=== PATIENT | female | born 1985 | race Caucasian/White ===

== ENCOUNTER 2019-07-13 13:49 | Emergency (ER) | payer OTHER ==
--- OUTSIDE RECORDS SUMMARY | 2019-07-13 13:52 | XMS REPORT ---
:1985 Author Organization [facility] Address [address] [place] [address] Dr. R[address] [place] [id number] Care Team Providers Name Role Phone Unavailable Unavailable Unavailable Payers Payer Name Policy Type Policy Number Effective Date Expiration Date Problems This patient has no known problems. Allergies, Adverse Reactions, Alerts Allergy Allergy Status Severity Reaction(s) Onset Inactive Treating Comments Name Type Date Date Clinician CHESTER KHAN Active SV 2018-03 00:00:0 0 Medications This patient has no known medications.
--- OUTSIDE RECORDS SUMMARY | 2019-07-13 13:52 | XMS REPORT ---
:1985 Author Organization eClinicalWorks Care Team Providers Name Role Phone Betsy Mehta Provider Role Unavailable Allergies, Adverse Reactions, Alerts Substance Reaction Event Type Ibuprofen Anaphylaxis Drug Allergy Aspirin Anaphylaxis Drug Allergy Problems Problem Type Condition Code Onset Dates Condition Status Problem Seasonal allergies J30.2 Active Problem Oropharyngeal dysphagia R13.12 Active Problem Cough R05 Active Assessment Other chronic gastritis without K29.50 Active hemorrhage Assessment Eosinophilic esophagitis K20.0 Active Assessment Restless leg syndrome G25.81 Active Problem Eosinophilic esophagitis K20.0 Active Problem Other chronic gastritis without K29.50 Active hemorrhage Problem Esophageal stricture K22.2 Active Problem Restless leg syndrome G25.81 Active Problem Viral URI J06.9 Active Problem Pain in right leg M79.604 Active Problem Pain in left leg M79.605 Active Medications Medication Code Code Instructions Start End Status Dosage System Date Date Pantoprazole [facility] 97342048986 40 MG Orally Active 1 tablet Sodium Once a day Gabapentin ND 80719262333 300 MG Orally Apr 06, Active 1 capsule twice a day 2018 Results No Known Results Summary Purpose eClinicalWorks Submission
--- OUTSIDE RECORDS SUMMARY | 2019-07-13 13:52 | XMS REPORT ---
:1985 Author Organization eClinicalWorks Care Team Providers Name Role Phone Tyson Betsy Provider Role Unavailable Allergies, Adverse Reactions, Alerts Substance Reaction Event Type Ibuprofen Anaphylaxis Drug Allergy Aspirin Anaphylaxis Drug Allergy Problems Problem Type Condition Code Onset Dates Condition Status Assessment Pain in right leg M79.604 Active Assessment Restless leg syndrome G25.81 Active Assessment Pain in left leg M79.605 Active Problem Pain in right leg M79.604 Active Problem Pain in left leg M79.605 Active Problem Restless leg syndrome G25.81 Active Problem Viral URI J06.9 Active Problem Seasonal allergies J30.2 Active Problem Oropharyngeal dysphagia R13.12 Active Problem Cough R05 Active Medications Medication Code System Code Instructions Start End Date Status Dosage Date Gabapentin [facility] 97284583721 100 MG Orally Apr 06, Active 1 capsule twice a day 2018 Results No Known Results Summary Purpose eClinicalWorks Submission
--- OUTSIDE RECORDS SUMMARY | 2019-07-13 13:52 | XMS REPORT ---
:1985 Author Organization eClinicalWorks Care Team Providers Name Role Phone Betsy Mehta Provider Role Unavailable Allergies, Adverse Reactions, Alerts Substance Reaction Event Type Ibuprofen Anaphylaxis Drug Allergy Aspirin Anaphylaxis Drug Allergy Problems Problem Type Condition Code Onset Dates Condition Status Assessment Oropharyngeal dysphagia R13.12 Active Assessment Viral URI J06.9 Active Assessment Cough R05 Active Problem Viral URI J06.9 Active Problem Oropharyngeal dysphagia R13.12 Active Problem Cough R05 Active Assessment Fever, unspecified fever cause R50.9 Active Assessment Sorethroat J02.9 Active Problem Seasonal allergies J30.2 Active Medications Medication Code System Code Instructions Start Date End Date Status Dosage Kayla NDC 0 Active not defined Results No Known Results Summary Purpose eClinicalWorks Submission
--- OUTSIDE RECORDS SUMMARY | 2019-07-13 13:52 | XMS REPORT ---
:1985 Author Organization eClinicalWorks Care Team Providers Name Role Phone Lona Mehtaa Provider Role Unavailable Allergies, Adverse Reactions, Alerts Substance Reaction Event Type Ibuprofen Anaphylaxis Drug Allergy Aspirin Anaphylaxis Drug Allergy Problems Problem Type Condition Code Onset Dates Condition Status Problem Seasonal allergies J30.2 Active Problem Oropharyngeal dysphagia R13.12 Active Problem Cough R05 Active Assessment Seasonal allergies J30.2 Active Assessment Cough R05 Active Assessment Viral URI J06.9 Active Problem Eosinophilic esophagitis K20.0 Active Problem Other chronic gastritis without K29.50 Active hemorrhage Problem Esophageal stricture K22.2 Active Problem Restless leg syndrome G25.81 Active Problem Viral URI J06.9 Active Problem Pain in right leg M79.604 Active Problem Pain in left leg M79.605 Active Medications Medication Code Code Instructions Start End Status Dosage System Date Date Pantoprazole [facility] 76716643671 40 MG Orally Active 1 tablet Sodium Once a day ProAir HFA [facility] 86757834426 108 (90 Base) Jul 01, Active 1 puff as MCG/ACT 2019 needed Inhalation every 4 hrs as needed Gabapentin ND 31998160605 300 MG Orally Apr 06, Active 1 capsule twice a day 2019 Results Name Result Date Reference Range Unit Abnormality Flag Nebulizer Combo Summary Purpose eClinicalWorks Submission
[2019-07-13] MEDS ORDERED: ONDANSETRON 4 MG (ODT) TAB ONE (14:31)
--- NOTE | 2019-07-13 15:10 | ER ---
Nurse's Notes [facility] Name: Renea Solano Age: 34 yrs Sex: Female : 1985 Arrival Date: 07/13/2019 Time: 13:56 Bed 25 Private MD: Diagnosis: Influenza due to certain identified influenza viruses Presentation: 07/12 14:12 Chief complaint: Patient states: upper respiratory infection 2 weeks ago, got over that dm5 then diarrhea for about a week and 2 days ago the head congestion and body aches started. pt swabbed for flu. Coronavirus screen: The patient has NOT traveled to a country currently being monitored by the [facility] within the last 14 days. The patient has NOT had contact with any known and/or suspected case of coronavirus. Proceed with normal triage procedures. Ebola Screen: Patient negative for fever greater than or equal to 101.5 degrees Fahrenheit, and additional compatible Ebola Virus Disease symptoms Patient denies exposure to infectious person. Patient denies travel to an Ebola-affected area in the 21 days before illness onset. No symptoms or risks identified at this time. Initial Sepsis Screen: Does the patient meet any 2 criteria? No. Patient's initial sepsis screen is negative. Does the patient have a suspected source of infection? No. Patient's initial sepsis screen is negative. Risk Assessment: Do you want to hurt yourself or someone else? Patient reports no desire to harm self or others. 14:12 Method Of Arrival: Ambulatory dm5 14:12 Acuity: ROSMERY 4 dm5 14:13 Note pt reports temp up to 101 at home but controlled with ibuprofen. pt is also taking dm5 theraflu. Historical: - Allergies: 14:15 No Known Allergies; dm5 - Home Meds: 14:15 None [Active]; dm5 - PMHx: 14:15 None; dm5 - PSHx: 14:15 None; dm5 Vital Signs: 14:09 BP 137 / 98; Pulse 102; Resp 18; Pulse Ox 99% ; Weight 70.31 kg; Height 5 ft. 7 in. ms (170.18 cm); Pain 3/10; 14:09 Body Mass Index 24.28 (70.31 kg, 170.18 cm) ms ED Course: 13:56 Patient arrived in ED. fj1 14:01 Rubén Padron FNP-C [facility]. la1 14:01 Ritchie Ayala MD is Attending Physician. la1 14:13 Triage completed. dm5 14:25 Lela Chamberlain, RN is Primary Nurse. ls4 14:25 Flu Sent. ls4 Administered Medications: 14:30 Drug: Zofran (Ondansetron) 4 mg Route: PO; ls4 Outcome: 15:09 Discharge ordered by . la1 15:21 Patient left the ED. ls4 Signatures: Brook Daniel, RAZA RN dmTish Page ms, Lee, FNP-C INFORMATION ASSURANCE MANAGER-Cla1 Lela Chamberlain, RN RN ls4 Coy Bishop fj1
--- NOTE | 2019-07-13 15:10 | EDPHYS ---
Physician Documentation [facility] Name: Renea Solano Age: 34 yrs Sex: Female : 1985 Arrival Date: 07/13/2019 Time: 13:56 Bed 25 Private MD: ED Physician Ritchie Ayala HPI: 07/12 15:07 This 34 yrs old Female presents to ER via Ambulatory with complaints of Flu la1 Symptoms. 15:07 The patient or guardian reports cough. Onset: The symptoms/episode began/occurred 1.5 la1 day(s) ago. Modifying factors: The symptoms are alleviated by nothing. the symptoms are aggravated by nothing. Associated signs and symptoms: Pertinent positives: diarrhea. Severity of symptoms: At their worst the symptoms were mild. The patient has not experienced similar symptoms in the past. children with similar sx. Historical: - Allergies: 14:15 No Known Allergies; dm5 - Home Meds: 14:15 None [Active]; dm5 - PMHx: 14:15 None; dm5 - PSHx: 14:15 None; dm5 ROS: 15:08 Constitutional: + fever Eyes: Negative for injury, pain, redness, and discharge, ENT: la1 Negative for injury, pain, and discharge, Neck: Negative for injury, pain, and swelling, Cardiovascular: Negative for chest pain, palpitations, and edema, Respiratory: + cough Abdomen/GI: + diarrhea Back: Negative for injury and pain, : Negative for injury, bleeding, discharge, and swelling, MS/Extremity: Negative for injury and deformity, Neuro: Negative for headache, weakness, numbness, tingling, and seizure. Exam: 15:08 Constitutional: This is a well developed, well nourished patient who is awake, alert, la1 and in no acute distress. Head/Face: Normocephalic, atraumatic. Chest/axilla: Normal chest wall appearance and motion. Nontender with no deformity. No lesions are appreciated. Cardiovascular: Regular rate and rhythm with a normal S1 and S2. No gallops, murmurs, or rubs. Normal PMI, no JVD. No pulse deficits. Respiratory: Lungs have equal breath sounds bilaterally, clear to auscultation Abdomen/GI: Soft, non-tender, with normal bowel sounds. MS/ Extremity: Pulses equal, no cyanosis. Neurovascular intact. Full, normal range of motion. Vital Signs: 14:09 BP 137 / 98; Pulse 102; Resp 18; Pulse Ox 99% ; Weight 70.31 kg; Height 5 ft. 7 in. ms (170.18 cm); Pain 3/10; 14:09 Body Mass Index 24.28 (70.31 kg, 170.18 cm) ms MDM: 14:10 Patient medically screened. la1 15:09 Data reviewed: vital signs, nurses notes, lab test result(s), and as a result, I will la1 discharge patient. Data interpreted: Pulse oximetry: on room air is 99 %. Interpretation: normal. Counseling: I had a detailed discussion with the patient and/or guardian regarding: the historical points, exam findings, and any diagnostic results supporting the discharge/admit diagnosis, lab results, the need for outpatient follow up, a family practitioner, to return to the emergency department if symptoms worsen or persist or if there are any questions or concerns that arise at home. Special discussion: I discussed with the patient/guardian that the patient's current presentation does not indicate dosing of antibiotics. They should follow-up with their primary care provider and return if the symptoms persist or progress. 07/12 14:10 Order name: Flu ms 07/12 14:38 Order name: Influenza Screen (A ; Complete Time: 15:00 EDMS 07/12 14:17 Order name: PO challenge; Complete Time: 14:57 la1 Administered Medications: 14:30 Drug: Zofran (Ondansetron) 4 mg Route: PO; ls4 Disposition: 16:35 Co-signature as Attending Physician, Ritchie Ayala MD I agree with the assessment and kdr plan of care. Disposition: 07/13/19 15:09 Discharged to Home. Impression: Influenza due to certain identified influenza viruses. - Condition is Stable. - Discharge Instructions: Influenza, Adult. - Prescriptions for Zofran 4 mg Oral Tablet - take 1 tablet by ORAL route every 12 hours As needed; 20 tablet. Tamiflu 75 mg Oral Capsule - take 1 tablet by ORAL route every 12 hours for 5 days; 10 tablet. - Work release form, Medication Reconciliation Form, Thank You Letter form. - Follow up: Emergency Department; When: 2 - 3 days; Reason: Recheck today's complaints, Re-evaluation by your physician. - Problem is new. - Symptoms have improved. Signatures: Dispatcher [employer] Brook Draper, RN RN dm5 Ritchie Ayala MD MD [facility] Rubén Padron, MEMBER SERVICE SPECIALIST-C MEMBER SERVICE SPECIALIST-Cla1 Lela Chamberlain, RN RN ls4 Corrections: (The following items were deleted from the chart) 15:21 15:09 07/13/2019 15:09 Discharged to Home. Impression: Influenza due to certain ls4 identified influenza viruses. Condition is Stable. Forms are Medication Reconciliation Form, Thank You Letter, Antibiotic Education, Prescription Opioid Use. Follow up: Emergency Department; When: 2 - 3 days; Reason: Recheck today's complaints, Re-evaluation by your physician. Problem is new. Symptoms have improved. la1
[2019-07-13 15:26] VITALS: BP 137/98; O2SAT 99
== END 2019-07-13 15:21 | disposition home or self-care (01) ==
LOC: ER 13:49
DX: J10.89 Influenza due to other identified influenza virus with other manifestations (principal)
CPT/HCPCS: 87804; 99283

== ENCOUNTER 2019-10-22 22:31 | Emergency (ER) | payer OTHER ==
--- OUTSIDE RECORDS SUMMARY | 2019-10-22 22:34 | XMS REPORT ---
:1985 Author Organization eClinicalWorks Care Team Providers Name Role Phone Tyson Betsy Provider Role Unavailable Allergies, Adverse Reactions, Alerts Substance Reaction Event Type Ibuprofen Anaphylaxis Drug Allergy Aspirin Anaphylaxis Drug Allergy Problems Problem Type Condition Code Onset Dates Condition Statu s Problem Viral URI J06.9 Active Problem Cough R05 Active Problem Oropharyngeal dysphagia R13.12 Acti ve Problem Eosinophilic esophagitis K20.0 Act tr Problem Esophageal stricture K22.2 Active Problem Essential hypertension I10 Activ e Problem Pain in left leg M79.605 Active Problem Restless leg syndrome G25.81 Active Problem Other chronic gastritis without K29.50 Active hemorrhage Problem Pain in right leg M79.604 Active Assessment History of claustrophobia Z86.59 Ac tive Assessment Essential hypertension I10 Activ e Assessment Seasonal allergies J30.2 Active Problem Seasonal allergies J30.2 Active Medications Medication Code Code Instructions Start End Status Dosage System Date Date ProAir HFA [facility] 09621270791 108 (90 Base) Jul 01, Active 1 p uff as MCG/ACT 2019 needed Inhalation every 4 hrs as needed Gabapentin ND 67331593634 300 MG Orally Active 1 c apsule twice a day Lisinopril ND 47237272943 10 MG Orally August Active 1 ta blet Once a day 2019 Pantoprazole [facility] 86514470792 40 MG Orally Active 1 tablet Sodium Once a day Results No Known Results Summary Purpose eClinicalWorks Submission
--- OUTSIDE RECORDS SUMMARY | 2019-10-22 22:34 | XMS REPORT | Continuity of Care Document ---
:1985 Author Organization [facility] t Address [address] [place] [address] Care Team Providers Name Role Phone Unavailable Unavailable Unavailable Payers Payer Name Policy Type Policy Number Effective Date Expiration Date S ource Problems Condition Condition Condition Status Onset Resolution Last Treating Co mments Source Name Details Category Date Date Treatment Clinician Date Oropharyng Oropharyng Problem Active [facility] dys[facility]agia [facility]agia Tito farida l [facility] Viral URI Viral URI Problem [facility] Cough Cough Problem [facility] Seasonal Seasonal Problem [facility] Pain in Pain in Problem Active [facility] right leg right leg [facility] Restless Restless Problem Active [facility] syndrome syndrome [facility] Pain in Pain in Problem Active [facility] left leg left leg [facility] Other Other Problem Active [facility] chronic chronic [facility] gastritis gastritis Tito farida without without l hemorrhage hemorrhage [facility] Clinics Eosinophil Eosinophil Problem Active [facility] ic ic [facility] - esophagiti esophagiti Me [place]ia s s l [facility] Esophageal Esophageal Problem Active [facility] stricture stricture [facility] Essential Essential Diagnosis Active [facility] hypertensi hypertensi Dodie kes - on on [facility] History of History of Diagnosis Active [facility] claustroph claustroph Dodie kes - obia obia [facility] ent Clinics Allergies, Adverse Reactions, Alerts Allergy Allergy Status Severity Reaction(s) Onset Inactive Treating Comm ents Source Name Type Date Date Clinician CHESTER DA Active SV 2018-1 [facility] Ibuprofe Adverse Active Anaphylaxis [facility] Reaction [facility] - [facility] ent Clinics Aspirin Adverse Active Anaphylaxis [facility] Reaction [facility] Clinics Medications Ordered Filled Start Stop Current Ordering Indication Dosage Frequency Signature Comments Components Source Medication Medication Date Date Medication? Clinician (SIG) Name Name Lisinopril Lisinopril Yes Betsy [address] [facility] [place] [facility] Clinics ProAir HFA ProAir HFA Yes Betsy [address] [facility] [place] needed [facility] - 00[facility]: [facility] 00 [facility] ent [facility] Pantoprazol Pantoprazol Yes Betsy [address] [facility] e Sodium e Sodium [place] [facility] ent [facility] Gabapentin Gabapentin Yes Betsy [address] [facility] [place] [facility] ent [facility] Procedures This patient has no known procedures. Encounters Start End Encounter Admission Attending Care Care Encounter Source Date/Time Date/Time Type Type Clinicians Facility Department ID 2019-08-19 2019-08-19 [facility] [id number] [facility] 08[facility]20[facility]00 [facility] 2019-07-01 2019-07-01 [facility] [id number] [facility] 10:00[facility]00 10:00:00 [facility] Medicine Outpati ent Clinics 2019-05-25 2019-05-25 [facility] [id number] [facility] 10:40:00 10:40:00 [facility] 2019-04-06 2019-04-06 [facility] [id number] [facility] 10:40:00 10:40:00 [facility] 2019-03-16 2019-03-16 [facility] [id number] 13:20:00 13:20:00 [facility] Medicine Outpati ent Clinics Results This patient has no known results.
[2019-10-23 00:24] LABS: Basophils % 0.5 % (0-1.3)
[2019-10-23 00:29] LABS: Absolute Lymphocytes (CBC) 1.4 K/uL (0.7-4.9); Hematocrit 42.2 % (36.0-45.0); Lymphocytes % 27.7 % (15.3-44.8); MPV 8.6 fL (7.6-11.3); RBC Red Blood Cell Count 4.58 M/uL (3.86-4.86)
[2019-10-23 00:44] LABS: ALT/SGPT 48 U/L (12-78); AST/SGOT 30 U/L (15-37); Albumin 4.1 g/dL (3.4-5.0); Alkaline Phosphatase 59 U/L (45-117); BUN Blood Urea Nitrogen 13 mg/dL (7-18); Bicarbonate 25 mmol/L (21-32); Bilirubin Direct < 0.1 mg/dL (0-0.2); Bilirubin Total 0.2 mg/dL (0.2-1.0); Glucose Level 96 mg/dL (74-106); Magnesium 2.3 mg/dL (1.8-2.4); NT PRO-BNP 30 pg/mL (<125); Potassium 3.8 mmol/L (3.5-5.1); Protein, Total 7.5 g/dL (6.4-8.2); Sodium Level 140 mmol/L (136-145); Troponin (Emerg Dept Use Only) < 0.02 ng/mL (0.0-0.045)
[2019-10-23] MEDS ORDERED: FAMOTIDINE 20 MG/2 ML VIAL IV ONE (00:46)
--- NOTE | 2019-10-23 02:19 | ER ---
Nurse's Notes [facility] Name: Renea Solano Age: 34 yrs Sex: Female : 1985 Arrival Date: 10/22/2019 Time: 22:34 Bed 16 Private MD: Izzy Lyman Diagnosis: Chest pain, unspecified Presentation: 10/21 22:42 Chief complaint: Patient states: Left sided CP since last night. Reports drainage to [facility] throat since yesterday. States it feels like her esophagus is closing up. States she has scheduled esophageal stricture surgery this coming Thursday. Fever 99.5 at home. Coronavirus screen: Proceed with normal triage. Patient denies a cough. Patient denies shortness of breath or difficulty breathing. Patient denies measured and/or subjective temperature greater than 100.4F prior to today's visit. Patient denies travel on a cruise ship or to a country the [facility] currently lists as an affected area. Patient denies contact with known and/or suspected case of COVID-19. Ebola Screen: Patient denies travel to an Ebola-affected area in the 21 days before illness onset. Initial Sepsis Screen: Does the patient meet any 2 criteria? No. Patient's initial sepsis screen is negative. Risk Assessment: Do you want to hurt yourself or someone else? Patient reports no desire to harm self or others. Onset of symptoms was October 21, 2019. 22:42 Method Of Arrival: Ambulatory ll1 22:42 Acuity: ROSMERY 3 ll1 22:49 Initial Sepsis Screen: Does the patient have a suspected source of infection? No. vc Patient's initial sepsis screen is negative. Triage Assessment: 22:49 General: Appears in no apparent distress. Behavior is calm, cooperative, appropriate vc for age. Historical: - Allergies: 22:45 No Known Allergies; ll1 - PMHx: 22:45 Hypertension; ll1 - PSHx: 22:45 Tonsillectomy; emdometriosis surgery x 3; ll1 - Immunization history:: Adult Immunizations up to date. - Social history:: Smoking status: Patient denies any tobacco usage or history of. Patient/guardian denies using alcohol, street drugs, tobacco products. Screenin:48 Abuse screen: Denies threats or abuse. Nutritional screening: No deficits noted. vc Tuberculosis screening: No symptoms or risk factors identified. Fall Risk None identified. Assessment: 22:55 General: Appears in no apparent distress. uncomfortable, slender, Behavior is calm, vc cooperative, appropriate for age. Pain: Complains of pain in anterior aspect of left upper chest and left lateral anterior chest Pain does not radiate. Pain at worst was 5 out of 10 on a pain scale. Quality of pain is described as squeezing, Pain began 1 day ago. Neuro: Level of Consciousness is awake, alert, obeys commands, Oriented to person, place, time. Cardiovascular: Capillary refill < 3 seconds Patient's skin is warm and dry. Chest pain is described as mild, Pain is 5 out of 10 on a pain scale. quality is pressure, sharp, is located in left anterior chest wall began 1 day ago is alleviated by rest. Respiratory: Denies shortness of breath. Respiratory: Airway Respiratory effort is even, Respiratory pattern is regular. GI: No signs and/or symptoms were reported involving the gastrointestinal system. : No signs and/or symptoms were reported regarding the genitourinary system. EENT: Reports difficulty swallowing. 23:55 Reassessment: Patient appears in no apparent distress at this time. Patient and/or vc family updated on plan of care and expected duration. Pain level reassessed. Patient is alert, oriented x 3, equal unlabored respirations, skin warm/dry/pink. 10/22 00:55 Reassessment: Patient appears in no apparent distress at this time. Patient and/or vc family updated on plan of care and expected duration. Pain level reassessed. Patient is alert, oriented x 3, equal unlabored respirations, skin warm/dry/pink. 01:55 Reassessment: Patient appears in no apparent distress at this time. Patient and/or vc family updated on plan of care and expected duration. Pain level reassessed. Patient is alert, oriented x 3, equal unlabored respirations, skin warm/dry/pink. Patient states symptoms have improved. 02:42 Reassessment: Patient appears in no apparent distress at this time. Patient and/or vc family updated on plan of care and expected duration. Pain level reassessed. Patient is alert, oriented x 3, equal unlabored respirations, skin warm/dry/pink. Patient states feeling better. Patient states symptoms have improved. Vital Signs: 10/21 22:42 BP 168 / 98; Pulse 82; Resp 18; Temp 99.0; Pulse Ox 100% ; Pain 4/10; ll1 23:00 BP 140 / 87; Pulse 71; Resp 17; Pulse Ox 100% ; vc 10/22 00:00 BP 133 / 85; Pulse 71; Resp 15; Pulse Ox 100% on R/A; vc 01:00 BP 121 / 87; Pulse 72; Resp 17; Pulse Ox 99% on R/A; vc 02:00 BP 116 / 84; Pulse 66; Resp 13; Pulse Ox 95% on R/A; vc ED Course: 10/21 22:34 Patient arrived in ED. es 22:35 Izzy Lyman MD is Private Physician. es 22:36 [facility] pm1 22:36 Gumaro Roberts MD is Attending Physician. pm1 22:41 Lela Coello RN is Primary Nurse. vc 22:45 Triage completed. ll1 22:46 Arm band placed on Patient placed in an exam room, on a stretcher. ll1 22:50 Patient has correct armband on for positive identification. Bed in low position. Call vc light in reach. digital ad trafficker on. Pulse ox on. NIBP on. 22:59 Patient maintains SpO2 saturation greater than 95% on room air. vc 10/22 00:25 EKG done, by ED staff. sg 01:49 XRAY Chest (1 view) In Process Unspecified. EDMS 02:18 Nini Santiago MD is Referral Physician. pm1 02:42 No provider procedures requiring assistance completed. IV discontinued, intact, vc bleeding controlled, No redness/swelling at site. Pressure dressing applied. Administered Medications: 00:35 Drug: Pepcid 20 mg Route: IVP; Site: left antecubital; mg2 00:45 Follow up: Response: No adverse reaction sg 02:20 Drug: Decadron - Dexamethasone 10 mg Route: IVP; Site: left antecubital; sg 02:30 Follow up: Response: No adverse reaction sg Outcome: 02:18 Discharge ordered by . pm1 02:40 Discharged to home ambulatory. vc 02:40 Condition: improved 02:40 Discharge instructions given to patient, Instructed on discharge instructions, follow up and referral plans. Demonstrated understanding of instructions, follow-up care. 02:42 Patient left the ED. mg2 Signatures: Dispatcher [employer] Magan Cruz, RN RN sg Mickie Olsen Patrick, MRI SUPERVISOR MRI SUPERVISOR pm1 Mike Quick RN RN mg2 Lela Coello RN RN vc Michael Hooker RN RN ll1
--- NOTE | 2019-10-23 02:19 | EDPHYS ---
Physician Documentation [facility] Name: Renea Solano Age: 34 yrs Sex: Female : 1985 Arrival Date: 10/22/2019 Time: 22:34 Bed 16 Private MD: Izzy Lyman ED Physician Gumaro Roberts HPI: 10/22 00:00 This 34 yrs old Female presents to ER via Ambulatory with complaints of Chest pm1 Pain, difficulty swallow. 00:00 The patient or guardian reports chest pain that is located primarily in the anterior pm1 aspect of left upper chest and mid-sternal area. The pain does not radiate. Associated signs and symptoms: Pertinent positives: painful, difficulty swallowing, Pertinent negatives: abdominal pain, cough, dizziness, headache, nausea, palpitations, shortness of breath, vomiting. The chest pain is described as sharp. Duration: The patient or guardian reports a single episode, that is still ongoing. Modifying factors: the symptoms are aggravated by swallowing. Severity of pain: in the emergency department the pain is unchanged. The patient has experienced similar episodes in the past, pain and difficulty swallowing for multiple years. Left sided chest pain associated with it is new. Onset yesterday. Historical: - Allergies: 10/21 22:45 No Known Allergies; ll1 - PMHx: 22:45 Hypertension; ll1 - PSHx: 22:45 Tonsillectomy; emdometriosis surgery x 3; ll1 - Immunization history:: Adult Immunizations up to date. - Social history:: Smoking status: Patient denies any tobacco usage or history of. Patient/guardian denies using alcohol, street drugs, tobacco products. ROS: 10/22 00:00 Constitutional: Negative for fever, chills, and weight loss, Eyes: Negative for injury, pm1 pain, redness, and discharge. Neck: Negative for injury, pain, and swelling. Respiratory: Negative for shortness of breath, cough, wheezing, and pleuritic chest pain, Abdomen/GI: Negative for abdominal pain, nausea, vomiting, diarrhea, and constipation, Back: Negative for injury and pain, MS/Extremity: Negative for injury and deformity, Skin: Negative for injury, rash, and discoloration, Neuro: Negative for headache, weakness, numbness, tingling, and seizure. ENT: Positive for difficulty swallowing, sore throat, Negative for difficulty handling secretions, hoarseness. Cardiovascular: Positive for chest pain, Negative for edema, palpitations. Exam: 00:00 Constitutional: This is a well developed, well nourished patient who is awake, alert, pm1 and in no acute distress. Head/Face: Normocephalic, atraumatic. Neck: Trachea midline, no thyromegaly or masses palpated, and no cervical lymphadenopathy. Supple, full range of motion without nuchal rigidity, or vertebral point tenderness. No Meningismus. Chest/axilla: Normal chest wall appearance and motion. Nontender with no deformity. No lesions are appreciated. 00:00 Abdomen/GI: Soft, non-tender, with normal bowel sounds. No distension or tympany. No guarding or rebound. No evidence of tenderness throughout. Back: No spinal tenderness. No costovertebral tenderness. Full range of motion. Skin: Warm, dry with normal turgor. Normal color with no rashes, no lesions, and no evidence of cellulitis. MS/ Extremity: Pulses equal, no cyanosis. Neurovascular intact. Full, normal range of motion. 00:00 Cardiovascular: Exam negative for acute changes, Rate: normal, Rhythm: regular, Pulses: no pulse deficits are appreciated. 00:00 Respiratory: Exam negative for acute changes, respiratory distress, shortness of breath. 00:00 Neuro: Exam negative for acute changes, Orientation: is normal, Mentation: is normal, Motor: is normal, moves all fours. Vital Signs: 10/21 22:42 BP 168 / 98; Pulse 82; Resp 18; Temp 99.0; Pulse Ox 100% ; Pain 4/10; ll1 23:00 BP 140 / 87; Pulse 71; Resp 17; Pulse Ox 100% ; vc 10/22 00:00 BP 133 / 85; Pulse 71; Resp 15; Pulse Ox 100% on R/A; vc 01:00 BP 121 / 87; Pulse 72; Resp 17; Pulse Ox 99% on R/A; vc 02:00 BP 116 / 84; Pulse 66; Resp 13; Pulse Ox 95% on R/A; vc MDM: 10/21 22:36 Patient medically screened. pm1 22:38 Patient medically screened. [facility] 10/22 02:17 Data reviewed: vital signs. Data interpreted: Pulse oximetry: on room air is 100 %. pm1 Interpretation: normal. 10/21 23:55 Order name: Basic Metabolic Panel pm1 10/21 23:55 Order name: CBC with Diff; Complete Time: 00:35 pm1 10/21 23:55 Order name: LFT's pm1 10/21 23:55 Order name: Magnesium; Complete Time: 00:45 pm1 10/21 23:55 Order name: NT PRO-BNP; Complete Time: 00:45 pm1 10/21 23:55 Order name: PT-INR; Complete Time: 00:35 pm1 10/21 23:55 Order name: Troponin (emerg Dept Use Only); Complete Time: 00:45 pm1 10/21 23:55 Order name: XRAY Chest (1 view) pm1 10/21 23:56 Order name: Basic Metabolic Panel; Complete Time: 00:45 EDMS 10/21 23:56 Order name: Liver (Hepatic) Function; Complete Time: 00:45 EDMS 10/22 00:20 Order name: D-Dimer; Complete Time: 00:35 EDMS 10/21 23:55 Order name: EKG; Complete Time: 23:57 pm1 10/21 23:55 Order name: Cardiac monitoring; Complete Time: 00:12 pm1 10/21 23:55 Order name: EKG - Nurse/Tech; Complete Time: 00:24 pm1 10/21 23:55 Order name: IV Saline Lock; Complete Time: 00:11 pm1 10/21 23:55 Order name: Labs collected and sent; Complete Time: 00:12 pm1 10/21 23:55 Order name: O2 Per Protocol; Complete Time: 00:12 pm10/21 23:55 Order name: O2 Sat Monitoring; Complete Time: 00:12 pm1 EC:24 Rate is 72 beats/min. Rhythm is regular, Normal Sinus Rhythm with No ectopy. No Q pm1 waves. T waves are Normal. No ST changes noted. Clinical impression: Normal ECG. Administered Medications: 00:35 Drug: Pepcid 20 mg Route: IVP; Site: left antecubital; mg2 00:45 Follow up: Response: No adverse reaction sg 02:20 Drug: Decadron - Dexamethasone 10 mg Route: IVP; Site: left antecubital; sg 02:30 Follow up: Response: No adverse reaction sg Disposition: 04:23 Co-signature as Attending Physician, Gumaro Roberts MD I agree with the assessment and [facility] plan of care. Disposition: 10/23/19 02:18 Discharged to Home. Impression: Chest pain, unspecified. - Condition is Stable. - Discharge Instructions: Nonspecific Chest Pain, Esophagitis. - Medication Reconciliation Form, Thank You Letter, Antibiotic Education, Prescription Opioid Use form. - Follow up: Emergency Department; When: As needed; Reason: Worsening of condition. Follow up: Nini Santiago MD; When: 2 - 3 days; Reason: Recheck today's complaints, Continuance of care, Re-evaluation by your physician. - Problem is new. - Symptoms have improved. Signatures: Dispatcher [employer] [facility] Magan Velázquez RN RN Gumaro Best MD MD cha Marinas, Patrick, EAR PULL MACHINE OPERATOR EAR PULL MACHINE OPERATOR pm1 Mike Quick RN RN mg2 Lela Coello RN RN vc Michael Hooker RN RN ll1 Corrections: (The following items were deleted from the chart) 00:19 10/21 23:57 D-DIMER+COAG.LAB.BRZ ordered. [facility] 10/22 02:42 02:18 10/23/2019 02:18 Discharged to Home. Impression: Chest pain, unspecified. mg2 Condition is Stable. Forms are Medication Reconciliation Form, Thank You Letter, Antibiotic Education, Prescription Opioid Use. Follow up: Emergency Department; When: As needed; Reason: Worsening of condition. Follow up: Nini Santiago; When: 2 - 3 days; Reason: Recheck today's complaints, Continuance of care, Re-evaluation by your physician. Problem is new. Symptoms have improved. pm1
[2019-10-23] MEDS ORDERED: dexAMETHasone 10 MG/ML VIAL ONE (02:30)
[2019-10-23 02:48] VITALS: BP 168/98; TEMP 99; O2SAT 100
--- NOTE | 2019-10-23 06:20 | EKG ---
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
--- NOTE | 2019-10-23 12:25 | RAD REPORT ---
EXAM DESCRIPTION: Keith Single View10/23/2019 1:49 am CLINICAL HISTORY: Chest pain COMPARISON: none FINDINGS: The lungs appear clear of acute infiltrate. The heart is normal size IMPRESSION: No acute abnormalities displayed
== END 2019-10-23 02:42 | disposition home or self-care (01) ==
LOC: ER 22:31
DX: R07.9 Chest pain, unspecified (principal); I10 Essential (primary) hypertension
CPT/HCPCS: 93005; 85025; 80048; 36415; 83735; 85610; 85379; 80076; 84484; 83880; 71045; 96375; 96374; 99285; J1100

== ENCOUNTER 2020-04-24 16:57 | Emergency (ER) | payer OTHER ==
--- OUTSIDE RECORDS SUMMARY | 2020-04-24 17:00 | XMS REPORT ---
:1985 Author Organization [facility] Address [address] [place] [address] Care Team Providers Name Role Phone Tyson Unavailable [phone] PROBLEMS Type Condition ICD9-CM [id number] Onset Condition SNOMED Code Notes Code Code Dates Status Problem Oropharyngeal R13.12 Active 86508210 dysphagia Problem Pain in left leg M79.605 Active 215177499 Problem Pain in right leg M79.604 Active 87778807 Problem Seasonal J30.2 Active 324401827 allergies Problem Neuropathic pain M79.2 Active 574755772 Problem Cough R05 Active 19306484 Problem Essential I10 Active 66242142 hypertension Problem Viral URI J06.9 Active 094551914 Problem Restless leg G25.81 Active 84167652 syndrome Problem Other chronic K29.50 Active 1113322 gastritis without hemorrhage Problem Esophageal K22.2 Active 25015092 stricture 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 ALLERGIES Allergen (clinical Drug/Non Drug Reaction Allergy Type Onset Date S tatus drug ingredient) Allergy documented on EMR ibuprofen Ibuprofen([facility] Anaphylaxis Drug Allergy Active Code:[address]-09) aspirin Aspirin([facility] Anaphylaxis Drug Allergy Active Code:[address]-74) ENCOUNTERS from 1985 to 2020-03-13 [facility]counter [facility] Date [facility] [address] [facility] [address] [place] 04 Mar, 2020 [place] [address] IMMUNIZATIONS Vaccine Route Administration Date Status Kenalog (Triamcinolone) IM Intramuscular Mar 16, 2019 Adminis tered Dexamethasone IM Intramuscular Mar 16, 2019 Administered SOCIAL HISTORY Tobacco Use: Social History Observation Description Date Details (start date - stop date) Never Smoker Sex Assigned At : Social History Observation Description Sex Assigned At Unknown Alcohol Screen Question Answer Notes Did you have a drink containing alcohol in the past year? No Points 0 Interpretation Negative Tobacco Use/Smoking Question Answer Notes Are you a never smoker REASON FOR REFERRAL No Information VITAL SIGNS No information MEDICATIONS Medication SIG (Take, Route, Start Date End Date Status Frequency, Duration) Lisinopril 10 MG 1 tablet Orally Once a 17 Aug, 2019 N ot-Taking day for 30 day(s) Gabapentin 100 MG 1 capsule Orally Three Active times a day for 90 days Pantoprazole Sodium 40 MG 1 tablet Orally Once a Active day for 30 day(s) ProAir HFA 108 (90 Base) 1 puff as needed Jun, Not-Taking MCG/ACT Inhalation every 4 hrs as needed for 30 days PROCEDURES No Information RESULTS No Results REASON FOR VISIT Rx Questions MEDICAL (GENERAL) HISTORY Type Description Date Medical History Seasonal allergies Surgical History T&A Surgical History Laparoscopic for Endometriosis Surgical History L knee meniscus repair Goals Section No Information Health Concerns No Information MEDICAL EQUIPMENT No Information MENTAL STATUS No Information FUNCTIONAL STATUS No Information ASSESSMENTS No Information PLAN OF TREATMENT Medication Medication Name Sig Start Date Stop Date Gabapentin 100 MG 1 capsule Orally Three times a day for 90 days Next Appt Details Provider Name:Betsy Mehta, 2020-06-01 10 :20:00 AM, [address] [facility], [address], [place], [address], Insurance Providers Payer Name Payer Payer Insured Patient Coverage Coverage End Address Phone Name Relationship to Start Date Mustapha e Insured Ambetter from [phone] Russ,Tereza self [place] [phone] Health Plan [facility] [id number]
--- OUTSIDE RECORDS SUMMARY | 2020-04-24 17:00 | XMS REPORT ---
:1985 Author Organization [facility] Address 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 507085861 esophagitis Problem Environmental Z91.09 Active 168334463 allergies Problem Pain in left leg M79.605 Active 471778609 Problem Skin cancer C44.90 Active 591030225 Problem Restless leg G25.81 Active 59469209 syndrome Problem Esophageal K22.2 Active 96600527 stricture Problem Neuropathic pain M79.2 Active 156711239 Problem Essential I10 Active 32792100 hypertension Problem Multiple food Z91.018 Active 933297485 allergies ALLERGIES Allergen (clinical Drug/Non Drug Reaction Allergy Type Onset Date S tatus drug ingredient) Allergy documented on EMR ibuprofen Ibuprofen([facility] Anaphylaxis Drug Allergy Active Code:[address]-72) aspirin Aspirin([facility] Anaphylaxis Drug Allergy Active Code:[address]-96) ENCOUNTERS from 1985 to 2020-03-27 Encounter Location Date Provider Diagnosis [facility] [address], B[place]y [place] Rest less leg syndrome [facility] [address] [place], G25.81 ; [place] [address] C44.90 ; Envir onmental allergies Z91.0 9 and Multiple food allergies Z91.0 18 IMMUNIZATIONS Vaccine Route Administration Date Status Kenalog [...] REASON FOR REFERRAL No Information VITAL SIGNS Height 67 in Mar, Weight 159.6 lbs Mar, Temperature 97.2 degrees Fahrenheit Mar, BMI 24.99 kg/m2 Mar, Oximetry 100 % Mar, Respiratory Rate 18 /min Mar, Blood pressure systolic 139 mm Hg Mar, Blood pressure diastolic 88 mm Hg Mar, MEDICATIONS Medication SIG (Take, Route, Notes Start Date End Date Status Frequency, Duration) Lisinopril 10 MG 1 tablet Orally Once a 17 Aug, 2019 Not-Taking day for 30 day(s) Pantoprazole Sodium 40 1 tablet Orally Once a Active MG day for 30 day(s) ProAir HFA 108 (90 Base) 1 puff as needed Jun, Not-Taking MCG/ACT Inhalation every 4 hrs as needed for 30 days Gabapentin 800 MG 1 capsule Orally Three Active times a day for 90 days PROCEDURES No Information RESULTS No Results REASON FOR VISIT Restless Legs 8138499 MEDICAL (GENERAL) HISTORY Type Description Date Medical History Seasonal allergies Surgical History T&A Surgical History Laparoscopic for Endometriosis Surgical History L knee meniscus repair Surgical History Hysterectomy lap 03/2020 Goals Section No Information Health Concerns No Information MEDICAL EQUIPMENT No Information MENTAL STATUS No Information FUNCTIONAL STATUS No Information ASSESSMENTS Encounter Date Diagnosis Assessment Notes Treatment Notes Treatm ent Clinical Notes Mar, Restless leg med as directed if syndrome (ICD-10 - no improvement G25.81) will switch to ropineral Mar, Skin cancer (ICD-10 aware - C44.90) continue care with Derm as scheduled Mar, Environmental aware allergies (ICD-10 - Z91.09) Mar, Multiple food avoid foods that allergies (ICD-10 - trigger throat Z91.018) swelling PLAN OF TREATMENT Medication Medication Name Sig Start Date Stop Date Gabapentin 800 MG 1 capsule Orally Three times a day for 90 days Treatment Notes Assessment Notes Clinical Notes Restless leg syndrome med as directed if no improvement will switch to ropineral Skin cancer awarecontinue care with Derm as schedule d Environmental allergies aware Multiple food allergies avoid foods that trigger throat swel ling Next Appt Details 6 Months Reason: Provider Name:Betsybrigitte Mehta, 2020-06-01 10 :20:00 AM, [address] [facility], [address], [place], [address], Provider Name:Betsy [place], 2020-09-24 02 :40:00 PM, [address], [address], [place], [address], Insurance Providers Payer Name Payer Payer Insured Patient Coverage Coverage End Address Phone Name Relationship to Start Date Mustapha e Insured Ambetter from [phone] Russ,Makif self [place] [phone] Health Plan [facility] [id number]
--- OUTSIDE RECORDS SUMMARY | 2020-04-24 17:00 | XMS REPORT | Continuity of Care Document ---
:1985 Author Organization [facility] t Address [address] [place] [address] Care Team Providers Name Role Phone FOUND, NOT Primary Care Physician Unavailable Ino PERSON, G Attending Clinician Unavailable Ezra JUDGE Attending Clinician Payers Payer Name Policy Type Policy Number Effective Date Expiration Date S ource Advance Directives Directive Decision Effective Date Termination Date Comments Sour ce Yes N/A [facility] Problems Condition Condition Condition Status Onset Resolution Last Treating Co mments Source Name Details Category Date Date Treatment Clinician Date Problem Condition ЮЛИЯ [facility] Allergies, Adverse Reactions, Alerts Allergy Allergy Status Severity Reaction(s) Onset Inactive Treating Comm ents Source Name Type Date Date Clinician Peanuts Allergy Active 2019-05 [facility] [facility]:00: [facility] Eggs Allergy Active 2019-05 [facility] [facility] 00:00: [facility] Milk Allergy Active 2019-05 [facility] [facility] 00:00: [facility] e [facility] Wheat Allergy Active 2019-05 [facility] [facility] 00:00: [facility] e [facility] almond Allergy Active 2019-05 [facility] - [facility]: [facility] clams Allergy Active 2019-05 [facility] [facility] 00:00: [facility] e [facility] scallops Allergy Active 2019-05 [facility] [facility] 00:00: [facility] e [facility] peanut FA Active U 2019-05 [facility] [place] lactase DA Active U 2019-[facility] [place] ibuprofe DA Active U 2019-05 [facility] [place] egg FA Active U 2019-05 [facility] [place] wheat FA Active U 2019-05 [facility] [place] ASPRIN DA Active SV 2017-05 [facility] 1-15 [facility] [place] Ibuprofe Adverse Active Anaphylaxis [facility] Aspirin Adverse Active Anaphylaxis [facility] Social History Social Habit Start Date Stop Date Quantity Comments Source Sex Assigned At [address] 00:[facility]00 00[facility]00:00 [facility] Smoking Status Start Date Stop Date Source Unknown if ever smoked [facility] Medications Ordered Filled Start Stop Current Ordering Indication Dosage Frequency Signature Comments Components Source Medication Medication Date Date Medication? Clinician (SIG) Name Name Lisinopril Lisinopril 20200 Yes Betsy [address] [facility] [place] [facility] ProAir HFA ProAir HFA 2019-0 Yes Betsy [address] [facility] [place] [facility] Pantoprazol Pantoprazol Yes Betsy [address] e Sodium e Sodium [place] [facility] Gabapentin Gabapentin Yes Betsy [address] [place] [facility] Vital Signs Vital Name Observation Time Observation Value Comments Source BP Diastolic 2020-03-29 04:20:00 86 mm[Hg] [facility] BP Systolic 2020-03-29 04:20:00 130 mm[Hg] [facility] Heart Rate 2020-03-29 04:20:00 87 /min [facility] Respiratory rate 2020-03-29 04:20:00 17 /min [facility] BP Diastolic 2020-03-29 04:07:00 86 mm[Hg] [facility] BP Systolic 2020-03-29 04:07:00 130 mm[Hg] [facility] Heart Rate 2020-03-29 04:07:00 87 /min [facility] Respiratory rate 2020-03-29 04:07:00 17 /min [facility] BP Diastolic 2020-03-28 23:51:00 80 mm[Hg] [facility] BP Systolic 2020-03-28 23:51:00 128 mm[Hg] [facility] BP Diastolic 2020-03-28 23:28:00 120 mm[Hg] [facility] BP Systolic 2020-03-28 23:28:00 153 mm[Hg] [facility] Heart Rate 2020-03-28 23:28:00 116 /min [facility] Respiratory rate 2020-03-28 23:28:00 18 /min [facility] Body Temperature 2020-03-28 23:28:00 98.3 [degF] [facility] Procedures Procedure Date / Time Performed Performing Clinician Fernando bae Complete ultrasound of 2020-03-29 00:00:00 [facility] pelvis [facility] Computed tomography of 2020-03-29 00:00:00 [facility] abdomen and pelvis [facility] without contrast Plan of Care Planned Activity Planned Date Details Comments Source Future Scheduled Test Urine beta-human [facility] chorionic gonadotropin Franc Aleks (BhCG) detection [code [facility] = 2112-1] Goal Patient referral [code [facility] = [id number] ] [facility] Encounters Start End Encounter Admission Attending Care Care Encounter Source Date/Time Date/Time Type Type Clinicians Facility Department ID 2020-03-28 2020-03-29 Departed HIMA Torres [id number] [facility] 23:27:00 04:37:00 Emergency [facility] [address] l 2020-03-27 2020-03-27 Outpatient [facility] [id number] [facility] St 00:00:00 00:00:00 [facility]pat[facility] ent Clinics 2020-03-07 2020-03-07 Outpatient [facility] [id number] [facility]00 [facility] Outpati ent Clinics 2019-11-30 2019-11-30 [facility] [id number] 10:40:00 10:40:00 [facility] Outpati ent Clinics 2019-11-01 2019-11-01 Telephone Cristian BERNARD [id number] 00:00:00 00:00:00 Ana delatorre [id number] [place] [id number] 2019-10-30 2019-10-30 Emergency [place], [facility] [id number] 14:26:51 16:21:00 Mary Mckeon [id number] [place] [id number] [place] [id number] 2019-08-19 2019-08-19 [facility] [id number] 08:20:00 08:20:00 t [facility] 2019-07-01 2019-07-01 [facility] [id number] 10:00:00 10:00:00 t [facility] ent [facility] 2019-05-25 2019-05-25 [facility] [id number] 10:40:00 10:40:00 t [facility] 2019-04-06 2019-04-06 [facility] [id number] 10:40:00 10:40:00 [facility] ent [facility] 2019-03-16 2019-03-16 [facility] [id number] 13:20:00 13:20:00 [facility] ent Clinics Results Test Description Test Time Test Comments Results Result [facility] e Comments - DUP AB/PEL/SC/LTD 2020-04-15 21:02:00 [facility] : 1985 Sex: F * Patient Name: MORGAN FERGUSON Unit No: [id number] EXAMS: CPT CODE: [id number] DUP AB/PEL/SC/LTD 20270 PROCEDURE: PELVIC ULTRASOUND INDICATION: Vaginal bleeding status post hysterectomy 1 month ago. COMPARISON: None. TRANSABDOMINAL SCAN: The uterus is not visualized. Right ovary appears normal measuring 2.8 x 1.8 x 1.6 cm with arterial waveforms documented. Left ovary appears normal measuring 2.9 x 2.2 x 2 cm with arterial waveforms documented. No adnexal masses visualized. No free pelvic fluid. TRANSVAGINAL SCAN: Transvaginal exam was performed for better visualization of the pelvic structures. Uterus is not visualized. Right ovary measures 2.8 x 2 x 2.3 cm containing few follicles. Left ovary is not visualized. No adnexal mass or free fluid visualized. IMPRESSION: Status post hysterectomy. No pelvic sonographic abnormality identified. SL: SG-H at 2101 Reported and signed by: Magan Ayala MD CC: Mari De La O DO Technologist: Karin Winters RDMS Probe: Trnscrbd D/ (2101) [email or web address] Orig Print D/T: S: 04/15/2020 (2104) [facility] NAME: MORGAN FERGUSON TOÑO Radiology Department PHYS: CHRISBlanca RodríguezRodney [address] : 1985 AGE: 35 SEX: F [place] [address] LOC: EugeneERS PHONE #: [phone] EXAM DATE: 04/15/2020 STATUS: REG ER FAX #: [phone] RAD NO: Page 1 Signed Report Patient Name: MORGAN FERGUSON Unit No: [id number] EXAMS: CPT CODE: [id number] DUP AB/PEL/SC/LTD 25039 <Continued> [facility] NAME: MORGAN FERGUSON TOÑO Radiology Department PHYS: CHRISBlanca RodríguezRodney [address] : 1985 AGE: 35 SEX: F [place] [address] LOC: EugeneERS PHONE #: [phone] EXAM DATE: 04/15/2020 STATUS: REG ER FAX #: [phone] RAD NO: Page 2 Signed Report - US TRANSVAGINAL 2020-04-15 W/PELVIS 21:02:00 [facility] : 1985 Sex: F * Patient Name: MORGAN FERGUSON Unit No: [id number] EXAMS: CPT CODE: [id number] US TRANSVAGINAL W/PELVIS 00274 PROCEDURE: PELVIC ULTRASOUND INDICATION: Vaginal bleeding status post hysterectomy 1 month ago. COMPARISON: None. TRANSABDOMINAL SCAN: The uterus is not visualized. Right ovary appears normal measuring 2.8 x 1.8 x 1.6 cm with arterial waveforms documented. Left ovary appears normal measuring 2.9 x 2.2 x 2 cm with arterial waveforms documented. No adnexal masses visualized. No free pelvic fluid. TRANSVAGINAL SCAN: Transvaginal exam was performed for better visualization of the pelvic structures. Uterus is not visualized. Right ovary measures 2.8 x 2 x 2.3 cm containing few follicles. Left ovary is not visualized. No adnexal mass or free fluid visualized. IMPRESSION: Status post hysterectomy. No pelvic sonographic abnormality identified. SL: SG-H at 2101 Reported and signed by: Magan Ayala MD CC: Mari De La O DO Technologist: Karin Winters RDMS Probe: [id number] Trnscrbd D/ (2101) [id number] Orig Print D/T: S: 04/15/2020 (2104) [facility] NAME: MORGAN FERGUSON Radiology Department PHYS: Rodney Glynn [address] : 1985 AGE: 35 SEX: F [place], [place] [address] LOC: EugeneERS PHONE #: [phone] EXAM DATE: 04/15/2020 STATUS: REG ER FAX #: [phone] RAD NO: Page 1 Signed Report Patient Name: MORGAN FERGUSON Unit No: [id number] EXAMS: CPT CODE: [id number] US TRANSVAGINAL W/PELVIS 32462 <Continued> [facility] NAME: MORGAN FERGUSON Radiology Department PHYS: Rodney Glynn [address] : 1985 AGE: 35 SEX: F [place], [place] [address] LOC: EugeneERS PHONE #: [phone] EXAM DATE: 04/15/2020 STATUS: REG ER FAX #: [phone] RAD NO: Page 2 Signed Report - US PELVIS 2020-04-15 COMPLETE 21:02:00 [facility]ERGUS[facility] : 1985 Sex: F * Patient Name: MORGAN FERGUSON Unit No: [id number] EXAMS: CPT CODE: [id number] US PELVIS COMPLETE 51239 PROCEDURE: PELVIC ULTRASOUND INDICATION: Vaginal bleeding status post hysterectomy 1 month ago. COMPARISON: None. TRANSABDOMINAL SCAN: The uterus is not visualized. Right ovary appears normal measuring 2.8 x 1.8 x 1.6 cm with arterial waveforms documented. Left ovary appears normal measuring 2.9 x 2.2 x 2 cm with arterial waveforms documented. No adnexal masses visualized. No free pelvic fluid. TRANSVAGINAL SCAN: Transvaginal exam was performed for better visualization of the pelvic structures. Uterus is not visualized. Right ovary measures 2.8 x 2 x 2.3 cm containing few follicles. Left ovary is not visualized. No adnexal mass or free fluid visualized. IMPRESSION: Status post hysterectomy. No pelvic sonographic abnormality identified. SL: SG-H at 2101 Reported and signed by: Magan Ayala MD CC: Mari De La O DO Technologist: Karin Winters RDMS Probe: Trnscrbd D/ (2101) [email or web address] Orig Print D/T: S: 04/15/2020 (2104) [facility] NAME: MORGAN FERGUSON Radiology Department PHYS: CHRISBlanca RodríguezRodney [address] : 1985 AGE: 35 SEX: F [place] [address] LOC: [place]ERS PHONE #: [phone] EXAM DATE: 04/15/2020 STATUS: REG ER FAX #: [phone] RAD NO: Page 1 Signed Report Patient Name: MORGAN FERGUSON Unit No: [id number] EXAMS: CPT CODE: [id number] US PELVIS COMPLETE 07016 <Continued> [facility] NAME: MORGAN FERGUSON Radiology Department PHYS: Jesus Rodney Velez [address] : 1985 AGE: 35 SEX: F [place] [address] LOC: Antonio.ERS PHONE #: [phone] EXAM DATE: 04/15/2020 STATUS: REG ER FAX #: [phone] RAD NO: Page 2 Signed Report COMPREHENSIVE METABOLIC PANEL 2020-04-15 19:45:00 Test Item Value Reference Range Interpretation Comme nts SODIUM (test code = NA) 141 mEq/L 135-145 N POTASSIUM (test code = K) 3.3 mEq/L 3.5-5.0 L CHLORIDE (test code = CL) 106 mEq/L 100-115 N CARBON DIOXIDE (test code = CO2) 28 mEq/L 22-31 N ANION GAP (test code = GAP) 10.20 10-20 N GLUCOSE (test code = GLU) 103 mg/dL 65-110 N BLOOD UREA NITROGEN (test code = BUN) 10 mg/dL 7-18 N GLOMERULAR FILTRATION RATE (test code = GFR) 72 ml/min >60 N CREATININE (test code = CREAT) 0.9 mg/dL 0.5-1.0 N TOTAL PROTEIN (test code = PROT) 7.3 gm/dL 6.3-8.2 N ALBUMIN (test code = ALB) 4.0 gm/dL 3.4-4.8 N CALCIUM (test code = CA) 8.8 mg/dL 8.4-10.2 N BILIRUBIN TOTAL (test code = BILT) 0.2 mg/dL 0.2-1.0 N SGOT/AST (test code = AST) 11 units/L 15-37 L SGPT/ALT (test code = ALT) 12 units/L 12-78 N ALKALINE PHOSPHATASE TOTAL (test code = ALKP) 66 units/L 46-116 N UA RFLX MICR CULT IF [id number] 19:42:00 Test Item Value Reference Range Interpretation Comments UA COLOR (test code = YELLOW YELLOW COLU) UA APPEARANCE (test code Slightly-Cloudy CLEAR = APPU) UA GLUCOSE DIPSTICK (test NEGATIVE NEG code = DGLUU) UA BILIRUBIN DIPSTICK NEGATIVE NEG (test code = BILU) UA KETONE DIPSTICK (test NEGATIVE NEG code = KETU) UA SPECIFIC GRAVITY (test 1.016 1.001-1.035 N code = SGU) UA BLOOD DIPSTICK (test 3+ NEG A code = TREE) UA PH DIPSTICK (test code 6.0 5-9 = ANA) UA PROTEIN DIPSTICK (test 2+ NEG A code = PROU) UA UROBILINIOGEN DIPSTICK 2.0 mg/dL NEG (test code = URO) UA NITRITE DIPSTICK (test NEG NEG code = ROXIE) UA LEUKOCYTE ESTERASE TRACE NEG A DIPSTICK (test code = LEUU) UA WBC (test code = WBCU) 11-15 #/hpf NONE SEEN A UA RBC (test code = RBCU) TOO NUMEROUS TO CNT NONE SEEN A #/hpf UA EPITHELIAL CELLS (test MODERATE #/HPF RARE-FEW A code = EPIU) UA MUCUS (test code = 2+ NONE SEEN MUCU) Indication for culture: Gross HematuriaSpecimen Description: CLEAN CATCHCBC W/AUTO [id number] 19:33:00 Test Item Value Reference Range Interpretation Comments WHITE BLOOD CELL (test code = WBC) 7.6 K/mm3 6.6-12.1 N RED BLOOD CELL (test code = RBC) 4.40 M/mm3 3.45-5.01 N HEMOGLOBIN (test code = HGB) 13.7 g/dL 10.7-13.9 N HEMATOCRIT (test code = HCT) 42.4 % 32.1-42.1 H MEAN CELL VOLUME (test code = MCV) 96 fL 84.1-94.8 H MEAN CELL HGB (test code = MCH) 31.1 pg 27-35 N MEAN CELL HGB CONCETRATION (test 32.3 gm/dL 32.2-34.1 N code = MCHC) RED CELL DISTRIBUTION WIDTH (test 13.0 % 12.4-16.5 N code = RDW) PLATELET COUNT (test code = PLT) 250 K/mm3 133-385 N MEAN PLATELET VOLUME (test code = 10.0 fl 9.1-12.7 N MPV) NEUTROPHIL % (test code = NT%) 52.2 % 56.5-79.4 L LYMPHOCYTE % (test code = LY%) 35.1 % 14.3-34.3 H MONOCYTE % (test code = MO%) 9.4 % 5.1-10.4 N EOSINOPHIL % (test code = EO%) 2.2 % 0.1-3.0 N BASOPHIL % (test code = BA%) 0.4 % 0.1-1.0 N NEUTROPHIL # (test code = NT#) 4.0 K/mm3 LYMPHOCYTE # (test code = LY#) 2.7 K/mm3 MONOCYTE # (test code = MO#) 0.7 K/mm3 EOSINOPHIL # (test code = EO#) 0.17 K/mm3 BASOPHIL # (test code = BA#) 0.0 K/mm3 PLATELET MORPHOLOGY REQUIRED (test NORMAL NORMAL code = PLTMR) Automated blood leukocyte count (number/volume)2020-03-28 23:58:00 Test Item Value Reference Range Interpretation Comments White Blood Count (test code = 6690-2) 10.7 [facility] erythrocytes automated count (number/volume)2020-03-28 23:58:00 Test Item Value Reference Range Interpretation Comments Red Blood Count (test code = 789-8) 4.30 [facility] hemoglobin measurement (mass/volume) 2020-03-28 23:58:00 Test Item Value Reference Range Interpretation Comments Hemoglobin (test code = 718-7) 13.5 [facility] Hospital[facility] blood hematocrit (volume fraction)2020-03-28 23:58:00 Test Item Value Reference Range Interpretation Comments Hematocrit (test code = 4544-3) 40.4 [facility] HospitalAutomated erythrocyte mean corpuscular volume (MCV) [id number] 23:58:00 Test Item Value Reference Range Interpretation Comments Mean Corpuscular Volume (test code = 94.0 787-2) [facility] HospitalAutomated erythrocyte mean corpuscular hemoglobin (mass per erythrocyte)2020-03-28 23:58:00 Test Item Value Reference Range Interpretation Comments Mean Corpuscular Hemoglobin (test code 31.4 = 785-6) [facility] HospitalAutomated erythrocyte mean corpuscular hemoglobin concentration measurement (mass/volume)2020-03-28 23:58:00 Test Item Value Reference Range Interpretation Comments Mean Corpuscular Hemoglobin Concent 33.4 (test code = 786-4) [facility] HospitalAutomated erythrocyte distribution width [id number] 23:58:00 Test Item Value Reference Range Interpretation Comments Red Cell Distribution Width (test code 13.1 = 788-0) [facility] HospitalAutomated blood platelet count (count/volume)2020-03-28 23:58:00 Test Item Value Reference Range Interpretation Comments Platelet Count (test code = 777-3) 259 [facility] HospitalAutomated blood platelet mean volume [id number] 23:58:00 Test Item Value Reference Range Interpretation Comments Mean Platelet Volume (test code = 9.8 16729-5) [facility] HospitalAutomated blood neutrophil count as percentage of total [id number] 23:58:00 Test Item Value Reference Range Interpretation Comments Neutrophils (%) (Auto) (test code = 58 770-8) [facility] immature granulocyte count as percentage of total [id number] 23:58:00 Test Item Value Reference Range Interpretation Comments Immature Granulocyte % (Auto) (test 0.3 code = 86306-5) [facility] lymphocyte count as percentage of total [id number] 23:58:00 Test Item Value Reference Range Interpretation Comments Lymphocytes (%) (Auto) (test code = 32 736-9) [facility] monocyte count as percentage of total [id number] 23:58:00 Test Item Value Reference Range Interpretation Comments Monocytes (%) (Auto) (test code = 8 5905-5) [facility] eosinophil count as percentage of total [id number] 23:58:00 Test Item Value Reference Range Interpretation Comments Eosinophils (%) (Auto) (test code = 2 713-8) [facility] basophil count as percentage of total [id number] 23:58:00 Test Item Value Reference Range Interpretation Comments Basophils (%) (Auto) (test code = 0 706-2) [facility] nucleated erythrocyte count as percentage of total [id number] 23:58:00 Test Item Value Reference Range Interpretation Comments Nucleated Red Blood Cells % (test code 0 = 73391-0) [facility] neutrophil count (number/volume)2020-03-28 23:58:00 Test Item Value Reference Range Interpretation Comments Neutrophils # (Auto) (test code = 6.18 751-8) [facility] plasma sodium measurement (moles/volume)2020-03-28 23:58:00 Test Item Value Reference Range Interpretation Comments Sodium Level (test code = 2951-2) 138 [facility] plasma potassium measurement (moles/volume)2020-03-28 23:58:00 Test Item Value Reference Range Interpretation Comments Potassium Level (test code = 2823-3) 3.9 [facility] plasma chloride measurement (moles/volume)2020-03-28 23:58:00 Test Item Value Reference Range Interpretation Comments Chloride Level (test code = 2075-0) 107 [facility] plasma total carbon dioxide measurement (moles/volume)2020-03-28 23:58:00 Test Item Value Reference Range Interpretation Comments Carbon Dioxide Level (test code = 25 2027-9) [facility] or plasma anion gap determination (moles/volume)2020-03-28 23:58:00 Test Item Value Reference Range Interpretation Comments Anion Gap (test code = 53481-5) 6.0 [facility] or plasma urea nitrogen measurement (mass/volume)2020-03-28 23:58:00 Test Item Value Reference Range Interpretation Comments Blood Urea Nitrogen (test code = 10.0 3094-0) [facility] or plasma creatinine measurement (mass/volume)2020-03-28 23:58:00 Test Item Value Reference Range Interpretation Comments Creatinine (test code = 2160-0) 0.78 [facility] Center[facility] creatinine clearance calculated from serum or plasma creatinine by Cockcroft-Gault formula (volume/time)2020-03-28 23:58:00 Test Item Value Reference Range Interpretation Comments Estimated Creatinine Clearance (test 99.8 code = 11084-8) [facility] CenterGlomerular filtration rate (GFR) estimation using MDRD [id number] 23:58:00 Test Item Value Reference Range Interpretation Comments Estimat Glomerular Filtration Rate 90.40 (test code = 410816683) [facility] or plasma urea nitrogen/creatinine mass [id number] 23:58:00 Test Item Value Reference Range Interpretation Comments BUN/Creatinine Ratio (test code = 13 3097-3) [facility] or plasma glucose measurement (mass/volume)2020-03-28 23:58:00 Test Item Value Reference Range Interpretation Comments Glucose Level (test code = 2345-7) 106 [facility] or plasma calcium measurement (mass/volume)2020-03-28 23:58:00 Test Item Value Reference Range Interpretation Comments Calcium Level (test code = 29021-1) 10.0 [facility] or plasma total bilirubin measurement (mass/volume)2020-03-28 23:58:00 Test Item Value Reference Range Interpretation Comments Total Bilirubin (test code = 1975-2) 0.3 [facility] or plasma aspartate aminotransferase measurement (enzymatic activity/volume)2020-03-28 23:58:00 Test Item Value Reference Range Interpretation Comments Aspartate Amino Transf (AST/SGOT) (test 19 code = 1920-8) [facility] or plasma alanine aminotransferase measurement (enzymatic activity/volume)2020-03-28 23:58:00 Test Item Value Reference Range Interpretation Comments Alanine Aminotransferase (ALT/SGPT) 18 (test code = 1742-6) [facility] or plasma protein measurement (mass/volume)2020-03-28 23:58:00 Test Item Value Reference Range Interpretation Comments Total Protein (test code = 2885-2) 7.3 [facility] or plasma albumin measurement (mass/volume)2020-03-28 23:58:00 Test Item Value Reference Range Interpretation Comments Albumin (test code = 1751-7) 5.0 [facility] globulin measurement by calculation (mass/volume)2020-03-28 23:58:00 Test Item Value Reference Range Interpretation Comments Globulin (test code = 03877-4) 2.3 [facility] albumin/globulin mass ratio 2020-03-28 23:58:00 Test Item Value Reference Range Interpretation Comments Albumin/Globulin Ratio (test code = 2.2 1759-0) [facility] or plasma alkaline phosphatase measurement (enzymatic activity/volume)2020-03-28 23:58:00 Test Item Value Reference Range Interpretation Comments Alkaline Phosphatase (test code = 76 6768-6) [facility] method 2020-03-28 23:53:00 Test Item Value Reference Range Interpretation Comments Urine Source (test code = Urine Clean Catch 75955-1) [facility] color [id number] 23:53:00 Test Item Value Reference Range Interpretation Comments Urine Color (test code = 5778-6) Red [facility] appearance [id number] 23:53:00 Test Item Value Reference Range Interpretation Comments Urine Appearance (test code = 5767-9) Turbid [facility] pH measurement by test strip 2020-03-28 23:53:00 Test Item Value Reference Range Interpretation Comments Urine pH (test code = 5803-2) 6.5 [facility] ur [id number] 23:53:00 Test Item Value Reference Range Interpretation Comments Urine Specific [place] (test code = 1.022 5811-5) [facility] protein measurement by automated test strip (mass/volume)2020-03-28 23:53:00 Test Item Value Reference Range Interpretation Comments Urine Protein (test code = 07041-5) 3+ [facility] glucose measurement by automated test strip (mass/volume)2020-03-28 23:53:00 Test Item Value Reference Range Interpretation Comments Urine Glucose (UA) (test code = Negative 75358-5) [facility] ketones detection by automated test [id number] 23:53:00 Test Item Value Reference Range Interpretation Comments Urine Ketones (test code = 92901-3) Negative [facility] erythrocytes count by automated test strip (number/volume)2020-03-28 23:53:00 Test Item Value Reference Range Interpretation Comments Urine Occult Blood (test code = 3+ 77654-4) [facility] nitrite detection by automated test [id number] 23:53:00 Test Item Value Reference Range Interpretation Comments Urine Nitrite (test code = 31741-0) Negative [facility] total bilirubin detection by automated test [id number] 23:53:00 Test Item Value Reference Range Interpretation Comments Urine Bilirubin (test code = Negative 93859-3) [facility] urobilinogen measurement by automated test strip (mass/volume)2020-03-28 23:53:00 Test Item Value Reference Range Interpretation Comments Urine Urobilinogen (test code = Normal 22466-3) [facility] leukocyte esterase detection by automated test [id number] 23:53:00 Test Item Value Reference Range Interpretation Comments Urine Leukocyte Esterase (test code Negative = 97696-0) [facility] sediment erythrocyte count by microscopy (number/high power field)2020-03-28 23:53:00 Test Item Value Reference Range Interpretation Comments Urine RBC (test code = 16933-7) 5-10 [facility] sediment leukocyte count by microscopy (number/high power field)2020-03-28 23:53:00 Test Item Value Reference Range Interpretation Comments Urine WBC (test code = 5821-4) 0 to 2 [facility] sediment epithelial cell count by microscopy (number/low power field)2020-03-28 23:53:00 Test Item Value Reference Range Interpretation Comments Urine Epithelial Cells (test code = None seen 96328-3) [facility] sediment bacteria count by microscopy (number/high power field)2020-03-28 23:53:00 Test Item Value Reference Range Interpretation Comments Urine Bacteria (test code = 5769-5) Few [facility] sediment hyaline cast count by microscopy (number/low power field)2020-03-28 23:53:00 Test Item Value Reference Range Interpretation Comments Urine Hyaline Casts (test code = None Seen 5796-8) [facility] in urine sediment by light [id number] 23:53:00 Test Item Value Reference Range Interpretation Comments Urine Yeast (test code = 10318-7) None Seen [facility] comment [id number] 23:53:00 Test Item Value Reference Range Interpretation Comments Urine Culture Indicated (test code = No 8264-4) FLORA ArdonUS,OTHER THAN PROLAPSE/[id number] 08:51:00 Test Item Value Reference Range Interpretation Comments UTERUS,OTHER THAN PROLAPSE/ALONZO (test code = UTERUSOTH) RUN DATE: 03/16/20 [facility] PAGE 1 RUN TIME: 1658 Specimen Inquiry RUN USER: INTERFACE PATIENT: MORGAN FERGUSON LOC: CRYS #: [id number] AGE/SX: 35/F ROOM: [facility] RE03/14/20REG DR: Mari De La O DO : 89 BED: A DIS: 03/15/20 STATUS: DIS Josias TLOC: SPEC #: [id number] RECD: 03/14/20 STATUS: MITZY RETeagan #: [id number] YVES: 03/14/20- [facility] DR: Mari De La O DO ENTERED: 03/14/20-1028 SP TYPE: UTERUSOTH RITO DR: ORDERED: LEVEL V SURGICA CODES: R33941 - UTERUS, NOS PROCEDURES: LEVEL V SURGICA (Incomplete) TISSUES: UTERUS, NOS - UTERUS, CERVIX AND BILATERAL FALLOPIAN TUBES CLINICAL HISTORY 35 year old, endometriosis, chronic pelvic pain (kr) FINAL DIAGNOSIS Uterus, hysterectomy, cervix - microglandular hyperplasia endomyometrium - intact intrauterine device embedded in myometrium - inactive-appearing endometrium serosa - no pathologic diagnosis fallopian tubes, bilateral - no pathologic diagnosis CPT code(s): 15488 cds/kr GROSS DESCRIPTION ANATOMIC SOURCE OF TISSUE (per Requisition): Uterus, cervix, both fallopian tube The specimen is received in a formalin-filled container, labeled with the patient's name and designated "uterus, cervix, both fallopian tubes". The specimen consists of a 65 gm, 7 x 4.5 x 4.5 cm uterus with cervix (2.5 x 2.5 cm with a 0.8 cm slit-like os). Also received detached are two segments of fallopian tube measuring 5 x 0.7 cm and 4.5 x 0.7 cm. The serosa is cruz-pink and dull. The serosa has an area of bulge measuring 0.4 cm. The specimen is bivalved to reveal an IUD measuring 3 x 3 cm with a cruz-guadalupe suture measuring 4 cm. The IUD penetrates the myometrium to a depth of 0.8 cm and 0.1 cm from the serosa. The endometrial cavity is 3 x 1.5 cm. The endometrium is cruz-pink and 0.1 cm thick. The myometrium is cruz-pink and trabecular. The endocervix is cruz-pink. The ectocervix is white-pink and dull. The fallopian tubes are pink-purple with fimbriae. Sectioning reveals pinpoint CONTINUED ON NEXT PAGE RUN DATE: 03/16/20 [facility] PAGE 2 RUN TIME: 0806 Specimen Inquiry RUN USER: INTERFACE SPEC #: [id number] PATIENT: MORGAN FERGUSON #[id number] (Continued) GROSS DESCRIPTION (Continued) lumens. [employer] sections are submitted as follows: A1 - anterior cervix A2 - posterior cervix A3 - anterior endomyometrium A4 - posterior endomyometrium A5 and A6 - fallopian tubes jameson 03/14/20 Signed Ministerio Preston 03/16/20 0851 END OF REPORT HGB [id number] 04:21:00 Test Item Value Reference Range Interpretation Comments HEMOGLOBIN (test code = HGB) 12.7 g/dL 10.7-13.9 N HEMATOCRIT (test code = HCT) 38.2 % 32.1-42.1 N COVID 19 Asymptomatic IH [id number] 13:11:00 Test Item Value Reference Range Interpretation Comments COVID 19 NEGATIVE NEGATIVE This test has b een Asymptomatic IH AG authorize d only for the (test code = detection ofpro teins from COVNONPUIAG) SARS-CoV-2, not for any other viruses orpathogens. N egative results should be treated as presumptive andconfirmed wi th a molecular assay , if necessary for patientmanageme nt. Negative result s do not rule out COVID- 19 andshould not b e used as the sole basis for treatment orpat ient management deci sions, including infec tion controldecision s. Negative result s should be considered i n thecontext of a patient's recent exposure s, history and thepresence of clinical signs and symptoms consis tent withCOVID-19. T his test has not been FD A cleared or approved; th e test hasbeen authori coni by FDA under an Emerge ncy Use Authorization(E UA) for use by laborato steven certified under the CLIA thatmeet the re quirements to perform mode rate, high or waivedcomple xity tests. This ginger t is authorized for use at thePoint of Car e (POC), i.e., in patien t care settingsoperati ng under a CLIA Certificat e of Waiver, Certifi nancy ofCompliance, o r Certificate of Accreditation. This test is only authori zejuan ramon for the duration of thedeclaration that circumstances e xist justifying theauthorizatio n of emergency use o f in vitro diagnostic test sfor detection and/o r diagnosis of CO VID-19 under [place] 4(b)(1) of the Act, 21 U.S .C. 360bbb-3(b)(1), unless theauthorizatio n is terminated or r evoked sooner. AG HEPATITIS B [id number] 11:58:00 Test Item Value Reference Range Interpretation Comments AG HEPATITIS B SURFACE (test code NONREACTIVE NONREACTIVE = HBSAG) IS CONSENT FORM SIGNED FOR HIV TESTING? YAB HEPATITIS C [id number] 11:58:00 Test Item Value Reference Range Interpretation Comments AB HEPATITIS C (test code = NONREACTIVE NONREACTIVE HCVAB) SIGNAL TO CUTOFF (test code = 0.11 <0.80 N CUTOFF) IS CONSENT FORM SIGNED FOR HIV TESTING? YAB HIV 1 11:58:00 Test Item Value Reference Range Interpretation Comments AB HIV 1 2 (test NONREACTIVE NONREACTIVE [facility] code = [id number]) 4th Gen HIV Ag/Ab Combo Screen IS CONSENT FORM SIGNED FOR HIV TESTING? YAG HEPATITIS B [id number] 11:37:00 Test Item Value Reference Range Interpretation Comments AG HEPATITIS B SURFACE (test code NONREACTIVE NONREACTIVE = HBSAG) IS CONSENT FORM SIGNED FOR HIV TESTING? YAB HEPATITIS C [id number] 11:37:00 Test Item Value Reference Range Interpretation Comments AB HEPATITIS C (test code = HCVAB) NONREACTIVE SIGNAL TO CUTOFF (test code = CUTOFF) <0.80 IS CONSENT FORM SIGNED FOR HIV TESTING? YAB HIV 1 11:37:00 Test Item Value Reference Range Interpretation Comments AB HIV 1 2 (test code = HGX74GC) NONREACTIVE IS CONSENT FORM SIGNED FOR HIV TESTING? YPROTHROMBIN [id number] 11:28:00 Test Item Value Reference Range Interpretation Comments PROTHROMBIN TIME PATIENT (test code 11.8 secs 10.4-12.4 N = PTP) THROMBOPLASTIN TIME [id number] 11:28:00 Test Item Value Reference Range Interpretation Comments THROMBOPLASTIN TIME PARTIAL (test 39.4 secs 22-38 H code = PTT) CHEMISTRY 7 [id number] 11:05:00 Test Item Value Reference Range Interpretation Comments SODIUM (test code = NA) 138 mEq/L 135-145 N POTASSIUM (test code = K) 4.4 mEq/L 3.5-5.0 N CHLORIDE (test code = CL) 103 mEq/L 100-115 N CARBON DIOXIDE (test code = CO2) 28 mEq/L 22-31 N ANION GAP (test code = GAP) 11.60 10-20 N GLUCOSE (test code = GLU) 77 mg/dL 65-110 N BLOOD UREA NITROGEN (test code = 9 mg/dL 7-18 N BUN) GLOMERULAR FILTRATION RATE (test 83 ml/min >60 N code = GFR) CREATININE (test code = CREAT) 0.8 mg/dL 0.5-1.0 N CALCIUM (test code = CA) 9.1 mg/dL 8.4-10.2 N URINALYSIS [id number] 10:49:00 Test Item Value Reference Range Interpretation Comments UA COLOR (test code = COLU) STRAW YELLOW UA APPEARANCE (test code = CLEAR CLEAR APPU) UA GLUCOSE DIPSTICK (test code NEGATIVE NEG = DGLUU) UA BILIRUBIN DIPSTICK (test NEGATIVE NEG code = BILU) UA KETONE DIPSTICK (test code NEGATIVE NEG = KETU) UA SPECIFIC GRAVITY (test code 1.004 1.001-1.035 N = SGU) UA BLOOD DIPSTICK (test code = 2+ NEG A TREE) UA PH DIPSTICK (test code = 8.0 5-9 ANA) UA PROTEIN DIPSTICK (test code NEGATIVE NEG = PROU) UA UROBILINIOGEN DIPSTICK NEGATIVE mg/dL NEG (test code = URO) UA NITRITE DIPSTICK (test code NEG NEG = ROXIE) UA LEUKOCYTE ESTERASE DIPSTICK NEG NEG (test code = LEUU) UA WBC (test code = WBCU) 0-2 #/hpf NONE SEEN UA RBC (test code = RBCU) 3-5 #/hpf NONE SEEN A UA EPITHELIAL CELLS (test code RARE #/HPF RARE-FEW = EPIU) UA BACTERIA (test code = BACU) RARE /HPF RARE-FEW URINE SAMPLE: CLEAN CATCHUR HCG [id number] 10:49:00 Test Item Value Reference Range Interpretation Comments UR HCG QUAL (test NEGATIVE 1. Very di lute urine code = HCGQLU) specimens, as indicated by a lowspecific g ravity, may not contain rep resentative levels ofhCG. 2 . False negative result s may occur when the levels of hCGare below the sensi tivity level of the test. If is still suspec christina, a first morningurine sp ecimen should be colle cted 48 hours later and tested. URINE SAMPLE: CLEAN CATCHURINALYSIS [id number] 10:48:00 Test Item Value Reference Range Interpretation Comments UA COLOR (test code = COLU) STRAW YELLOW UA APPEARANCE (test code = CLEAR CLEAR APPU) UA GLUCOSE DIPSTICK (test code NEGATIVE NEG = DGLUU) UA BILIRUBIN DIPSTICK (test NEGATIVE NEG code = BILU) UA KETONE DIPSTICK (test code NEGATIVE NEG = KETU) UA SPECIFIC GRAVITY (test code 1.004 1.001-1.035 N = SGU) UA BLOOD DIPSTICK (test code = 2+ NEG A TREE) UA PH DIPSTICK (test code = 8.0 5-9 ANA) UA PROTEIN DIPSTICK (test code NEGATIVE NEG = PROU) UA UROBILINIOGEN DIPSTICK NEGATIVE mg/dL NEG (test code = URO) UA NITRITE DIPSTICK (test code NEG NEG = ROXIE) UA LEUKOCYTE ESTERASE DIPSTICK NEG NEG (test code = LEUU) UA WBC (test code = WBCU) 0-2 #/hpf NONE SEEN UA RBC (test code = RBCU) 3-5 #/hpf NONE SEEN A UA EPITHELIAL CELLS (test code RARE #/HPF RARE-FEW = EPIU) UA BACTERIA (test code = BACU) RARE /HPF RARE-FEW URINE SAMPLE: CLEAN CATCHUR HCG [id number] 10:48:00 Test Item Value Reference Range Interpretation Comments UR HCG QUAL (test code = HCGQLU) URINE SAMPLE: CLEAN CATCHCBC W/AUTO [id number] 10:47:00 Test Item Value Reference Range Interpretation Comments WHITE BLOOD CELL (test code = WBC) 5.1 K/mm3 6.6-12.1 L RED BLOOD CELL (test code = RBC) 4.82 M/mm3 3.45-5.01 N HEMOGLOBIN (test code = HGB) 14.9 g/dL 10.7-13.9 H HEMATOCRIT (test code = HCT) 45.2 % 32.1-42.1 H MEAN CELL VOLUME (test code = MCV) 94 fL 84.1-94.8 N MEAN CELL HGB (test code = MCH) 30.9 pg 27-35 N MEAN CELL HGB CONCETRATION (test 33.0 gm/dL 32.2-34.1 N code = MCHC) RED CELL DISTRIBUTION WIDTH (test 12.4 % 12.4-16.5 N code = RDW) PLATELET COUNT (test code = PLT) 261 K/mm3 133-385 N MEAN PLATELET VOLUME (test code = 10.7 fl 9.1-12.7 N MPV) NEUTROPHIL % (test code = NT%) 50.9 % 56.5-79.4 L LYMPHOCYTE % (test code = LY%) 34.2 % 14.3-34.3 N MONOCYTE % (test code = MO%) 9.8 % 5.1-10.4 N EOSINOPHIL % (test code = EO%) 4.1 % 0.1-3.0 H BASOPHIL % (test code = BA%) 0.6 % 0.1-1.0 N NEUTROPHIL # (test code = NT#) 2.6 K/mm3 LYMPHOCYTE # (test code = LY#) 1.8 K/mm3 MONOCYTE # (test code = MO#) 0.5 K/mm3 EOSINOPHIL # (test code = EO#) 0.21 K/mm3 BASOPHIL # (test code = BA#) 0.0 K/mm3 RBC MORPHOLOGY REQUIRED (test code NORMAL NORMAL = RBCM) PLATELET MORPHOLOGY REQUIRED (test NORMAL NORMAL code = PLTMR)
--- OUTSIDE RECORDS SUMMARY | 2020-04-24 17:00 | XMS REPORT | Continuity of Care Document ---
:1985 Author Care Team Providers Name Role Phone FOUND, PCP NOT Primary Care Physician Unavailable Allergies, Adverse Reactions, Alerts Allergen Type Severity Reaction Last Updated Verified Status Peanuts Allergy Mild November No 2019 Eggs Allergy Mild November No 2019 Milk Allergy Mild November No 2019 Wheat Allergy Mild November No 2019 almond Allergy Mild November No 2019 clams Allergy Mild November No 2019 scallops Allergy Mild November No 2019 Medications No known medications. Problems No problem information available. Procedures Procedure Date Performed Status Complete ultrasound of pelvis March 29, 2020 completed Computed tomography of abdomen March 29, 2020 completed and pelvis without contrast Relevant Diagnostic Tests and/or Laboratory Data Laboratory Results Test Date/Time Result Interpretation Reference Result Perfo rming Range Comment Site White Blood Count March 10.7 4.8-10.8 [facility], [facility] [address] [place] [address] 11:58pm Red Blood Count March 4.30 4.00-5.20 [facility], [facility] [address] [place] [address] 11:58pm Hemoglobin March 13.5 11.9-15.3 [facility], [facility] [address] [place] [address] 11:58pm Hematocrit March 40.4 35.0-45.2 [facility], [facility] [address] [place] [address] 11:58pm Mean Corpuscular March 94.0 81.0-97.0 [facility], [facility] [address] [place] [address] 11:58pm Mean Corpuscular November 31.4 27.0-33.0 [facility], [address] Hemoglobin , [address] [place] [address] 11:58pm Mean Corpuscular November 33.4 32.5-35.0 [facility], [address] Hemoglobin Concent , [address] [place] [address] 11:58pm Red Cell November 13.1 11.5-14.5 [facility], [address] Distribution Width , [address] [place] [address] 11:58pm Platelet Count March 259 160-400 [facility], [address] , [address] [place] [address] 11:58pm Mean Platelet November 9.8 7.5-11.2 [facility], [address] Volume , [address] [place] [address] 11:58pm Neutrophils (%) March 45-75 [facility], [address] (Auto) , [address] [place] [address] 11:58pm Immature November 0.3 0.0-1.5 [facility], [address] Granulocyte % [address] [place] [address] (Auto) 11:58pm Lymphocytes (%) March 20-48 [facility], [address] (Auto) , [address] [place] [address] 11:58pm Monocytes (%) March 11 1-9 [facility], [address] (Auto) , [address] [place] [address] 11:58pm Eosinophils (%) March 05 0-4 [facility], [address] (Auto) , [address] [place] [address] 11:58pm Basophils (%) March 0 0-2 [facility], [address] (Auto) , [address] [place] [address] 11:58pm Nucleated Red November 0 0-1 [facility], [address] Blood Cells % [address] [place] [address] 11:58pm Neutrophils # November 6.18 [facility], [address] (Auto) , [address] [place] [address] 11:58pm Urine Source November Urine [facility], [address] , [address] [place] [address] 11:53pm Catch Urine Color November Red Yel-Mallory [facility], [address] , [address] [place] [address] 11:53pm Urine Appearance November Turbid Clear [facility], [address] , [address] [place] [address] 11:53pm Urine pH November 6.5 5.0-7.5 [facility], [facility] , [address] [place] [address] 11:53pm Urine Specific November 1.022 1.003-1.02 [facility], [address] [place] [address] [place] [address] 11:53pm Urine Protein November 3+ Neg - [facility], [address] , [address] [place] [address] 11:53pm Urine Glucose (UA) November Negative Negative [facility], [facility] [address] [place] [address] 11:53pm Urine Ketones November Negative Negative [facility], [facility] [address] [place] [address] 11:53pm Urine Occult Blood November 3+ Negative [facility], [facility] [address] , [address] [place] [address] 11:53pm Urine Nitrite November Negative Negative [facility], [address] , [address] [place] [address] 11:53pm Urine Bilirubin November Negative Negative [facility], [facility] [address] , [address] [place] [address] 11:53pm Urine Urobilinogen March Normal Norm-1.0 [facility], [address] , [address] [place] [address] 11:53pm Urine Leukocyte November Negative Negative [facility], [address] Esterase [address] [place] [address] 11:53pm Urine RBC March 5-10 0 to 5 [facility], [address] , [address] [place] [address] 11:53pm Urine WBC March 0 to 2 0 to 5 [facility], [address] , [address] [place] [address] 11:53pm Urine Epithelial March None seen None/Occ [facility], [address] Cells , [address] [place] [address] 11:53pm Urine Bacteria March Few None [facility], [address] , [address] [place] [address] 11:53pm Urine Hyaline March None Seen [facility], [address] Casts , [address] [place] [address] 11:53pm Urine Yeast March None Seen [facility], [address] , [address] [place] [address] 11:53pm Urine Culture March No [facility], [address] Indicated , [address] [place] [address] 11:53pm Sodium Level March 138 135-142 [facility], [address] , [address] [place] [address] 11:58pm Potassium Level March 3.9 3.6-5.1 [facility], [address] , [address] [place] [address] 11:58pm Chloride Level March 107 97-108 [facility], [address] , [address] [place] [address] 11:58pm Carbon Dioxide March 28-34 [facility], [address] Level , [address] [place] [address] 11:58pm Anion Gap March 6.0 3.0-11.0 [facility], [address] , [address] [place] [address] 11:58pm Blood Urea March 10.0 6-22 [facility], [address] Nitrogen , [address] [place] [address] 11:58pm Creatinine November 0.78 0.60-1.02 [facility], [address] , [address] [place] [address] 11:58pm Estimated March 99.8 [facility], [address] Creatinine [address] [place] [address] Clearance 11:58pm Estimat Glomerular March 90.40 >60 Reporting S [facility], [address] Filtration Rate 2019 units: [place] [address] 11:58pm mL/min/1.7 3m2 (Modified MDRD Formula)No rmal Range: >60 Normal 30-60 Moderate renal disease <30 Severe renal disease BUN/Creatinine March 13 [facility], [address] Ratio [address] [place] [address] 11:58pm Glucose Level March 106 74-112 [facility], [address] , [address] [place] [address] 11:58pm Calcium Level March 10.0 9.0-10.2 [facility], [address] [place] [address] 11:58pm Total Bilirubin November 0.3 0.3-2.0 [facility], [address] [place] [address] 11:58pm Aspartate Amino March 22 15-37 [facility], [facility] [address] Transf (AST/SGOT) [address] [place] [address] 11:58pm Alanine March 18 10-49 [facility], [address] Aminotransferase [address] [place] [address] (ALT/SGPT) 11:58pm Total Protein November 7.3 6.2-8.0 [facility], [address] [place] [address] 11:58pm Albumin November 5.0 4.2-5.4 [facility], [address] , [address] [place] [address] 11:58pm Globulin November 2.3 [facility], [address] [place] [address] 11:58pm Albumin/Globulin November 2.2 [facility], [address] Ratio [address] [place] [address] 11:58pm Alkaline March 45-100 [facility], [address] Phosphatase [address] [place] [address] 11:58pm Diagnostic Imaging Reports Report Dictated Date/Time Dictated By Status Pelvis Ultrasound March 29, 2020 NANETTE PHAM MD comple christina 12:04am [facility] [address] [place] [address] Radiology Results Sign ed Pt Name: RENEA SOLANO 1985 Y/F MR: [id number] Pt Location: [facility] Exam Date and Time: 03/29/20 Report # [id number] Requisition # [id number] Exam: [id number] US/PELVIC COMPLETE Exam CPT: 35897 US PELVIS HISTORY: 35 years Female vaginal bleedi ng. Laparoscopic hysterectomy two weeks ago. COMPARISON: No relevant studies are avai lable for comparison. Technique: Transabdominal Imaging of th e pelvis was performed. Color and spectral imaging was performed. Uterus: Surgically absent. The vaginal cuff is not well seen. The bladder is only partially distended. Right Ovary: The ovary measures 1.8 x 3 .2 x 2.2 cm. There is normal color and spectral waveforms.. Normal c olor and spectral doppler waveforms Left Ovary: The left ovary measures 4.6 x 2.8 x 2.6 cm and contains a dominant follicle which measures 2.0 x 2 .2 x 2.1 cm. Normal color and spectral waveforms.. Normal color and s pectral doppler waveforms Other: No obvious free fluid. IMPRESSION: Vaginal cuff is not well seen. The urina ry bladder was not full for the examination. Normal-appearing ovarie s. No obvious pelvic mass. Electronically signed by: Nanette Pham MD 03/29/2020 1:18 AM TELEPRINTER Dictated By: NANETTE PHAM MD Signed by: NANETTE PHAM MD [id number] Abdomen/Pelvis CT March 29, 2020 CHALO VALENCIA MD completed 1:40[facility] [address] [place] [address] Radiology Results Sign ed Pt Name: RENEA SOLANO 1985 Y/F MR: [id number] Pt Location: [facility] Exam Date and Time: 03/29/20139 Rep ort # [id number] Requisition # [id number] Exam: [id number] CT/CT ABD & PELVIS WO C ONTRAST Exam CPT: 74860 CLINICAL HISTORY: Heavy vaginal bleeding . History of hysterectomy recently. boee COMPARISON: None. TECHNIQUE: CT ABDOMEN PELVIS WITHOUT IV CONTRAST on 03/29/2020 1:40 AM TELEPRINTER This exam was performed according to our departmental dose-optimization program, which include s automated exposure control, adjustment of the mA and/or kV according to patient size and/or use of iterative reconstruction technique. FINDINGS: Lower lungs are clear. Abdomen: The liver is normal in appearan ce. There is no biliary dilatation. Gallbladder is normal in nicol earance. The pancreas and spleen are normal in appearance. The adr enal glands and kidneys are unremarkable. Abdominal aorta is normal in course and caliber without aneurysm. There is no free air. There is no retrop eritoneal adenopathy. Pelvis: There is no bowel obstruction. U rinary bladder is unremarkable. There is trace free pelvic fluid. There is no convincing hematoma associated with the vaginal cuf f. Hysterectomy was performed. Appendix is normal. Skeleton: There are no acute osseous fin dings. No suspicious bony lesions. IMPRESSION: No definite acute findings. Electronically signed by: Chalo Valencia MD 03/29/2020 4:05 AM TELEPRINTER Dictated By: CHALO VALENCIA MD Signed by: CHALO VALENCIA MD 9 9 Health Concerns Health Concerns may be documented in an alternate section. Advance Directives Advance Directive Response Recorded Date/Time Does the Patient have an No March 28, 2020 11:40pm Advance Directive? Chief Complaint and Reason for Visit Chief Complaint Vaginal Bleeding/Discharge Reason for Visit [id number] Encounters Encounter Location(s) Arrival/Admit Date Discharge/Depart Date Provider(s) Departed [facility] March 28, March 29, 2020 RNS, [facility] 11:27pm 4:37am MD Assessments No Assessments Information Available Functional Status No Functional Status information available Goals Goals may be documented in an alternate section. Immunizations No Immunization Information Available Mental Status No Mental Status Information Available Medical Equipment No Medical Equipment Information available Insurance Providers Guarantor Renea Solano Address [address] [place] [id number] Contact Info. Home Phone: Payer Policy Id Coverage Id Subscriber's Subscriber Id Effective E xpiration Name Date Date Update [id number] Renea Solano [id number] March With Bill 2005 To Name Plan of Treatment Future Tests Future scheduled test information is unavailable Pending Tests Test Name Date ordered Urine Test March 29, 2020 3:06am Future Visits Future appointment information is unavailable Referrals to Other Providers Reason for Referral Start Provider Provider Contact Provider Address Referral Date Information FOUND, PCP NOT Future Procedures Future procedure information is unavailable Future Medications Future medication information is unavailable Patient Instructions Patient instructions are unavailable Social History Observation Status Observation Response Date of Response Hx Tobacco Use No March 28, 2020 11:40pm Assigned Sex Female Vital Signs Vital Reading Result Reference Range Collection Date/ Time BP Diastolic 86 mm[Hg] March 29 020 4:20am BP Systolic 130 mm[Hg] March 29 4:20am Heart Rate 87 /min March 29 4:20am Respiratory rate 17 /min March 29, 2020 4:20am BP Diastolic 86 mm[Hg] (60 - 90) March 29 020 4:07am BP Systolic 130 mm[Hg] (100 - 140) March 29 4:07am Heart Rate 87 /min (60 - 100) March 29 4:07am Respiratory rate 17 /min (12 - 24) March 29, 2020 4:07am BP Diastolic 80 mm[Hg] (60 - 90) March 28 11:51pm BP Systolic 128 mm[Hg] (100 - 140) March 28 11:51pm BP Diastolic 120 mm[Hg] (60 - 90) March 28 11:28pm BP Systolic 153 mm[Hg] (100 - 140) March 28 11:28pm Heart Rate 116 /min (60 - 100) March 28 020 11:28pm Respiratory rate 18 /min (12 - 24) March 28, 2020 11:28pm Body Temperature 98.3 [degF] (97.6 - 99.5) March 28, 2020 11:28pm
[2020-04-24] MEDS ORDERED: HYDROCODONE/APAP 7.5/325 MG TAB ONE (17:57)
[2020-04-24 18:46] LABS: Urine Blood 2+ (NEG); Urine Glucose NEGATIVE (NEG); Urine Protein NEGATIVE (NEG); Urine Specific Gravity 1.015 (1.005-1.030); Urine pH 6.5 (5.0-7.0)
--- NOTE | 2020-04-24 18:53 | ER ---
Nurse's Notes [facility] Name: Renea Solano Age: 35 yrs Sex: Female : 1985 Arrival Date: 04/24/2020 Time: 17:00 Bed 15 Private MD: Diagnosis: Sciatica, right side Presentation: 04/24 17:16 Chief complaint: Patient states: sciatic nerve pain for a couple days, on right side, iw denies injury. Coronavirus screen: At this time, the client does not indicate any symptoms associated with coronavirus-19. Ebola Screen: Patient negative for fever greater than or equal to 101.5 degrees Fahrenheit, and additional compatible Ebola Virus Disease symptoms Patient denies exposure to infectious person. Patient denies travel to an Ebola-affected area in the 21 days before illness onset. No symptoms or risks identified at this time. Initial Sepsis Screen: Does the patient meet any 2 criteria? No. Patient's initial sepsis screen is negative. Does the patient have a suspected source of infection? No. Patient's initial sepsis screen is negative. Risk Assessment: Do you want to hurt yourself or someone else? Patient reports no desire to harm self or others. Onset of symptoms was April 21, 2020. 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 - Social history:: Smoking status: Patient denies any tobacco usage or history of. Screenin:16 Abuse screen: Denies threats or abuse. Nutritional screening: No deficits noted. tw2 Tuberculosis screening: No symptoms or risk factors identified. Fall Risk None identified. Assessment: 17:30 General: Appears in no apparent distress. slender, well groomed, Behavior is calm, tw2 cooperative, appropriate for age. Pain: Complains of pain in right low back and right leg. Neuro: Level of Consciousness is awake, alert, obeys commands, Oriented to person, place, time, situation. Cardiovascular: Patient's skin is warm and dry. Respiratory: Airway is patent Respiratory effort is even, unlabored, Respiratory pattern is regular, symmetrical. GI: No signs and/or symptoms were reported involving the gastrointestinal system. : No signs and/or symptoms were reported regarding the genitourinary system. Musculoskeletal: Circulation, motion, and sensation intact. Range of motion: intact in all extremities. 18:31 Reassessment: Patient appears in no apparent distress at this time. No changes from tw2 previously documented assessment. Patient and/or family updated on plan of care and expected duration. Pain level reassessed. Patient is alert, oriented x 3, equal unlabored respirations, skin warm/dry/pink. 18:46 Reassessment: pt states "the pain is better but its still a nagging pain" Patient tw2 states feeling better. 19:07 Reassessment: Patient appears in no apparent distress at this time. No changes from tw2 previously documented assessment. Patient and/or family updated on plan of care and expected duration. Pain level reassessed. Patient is alert, oriented x 3, equal unlabored respirations, skin warm/dry/pink. Vital Signs: 17:16 BP 157 / 108; Pulse 120; Resp 16; Temp 99.1; Pulse Ox 100% on R/A; Weight 71.21 kg; iw Height 5 ft. 7 in. (170.18 cm); Pain 6/10; 18:31 BP 146 / 102; Pulse 104; Resp 17; Pulse Ox 100% on R/A; tw2 18:31 BP 135 / 107; Pulse 92; Resp 16; Pulse Ox 100% on R/A; Pain 3/10; tw2 19:07 BP 138 / 98; Pulse 88; Resp 17; Pulse Ox 99% on R/A; tw2 17:16 Body Mass Index 24.59 (71.21 kg, 170.18 cm) iw ED Course: 17:00 Patient arrived in ED. rg4 17:01 Gumaro Brown PA is PHCP. cp 17:02 Ritchie Ayala MD is Attending Physician. cp 17:17 Triage completed. iw 17:19 Arm band placed on. iw 17:28 Bed in low position. Call light in reach. Pulse ox on. NIBP on. tw2 17:39 Mccray, Oliva, RN is Primary Nurse. tw2 18:15 Urine Microscopic Only Sent. tw2 19:06 No provider procedures requiring assistance completed. Patient did not have IV access tw2 during this emergency room visit. Administered Medications: 17:45 Drug: Hydrocodone-Acetaminophen (7.5 mg-325 mg) 1 tabs {Note: rass 0.} Route: PO; tw2 18:45 Follow up: Response: No adverse reaction; Pain is decreased; RASS: Alert and Calm (0) tw2 Outcome: 18:53 Discharge ordered by . nicanor 19:06 Discharged to home ambulatory. tw2 19:06 Condition: stable 19:06 Discharge instructions given to patient, Instructed on discharge instructions, follow up and referral plans. no drinking with medication, no driving heavy equipment, medication usage, Demonstrated understanding of instructions, follow-up care, medications, Prescriptions given X 3. 19:07 Patient left the ED. tw2 Signatures: Mirna Ho RN RN Gumaro Brown PA PA Oliva Sanchez RN RN 2 Alison Sidhu rg4 Corrections: (The following items were deleted from the chart) 17:19 17:16 BP 157 / 108; Pulse 126bpm; Resp 16bpm; Pulse Ox 100% RA; Temp 99.1F; 71.21 kg; iw Height 5 ft. 7 in.; BMI: 24.5; Pain 6/10; iw 18:46 18:31 BP 146 / 02; Pulse 104bpm; Resp 17bpm; Pulse Ox 100% RA; tw2 tw2
--- NOTE | 2020-04-24 18:53 | EDPHYS ---
Physician Documentation [facility] Name: Renea Solano Age: 35 yrs Sex: Female : 1985 Arrival Date: 04/24/2020 Time: 17:00 Bed 15 Private MD: ED Physician Ritchie Ayala HPI: 04/24 17:34 This 35 yrs old Female presents to ER via Ambulatory with complaints of Low cp Back Pain. 17:34 The patient presents with pain that is acute, with no known mechanism of injury. cp 17:34 The symptoms are located in the low back. The pain radiates to the right low back, to cp the right leg. Onset: The symptoms/episode began/occurred 2 day(s) ago. Modifying factors: the patient symptoms are aggravated by sitting for long periods. Associated signs and symptoms: Pertinent negatives: abdominal pain, constipation, dysuria, fever, incontinence, numbness, weakness. 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 - Social history:: Smoking status: Patient denies any tobacco usage or history of. ROS: 17:40 Back: Positive for pain at rest, pain with movement, of the right low back. cp 17:40 Constitutional: Negative for body aches, chills, fever, poor PO intake. cp 17:40 Eyes: Negative for injury, pain, redness, and discharge. cp 17:40 ENT: Negative for ear pain, sore throat, difficulty swallowing, difficulty handling secretions. 17:40 Cardiovascular: Negative for chest pain, edema, palpitations. 17:40 Respiratory: Negative for cough, shortness of breath, wheezing. 17:40 Abdomen/GI: Negative for abdominal pain, nausea, vomiting, and diarrhea, constipation, bowel incontinence. 17:40 Neuro: Negative for altered mental status, headache, numbness, weakness. 17:40 All other systems are negative. Exam: 17:45 Constitutional: The patient appears in no acute distress, alert, awake, non-toxic, well cp developed, well nourished, uncomfortable. 17:45 Head/Face: Normocephalic, atraumatic. cp 17:45 Cardiovascular: Rate: tachycardic. 17:45 Abdomen/GI: Exam negative for discomfort, distension, guarding, Inspection: abdomen appears normal. 17:45 Back: pain, that is moderate, of the right low back, Straight leg raises: of both lower extremities does not illicit pain. 17:45 Neuro: Motor: moves all fours, strength is normal, Sensation: is normal, Gait: is steady, Deep tendon reflexes are 2+ (normal) in the right patellar, right Achilles, left patellar and left Achilles. Vital Signs: 17:16 BP 157 / 108; Pulse 120; Resp 16; Temp 99.1; Pulse Ox 100% on R/A; Weight 71.21 kg; iw Height 5 ft. 7 in. (170.18 cm); Pain 6/10; 18:31 BP 146 / 102; Pulse 104; Resp 17; Pulse Ox 100% on R/A; tw2 18:31 BP 135 / 107; Pulse 92; Resp 16; Pulse Ox 100% on R/A; Pain 3/10; tw2 19:07 BP 138 / 98; Pulse 88; Resp 17; Pulse Ox 99% on R/A; tw2 17:16 Body Mass Index 24.59 (71.21 kg, 170.18 cm) iw MDM: 17:29 Patient medically screened. cp 18:00 Differential diagnosis: strain, sciatica, Herniated disc UTI. cp 18:24 ED course: Review of [place] prescription monitor website shows patient received RX for cp Tramadol 50 mg #15 on 04-16-2020. 18:52 Data reviewed: vital signs, nurses notes. cp 18:52 Counseling: I had a detailed discussion with the patient and/or guardian regarding: the cp historical points, exam findings, and any diagnostic results supporting the discharge/admit diagnosis, the need for outpatient follow up, a family practitioner, to return to the emergency department if symptoms worsen or persist or if there are any questions or concerns that arise at home. Response to treatment: the patient's symptoms have mildly improved after treatment, and as a result, I will discharge patient. 04/24 17:34 Order name: Urine Microscopic Only cp 04/24 18:14 Order name: Urine Dipstick--Ancillary (enter results) bd 04/24 17:34 Order name: Urine Dipstick-Ancillary (obtain specimen); Complete Time: 18:15 cp 04/24 18:14 Order name: Urine --Ancillary (enter results) bd Administered Medications: 17:45 Drug: Hydrocodone-Acetaminophen (7.5 mg-325 mg) 1 tabs {Note: rass 0.} Route: PO; tw2 18:45 Follow up: Response: No adverse reaction; Pain is decreased; RASS: Alert and Calm (0) tw2 Disposition: 04/25 06:32 Co-signature as Attending Physician, Ritchie Ayala MD I agree with the assessment and kdr plan of care. Disposition: 04/24/20 18:53 Discharged to Home. Impression: Sciatica, right side. - Condition is Stable. - Discharge Instructions: Sciatica, Back Exercises. - Prescriptions for Lidoderm 5 % Topical adhesive patch,medicated - apply 1 patch by TRANSDERMAL route once daily As needed; 1 box. Cyclobenzaprine 10 mg Oral Tablet - take 1 tablet by ORAL route every 8 hours As needed; 20 tablet. Medrol (Neto) 4 mg Oral Tablets, Dose Pack - take 1 tablet by ORAL route as directed - follow package instructions; 1 packet. - Medication Reconciliation Form, Thank You Letter, Antibiotic Education, Prescription Opioid Use, Work release form form. - Follow up: Private Physician; When: 1 - 2 days; Reason: Recheck today's complaints. - Problem is new. - Symptoms have improved. Signatures: Dispatcher [employer] EDMS Ritchie Ayala MD MD kdr Mirna Ho RN RN iw Page, Corey, PA PA cp Wise, Tara RN RN tw2 Corrections: (The following items were deleted from the chart) 04/24 18:22 18:21 Back: Positive for pain at rest, pain with movement, of the right low back, cp cp 18:22 17:30 Back: Positive for pain at rest, pain with movement, of the right low back, cp cp 19:07 18:53 04/24/2020 18:53 Discharged to Home. Impression: Sciatica, right side. Condition tw2 is Stable. Forms are Medication Reconciliation Form, Thank You Letter, Antibiotic Education, Prescription Opioid Use. Follow up: Private Physician; When: 1 - 2 days; Reason: Recheck today's complaints. Problem is new. Symptoms have improved. cp
[2020-04-24 19:03] LABS: Urine Bacteria <20 /HPF (<20); Urine RBC <5 /HPF (NONE SEEN)
[2020-04-25 11:01] VITALS: TEMP 99.1
[2020-04-25 11:04] VITALS: BP 138/98; O2SAT 99
== END 2020-04-24 19:07 | disposition home or self-care (01) ==
LOC: ER 16:57
DX: M54.31 Sciatica, right side (principal); Z88.6 Allergy status to analgesic agent
CPT/HCPCS: 81003; 81015; 81025; 99284

== ENCOUNTER 2021-12-13 06:34 | Day surgery (SDC) | payer OTHER ==
[2021-12-11 10:28] LABS: Absolute Lymphocytes (CBC) 1.9 K/uL (0.7-4.9); Hematocrit 40.9 % (36.0-45.0); Lymphocytes % 31.8 % (15.3-44.8); MPV 7.7 fL (7.6-11.3)
[2021-12-11 11:35] LABS: SARS-CoV-2 Antigen Rapid Res Negative (Negative)
[2021-12-11 11:45] LABS: Specific Gravity 1.015 (1.005-1.030); Urine Bilirubin NEGATIVE (Negative); Urine Clarity Clear (Clear); Urine Color Yellow (Yellow); Urine Glucose NEGATIVE (Negative)
[2021-12-11 11:46] LABS: Urine Bacteria 20-50 /HPF (<20); Urine Blood Trace (Negative); Urine Protein NEGATIVE (Negative); Urine Urobilinogen 0.2 mg/dL (0.2-1.0)
[2021-12-13] MEDS ORDERED: BUPIVACAINE 0.25% PF 10 ML VIAL ONE (07:07)
[2021-12-13] MEDS ORDERED: SCOPOLAMINE HYDROBROMIDE PATCH TD ONE (07:12)
[2021-12-13] MEDS ORDERED: Ringers Lactate 1,000 ML IV ONE ×2 (07:13→09:55)
[2021-12-13] MEDS ORDERED: propofoL 200 MG/20 ML VIAL IV ONE (07:29)
[2021-12-13] MEDS ORDERED: FENTANYL CITR 100 MCG/2 ML ONE (07:29)
[2021-12-13] MEDS ORDERED: dexAMETHasone 10 MG/ML VIAL ONE (07:30)
[2021-12-13] MEDS ORDERED: ROCURONIUM 50 MG/5 ML VIAL IV ONE (07:30)
[2021-12-13] MEDS ORDERED: KETOROLAC 30 MG/ML INJ ONE (07:30)
[2021-12-13] MEDS ORDERED: ONDANSETRON 4 MG/2 ML VIAL ONE (07:31)
[2021-12-13] MEDS ORDERED: MIDAZOLAM HCL 2 MG/2 ML INJ ONE (07:31)
[2021-12-13] MEDS ORDERED: LIDOCAINE 1% MPF 30 ML VIAL ONE (07:32)
[2021-12-13] MEDS ORDERED: EPINEPHRINE 0.3 MG/0.3 ML IJ PRN (08:01)
[2021-12-13] MEDS ORDERED: AUTO INJCT IJ PRN (08:01)
[2021-12-13] MEDS ORDERED: HYDROCODONE/APAP 5/325 MG TAB PO PRN (08:02)
[2021-12-13] MEDS ORDERED: MEPERIDINE HCL 25 MG/ML SYR IM PRN (08:02)
[2021-12-13] MEDS ORDERED: PROMETHAZINE INJ 25 MG/ML AMP IV PRN (08:02)
--- NOTE | 2021-12-13 08:07 | P.BOP ---
Preoperative diagnosis: Pelvic pain, Interstitial cystitis Postoperative diagnosis: same,endometriosis Primary procedure: Laparoscopy, endometriosis excision, Right ureterolysis, Cystoscopy Exploitation Analyst: Lexie Hay (Abiola Drake PA-C) Estimated blood loss: min Specimen: rt and left lateral wall endo Findings: endo rt distal lateral,lf wall between ureter/USL,cysto:inflam,small lesion Anesthesia: General Complications: None Transferred to: Recovery Room Condition: Good
[2021-12-13] MEDS ORDERED: HYDROXYCHLOROQUINE 200MG TAB PO SCH (09:00)
[2021-12-13] MEDS ORDERED: HOME MED 1 EA UNK (Mv-Min/Iron/Folic/Calcium/Vitk [Women's Multivitamin Tablet] Tablet) PO SCH (09:00)
[2021-12-13] MEDS ORDERED: LORATADINE 10 MG TAB PO SCH (09:00)
[2021-12-13] MEDS ORDERED: DUPILUMAB 300 MG/2 ML SQ SCH (09:00)
[2021-12-13] MEDS ORDERED: PENTOSAN POLYSULFATE SODIUM 100 MG PO SCH (09:00)
[2021-12-13] MEDS ORDERED: HOME MED 1 EA UNK (Gabapentin [Gabapentin] 600 MG Tablet) PO SCH (09:00)
[2021-12-13] MEDS ORDERED: PANTOPRAZOLE 40MG TABLET PO SCH (09:00)
[2021-12-13] MEDS ORDERED: GLYCOPYRROLATE 0.2 MG/ML SYR ONE (09:31)
[2021-12-13] MEDS ORDERED: NEOSTIGMINE 1 MG/ML -10 ML VIAL ONE (09:32)
[2021-12-13] MEDS: HYDROMORPHONE HCL 1 MG/ML INJ ONE ×2 (10:00→10:17)
[2021-12-13 13:54] VITALS: BP 130/87; TEMP 97.8; O2SAT 98
--- NOTE | 2021-12-14 12:04 | OP ---
Date of Procedure: 12/13/2021 Surgeon: Lona Garcia MD Archery Equipment Hay Sorter: Lexie Steward and Abiola Drake. Preoperative Diagnosis: Pelvic pain, interstitial cystitis. Postoperative Diagnosis: Pelvic pain, interstitial cystitis, and endometriosis. Procedures Performed: 1.Diagnostic laparoscopy. 2.Endometriosis excision. 3.Ureterolysis. 4.Right ovarian cyst drainage. 5.Cystoscopy. Estimated Blood Loss: Minimal. Specimens: Right and left lateral wall endometriosis. Findings: Endo of the right distal lateral wall. The ureter had to be dissected and in or tam for me to be able to excise the implants without any damage to the underlying ureter. Left lateral wall between the ureter and the uterosacral ligament, there was more endometriosis. Sca r from the hysterectomy. No other abnormal findings. No appendix. The right ovary had darkish colo red cyst on simple drainage with a monopolar needle it drained blood and clot most likely consistent with corpus luteum. On cystoscopy, there was a small irregular raised lesion close to the left UO right above the trigone and then erythema on the top of the dome of the bladder. Anesthesia: General endotracheal. Complications: No complications. Drains: None. Condition: Stable. Indications: The patient is a 36-year-old female, who presented with pelvic pain and history of inte rstitial cystitis. She was evaluated by an outside urologist, has had multiple laparoscopies even be fore her first child, since the age of 18, and has diagnosis of possible endometriosis. There was no endometriosis at the time of her hysterectomy. The patient has recurrent pain, occasional deep dysp areunia and symptoms of urinary urgency, pain with urination, pain with fullness of bladder. In orde r for us to evaluate recurrent endometriosis, a diagnostic laparoscopy was offered along with cystosc opy to visualize the bladder to rule out any tumors and see if there are any sources of acute inflamm ation that could be treated at a later point in time. She was consented and brought to the OR. Description Of Procedure: After informed was verified, she was taken back to OR, placed in the supin e fashion on the operating room table, general anesthesia was given. She was placed in a dorsal lith otomy position using Rohit stirrups. Abdomen, vulva, vagina and perineum prepped and draped in a callie rile fashion. Sponge on a stick was used through the vaginal canal for retraction. Cook placed to drain the bladder. A 1 cm infraumbilical incision made with the scalpel using the open laparoscopy technique. Fascia wa s incised, tagged with 0 Vicryl sutures and peritoneum entered sharply. S-retractors were placed. H asson was introduced. Site of entry was checked and was unremarkable. Two 5 ports were placed in th e left and right lower quadrant, and a 5 suprapubic port. After examination closely of the pelvic an d peritoneum, there were significant implants of the peritoneum endometriosis of the right and left a s dictated in the finding. Monopolar needle was taken to . The ureter was slight ly below the level of the pelvic brim to the ureteric tunnel. Completely dissected and left to be la teral to the implants. Then the implants were excised with the help of the monopolar needle and occa sionally the bipolar cautery was used for the detachment of the last piece of peritoneum. Once the ureter was completely , then the peritoneum was excised. On the opposite side, dissection was performed to open the peritoneum between the uterosacral and the ureter. Dissection was carried inferiorly and superiorly and circumferentially excising the entire area of the lesion. Attention was then directed to the right ovarian cyst, which appeared to have a bluish hue, unlikely to have endometriosis, but we wanted to make sure, so incised it with a monopola r hook blade. The contents were drained and this is consistent with further action needed to be taken. The gas was desufflated. Instruments were removed. Instrument and sponge counts were correct at the end of the case. The patient was tolerated the procedure well. She cannot have Mirella dol, which was avoided. EBL was minimal. Cystoscopy was performed with a 17-German sheath, 30-degree lens, normal saline. Findings as dictate d above in the findings section. She was recovered from anesthesia and taken to the PACU in stable condition. She will have 1 week fo llow up with me. ROMY/SANTINO Voice ID: [id number] Report ID: [id number]
== END 2021-12-13 11:15 | disposition home or self-care (01) ==
LOC: OR 06:34
PROVIDERS: ATTEND Obstetrics & Gynecology
PROC: 0U904ZX Drainage of Right Ovary, Percutaneous Endoscopic Approach, Diagnostic (ICD-10-PCS; 2021-12-13)
PROC: 0WBF4ZZ Excision of Abdominal Wall, Percutaneous Endoscopic Approach (ICD-10-PCS; principal; 2021-12-13 07:30)
PROC: 0UB44ZZ Excision of Uterine Supporting Structure, Percutaneous Endoscopic Approach (ICD-10-PCS; 2021-12-13 07:30)
DX: N30.10 Interstitial cystitis (chronic) without hematuria (principal); R10.2 Pelvic and perineal pain; N80.3 Endometriosis of pelvic peritoneum; K59.00 Constipation, unspecified; Z20.822 Contact with and (suspected) exposure to COVID-19
CPT/HCPCS: 87088; 85025; 81001; 87086; 36415; 86900; 86850; 86901; 88305; 87811; 58662; 58999; J2704; J2710; J2250; J3010; J1100; J1170; J7120 ×2; J2405

== ENCOUNTER 2022-01-25 14:50 | Emergency (ER) | payer OTHER ==
--- NOTE | 2022-01-25 14:57 | ER ---
Nurse's Notes [facility] Name: Renea Solano Age: 36 yrs Sex: Female : 1985 Arrival Date: 01/25/2022 Time: 14:52 Bed 12 Private MD: Betsy Mehta Diagnosis: Allergic rhinitis, unspecified Presentation: 01/25 14:55 Chief complaint: Face feels swollen, eyes watering x 2 days, requesting allergy or hb steroid shot. Coronavirus screen: At this time, the client does not indicate any symptoms associated with coronavirus-19. Ebola Screen: No symptoms or risks identified at this time. Risk Assessment: Do you want to hurt yourself or someone else? Patient reports no desire to harm self or others. Onset of symptoms was January 24, 2022. 14:55 Method Of Arrival: Ambulatory hb 14:55 Acuity: ROSMERY 4 hb Historical: - Allergies: 14:57 Aspirin; hb 14:57 Ibuprofen; hb - Home Meds: 14:57 gabapentin Oral [Active]; hb - PMHx: 14:57 Hypertension; restless leg syndrome; hb - Immunization history:: Adult Immunizations up to date. - Social history:: Smoking status: Patient denies any tobacco usage or history of. Screenin:13 Abuse screen: Denies threats or abuse. Nutritional screening: No deficits noted. bm7 Tuberculosis screening: No symptoms or risk factors identified. Fall Risk None identified. Assessment: 15:13 Reassessment: No changes from previously documented assessment. bm7 Vital Signs: 14:55 BP 161 / 93; Pulse 89; Resp 16; Temp 97.8(TE); Pulse Ox 100% ; Weight 65.77 kg; Height hb 5 ft. 7 in. (170.18 cm); Pain 5/10; 14:55 Body Mass Index 22.71 (65.77 kg, 170.18 cm) hb ED Course: 14:52 Patient arrived in ED. mr 14:52 Betsy Mehta is Private Physician. mr 14:54 Sofie Sauer FNP-C is [facility]. kb 14:54 Vidal Zhu MD is Attending Physician. kb 14:55 Arm band placed on. hb 14:57 Triage completed. hb 14:58 Clarisse Camargo, RN is Primary Nurse. bm7 15:13 Patient has correct armband on for positive identification. Call light in reach. bm7 15:13 No provider procedures requiring assistance completed. Patient did not have IV access bm7 during this emergency room visit. Administered Medications: 15:01 Drug: SOLU-Medrol (methylPREDNISolone sodium succinate) 125 mg Route: IM; Site: right bm7 gluteus; 15:14 Follow up: Response: No adverse reaction bm7 Medication: 15:13 VIS not applicable for this client. bm7 Outcome: 14:57 Discharge ordered by . konstantin 15:13 Discharged to home ambulatory, with family. bm7 15:13 Condition: good 15:13 Discharge instructions given to patient, family, Instructed on discharge instructions, follow up and referral plans. medication usage, Demonstrated understanding of instructions, follow-up care, medications, Prescriptions given X 1. 15:14 Patient left the ED. bm7 Signatures: Sofie Sauer, TIGRE JUDGE-Ny Herrera Jordyn Goncalves, RAZA RN Clarisse Camargo RN RN bm7
--- NOTE | 2022-01-25 14:57 | EDPHYS ---
Physician Documentation [facility] Name: Renea Solano Age: 36 yrs Sex: Female : 1985 Arrival Date: 01/25/2022 Time: 14:52 Bed 12 Private MD: Betsy Mehta ED Physician Vidal Zhu HPI: 01/25 15:12 This 36 yrs old Female presents to ER via Ambulatory with complaints of Allergy kb Symptoms. 15:12 The patient presents with congestion, swelling. Onset: The symptoms/episode kb began/occurred today. Modifying factors: The symptoms are alleviated by nothing. the symptoms are aggravated by nothing. Associated signs and symptoms: The patient has no apparent associated signs or symptoms, Loss of consciousness: the patient experienced no loss of consciousness. Severity of symptoms: At their worst the symptoms were mild moderate in the emergency department the symptoms are unchanged. The patient has experienced similar episodes in the past, multiple times. The patient has been recently seen by a physician:. Pt states she has bad allergies and gets allergy shots from an cell cleaner. States she had one on and had a reaction that was worse than previous reactions. States she feels swollen and congested in her head. Normally she goes to her cell cleaner and gets a steroid shot, but he isn't open on Saturdays so she came to get it from here. . Historical: - Allergies: 14:57 Aspirin; hb 14:57 Ibuprofen; hb - Home Meds: 14:57 gabapentin Oral [Active]; hb - PMHx: 14:57 Hypertension; restless leg syndrome; hb - Immunization history:: Adult Immunizations up to date. - Social history:: Smoking status: Patient denies any tobacco usage or history of. ROS: 15:11 Constitutional: Negative for fever, chills, and weight loss. kb 15:11 ENT: Positive for sinus congestion, sinus pain. 15:11 All other systems are negative. Exam: 15:11 Constitutional: This is a well developed, well nourished patient who is awake, alert, kb and in no acute distress. Head/Face: Normocephalic, atraumatic. ENT: Moist Mucous membranes Cardiovascular: Regular rate and rhythm with a normal S1 and S2. No gallops, murmurs, or rubs. No pulse deficits. Respiratory: Respirations even and unlabored. No increased work of breathing. Talking in full sentences Abdomen/GI: Soft, non-tender. No distention Skin: Warm, dry with normal turgor. Normal color. MS/ Extremity: Pulses equal, no cyanosis. Neurovascular intact. Full, normal range of motion. Neuro: Awake and alert, GCS 15, oriented to person, place, time, and situation. Moves all extremities. Normal gait. Psych: Awake, alert, with orientation to person, place and time. Behavior, mood, and affect are within normal limits. Vital Signs: 14:55 BP 161 / 93; Pulse 89; Resp 16; Temp 97.8(TE); Pulse Ox 100% ; Weight 65.77 kg; Height hb 5 ft. 7 in. (170.18 cm); Pain 5/10; 14:55 Body Mass Index 22.71 (65.77 kg, 170.18 cm) hb MDM: 14:54 Patient medically screened. kb 15:11 Data reviewed: vital signs, nurses notes. Data interpreted: Pulse oximetry: on room air kb is 100 %. Interpretation: normal. Counseling: I had a detailed discussion with the patient and/or guardian regarding: the historical points, exam findings, and any diagnostic results supporting the discharge/admit diagnosis, the need for outpatient follow up, a family practitioner, to return to the emergency department if symptoms worsen or persist or if there are any questions or concerns that arise at home. Administered Medications: 15:01 Drug: SOLU-Medrol (methylPREDNISolone sodium succinate) 125 mg Route: IM; Site: right bm7 gluteus; 15:14 Follow up: Response: No adverse reaction bm7 Disposition: 15:43 Co-signature as Attending Physician, Vidal Zhu MD. rn Disposition Summary: 01/25/22 14:57 Discharge Ordered Location: Home kb Condition: Stable kb Diagnosis - Allergic rhinitis, unspecified kb Followup: kb - With: Emergency Department - When: As needed - Reason: Worsening of condition Followup: kb - With: Private Physician - When: 2 - 3 days - Reason: Recheck today's complaints, Continuance of care, Re-evaluation by your physician Discharge Instructions: - Discharge Summary Sheet kb - Allergic Rhinitis, Adult, [id number] kb Forms: - Medication Reconciliation Form kb - Thank You Letter kb - Antibiotic Education kb - Prescription Opioid Use kb Prescriptions: - Prednisone 20 mg Oral Tablet - take 1 tablet by ORAL route once daily for 5 days; 5 tablet; Refills: 0, kb Product Selection Permitted Signatures: Sofie Sauer, Vidal Isaac MD MD rn Baxter, Heather RN RN Clarisse Camargo RN RN bm7
--- OUTSIDE RECORDS SUMMARY | 2022-01-25 14:59 | XMS REPORT | Continuity of Care Document ---
:1985 Author Organization [facility] t Address [address] R[place] [address] [place] [id number] Care Team Providers Name Role Phone PAULIE HARRIS Primary Care Physician Unavailable Paulie Harris Attending Clinician Unavailable PAIGE COVARRUBIAS Attending Clinician Unavailable Mari De La O Attending Clinician Unavailable CHUCKIE GARCIA Attending Clinician Unavailable SHANNON KIM Attending Clinician Unavailable Shannon Kim DO Attending Clinician ESPERANZA COOK Attending Clinician Unavailable Esperanza Ridley S Attending Clinician PAIGE COVARRUBIAS Attending Clinician Unavailable Paige Covarrubias MD Attending Clinician [phone] Haylie Alva MD Attending Clinician JACKSON BINGHAM Attending Clinician Unavailable MELO BELLO Attending Clinician Unavailable ELPIDIO HOROWITZ Attending Clinician Unavailable Matthew SHARMA Attending Clinician Unavailable Matthew Obando Attending Clinician Only, Ang Db Test Attending Clinician Unavailable Iris Brown Attending Clinician IRIS MCKEON Attending Clinician Unavailable FATOU EPSTEIN Attending Clinician Unavailable Fatou Epstein MD Attending Clinician [phone] Juliana WILEY, Renetta Claire Attending Clinician [phone] Damián Strong Attending Clinician STAN THAKKAR Attending Clinician Unavailable Stan Bateman Attending Clinician CARLI COTE Attending Clinician Unavailable Carli Cote DO Attending Clinician Doctor Unassigned, [place] Attending Clinician Unavailable Chuckie Garcia MD Attending Clinician Sheng CASTROCMallory Attending Clinician [phone] Steve Arechiga Attending Clinician Unavailable PHYSICIAN, ER Attending Clinician Unavailable Ana Mckinnon RN Attending Clinician Unavailable Krys Lara Attending Clinician KRYS MUNGUIA Attending Clinician Unavailable PAIGE COVARRUBIAS Admitting Clinician Unavailable Mari De La O Admitting Clinician Unavailable Physician, No Primary or Family Admitting Clinician UnavailESPERANZA Kaur Admitting Clinician Unavailable Matthew SHARMA Admitting Clinician Unavailable FATOU EPSTEIN Admitting Clinician Unavailable Referred, Self Admitting Clinician Unavailable Payers Payer Name Policy Type Policy Number Effective Date Expiration Date Yuliet monson MARVIN PATOKA [id number] 2020 00:00:00 MARVIN - [id number] 2020 [facility] 00:00:00 TEN MARVIN FROM [id number] 2018 [facility] 00:00:00 Problems Condition Condition Condition Status Onset Resolution Last Treating Co mments Source Name Details Category Date Date Treatment Clinician Date Systemic Systemic Disease Active 2013- Kelechi r lupus lupus 3-19 [place] erythemato erythemato 00:00: of barron barron 00 Medicin (HCCode) (HCCode) e Encounter Encounter Disease Active [facility] for for - [place] long-term long-term 00:00: of (current) (current) 00 Medi mare use of use of e other other medication medication s s Problem Condition [facility] Allergies, Adverse Reactions, Alerts Allergy Allergy Status Severity Reaction(s) Onset Inactive Treating Comm ents Source Name Type Date Date Clinician SHELLFIS DRUG Active Anaphylaxis Uni vers H INGREDI 10-30 ity of DERIVED 00:00: [place] 00 Medical Branch Shellfis Propensi Active Anaphylaxis U nivers h ty to 10-30 ity of Derived adverse 00:00: [place] reaction 00 Medical s to Branch drug IBUDILAS [facility] LEVOFLOX Allergy Active [facility] OTHER Allergy Active 2021-[address] [facility] 00[facility] Medical 00 Center Ibudilas Propensi Active [address] [facility] ty to 5-13 [facility] adverse 00:00: Medical reaction 00 Center s Levoflox Drug Active 2021-[address] [facility] acin Allergy 5-13 [facility] 00:[facility]: Medical 00 Center Other Propensi Active 0 monistat- [facility] ty to 5-13 burning [facility] adverse 00:00: of skin Medical reaction 00 Center s IODINE DRUG Active Anaphylaxis Unive rs INGREDI 3-02 ity of 00:00: [place] 00 Medical Branch TREE Food Active Anaphylaxis 0 Unive rs NUTS 3-02 ity of 00:00: [place] 00 Medical Branch LACTOSE DRUG Active Anaphylaxis 0 Univ ers INGREDI 3-02 ity of 00:00: [place] 00 Medical Branch GLUTEN DRUG Active Anaphylaxis 0 Unive rs INGREDI 3-02 ity of 00:00: [place] 00 Medical Branch WHEAT DRUG Active Unknown-Cmnt 2021-0 Univ ers INGREDI 3-02 ity of 00:00: [place] 00 Medical Branch Gluten Propensi Active Anaphylaxis 0 Uni vers ty to 3- ity of adverse 00:00: [place] reaction 00 Medical s Branch Iodine Propensi Active Anaphylaxis 2021-0 Uni vers ty to 3-02 ity of adverse 00:00: [place] reaction 00 Medical s Branch Lactose Propensi Active Anaphylaxis 2021-0 Un alphonso ty to 3-02 ity of adverse 00:00: [place] reaction 00 Medical s Branch Tree Propensi Active Anaphylaxis 0 Uni vers Nuts ty to 3-02 ity of adverse 00:00: [place] reaction 00 Medical s Branch Wheat Propensi Active Unknown - 0 Unive rs ty to See comments 07-03 ity of adverse 00:00: [place] reaction 00 Medical s Branch SALICYLA DRUG Active Anaphylaxis 2020-05 Uni vers JANES INGREDI 2-19 ity of 00:00: [place] 00 Medical Branch Salicyla Propensi Active Anaphylaxis 2020-1 U nivers janes ty to 2-19 ity of adverse 00:00: [place] reaction 00 Medical s Branch SOY Allergy Active High Other 2020-[address] [facility] [facility] 00:[facility]: Medical [address] [place] [address] soy FA Active SV 2020-0 [facility] [place] soy FA Active SV ANAPHYLAXIS 2020-0 [facility] [place] peanut FA Active SV 1-0 [facility] [place] peanut FA Active SV THROAT 2020-0 [facility]OSES 6[facility] 00:[facility] [place] lactase DA Active SV THROAT 1-0 [facility] 6[facility] 00:[facility]: [facility] [place] aspirin DA Active SV ANAPHYLAXIS 1-0 [facility] 6[facility] 00:[facility]: [facility] [place] ibuprofe DA Active SV THROAT 1-0 [facility] n CLOSES 6-24 [facility] 00:[facility]: [facility] [place] egg FA Active SV THROAT 1-0 [facility] 6[facility] 00:[facility]: [facility] [place] wheat FA Active SV THROAT 1-0 [facility] 6[facility] 00:[facility]: [facility] [place] lactase DA Active SV 2021-0 [facility] 00:[facility]: [facility] [place] aspirin DA Active SV 1-0 [facility] 6[facility] 00:[facility]: [facility] [place] ibuprofe DA Active SV 2020-0 [facility] n [facility] 00:[facility]: [facility] [place] egg FA Active SV 2020-0 [facility] 00:[facility] [place] wheat FA Active SV 2020-0 [facility] 6[facility] 00:[facility] [place] Soy Drug Active Other (See + on skin [facility] 6[facility]: test Medical 00 Center GLUTEN Allergy Active High Anaphylaxis 2020-[address] [facility] PROTEIN 3-30 [facility] 00:[facility]: Medical 00 Center SHELLFIS Allergy Active High Anaphylaxis 2020-[address] [facility] 3-30 [facility] CONTAINI 00:00: Medical NG 00 Center PRODUCTS TREE NUT Allergy Active High Anaphylaxis 2020-[address] [facility] Medical 00 Center WHEAT Allergy Active High Anaphylaxis 2020-[address] [facility] CONTAINI 3-30 [facility] NG PROD 00:00: Medical 00 [place] Egg Propensi Active Anaphylaxis 2020-0 Mamou jimena ty to 3-30 College adverse 00:00: of reaction 00 Medicin s to e food Gluten Propensi Active Anaphylaxis 2020-0 Mamou jimena ty to 3-30 College adverse 00:00: of reaction 00 Medicin s to e drug Shellfis Propensi Active Severe 2020-0 Scallops, Mamou jimena h-Derive ty to 3-30 shrimp, College d adverse 00:00: lobster, of Products reaction 00 " All Medici n s to shellfish e drug and seafood" GLUTEN Allergy Active High Anaphylaxis 2020-[address] [facility] [facility] 00[facility] Medical 00 Center EGG Allergy Active High Anaphylaxis 2020-[address] [facility] [facility] 00:[facility] Medical 00 Center Egg Drug Active Anaphylaxis 2020-0 [facility]30 [facility] 00:[facility]: Medical 00 Center Gluten Drug Active Anaphylaxis 2020-0 [facility] 00:[facility]: Medical 00 Center Gluten Drug Active Anaphylaxis 2020-0 [facility] Protein Allergy 3-30 [facility] 00:[facility]: Medical 00 Center Shellfis Drug Active Anaphylaxis 2020-0 Scallops, [facility] Allergy 3-30 shrimp, [facility] Containi 00:00: lobster Medica l ng 00 " All Center Products shellfish and seafood" Tree Nut Drug Active Anaphylaxis Peanuts," [facility] Allergy 3-30 All types [facility] 00:00: of Nuts" Medical 00 Center Wheat Drug Active Anaphylaxis [facility] Containi Allergy 3-30 [facility] ng Prod 00:00: Medical 00 Center Aspirin Propensi Active Anaphylaxis Ba ylor ty to 2-24 College adverse 00:00: of reaction 00 Medicin s to e drug ASPIRIN Allergy Active High Anaphylaxis [facility] 00[facility]: Medical 00 Center clams Allergy Active Mild 2020- [facility] to 1-26 S substanc 00:00: Health e 00 scallops Allergy Active Mild 2019- [facility] to 1-26 S substanc 00:00: Health e 00 ALMOND Allergy Active High Other 2020- [facility] 00[facility]: Medical 00 Center CLAMS Allergy Active High Other 2020- [facility]: Medical 00 Center MILK Allergy Active High Other 2020- [facility]: Medical 00 Center SCALLOPS Allergy Active High Anaphylaxis 2020-[address] [facility] 00[facility]: Medical 00 Center [place] Drug Active Other (See 2020-1 + on skin [facility] 05-29 allergy [facility] 00:[facility]: test Medical 00 Center Clams Drug Active Other (See 2020-1 + on skin [facility]) 05-29 allergy [facility] 00:[facility]: test Medical 00 Center Milk Drug Active Other (See 2020-1 + on skin [facility]) 05-29 allergy [facility] 00:[facility]: test Medical 00 Center Scallops Drug Active Anaphylaxis 2020-[address] [facility] Allergy 1-26 [facility] 00:00: Medical 00 Center Peanuts Allergy Active Mild 2020-1 [facility] to 1-26 S substanc 00:00: Health e 00 Eggs Allergy Active Mild 2020-1 [facility] to 1-26 S substanc 00:00: Health e 00 Milk Allergy Active Mild 2020-1 [facility] to 1-26 S substanc 00:00: Health e 00 Wheat Allergy Active Mild 2020-1 [facility] to 1-26 S substanc 00:00: Health e 00 almond Allergy Active Mild 2020-1 [facility] to 05-29 S substanc 00:00: Health e 00 peanut FA Active U 2020- [facility] 00[facility]: [facility] [place] lactase DA Active U 2020- [facility] 1[facility] 00:[facility]: [facility] [place] ibuprofe DA Active U 2020- [facility] n 1-09 [facility] 00:[facility]: [facility] [place] LACTASE Allergy Active High Other 2019- [facility] 00[facility]: Medical 00 Center egg FA Active U 2020- [facility] 1[facility] 00:00: [facility] 00 [facility] [place] wheat FA Active U 2020- [facility] 1-09 [facility] 00:00: [facility] 00 [facility] [place] peanut FA Active U THROAT 2020- [facility] CLOSES 1-09 [facility] 00:00: [facility] 00 [facility] [place] lactase DA Active U THROAT 2020- [facility] CLOSES 1-09 [facility] 00:00: [facility] 00 [facility] [place] ibuprofe DA Active U THROAT 2020- [facility] n CLOSES 1-09 [facility] 00:00: [facility] 00 [facility] [place] egg FA Active U THROAT 2020- [facility] CLOSES 1-09 [facility] 00:00: [facility] 00 [facility] [place] wheat FA Active U THROAT 2020- [facility] CLOSES 1-09 [facility] 00:00: [facility] 00 [facility] [place] PEANUT Allergy Active High Anaphylaxis 2019- [facility] Medical 00 Center WHEAT Allergy Active High Anaphylaxis 2019- [facility] 00:[facility]: Medical 00 Center Lactase Drug Active Other (See [address] [facility] Comments) 05-12 on skin [facility] 00:00: test Medical 00 Center Peanut Drug Active Anaphylaxis 2019- [facility]12 [facility] 00:[facility]: Medical 00 Center Wheat Drug Active Anaphylaxis 2019- [facility]12 [facility] 00:[facility]: Medical 00 Center ASPRIN DA Active SV ANAPHYLAXIS 2017- [facility] 00:[facility]: [facility] [place] ASPIRIN Allergy Active High Anaphylaxis 2017- [facility] -[facility] 00:[facility]: Medical 00 Center Aspirin Drug Active Anaphylaxis, 2017-[address] [facility] All[facility] Hives, 15 [facility] Shortness Of 00:00: Medi gemma Breath, 00 Center Itching, Rash Ibuprofe Propensi Active Anaphylaxis B a[facility]or n ty to 07-20 College adverse 00:00: of reaction 00 Medicin s to e drug Ibuprofe Propensi Active Anaphylaxis U nivers n ty to 07-20 ity of adverse 00:00: [place] reaction 00 Medical s Branch IBUPROFE DRUG Active High Anaphylaxis Uni vers N INGREDI 07-20 ity of 00:00: [place] 00 Medical Branch IBUPROFE Allergy Active High [facility]aphylaxis [facility] 00[facility]: Medical 00 Center Ibuprofe Drug Active Anaphylaxis [facility] n Allergy 07-20 [facility] 00:00: Medical 00 [place] Ibuprofe Adverse Active Anaphylaxis Co mmon n Reaction [facility] Aspirin Adverse Active Anaphylaxis Com mon Reaction [facility] Social History Social Habit Start Date Stop Date Quantity Comments Source History of Cigarette Smoker [facility] of tobacco use Medicine Cigarette 2021-11-18 2021-11-18 [facility] of pack-years 00:00:00 00:00:00 Medicine Exposure to 2021-10-20 2021-10-30 Not sure [facility] SARS-CoV-2 00:00:00 19:48:00 [facility] (event) [place] Alcohol intake 2021-09-17 2021-09-17 Ex-drinker [facility] Rebecca es 00:00:00 00:00:00 (finding) [facility] Tobacco use and 2020-07-31 2020-07-31 Never used [facility] Dodie kes exposure 00:00:00 00:00:00 [facility] Sex Assigned At [address] [facility] 00:00:00 00:00:00 [facility] Sex Assigned At [address] Dodie kes 00:00:00 00:00:00 [facility] Smoking Status Start Date Stop Date Source Never smoked tobacco [facility] Phillip ege of Medicine Unknown if ever smoked Univers y [facility] Medications Ordered Filled Start Stop Current Ordering Indication Dosage Frequency Signature Comments Components Source Medication Medication Date Date Medication? Clinician (SIG) Name Name lisinopril Yes 10mg Take 10 mg [facility] (PRINIVIL, 7-18 by mouth Colle ge ZESTRIL) 10 10:26: in the of MG tablet 53 morning. Medici n e HYDROcodone 2021-0 2021- No 1{tbl} 1 tablet, Univers -acetaminop 10-31-30 Oral, ity of hen (NORCO 02:45: 03:04 ONCE, 1 [place] as 5) 5-325 mg 00 :00 dose, On Medi gemma tablet 1 Wed Branch tablet 10/30/21 at 2145, L[place] traMADoL 2021-0 2021- No 50mg 50 mg, Univer s (ULTRAM) 10-31-30 Oral, ity of tablet 50 02:15: 01:16 ONCE, 1 [place] mg 00 :00 dose, On Medical Wed Branch 10/30/21 at 2115, Routine acetaminoph 2021-0 Yes [id number] 1{tbl} Take 1 Un alphonso en-codeine 6-29 tablet by ity of 300-30 mg 00:00: mouth [place] tablet 00 every 4 Medical (four) Branch hours as needed for Pain (scale 7-10) for up to 12 doses. Indication s: acute pain Dupilumab 2021-0 Yes 300mg Inject 300 [facility] 300 MG/2ML 6-17 mg into Colleg e SOPN 00:00: the skin of 00 every 7 Medicin days. e predniSONE 2021-0 Yes 40mg Take 2 [facility] (DELTASONE) 6-10 Tablets by Co llege 20 MG 00:00: mouth of tablet 00 daily. Medicin e omeprazole 2021-0 Yes 40mg Q.5D Take [address] (PriLOSEC) 5-17 by mouth 2 Rebecca es 40 MG 09:31: (two) Medical capsule 01 times Center daily . fluticasone 2021-0 Yes 2{puff} Q.5D Inhale [address] propionate 5-17 puffs by [facility] (FLOVENT 09:31: mouth via Medi gemma HFA) 220 01 inhaler 2 Center mcg/actuati (two) on inhaler times daily. fexofenadin 2021-0 Yes 180mg Q.5D Take [address] (NIURKA) 5-17 mg by [facility] 180 MG 09:31: mouth 2 Medical tablet 01 (two) Center times daily . EPINEPHrine 2022-0 Yes .15mg Inject [facility] (EPIPEN JR) 5-17 0.15 mg [facility]ukes 0.15 mg/0.3 09:31: intramuscu Medical mL 01 larly as Center injection needed for Anaphylaxi s. gabapentin Yes 600mg Q.[id number] Take [address] (NEURONTIN) 5-17 [id number] mg by L ukes 800 MG 09:31: 3D mouth 3 Medical tablet 01 (three) Center times daily . benralizuma Yes 30mg Inject [address] (Fasenra) 5-17 mg [facility] 30 mg/mL 09:31: subcutaneo Med ical Syrg 01 usly once Center syringe every 8 weeks. hydrOXYchlo Yes 300mg QD Take [address] roQUINE 5-17 mg by [facility] (PLAQUENIL) 09:31: mouth Medic al 200 mg 01 daily. Center tablet lisinopriL 2021- No 10mg QD Take [address] (PRINIVIL,Z 5-13 05-13 by mouth Rebecca es ESTRIL) 10 16:31: 00:00 daily. Medi gemma MG tablet 47 :00 Center hydroxychlo Yes Take 1.5 Ba ylor roquine 4-27 tablets College (PLAQUENIL) 00:00: daily of 200 MG 00 Medicin tablet e amoxicillin Yes 1{tbl} Take 1 Ba ylor -clavulanat 4-22 Tablet by Col lege e 00:00: mouth two of (AUGMENTIN) 00 times Medicin 875-125 MG daily. e per tablet Benralizuma Yes 30mg Inject 1 Ba ylor b (FASENRA) 4-07 mL into Colle ge 30 MG/ML 00:00: the skin of syringe 00 once for 1 Medici n dose. e lisinopril Yes 10mg Take 10 mg [facility] (PRINIVIL, 4-05 by mouth Colle ge ZESTRIL) 10 12:48: daily. of MG tablet 22 Medicin e clindamycin 2021- No 600mg 600 mg, IV Univers in 5 % 3- 03-03 Piggyback, ity of dextrose 03:15: 02:40 ONCE NOW, [place] as (CLEOCIN) 00 :00 1 dose, On Medi gemma 600 mg/50 Thu07/03/21 Bran ch mL IV at 2114, piggyback Administer RTU 600 mg over 30 Minutes, 50 mL
Reas on for Anti-Infec tive: Empiric Therapy for Suspected Infection< br>Empiric Therapy Site: HEENT
D uration of therapy: 7 days
Re stricted use approved by: ADC PROVIDER ketorolac 2021- No 15mg 15 mg, Unive rs (TORADOL) 07-04 Slow IV ity of injection 03:15: 02:15 [place], [place] 15 mg 00 :00 ONCE, 1 Medical dose, On Branch Thu07/03/21 at 2114, Routine
merchandise flow team member approving Restricted medication : Matthew SHARMA iopamidol 2021- No [id number] 100mL 100 mL, Univers (ISOVUE 07-04 Intravenou ity o f 370-500 mL) 02:30: 01:30 s, ONCE, 1 [place] injection 00 :00 dose, On Medica l 100 mL Thu07/03/21 Branch at 2030, Routine diphenhydrA No 50mg 50 mg, Uni vers MINE 07-04 Slow IV ity of (BENADRYL) 02:00: 01:07 Push, [place] injection 00 :00 ONCE, 1 Medical 50 mg dose, On Branch Thu07/03/21 at 1999, STAT methylpredn 2021- No 125mg 125 mg, U nivers isolone sod 07-04 Intravenou i ty of succ 02:00: 01:07 s, ONCE, 1 [place] (SOLU-MEDRO 00 :00 dose, On Medi gemma L) Thu07/03/21 Branch injection at 1999, 125 mg STAT fluconazole Yes [id number] Take as Univers 150 mg 07-03 directed. ity of tablet 00:00: [facility] Branch fluconazole Yes [id number] Take as Univers 150 mg -02 directed. ity of tablet 00:00: [facility] Branch clindamycin 2021- No [id number] 300mg Take 1 Univers 300 mg 07-03 capsule by ity of capsule 00:00: 05:59 mouth 4 [place] 00 :00 (four) Medical times [place] daily for 10 days. EPINEPHrine Yes [id number] .3mg Inject 0.3 [place] 0.3 2-22 mg into College MG/0.3ML 00:00: the muscle of injection 00 as needed Medic in for Other e (As needed for anaphylaxi s severe allergy reactions) . As needed for anaphylaxi s severe allergy reactions EPINEPHrine Yes [id number] .3mg Inject 0.3 [facility] 0.3 2-22 mg into College MG/0.3ML 00:00: the muscle of injection 00 as needed Medic in for Other e (As needed for anaphylaxi s severe allergy reactions) . As needed for anaphylaxi s severe allergy reactions Benralizuma Yes 30mg Inject 1 Ba ylor b (FASENRA) 2-09 mL into Colle ge 30 MG/ML 00:00: the skin of syringe 00 once for 1 Medici n dose. e acetaminoph 2020-05- No 1000mg 1,000 mg, Univers en 06-22 Oral, ONCE ity of (TYLENOL) 22:45: 21:41 NOW, 1 [place] tablet 00 :00 dose, On Medical 1,000 mg [facility] 04/21/21 at 1645, Routine diphenhydrA 2020-05- No 25mg 25 mg, Uni vers MINE 06-22 Slow IV ity of (BENADRYL) 22:45: 21:43 [place], [place] injection 00 :00 ONCE, 1 Medical 25 mg dose, On [facility] 04/21/21 at 1645, STAT metoclopram 2020-05- No 10mg 10 mg, Uni vers car HCl 06-22 Slow IV ity of (REGLAN) 22:45: 21:43 [place], [place] injection 00 :00 ONCE, 1 Medical 10 mg dose, On [facility] 04/21/21 at 1645, LAMONTE iopamidol 2020-05- No [id number] 100mL 100 mL, Univers (ISOVUE 06-22 Intravenou ity o f 370-500 mL) 19:47: 19:47 s, ONCE, 1 [place] injection 00 :00 dose, On Medica l 100 mL [place] Branch 04/21/21 at 1400, Routine No known 2020-05 No Univers medications 2- ity of 12:44: [address] No known 2020-05 No Univers medications 2- ity of 12:44: [address] benzonatate 2020-05 No 100mg 100 mg, U nivers (TESSALON 05-31 Oral, ity of PERLES) 08:30: 07:22 ONCE, 1 [place] capsule 100 00 :00 dose, On Medi gemma mg [place] [facility] 03/31/21 at 0230, Routine codeine-gua 2020-05 No 10mL 10 mL, Uni vers ifenesin 05-31 Oral, ity of (ROBITUSSIN 07:30: 06:29 [place]CE, 1 [place] AC) 10-100 00 :00 dose, On Medic al mg/5 mL [facility] oral 03/31/21 solution 10 at 0130, mL LAMONTE NaCl 0.9% 2020-05 No 1000mL at 999 Uni vers (NS) bolus 05-31 mL/hr, ity of infusion 07:30: 09:07 1,000 mL, [place] as 1,000 mL 00 :00 IV Medical Infusion, Branch ONCE, 1 dose, On 03/31/21 at 0130, LAMONTE ipratropium 2020-05- No 6mL 6 mL, Univ ers -albuteroL 05-31 Inhalation it y of (DUONEB) 07:30: 08:28 , ONCE, 1 [place] as 0.5 mg-3 00 :00 dose, On Medical mg(2.5 mg [facility] base)/3 mL 03/31/21 nebulizer at 0130, solution 6 Routine mL maalox:diph 2020-05 No 15mL 15 mL, Uni vers enhydrAMINE 05-31 Oral, ity of :lidocaine 07:30: 06:30 ONCE, 1 [place] as 2 % viscous 00 :00 dose, On Medi gemma 1:1:1 [place] (FIRST-MOUT 03/31/21 HWASH BLM) at 0130, oral Routine suspension 15 mL dexamethaso 2020-05 No 10mg 10 mg, IV Univers ne 05-31 Push, ity of (DECADRON 07:30: 06:40 ONCE, 1 [place] PHOSPHATE) 00 :00 dose, On Medic al injection [place] 10 mg 03/31/21 at 0130, STAT No known 2020-05 No Univers medications 05-31 ity of 01:43: [address] dexamethaso 2020-05- No 10mg 10 mg, Uni vers ne 05-24 Oral, ity of (DECADRON 20:30: 19:31 ONCE, 1 [place] PHOSPHATE) 00 :00 dose, On Medic al injection [place] 10 mg 03/24/21 at 1430, STAT No known 2020-05 No Univers medications 05-24 ity of 13:18: [address] meclizine 2020-05 Yes 12.5mg Take 1 [facility] (ANTIVERT) 0-22 Tablet by Phillip ege 12.5 MG 00:00: mouth 3 of tablet 00 times Medicin daily as e needed. meclizine 2020-05 Yes 12.5mg Take 1 [facility] (ANTIVERT) 0-22 Tablet by Phillip ege 12.5 MG 00:00: mouth 3 of tablet 00 times Medicin daily as e needed. lisinopril 0 Yes 10mg Take 10 mg [facility] (PRINIVIL, 8-30 by mouth Colle ge ZESTRIL) 10 11:51: daily. of MG tablet 02 Medicin e lisinopril Yes 10mg Take 10 mg [facility] (PRINIVIL, 7-13 by mouth Colle ge ZESTRIL) 10 13:47: daily. of MG tablet 33 Medicin e lisinopril 0 Yes 10mg Take 10 mg [facility] (PRINIVIL, 4-07 by mouth Colle ge ZESTRIL) 10 10:19: daily. of MG tablet 49 Medicin e fluticasone Yes 2{puff} 2 Puffs Thai 220 MCG/ACT 4-07 two times Col lege AERO 00:00: daily. 2 of 00 puffs Medicin twice per e day swallowed for eosinophil ic esophagiti s. fluticasone Yes 2{puff} 2 Puffs [place] 220 MCG/ACT 4-07 two times Col lege AERO 00:00: daily. 2 of 00 puffs Medicin twice per e day swallowed for eosinophil ic esophagiti s. fluticasone Yes 2{puff} 2 Puffs [place] 220 MCG/ACT 4-07 two times Col lege AERO 00:00: daily. 2 of 00 puffs Medicin twice per e day swallowed for eosinophil ic esophagiti s. EPINEPHrine Yes .3mg Inject 0.3 [place] 0.3 4-07 mg into College MG/0.3ML 00:00: the muscle of injection 00 as needed Medic in for Other e (As needed for anaphylaxi s severe allergy reactions) . As needed for anaphylaxi s severe allergy reactions fluticasone Yes 2{puff} 2 Puffs [facility] 220 MCG/ACT 4-07 two times Col lege AERO 00:00: daily. 2 of 00 puffs Medicin twice per e day swallowed for eosinophil ic esophagiti s. EPINEPHrine Yes .3mg Inject 0.3 [place] 0.3 4-07 mg into College MG/0.3ML 00:00: the muscle of injection 00 as needed Medic in for Other e (As needed for anaphylaxi s severe allergy reactions) . As needed for anaphylaxi s severe allergy reactions fluticasone Yes 2{puff} 2 Puffs [place] 220 MCG/ACT 4-07 two times Col lege AERO 00:00: daily. 2 of 00 puffs Medicin twice per e day swallowed for eosinophil ic esophagiti s. EPINEPHrine Yes .3mg Inject 0.3 [place] 0.3 4-07 mg into College MG/0.3ML 00:00: the muscle of injection 00 as needed Medic in for Other e (As needed for anaphylaxi s severe allergy reactions) . As needed for anaphylaxi s severe allergy reactions gabapentin Yes TAKE ONE Mamou jimena (NEURONTIN) 2- (1) College 800 MG 00:00: TABLET(S) of tablet 00 BY MOUTH Medicin THREE e TIMES A DAY. gabapentin Yes TAKE ONE Mamou jimena (NEURONTIN) 2- (1) College 800 MG 00:00: TABLET(S) of tablet 00 BY MOUTH Medicin THREE e TIMES A DAY. gabapentin Yes TAKE ONE Mamou jimena (NEURONTIN) 06-04 (1) [employer] 800 MG 00:00: TABLET(S) of tablet 00 BY MOUTH Medicin THREE e TIMES A DAY. gabapentin Yes TAKE ONE Mamou jimena (NEURONTIN) 06-04 (1) [employer] 800 MG 00:00: TABLET(S) of tablet 00 BY MOUTH Medicin THREE e TIMES A DAY. gabapentin Yes TAKE ONE Mamou jimena (NEURONTIN) 06-04 (1) [employer] 800 MG 00:00: TABLET(S) of tablet 00 BY MOUTH Medicin THREE e TIMES A DAY. fexofenadin Yes 180mg Take 1 Mamou jimena e (NIURKA) 1-12 Tablet by Col lege 180 MG 00:00: mouth two of tablet 00 times Medicin daily. e fexofenadin Yes 180mg Take 1 Mamou jimena e (NIURKA) 1-12 Tablet by Col lege 180 MG 00:00: mouth two of tablet 00 times Medicin daily. e fexofenadin Yes 180mg Take 1 Mamou jimena e (NIURKA) 1-12 Tablet by [facility] lege 180 MG 00:00: mouth two of tablet 00 times Medicin daily. e EPINEPHrine Yes INJECT [facility] 0.3 1-12 INTO [facility] MG/0.3ML 00:00: MUSCLE of injection 00 DIRECTED. Medic in e fexofenadin Yes 180mg Take 1 Mamou jimena e (NIURKA) 1-12 Tablet by [facility] lege 180 MG 00:00: mouth two of tablet 00 times Medicin daily. e EPINEPHrine Yes INJECT [facility] 0.3 1-12 INTO [employer] MG/0.3ML 00:00: MUSCLE of injection 00 DIRECTED. Medic in e fexofenadin Yes 180mg Take 1 Mamou jimena e (NIURKA) 1-12 Tablet by Col lege 180 MG 00:00: mouth two of tablet 00 times Medicin daily. e omeprazole Yes [id number] 40mg Take 1 Cap [facility] (PRILOSEC) 9-28 by mouth 2 Col lege 40 MG 00:00: times of capsule 00 daily Medicin (before e meals). 30 minutes before breakfast and 30 minutes before dinner omeprazole 2020-0 Yes [id number] 40mg Take 1 Cap [facility] (PRILOSEC) 9- by mouth 2 Col lege 40 MG 00:00: times of capsule 00 daily Medicin (before e meals). 30 minutes before breakfast and 30 minutes before dinner omeprazole 2020-0 Yes [id number] 40mg Take 1 Cap [facility] (PRILOSEC) 9- by mouth 2 Col lege 40 MG 00:00: times of capsule 00 daily Medicin (before e meals). 30 minutes before breakfast and 30 minutes before dinner omeprazole 2020-0 Yes [id number] 40mg Take 1 Cap [facility] (PRILOSEC) 9- by mouth 2 Col lege 40 MG 00:00: times of capsule 00 daily Medicin (before e meals). 30 minutes before breakfast and 30 minutes before dinner omeprazole 2020-0 Yes [id number] 40mg Take 1 Cap [facility] (PRILOSEC) 9- by mouth 2 Col lege 40 MG 00:00: times of capsule 00 daily Medicin (before e meals). 30 minutes before breakfast and 30 minutes before dinner acetaminoph 2020-0 2020- No 1000mg 1,000 mg, Univers en 10-29 Oral, ity of (TYLENOL) 21:00: 20:26 ONCE, [place] dose, [facility],000 mg 10/30/19 at [facility] h 1600, LAMON[place] No known 2019-0 No Univers medications 10-29 ity of 14:41: [address] Lisinopril Lisinopril 2020-0 Yes Paulie 1 tablet Common 4-17 [facility] 00:00: - [facility] ProAir HFA ProAir HFA 2020-0 Yes Paulie 1 puff as Common 2-28 Cassia needed [facility] 00:00: - [facility] No known No Univers medications ity [facility] No known No Univers medications ity [facility] Pantoprazol Pantoprazol Yes Paulie 1 tablet Common e Sodium e Sodium [facility] Gabapentin Gabapentin Yes Paulie 1 capsule Common [facility] Vital Signs Vital Name Observation Time Observation Value Comments Source HEIGHT 2020-12-06 09:00:00 170.2 cm WEIGHT 2020-12-06 09:00:00 67.132 kg HEIGHT 2020-12-05 11:34:00 170.2 cm WEIGHT 2020-12-05 11:34:00 68.04 kg HEIGHT 2020-08-02 08:26:00 170.2 cm WEIGHT 2020-08-02 08:26:00 70.58 kg WEIGHT 2020-07-31 10:06:00 68.04 kg HEIGHT 2020-07-31 10:06:00 170.2 cm Systolic blood 2021-11-18 15:27:00 122 mm[Hg] [facility] Medicine Diastolic blood 2021-11-18 15:27:00 87 mm[Hg] [facility] Heart rate 2021-11-18 15:27:00 80 /min [facility] Body temperature 2021-11-18 15:27:00 37.11 Steffanie [facility] Respiratory rate 2021-11-18 15:27:00 16 /min [facility] Body height 2021-11-18 15:27:00 170.2 cm [facility] Body weight 2021-11-18 15:27:00 65.681 kg [facility] BMI 2021-11-18 15:27:00 22.68 kg/m2 [facility] Systolic blood 2021-10-31 00:51:00 177 mm[Hg] [facility] Diastolic blood 2021-10-31 00:51:00 115 mm[Hg] [facility]ive [facility] Heart rate 2021-10-31 00:51:00 91 /min Universi [facility] Body temperature 2021-10-31 00:51:00 36.11 Steffanie [facility] 2021-10-31 00:51:00 20 /min [facility] Body height 2021-10-31 00:51:00 170.2 cm Universi ty [facility] Body weight 2021-10-31 00:51:00 65.363 kg Universi ty [facility] BMI 2021-10-31 00:51:00 22.57 kg/m2 [facility] Oxygen saturation in 2021-10-31 00:51:00 100 /min [facility] Arterial blood by [facility] Pulse oximetry Branch HEIGHT 2021-09-17 07:39:00 167.6 cm WEIGHT 2021-09-17 07:39:00 67.586 kg HEIGHT 2021-09-13 16:34:00 167.6 cm WEIGHT 2021-09-13 16:34:00 66.679 kg HEIGHT 2021-09-17 07:39:00 167.6 cm WEIGHT 2021-09-17 07:39:00 67.586 kg HEIGHT 2021-09-13 16:34:00 167.6 cm WEIGHT 2021-09-13 16:34:00 66.679 kg HEIGHT 2021-09-17 07:39:00 167.6 cm WEIGHT 2021-09-17 07:39:00 67.586 kg HEIGHT 2021-09-13 16:34:00 167.6 cm WEIGHT 2021-09-13 16:34:00 66.679 kg Systolic blood 2021-08-06 17:42:00 141 mm[Hg] [facility] pressure Medicine Diastolic blood 2021-08-06 17:42:00 97 mm[Hg] [facility] Medicine Heart rate 2021-08-06 17:42:00 90 /min [facility] Heart Body temperature 2021-08-06 17:42:00 37 Steffanie [facility] Body height 2021-08-06 17:42:00 167.6 cm [facility] Body weight 2021-08-06 17:42:00 67.495 kg [facility] BMI 2021-08-06 17:42:00 24.02 kg/m2 [facility] Oxygen saturation in 2021-08-06 17:42:00 100 /min [facility] Arterial blood by [facility] Pulse oximetry Systolic blood 2021-07-04 02:37:00 123 mm[Hg] Univer sity of pressure [facility] Diastolic blood 2021-07-04 02:37:00 85 mm[Hg] Unive rsity of pressure [facility] Heart rate 2021-07-04 02:37:00 79 /min [facility] [place] [facility] Respiratory rate 2021-07-04 02:37:00 16 /min [facility] [place] [facility] Oxygen saturation in 2021-07-04 02:37:00 100 /min [facility] of Arterial blood by [place] [facility] Pulse oximetry Branch Body temperature 2021-07-04 00:25:00 37.22 Steffanie [facility] [place] [facility] Body weight 2021-07-04 00:25:00 65.772 kg [facility] [place] [facility] BMI 2021-07-04 00:25:00 22.71 kg/m2 [facility] [place] [facility] Systolic blood 2021-04-21 22:00:00 115 mm[Hg] Univer sity of pressure [facility] Diastolic blood 2021-04-21 22:00:00 96 mm[Hg] [facility]ive [facility]ity of pressure [place] [facility] [place] Heart rate 2021-04-21 22:00:00 88 /min [facility] [place] [facility] Respiratory rate 2021-04-21 22:00:00 15 /min [facility] [place] [facility] Oxygen saturation in 2021-04-21 22:00:00 100 /min [facility] of Arterial blood by [place] [facility] Pulse oximetry Branch Body temperature 2021-04-21 18:36:00 37.17 Steffanie [facility] [place] [facility] Body weight 2021-04-21 18:36:00 79.379 kg [facility] [place] [facility] BMI 2021-04-21 18:36:00 27.41 kg/m2 [facility] [place] [facility] HEIGHT 2021-04-16 07:00:00 170.2 cm WEIGHT 2021-04-16 07:00:00 68.448 kg HEIGHT 2021-04-12 11:00:00 170.2 cm WEIGHT 2021-04-12 11:00:00 68.04 kg HEIGHT 2021-04-16 07:00:00 170.2 cm WEIGHT 2021-04-16 07:00:00 68.448 kg HEIGHT 2021-04-12 11:00:00 170.2 cm WEIGHT 2021-04-12 11:00:00 68.04 kg HEIGHT 2021-04-16 07:00:00 170.2 cm WEIGHT 2021-04-16 07:00:00 68.448 kg HEIGHT 2021-04-12 11:00:00 170.2 cm WEIGHT 2021-04-12 11:00:00 68.04 kg Systolic blood 2021-03-31 08:00:00 144 mm[Hg] Univer sity of pressure [facility] Diastolic blood 2021-03-31 08:00:00 108 mm[Hg] Unive rsity of pressure [facility] Heart rate 2021-03-31 08:00:00 97 /min [facility] [place] [facility] Respiratory rate 2021-03-31 08:00:00 26 /min [facility] [place] [facility] Oxygen saturation in 2021-03-31 08:00:00 98 /min University of Arterial blood by [place] Pulse oximetry Branch Body temperature 2021-03-31 05:14:00 37.11 Steffanie [facility] [place] [facility] Body height 2021-03-31 05:14:00 170.2 cm [facility] [place] [facility] Body weight 2021-03-31 05:14:00 79.379 kg [facility] [place] [facility] BMI 2021-03-31 05:14:00 27.41 kg/m2 [facility] [place] [facility] Systolic blood 2021-03-24 19:17:00 145 mm[Hg] Univer sity of pressure [facility] Diastolic blood 2021-03-24 19:17:00 108 mm[Hg] Unive rsity of pressure [facility] Heart rate 2021-03-24 19:17:00 111 /min [facility] [place] [facility] Body temperature 2021-03-24 19:17:00 37.06 Steffanie [facility] [place] [facility] Respiratory rate 2021-03-24 19:17:00 20 /min [facility] [place] [facility] Body height 2021-03-24 19:17:00 170.2 cm [facility] [place] [facility] Body weight 2021-03-24 19:17:00 79.379 kg [facility] [place] [facility] BMI 2021-03-24 19:17:00 27.41 kg/m2 [facility] [place] [facility] Oxygen saturation in 2021-03-24 19:17:00 100 /min University of Arterial blood by [place] [facility] gem[facility] Pulse oximetry Branch Systolic blood 2020-12-31 16:51:00 128 mm[Hg] [facility] Diastolic blood 2020-12-31 16:51:00 92 mm[Hg] [facility] Heart rate 2020-12-31 16:51:00 73 /min [facility] Heart HEIGHT 2020-12-06 09:00:00 170.2 cm WEIGHT 2020-12-06 09:00:00 67.132 kg HEIGHT 2020-12-05 11:34:00 170.2 cm WEIGHT 2020-12-05 11:34:00 68.04 kg Systolic blood 2020-11-08 23:10:00 136 mm[Hg] See notes [facility] Diastolic blood 2020-11-08 23:10:00 102 mm[Hg] See notes [facility] Medicine Heart rate 2020-11-08 23:10:00 91 /min [facility] Heart HEIGHT 2020-08-02 08:26:00 170.2 cm WEIGHT 2020-08-02 08:26:00 70.58 kg WEIGHT 2020-07-31 10:06:00 68.04 kg HEIGHT 2020-07-31 10:06:00 170.2 cm Systolic blood 2019-10-30 20:53:00 149 mm[Hg] Univer sity of pressure [facility] Diastolic blood 2019-10-30 20:53:00 92 mm[Hg] Unive rsity of pressure [facility] Heart rate 2019-10-30 20:53:00 85 /min [facility] Body temperature 2019-10-30 20:53:00 36.78 Steffanie Univ ersity of [facility] Branch Respiratory rate 2019-10-30 20:53:00 20 /min Univ ersity of [facility] Oxygen saturation in 2019-10-30 20:53:00 100 /min University of Arterial blood by [facility] Pulse oximetry Branch Body weight 2019-10-30 19:24:51 79.379 kg [facility] Systolic blood 2019-10-30 20:53:00 149 mm[Hg] Univer sity of pressure [facility] Diastolic blood 2019-10-30 20:53:00 92 mm[Hg] Unive rsity of pressure [facility] Heart rate 2019-10-30 20:53:00 85 /min Universi ty [facility] Body temperature 2019-10-30 20:53:00 36.78 Steffanie Univ ersity [facility] Respiratory rate 2019-10-30 20:53:00 20 /min [facility] Oxygen saturation in 2019-10-30 20:53:00 100 /min University Arterial blood by [facility] Pulse oximetry Branch Body weight 2019-10-30 19:24:51 79.379 kg Universi [facility] Systolic blood 2021-09-17 09:05:00 120 mm[Hg] [facility] Diastolic blood 2021-09-17 09:05:00 73 mm[Hg] [facility] Heart rate 2021-09-17 09:05:00 68 /min [facility] Respiratory rate 2021-09-17 09:05:00 17 /min [facility] Oxygen saturation in 2021-09-17 09:05:00 98 /min [facility] Arterial blood by Medical nter Pulse oximetry Body temperature 2021-09-17 08:38:00 36.28 Steffanie [facility] Body height 2021-09-17 07:39:00 167.6 cm [facility] Body weight 2021-09-17 07:39:00 67.586 kg [facility] BMI 2021-09-17 07:39:00 24.05 kg/m2 [facility] BP Diastolic 2020-03-29 04:20:00 86 mm[Hg] [facility] BP Systolic 2020-03-29 04:20:00 130 mm[Hg] [facility] Heart Rate 2020-03-29 04:20:00 87 /min [facility] Respiratory rate 2020-03-29 04:20:00 17 /min [facility] BP Diastolic 2020-03-29 04:07:00 86 mm[Hg] [facility] BP Systolic 2020-03-29 04:07:00 130 mm[Hg] [facility] Heart Rate 2020-03-29 04:07:00 87 /min [facility] Respiratory rate 2020-03-29 04:07:00 17 /min [facility] BP Diastolic 2020-03-28 23:51:00 80 mm[Hg] [facility] BP Systolic 2020-03-28 23:51:00 128 mm[Hg] [facility] BP Diastolic 2020-03-28 23:28:00 120 mm[Hg] [facility] BP Systolic 2020-03-28 23:28:00 153 mm[Hg] [facility] Heart Rate 2020-03-28 23:28:00 116 /min [facility] Respiratory rate 2020-03-28 23:28:00 18 /min [facility] Respiratory rate 2020-03-28 23:28:00 18 /min [facility] Body Temperature 2020-03-28 23:28:00 98.3 [degF] [facility] Body Temperature 2020-03-28 23:28:00 98.3 [degF] [facility] Procedures Procedure Date / Time Performing Clinician Source Performed CT ABDOMEN PELVIS WO 2021-10-31 01:26:00 Esperanza Cook [facility] CONTRAST [facility] COMP. METABOLIC PANEL 2021-10-31 01:11:00 Esperanza Cook [facility] ([id number]) Medical Branch CBC WITH DIFF 2021-10-31 01:11:00 Esperanza Cook [facility] POCT TEST 2021-10-31 01:11:00 Esperanza Cook [facility] URINALYSIS 2021-10-31 01:01:00 Esperanza Cook [facility] NOTICE OF PRIVACY 2021-10-31 00:41:53 Doctor Unassigned, No [facility] PRACTICES Name [facility] Branch CONSENT/REFUSAL FOR 2021-10-31 00:41:38 Doctor Unassigned, No [facility] DIAGNOSIS AND TREATMENT Name Medical Branch REPORT OF PROCEDURE - 2021-09-17 08:36:13 Paige Covarrubias [facility] ENDOSCOPY [facility] TISSUE EXAM 2021-09-17 08:28:00 Paige Covarrubias [facility] ENDOSCOPY, UPPER GI 2021-09-17 08:13:[address] [facility] TRACT. WITH STRICTURE [facility] DILATION ESOPHAGOGASTRODUODENOSC 2021-09-17 08:13:[address] [facility] Medical OPY, WITH BIOPSY [facility] ANTI SCLERODERMA 2021-09-03 13:06:00 [facility] CT 2021-07-04 01:29:14 Matthew Sharma [facility] [place] MAXILLOFACIAL/MANDIBLE Medical [place] CONTRAST COMP. METABOLIC PANEL 2021-07-04 00:55:00 Matthew Sharma [facility] ([id number]) [facility] CBC WITH DIFF 2021-07-04 00:55:00 [facility] o f [facility] CONSENT/REFUSAL FOR 2021-07-04 00:17:51 Doctor Unassigned, No Un [facility] DIAGNOSIS AND TREATMENT Name Medical Branch COVID-19 (ID NOW RAPID 2021-04-21 21:50:00 Fatou Epstein [facility] TESTING) [facility] CT THORAX W CONTRAST 2021-04-21 19:56:56 Fatou Epstein [facility] XR CHEST 1 VW 2021-04-21 18:55:31 Fatou Epstein [facility] LIPASE 2021-04-21 18:47:00 [facility] TROPONIN I 2021-04-21 18:47:00 Fatou Epstein [facility] COMP. METABOLIC PANEL 2021-04-21 18:47:00 Fatou Epstein [facility] ([id number]) [facility] CBC WITH DIFF 2021-04-21 18:47:00 Fatou Epstein [facility] PROTHROMBIN TIME / INR 2021-04-21 18:47:00 Fatou Epstein [facility] ACTIVATED PARTIAL 2021-04-21 18:47:00 Fatou Epstein [facility] THRMPLAS SHERITA [facility] POCT TEST 2021-04-21 18:47:00 Fatou Epstein [facility] CONSENT/REFUSAL FOR 2021-04-21 18:31:52 Doctor Unassigned, No [facility] [place] DIAGNOSIS AND TREATMENT Name Medical Branch REPORT OF PROCEDURE - 2021-04-16 09:18[facility] URL [facility] TISSUE EXAM 2021-04-16 09:04:00 [facility] ENDOSCOPY, UPPER GI 2021-04-16 08:46:00 [facility]URE [facility] DILATION ESOPHAGOGASTRODUODENOSC 2021-04-16 08:46:00 [facility] OPY, WITH BIOPSY [facility] POCT TEST 2021-03-31 06:38:00 Stan Thakkar [facility] COMP. METABOLIC PANEL 2021-03-31 06:36:00 Stan Thakkar [facility] [place] ([id number]) [facility] [place] CBC WITH DIFF 2021-03-31 06:36:00 Stan Thakkar [facility] URINALYSIS 2021-03-31 06:36:00 Stan Thakkar [facility] NOTICE OF PRIVACY 2021-03-31 05:04:41 Doctor Unassigned, No [facility] Medical Branch CONSENT/REFUSAL FOR 2021-03-31 05:04:16 Doctor Unassigned, No [facility] [place] DIAGNOSIS AND TREATMENT Name Medical Branch NOTICE OF PRIVACY 2021-03-24 19:12:45 Doctor Unassigned, No Univ ersity [facility] PRACTICES [facility] Medical Branch CONSENT/REFUSAL FOR 2021-03-24 19:12:28 Doctor Unassigned, No [facility] [place] DIAGNOSIS AND TREATMENT [facility] Medical Branch Complete ultrasound of 2020-03-29 00:00:00 [facility] pelvis Computed tomography of 2020-03-29 00:00:00 [facility] abdomen and pelvis without contrast XR CHEST 1 VW COVID 2019-10-30 20:16:48 Munguia, Krys [facility] Plan of Care Planned Activity Planned Date Details Comments Source Future Scheduled 2022-01-02 INFLUENZA VACCINE (#1) [facility] Test 00:00:00 [code = INFLUENZA Medical Ce nter VACCINE (#1)] Future Scheduled 2021-11-18 COVID-19 Vaccine (#1) [employer] Test 15:02:21 [code = COVID-19 of Medicine Vaccine (#1)] Future Scheduled 2021-11-18 TETANUS SHOT (ADULT) [facility] [employer] Test 15:02:21 [code = TETANUS SHOT of Medi cine (ADULT)] Future Scheduled 2021-11-18 Hepatitis C screening [employer] Test 15:02:21 (procedure) [code = of Medic ine 477228230] Future Scheduled 2021-11-18 Human immunodeficiency [employer] Test 15:02:21 virus screening of Medicine (procedure) [code = 209559005] Future Scheduled 2021-11-18 Screening for malignant [employer] Test 15:02:21 neoplasm of cervix of Medici ne (procedure) [code = 734831003] Future Scheduled 2021-11-18 FLU VACCINE > 6 MONTHS [employer] Test 15:02:21 [code = FLU VACCINE > 6 of M edicine MONTHS] Future Scheduled 2021-08-06 COVID-19 Vaccine (1) Mam[facility] jim[facility] [employer] Test 13:13:13 [code = COVID-19 of Medicine Vaccine (1)] Future Scheduled 2021-08-06 TETANUS SHOT (ADULT) Mamou jimena [employer] Test 13:13:13 [code = TETANUS SHOT of Medi cine (ADULT)] Future Scheduled 2021-08-06 Hepatitis C screening [employer] Test 13:13:13 (procedure) [code = of Medic ine 977942251] Future Scheduled 2021-08-06 Human immunodeficiency [employer] Test 13:13:13 virus screening of Medicine (procedure) [code = 404353266] Future Scheduled 2021-08-06 Screening for malignant [facility] Test 13:13:13 neoplasm of cervix of Medici ne (procedure) [code = 623926426] Future Scheduled 2021-08-06 FLU VACCINE > 6 MONTHS [employer] Test 13:13:13 [code = FLU VACCINE > 6 of M edicine MONTHS] Future Scheduled 2021-08-06 US COMPLETE JOINT R-T 1 Occurrences [employer] Test 13:05:33 W/ IMAGE DOCUMENTATION starting of Me dicine AUTH [code = NOCPT] 08/06/2021 until 08/06/2022 Future Scheduled 2021-05-[address] [facility] Test 00:00:00 (12+) [code = Medical Center DEPRESSION SCREENING (12+)] Future Scheduled 2020-12-31 COVID-19 Vaccine (1) [facility] [employer] Test 09:24:17 [code = COVID-19 of Medicine Vaccine (1)] Future Scheduled 2020-12-31 TETANUS SHOT (ADULT) [facility] [employer] Test 09:24:17 [code = TETANUS SHOT of Medi cine (ADULT)] Future Scheduled 2020-12-31 Hepatitis C screening [employer] Test 09:24:17 (procedure) [code = of Medic ine [id number]] Future Scheduled 2020-12-31 Human immunodeficiency [employer] Test 09:24:17 virus screening of Medicine (procedure) [code = 532681706] Future Scheduled 2020-12-31 Screening for malignant [facility] Test 09:24:17 neoplasm of cervix of Medici ne (procedure) [code = 160898007] Future Scheduled 2020-12-31 FLU VACCINE > 6 MONTHS [employer] Test 09:24:17 [code = FLU VACCINE > 6 of M edicine MONTHS] Future Scheduled 2020-11-13 MRI KNEE LEFT WO 1 Occurrences [employer] Test 14:22:04 CONTRAST [code = 20867] starting of M edicine 11/13/2020 until 11/13/2021 Future Scheduled 2020-11-13 COVID-19 Vaccine (1) [facility] [employer] Test 13:51:06 [code = COVID-19 of Medicine Vaccine (1)] Future Scheduled 2020-11-13 TETANUS SHOT (ADULT) [facility] [employer] Test 13:51:06 [code = TETANUS SHOT of Medi cine (ADULT)] Future Scheduled 2020-11-13 Hepatitis C screening [employer] Test 13:51:06 (procedure) [code = of Medic ine 654949651] Future Scheduled 2020-11-13 Human immunodeficiency [employer] Test 13:51:06 virus screening of Medicine (procedure) [code = 103447812] Future Scheduled 2020-11-13 Screening for malignant [employer] Test 13:51:06 neoplasm of cervix of Medici ne (procedure) [code = 742689101] Future Scheduled 2020-11-13 FLU VACCINE > 6 MONTHS [employer] Test 13:51:06 [code = FLU VACCINE > 6 of M edicine MONTHS] Future Scheduled 2020-11-13 ORT - XR KNEE LEFT 4V Ordered: [facility] Test 13:46:10 (CHARGE ONLY) [code = 11/13/2020 of Med icinm 09017] Future Scheduled 2020-11-08 COVID-19 Vaccine (1) [facility] [employer] Test 18:26:49 [code = COVID-19 of Medicine Vaccine (1)] Future Scheduled 2020-11-08 TETANUS SHOT (ADULT) [facility] Test 18:26:49 [code = TETANUS SHOT of Medi cine (ADULT)] Future Scheduled 2020-11-08 Hepatitis C screening [facility] Test 18:26:49 (procedure) [code = of Medic ine 100493509] Future Scheduled 2020-11-08 [facility] 18:26:49 virus screening of Medicine (procedure) [code = 544702419] Future Scheduled 2020-11-08 Screening for malignant [employer] Test 18:26:49 neoplasm of cervix of Medici ne (procedure) [code = 283466244] Future Scheduled 2020-11-08 FLU VACCINE > 6 MONTHS [employer] Test 18:26:49 [code = FLU VACCINE > 6 of M edicine MONTHS] Future Scheduled 2008 Screening for malignant [facility] Test 00:00:00 neoplasm of cervix Medical C enter (procedure) [code = 452538268] Future Scheduled 2006 DTAP/TDAP/TD VACCINES [facility] Test 00:00:00 (1 - Tdap) [code = Medical C enter DTAP/TDAP/TD VACCINES (1 - Tdap)] Future Scheduled 2005 HEPATITIS C [facility]CRE[facility]ING [facility] Test 00:00:00 [code = HEPATITIS C Medical Center SCREENING] Future Scheduled 1987 COVID-19 VACCINE (#1) [facility] Test 00:00:00 [code = COVID-[address] VACCINE (#1)] Future Scheduled Urine beta-human [facility] Test chorionic gonadotropin Franc es (BhCG) detection [code Cabri ni = 2112-1] Hospital Goal Patient referral [code CHAYO Valadez. = [id number] ] [facility] En[facility]ters Start End Encounter Admission Attending Care Care Encounter Source Date/Time Date/Time Type Type Clinicians Facility Department ID 2021-12-31 Outpatient Cassia, STLMLC STLMLC [id number] Common 11:24:00 Paulie [facility] 2021-12-03 Outpatient Cassia, STLMLC STLMLC [id number] Common 08:26:01 Paulie [facility] 2021-11-20 Outpatient Cassia, STLMLC STLMLC [id number] Common 08:44:00 Paulie [facility] 2021-05-29 Outpatient Cassia, STLMLC STLMLC [id number] Common 14:10:22 Paulie 76806 [facility] 2021-05-29 Outpatient Cassia, STLMLC STLMLC [id number] Common 12:16:28 Paulie [id number] [facility] 2021-05-29 Outpatient Cassia, STLMLC STLMLC [id number] Common 11:33:08 Paulie 58234 [facility] 2021-05-29 Outpatient Cassia, STLMLC STLMLC [id number] Common 11:32:07 Paulie 67467 [facility] 2021-05-29 Outpatient Cassia, STLMLC STLMLC [id number] Common 11:02:11 Paulie 67603 [facility] 2021-02-10 Outpatient MANSOUR, SLE Surgery [id number] [facility] 05:31:08 PAIGE 2021-02-09 Outpatient EL ELIER, SLE Surgery [id number] [facility] 09:27:36 PAIGE 2020-04-15 Inpatient HCAWH MARCELLO [id number] [facility] 19:01:00 [facility] 2020-03-14 Inpatient AMADOU De La O BILLY GATES [id number] [facility] 09:00:00 Crystal [facility] 2022-01-20 2022-01-20 Outpatient CHUCKIE GARCIA [facility] [id number] [facility] 09:36:20 14:04:16 [facility] 2022-01-02 2022-01-02 ambulatory STLMLC STLMLC [id number] Common 00:00:00 00:00:00 [facility] 2021-12-23 2021-12-23 Outpatient CHUCKIE GARCIA [facility] [id number] [facility] 09:47:15 13:44:01 [facility] 2021-12-18 2021-12-18 Outpatient [facility] [id number] [facility] 13:06:14 13:06:14 [facility] 2021-12-18 2021-12-18 [facility] [id number] [facility] 12:14:11 12:14:11 SHANNON [facility] 2021-12-11 2021-12-11 ambulatory STLMLC STLMLC [id number] Common 00:00:00 00:00:00 [facility] 2021-12-03 2021-12-03 ambulatory STLMLC STLC [id number] Common 00:00:00 00:00:00 [facility] 2021-11-18 2021-11-18 Office MiriamsheilaTAWANNA 1.2.840.114 [id number] [facility] 10:40:00 14:35:07 Visit Shannon Lim AMBULATOR 350.1.13.21 College Y 0.2.7.2.686 [id number] [facility] mare 805 e 2021-11-18 2021-11-18 Outpatient [facility] [id number] [facility] 11:43:23 11:43:23 [facility] 2021-10-30 2021-10-30 Emergency X TIMOTEO COOK ERT [id number] Univers 19:56:00 22:09:00 ESPERANZA orona [facility] 2021-10-30 2021-10-30 Emergency TIMOTEO Cook [id number] Univers 19:56:00 22:09:00 Esperanaz MCDONNELL 350.1.13.10 i Cm 4.2.7.2.686 [facility] [id number] [facility] [address] 2021-10-28 2021-10-28 Outpatient CHUCKIE GARCIA [facility] [id number] [facility] 08:52:55 12:50:13 [facility] 2021-09-23 2021-09-23 Outpatient CHUCKIE GARCIA [facility] [id number] [facility] 09:08:43 12:17:11 [facility] 2021-09-17 2021-09-17 Outpatient ELIER [facility] [id number] [facility] 09:44:39 09:44:39 PAIGE [facility] 2021-09-17 2021-09-17 [facility] [id number] [facility] 06:38:00 09:30:00 [facility] 2021-09-17 2021-09-17 [facility] [id number] 06:38:00 09:30:00 Encounter [facility] 2021-09-17 2021-09-17 Anesthesia [facility] [id number] 08:18:00 08:41:00 Event Haylie [facility] 2021-09-17 2021-09-17 Surgery [facility], [facility] [id number] 08:00:00 08:30:00 [facility] 2021-09-03 2021-09-03 ambulatory [facility] [id number] Common 00:00:00 00:00:00 [facility] 2021-08-28 2021-08-28 Outpatient ZACHERY [facility] [id number] [facility] 08:58:38 09:24:46 [facility] 2021-08-23 2021-08-23 Outpatient MELO BELLO [facility] [id number] [facility] 12:36:00 14:11:06 [facility] 2021-08-23 2021-08-23 Outpatient [facility] [id number] [facility] 12:36:22 12:36:22 [facility] 2021-08-23 2021-08-23 Outpatient CHUCKIE GARCIA [facility] [id number] [facility] 11:15:39 11:15:39 [facility] 2021-08-06 2021-08-06 Office ZACHERY MARTINLiban 1.2.840.114 [id number] [facility] 12:36:09 14:49:31 Visit JACKSON AMBULATOR 350.1.13.21 College Y 0.2.7.2.686 [id number] [facility] mare 370 e 2021-08-06 2021-08-06 Outpatient ELPIDIO HOROWITZ [facility] [id number] [facility] 13:23:28 13:23:28 [facility] 2021-07-23 2021-07-23 Outpatient ELPIDIO HOROWITZ [facility] [id number] [facility] 14:22:13 16:31:22 [facility] 2021-07-03 2021-07-03 Emergency X Matthew SHARMA [facility] ERT [id number] Univers 18:43:00 20:40:00 ity [facility] 2021-07-03 2021-07-03 Emergency Matthew Sharma [facility] 1.2.840.114 [id number] Univers 18:43:00 20:40:00 Afshanmatteo MCDONNELL 350.1.13.10 i ty [facility] 4.2.7.2.686 [facility] [id number] [facility] [address] 2021-07-02 2021-07-02 ambulatory STLMLC STLC [id number] Common 00:00:00 00:00:00 [facility] 2021-06-12 2021-06-12 Outpatient CHUCKIE GARCIA [facility] [id number] [facility] 10:00:30 13:57:17 [facility] 2021-05-27 2021-05-27 ambulatory STLMLC STLC [id number] Common 00:00:00 00:00:00 [facility] 2021-05-17 2021-05-17 Outpatient CHUCKIE GARCIA [facility] [id number] [place] [address] 10:07:38 12:43:50 [facility] 2021-04-30 2021-04-30 Outpatient [facility] [id number] [facility] 13:09:50 13:09:50 [facility] 2021-04-25 2021-04-25 Laboratory Only, Ang Db Test [facility] 1.2.8 40.114 [id number] Univers 20:45:00 21:00:00 Only HussainIris hooper [facility] 350.1.13.10 ity zoya MCDONNELL 4.2.7.2.686 Jimenez as ROMELIA?BLEA [id number] [address] MEDICAL OFFICE BUILDING 2021-04-25 2021-04-[address] [facility] [id number] Univers 20:45:00 20:45:00 [id number] [facility] 2021-04-16 2021-04-25 Outpatient ELIER [facility] [id number] [facility] 09:44:19 15:18:24 PAIGE [facility] 2021-04-25 2021-04-25 Outpatient R HUSSAINLiban [facility] [id number] Univers 20:45:00 10:28:32 IRIS [facility] 2021-04-24 2021-04-24 ambulatory STLMLC STLMLC [id number] Common 00:00:00 00:00:00 [facility] 2021-04-21 2021-04-21 Emergency X AUFDERHEIDE [facility] ERT [id number] Univers 12:39:00 17:12:00 , [facility] 2021-04-21 2021-04-21 Emergency Aufderide [facility] 1.2.840.114 [id number] Univers 12:39:00 17:12:00 , Fatou MCDONNELL 350.1.13.10 i ty of Arabella LEVIN 4.2.7.2.686 [place] [facility] [id number] [address] 2021-04-16 2021-04-16 Outpatient [facility] [id number] [facility] 07:24:00 23:59:00 [facility] 2021-04-16 2021-04-16 Outpatient EL ELIER, [facility] Surgery [id number] [facility] 07:24:00 10:14:00 PAIGE 2021-04-16 2021-04-16 [facility] [id number] 07:24:00 10:14:00 Encounter [facility] 2021-04-16 2021-04-16 Anesthesia RiveraRenetta Joya [facility] [id number] [facility] 08:52:00 09:16:00 Event Denise [facility] 2021-04-16 2021-04-16 Surgery [facility] [id number] 08:45:00 09:15:00 [facility] 2021-04-12 2021-04-12 Outpatient EL SLE SLE [id number] [facility] 11:21:19 23:59:00 2021-04-12 2021-04-12 [facility] [id number] 10:05:00 23:59:00 Encounter [facility] 2021-04-12 2021-04-12 [facility] [id number] [facility] 00:00:00 00:00:00 [facility] 2021-03-30 2021-03-31 Emergency X ERICA [facility] ERT [id number] Univers 23:16:00 03:07:00 STAN orona [facility] 2021-03-30 2021-03-31 [facility] 1.2.840.114 [id number] Univers 23:16:00 03:07:00 Stan [facility].10 [facility] 4.2.7.2.686 [facility] [id number] [place] [address] Branch 2021-03-24 2021-03-24 Emergency X KERA [facility] ERT [id number] Univers 13:23:00 13:49:00 CARLI orona [facility] 2021-03-24 2021-03-24 Emergency [facility] 1.2.840.114 [id number] [facility] 13:23:00 13:49:00 Carli MCDONNELL 350.1.13.10 ity of [place] 4.2.7.2.686 [facility] [id number] [facility] 0[address] 2021-03-24 2021-03-24 Orders Doctor MARCO ANTONIO 1.2.840.114 [id number] Univers 00:00:00 00:00:00 Only Unassigned, ZULEYKA 350.1.13.10 ity of [facility] 4.2.7.2.686 [facility] [id number] [facility] 009 Branch 2021-03-13 2021-03-13 ambulatory STLMLC STLC [id number] Common 00:00:00 00:00:00 [facility] 2021-02-18 2021-02-18 Outpatient CHUCKIE GARCIA Liban [facility] [id number] [facility] 09:55:02 14:00:19 [facility] 2021-02-14 2021-02-14 Outpatient STLC STLC [id number] Common 00:00:00 00:00:00 [facility] 2021-02-12 2021-02-12 Outpatient TAWANNA KIM [id number] [facility] 11:33:23 11:49:11 SHANNON [facility] 2021-01-24 2021-01-24 Outpatient TAWANNA KIM [facility] [id number] [facility] 10:16:48 12:54:32 SHANNON [facility] 2021-01-21 2021-01-21 Outpatient CHUCKIE GARCIA [facility] [id number] [facility] 09:51:45 13:27:43 [facility] 2021-01-21 2021-01-21 Outpatient STLC STLC [id number] Common 00:00:00 00:00:00 [facility] 2020-12-31 2020-12-31 Office Chuckie Garcia 1.2.840.114 [id number] [facility] 11:32:01 11:52:01 Visit AMBULATOR 350.1.13.21 College Y 0.2.7.2.686 [id number] Medi mare 305 e 2020-12-31 2020-12-31 Outpatient JULIO TAWANNA [facility] [id number] [facility] 09:25:09 09:57:38 SHANNON [facility] 2020-12-17 2020-12-17 Outpatient JULIO TAWANNA [facility] [id number] [facility] 11:05:40 13:11:16 SHANNON [facility] 2020-12-06 2020-12-17 Outpatient ELIER [facility] [id number] [facility] 12:54:01 08:36:19 PAIGE [facility] 2020-12-16 2020-12-16 [facility] [id number] Common 00:00:00 00:00:00 [facility] 2020-12-11 2020-12-11 Outpatient CHUCKIE GARCIA [facility] [id number] [facility] 13:04:20 15:56:03 [facility] 2020-12-11 2020-12-11 [facility] [id number] Common 00:00:00 00:00:00 [facility] 2020-12-05 2020-12-05 Outpatient SLE SLE [id number] [facility] 00:00:00 00:00:00 2020-12-05 2020-12-05 Outpatient EL SLE SLE [id number] SLE 00:00:00 00:00:00 2020-12-04 2020-12-04 Outpatient [facility] [id number] [facility] 13:57:43 13:57:43 [facility] 2020-12-04 2020-12-04 Outpatient [facility] [id number] [facility] 12:47:41 12:47:41 [facility] 2020-12-04 2020-12-04 Outpatient [facility] [id number] [facility] 12:42:43 12:42:43 [facility] 2020-12-04 2020-12-04 Outpatient [facility] [id number] [facility] 12:42:24 12:42:24 [facility] 2020-11-28 2020-11-28 Outpatient CHUCKIE GARCIA [facility] [id number] [facility] 10:55:51 13:59:34 [facility] 2020-11-21 2020-11-21 Outpatient CHUCKIE GARCIA [facility] [id number] [facility] 10:01:51 13:12:00 [facility] 2020-11-14 2020-11-14 Outpatient CHUCKIE GARCIA [facility] [id number] [facility] 09:08:59 13:18:23 [facility] 2020-11-13 2020-11-13 Office Sheng TAWANNA [id number] [facility] 13:40:55 14:49:28 Visit Mallory Rose AMBULATOR 350.1.13.21 College Y 0.2.7.2.686 of [id number] Medi mare 600 e 2020-11-13 2020-11-13 Outpatient [facility] [id number] [facility] 13:51:00 13:51:00 [facility] 2020-11-08 2020-11-08 Office CHUCKIE GARCIA [facility] 1.2.840.114 [id number] [facility] 10:05:15 13:25:36 Visit AMBULATOR 350.1.13.21 College Y 0.2.7.2.686 of [id number] Medi mare 305 e 2020-10-25 2020-10-25 Outpatient CARLOS MANUELDONNV [facility] [id number] [facility] 10:11:27 16:28:48 [facility] 2020-10-25 2020-10-25 Emergency EM Collins-G [facility] MARCELLO [id number] [facility] 12:28:00 14:54:00 omez, 77 [facility] 2020-10-17 2020-10-17 Outpatient CHUCKIE GARCIA [facility] [id number] [facility] 11:29:56 14:23:51 [facility] 2020-09-26 2020-09-26 Outpatient LI, CHUCKIE Liban [facility] [id number] [facility] 10:04:59 12:41:27 [facility] 2020-09-12 2020-09-12 Outpatient CHUCKIE GARCIA Liban [facility] [id number] [facility] 09:48:11 13:08:14 [facility] 2020-09-05 2020-09-05 Outpatient CHUCKIE GARCIA Liban [facility] [id number] [facility] 10:27:53 13:18:17 [facility] 2020-08-29 2020-08-29 Outpatient CHUCKIE GARCIA [facility] [id number] [facility] 09:53:09 12:27:39 [facility] 2020-08-15 2020-08-15 Outpatient CHUCKIE GARCIA [facility] [id number] [facility] 09:46:01 12:39:28 [facility] 2020-08-08 2020-08-08 Outpatient CHUCKIE GARCIA [facility] [id number] [facility] 10:12:46 12:52:19 [facility] 2020-07-31 2020-07-31 Outpatient [facility] SLE [id number] [facility] 00:00:00 00:00:00 2020-07-25 2020-07-25 Outpatient CHUCKIE GARCIA [facility] [id number] [facility] 09:40:34 12:40:35 [facility] 2020-07-18 2020-07-18 Outpatient CHUCKIE GARCIA [facility] [id number] [facility] 09:29:25 13:06:24 [facility] 2020-07-04 2020-07-04 Outpatient CHUCKIE GARCIA [facility] [id number] [facility] 09:56:06 12:18:00 [facility] 2020-06-27 2020-06-27 Outpatient CHUCKIE GARCIA [facility] [id number] [facility] 10:19:58 13:23:42 [facility] 2020-06-26 2020-06-26 [facility] [id number] Common 00:00:00 00:00:00 [facility] 2020-06-13 2020-06-13 Outpatient CHUCKIE GARCIA [facility] [id number] [facility] 10:39:13 13:23:18 [facility] 2020-06-08 2020-06-08 Outpatient CHUCKIE GARCIA [facility] [id number] [facility] 09:25:28 13:24:47 [facility] 2020-05-28 2020-05-28 Outpatient CHUCKIE GARCIA [facility] [id number] [facility] 09:04:10 13:17:06 [facility] 2020-05-22 2020-05-22 Outpatient CHUCKIE GARCIA [facility] [id number] [facility] 14:45:08 17:11:00 [facility] 2020-05-01 2020-05-01 Outpatient STLMLC STLMLC [id number] Common 00:00:00 00:00:00 [facility] 2020-03-28 2020-03-29 Departed HIMA Torres [id number] CHRISTU 23:27:00 04:37:00 Emergency FC Cab[facility] [address] [facility] 2020-03-28 2020-03-28 Departed ER PHYSICIANFLORA AF00 [id number] CHRISTU 23:27:00 23:27:00 Emergency ER [address] [facility] 2020-03-27 2020-03-27 Outpatient STLMLC STLMLC [id number] Common 00:00:00 00:00:00 [facility] 2020-03-07 2020-03-07 Outpatient STLMLC STLMLC [id number] Common 00:00:00 00:00:00 [facility] 2019-11-30 2019-11-30 [facility] [id number] Common 10:40:00 10:40:00 [facility] 2019-11-01 2019-11-01 Telephone Cristian BERNARD 1.2.840.114 [id number] 00:00:00 00:00:00 Ana delatorre 350.1.13.10 [facility] 4.2.7.2.686 [id number] 2019-11-01 2019-11-01 Telephone Cristian BERNARD 1.2.840.114 [id number] Univers 00:00:00 00:00:00 Ana delatorre 350.1.13.10 ity [facility] 4.2.7.2.686 [facility] [id number] [place] [address] [address] 2019-10-30 2019-10-30 Emergency Munguia, [facility] 1.2.840.114 [id number] 14:26:51 16:21:00 Krys Mcdonnell 350.1.13.10 [place] 4.2.7.2.686 [place] [id number] [facility] 2019-10-30 2019-10-30 Emergency Munguia, [facility] 1.2.840.114 [id number] [facility] 14:26:51 16:21:00 Krys Mcdonnell 350.1.13.10 i ty of [place] 4.2.7.2.686 [facility] [id number] [place] [address] Branch 2019-10-30 2019-10-30 Emergency X [place], [place] ERT [id number] Univers 14:26:51 14:26:51 KRYS nitish [facility] 2019-08-19 2019-08-19 Outpatient [place] [id number] Common 08:20:00 08:20:00 [facility] [address] [facility] 2019-07-01 2019-07-01 Outpatient Brazjuan jose Lope[place] 29 [id number] Common 10:00:00 10:00:00 [facility] [address] [facility] 2019-05-25 2019-05-25 Outpatient [place] [id number] Common 10:40:00 10:40:00 [facility] [address] [facility] 2019-04-06 2019-04-06 Outpatient [place] jose [facility] [id number] Common 10:40:00 10:40:00 [facility] [address] [facility] 2019-03-16 2019-03-16 Outpatient [place]ose [facility] [id number] Common 13:20:00 13:20:00 t [facility] [address] [facility] Family [facility] Results Test Description Test Time Test Comments Results Result Comments Source COMP. METABOLIC PANEL (48397) 2021-10-31 01:37:35 Test Item Value Reference Range Interpretation Comme nts NA (test code = 4057420981) 137 mmol/L 135-145 K (test code = 2631283386) 3.9 mmol/L 3.5-5.0 CL (test code = 9350002831) 102 mmol/L 98-108 CO2 TOTAL (test code = 27 mmol/L 23-31 1247555679) AGAP (test code = 7888859250) 2-16 BUN (test code = 1341766832) 12 mg/dL 7-23 GLUCOSE (test code = 0985683792) 104 mg/dL 70-110 CREATININE (test code = 0.75 mg/dL 0.50-1.04 8433728747) TOTAL BILI (test code = 0.4 mg/dL 0.1-1.9 6767782249) CALCIUM (test code = 6594897468) 9.4 mg/dL 8.6-10.6 T PROTEIN (test code = 7.2 g/dL 6.3-8.2 1431138520) ALBUMIN (test code = 6160629615) 4.8 g/dL 3.5-5.0 ALK PHOS (test code = 5961309512) 42 U/L 34-122 ALTv (test code = 1742-6) 13 U/L 5-35 AST(SGOT) (test code = 21 U/L 13-40 1570639023) eGFR (test code = 9116836044) mL/min/1.73m2 RAGHU (test code = RAGHU) Association of Glomerular Filtration Rate (GFR) and Staging of Kidney Disease* + +--------- + ----+| GFR (mL/min/1.73 m2) ?| With Kidney Damage ?| ?Without Kidney Damage+ +--- + +| ?>90 ?| ?Stage one ?| ? Normal ?+ +-------- + -----+| ?60-89 ?| ?Stage two ?| ? Decreased GFR ? + +--------- + ----+| ?30-59 ?| ?Stage three ?| ? Stage three ? + +--------- + ----+| ?15-29 ?| ?Stage four ? | ? Stage four ?+ +-------- + -----+| ?<15 (or dialysis) ? ?| ?Stage five ? | ? Stage five ?+ +-------- + -----+ *Each stage assumes the associated GFR level has been in effect for at least three months. ?Stages 1 to 5, with or without kidney disease, indicate chronic kidney disease. Notes: Determination of stages one and two (with eGFR >59mL/min/1.73 m2) requires estimation of kidney damage for at least three months as defined by structural or functional abnormalities of the kidney, manifested by either:Pathological abnormalities or Markers of kidney damage (including abnormalities in the composition of the blood or urine or abnormalities in imaging tests). [facility] WITH [id number] 01:28:35 Test Item Value Reference Range Interpretation Comments WBC (test code = See_Comment [Automated 3562-2) message] The sy stem which generated this result transmitted reference range : 4.30 - 11.10 10*3/?L. The reference range was not used to interpret this result as normal/abnormal . RBC (test code = See_Comment [Automated 603-8) message] The sy stem which generated this result transmitted reference range : 3.93 - 5.25 10*6/?L. The reference range was not used to interpret this result as normal/abnormal . HGB (test code = 14.1 g/dL 11.6-15.0 718-7) HCT (test code = 41.3 % 35.7-45.2 4544-3) MCV (test code = 92.2 fL 80.6-95.5 787-2) MCH (test code = 31.5 pg 25.9-32.8 785-6) MCHC (test code = 34.1 g/dL 31.6-35.1 786-4) RDW-SD (test code = 43.8 fL 39.0-49.9 72653-9) RDW-CV (test code = 12.9 % 12.0-15.5 788-0) PLT (test code = See_Comment [Automated 209-3) message] The sy stem which generated this result transmitted reference range : 166 - 358 10*3/ ?L. The reference r abhishek was not used to interpret this result as normal/abnormal . MPV (test code = 9.4 fL 9.5-12.9 L 65186-7) NRBC/100 WBC (test See_Comment [Automat ed code = 7220751395) message] The system which generated this result transmitted reference range : 0.0 - 10.0 /100 WBCs. The refer ence range was not u sed to interpret th is result as normal/abnormal . NRBC x10^3 (test code <0.01 See_Comment [Auto mated = 8503260564) message] The s ystem which generated this result transmitted reference range : 10*3/?L. The reference range was not used to interpret this result as normal/abnormal . GRAN MAT (NEUT) % 57.1 % (test code = 770-8) IMM GRAN % (test code 0.30 % = 8675104508) LYMPH % (test code = 33.9 % 736-9) MONO % (test code = 8.6 % 5905-5) EOS % (test code = 0.0 % 713-8) BASO % (test code = 0.1 % 706-2) GRAN MAT x10^3(ANC) 4.04 10*3/uL 1.88-7.09 (test code = 6955600878) IMM GRAN x10^3 (test <0.03 0.00-0.06 code = 5992835518) LYMPH x10^3 (test code 2.40 10*3/uL 1.32-3.29 = 731-0) MONO x10^3 (test code 0.61 10*3/uL 0.33-0.92 = 742-7) EOS x10^3 (test code = <0.03 0.03-0.39 L 711-2) BASO x10^3 (test code <0.03 0.01-0.07 = 704-7) Lab Interpretation Abnormal (test code = 87008-9) [facility] [id number] 01:11:00 Test Item Value Reference Range Interpretation Comments POCT PREG (test code = 1605) negative On board controls acceptable with present C Line (test code = 3574) POCT PREG LOT # (test code = 3575) [id number] POCT PREG TEST DATE (test 03/03/2023 code = 3576) Lab Interpretation (test code = Normal 53099-8) [facility] [id number] 14:29:40 Test Item Value Reference Range Interpretation Comments Case Report (test code Surgical Pathology = 104) Report Case: [id number] Authorizing Provider: Paige Covarrubias, Collected: 09/17/2021 08:28 AM Ordering Location: [facility] Received: 09/17/2021 03:38 PM SERVICES Pathologist: Luanne Larkin MD Specimens: A) - Distal Esophagus, bxs r/o EOE B) - Proximal Esophagus, bxs r/o EOE DIAGNOSIS (test code = y2ypjEBfKCYvy1jlGVWxdN 3220) FuZzEwMzNcZnRuYmpcdWMx IHtccnRmMVxlcGljOTYwMl kiveAxBXImxLUqJ6Oflsei TObpDO0nMN6lqNobeYPitO YbRFAbRxVjm1qie100tGNa k8avNLOBuefvkBr2sKumG2 9vm0I0BfsiC06zhQNwLFX5 EDGeYTUtvUHsVSWkQQQ3EP WsqJVqB6uhXZFsBS4qucui RFmrEOysIOAdpQG4CUOgeR TqT7DsWQNaZPbvFAOqhlc9 MzZlWg0jkCIjfIgnOWrkXA XuNSZhYKmvTEUpHtTfXN4z APxPZEBWXSVOK2ECEEsKTk wgQklPUFNZOlxwYXIgICAg XTFBN47GEHHOPMIMDFYJGB JZL1OKXK3VG81QFQRKPFAG HAHKU4QMJJUVJHskBXnPNV LHFHMEDBCfH9hQGRVJQOqD ACpSS5OTYZMSJSnCSVjrGV IgICAgICAgICAgIElOVFJB HMRDVKmKXTzSZWYRPN4YAN 5XXYTOU2adGVGsRJLoJAKD TAFUZDQJM3pTO7AVCCuRRQ IoQT8zDCxEXFMaX57mqUZq dClccGFyICBccGFyXHBhci GGZjZUOo9TXL8PDBJIO19Z MSIEVEOvCYPDC5OSAEhpgQ CmPUDcDF6qKPPPGNlYM4YK CEXSLUXXGJ1SHsZOLYVVK2 DrU3gLIVXTEOQDLWASUOUP D5ADDKILBGtlHEoZQZLETE ISJTDcJOoWP0NPYYCYFKxk VNGxTCCvPJVsCUAdCW8QVs FFUElUSEVMSUFMIExZTVBI G7JEHYGWHOHuoxMjMZYmYC 1HGCgXC6WBQSKUDYAUXuMY GSRXZFRBZWdDMSmuXJ0XAT 5MWRhHYCWlAp8ESOGhTMCu fwUvLRgbERYxJ0peeHpkjM JppDfluoFzPDezr3KeBWuf TUYsTS6htKcxKCShAQ1nBC WnV4gufZ0hxrw7GpHzJWMy AhK9UTMtxoW8Cce5HEInYX coi4emi4XoHSVkIWn7wBpo BoQuAHNlv1ghmiEkIrUoPA ImLXXxLMAitYNqT154e0li l3zpyiMujXC2EHWsNHJ9UR ebeaBwbbQ7XYebkPLoIwY5 IDtccmVkMFxncmVlbjBcYm l3UAMxH830ZVA9pCexv6qt TDB6KJPoSNIaQtHnLc3dmN QvM345QNUpJIWXMTFtbAv2 ZNSadxPmndAdiQUIj799N7 55a0rhVMAxuhInvKqWwxjh o0mjU065JTFfqEYxqvHpYm YsPRCjkPMcfEQ4KNIuCZ2m enstRUrmOCwnXILknqY4YT QohHYgN3WiZLVbKI9lsddt XMI6GXqwNKFeIDO7CeOhOQ Rtd2Dykxe0EuCwok0wpl98 UWY9g6CjeZdzMXN9KRY8Nh MyHk0zgUEqSMCePR5iTuLp gZCzIPVrni79zNgkEIveED M6BVBjweFym6Amb4zpYbAv rgMmB0zeS5HjVFFpOMTbEB TuVwFjtmLmz2Lpd3DquQBo sAp7j2ekIDEwBMOboFciu7 pwAXM7KRSuqJRiU5npmY1m EKZxKH1hcvvzi7slTUspTV grXEVfuEZ8evQ9OMDmaNFk Z7BnpW6yACOsERzhSYWxqs h0WoLyYq3duASjsPcpGRve YmtwYWdlXHBnbmNvbnRccG duZGVjXHBsYWluXHBsYWlu XGYwXGZzMjRccWxcbGFuZz EwMzNcaGljaFxmMVxkYmNo MMDyHLnqQ6xtNjVrRtGxYk c8EHFlgIPnBDGvRkw6QWEp qLGyQFNSnMwrbV7fTFKjdU owxJ5auYK4HPUwwlOcxFOW eZ1yEGOWbP6sXhY2UrKaCj E1JPo8QULkmXSyeW7= COMMENT (test code = z3vkqWWsHWTupEQ2DiVcDA 8569) Zro3ekk2VwdVBihZGsUIgf dCMmqpIwsv98nUI3xP45HL 0pRPFjThU8JUVrqaX1Bgh4 YUItATHwxYGtB076q4gkl4 pauiNmdAI9nZvxEIBpascx VgS9JXaaKPBqbmbgTLd4ZG cgINXsnZW2RGVlvSUlR7Ec MQWbMR2vswj5KEG0IFsdHO CiNsN7BMOpeGQfEMJfeWwi YWbnq047TMC4NtDhCEErzl NdfXanvY6gGbZqVSTYvhRc n8TblDfgOPFcrZ3bzIVlKI PlSLpdBM7kNGYduwqrBURm TAhek0DaRamwBQjcL7Oko6 ijwiYabwRoFOCpGQNqkH64 vtHplJs0hYFctQQoCIz5dB Sib0L9xRXiPOCcga75U5mb pONxuXjuHWUdr7OuGQw3dx P0gAbqyQGqaHwfBPI8RQKt fUbudAmlO6h6pOXsdYM4hD RbnsGzFyLze96gxYRgwVXj vlE8xDfrzWMzWZ2uRdKod3 PkpxMsecEpaZx4qKBzJPQl m47fhMCxi05jOKaul7AqKY B4W0JhSSpyXdWslNbfxksk x3Ziy1nzfQCtfASpHCouQU AhQM3seFNaDFUpkjOEb3gn dmVyIHdpdGggYSBnaXZlbi NakVP0k0Z5KE5zJNXad1bs r3OnjBzgTjUqn96luAUqlO LldiBkqcWtiBG4uFQvjAWb hqN8nsWenY2rngKmYUMkmB MgZmluZGluZyBtYXkgYmUg E99vb0zxyWUnsIW7fFVxND CiRGA0JNZoPA6tlZ8dzJhx kPjgUQYoy7OqQOzrhUclMU Bhcn0= CPT Code(s) (test code k9ospQUdWSEanIW7XiRcLP = 3357) Asr2poo3AiqHVnoWTcHEgr mSQbfbGfrt68mSL6dI73BD 7cDGQqUhN1SURcleA4Hkn4 DHIkGCTlpKIxK878r3uhb0 dnuaRejSU4xUuuQAElrbyw KfV0TFvvXCEnvcsfTAv3EY epUXPwdNM2QNVfvFKxH3Nx WELwHJ5uaha2THM3NBomUW OjXzY0SSVbaGBmBCDfkOwz NQjte157AKX6QtBxVHRdxv FzhZtpiR5oWfSeIQZ7TUSs AFR4GrklBUS6 GROSS DESCRIPTION (test h5yjdYBwTZGlyVCDNBNcV1 code = 4799634355) vznxGyHDTyzVXtO4Njqpen LBzmRI1oIP6lwSxizFHdkE NmUO9SSRLwGoLtFURllOOc icXuZdWoISBmgIBneWW1OQ XiFT4wedyrRPrbCUjeREUc rcL5TKXynKIxW8PqPWCfSG 5oekqcFDE0BOjmkK3eijSZ UhlbFr0etRXlgZqtDaEkWs NoYXJzZXQwXGZuaWwgQXJp UOc1wF1VAztgW05oj6N9Us y4SGSfJLQcP3AtPF0cLNWy dNHbB28YZbxsNAF2ICXUTn ovPZIcAC5Ky5viVOHglLGv AOT0QPdusKKzNXUvFQUxBB y8HJWrJKdsnFAyAW8smCdl BwyhhVvno8XnnNWtUEvaBL HfGGIlTRfhLDXpFM4JWgRt MNB9NDU9OcTcTWi9ENq2FP 0PXbCuPBEpFML0CtB0TbQp XOv9JUnxEI5JGGK6QDf6QI XbVhB4RNQ4RQVzDYZtWcHb XGYgQXJpYWwgXFxmbCBcXG 5xlZpgkQLrywSRRgNHeEP7 ILkhTOAjoVfzM8ReViquCS MaYPeyGHFtJ76fr5KZt5Tx VQ6LNGw6dbDwznsamS0pFG EefzJbOQdwfBUiF2neW9Xg TQYjWfOrLiXiMLy2SHBaaJ 3tXg2isKYzsH5elWZfFPtb MUL2yNBibSW8vIKjdXzaBZ 1xuWCdCIRVQLSdV7Mba4bz cnRgsQ9jHOXyNY4uJGNbwA B6TVdnDQNjqUohS2SjNlUe swYvQ41us7unuIYri1XauH QxbRraxTTkCzFlA86frfGz SC7bMNWnsa96hJq4KCC9tr Qgd8SvnZl5OVRcj3khKHFo u7M9VAHrBNWbuIXasikziR 0pAWrqpeAgZALmSCRxQOC7 BLYpYtA8ZCReHWQbqI7hKR AqUDOuhUQvwG0ntjCohhEy jyIzjvMaxJRgoBUafFJ5EP CrRd1nvT45cT3dVBKbqPYg ECZfi45grZ4oB2Kxr6W5eN YrIMExhDDhEX7BINOvpzEC ClxjZjBcZnMyMiANClxwbG FpblxlcGljTmVzdERvYzBc hGmxgD61JDNfiLXtKTK5NO 7fVYCdvpmvNDAvKVRqAZZ9 FHuukL12qVKsKYCvAJPxhB UuyX5Ty6qxJYVheCYcVKC0 IFxcaWQgNTEwMDIgXFxkYi LlM6CKFKSbCNE2ZwRfBEJe KXz8LKykY9VRKOHzISM4BH ZoHOmjDeW3EFz9ZRPUOv2e AUE0ZKI4ToVvUAV5Mdg3GG xcdCAyIFxcZiBBcmlhbCBc JIUzUDiydvA6DZXnODClfU qatH5aVg4dNLRlwQxrHWbr RLAuvCotR5BlTrzzUPIrQB vqHBWmY86fp1OCe9ClHN9X NTq9xoRevozxfU6dVOPdlx YcXYjnuMKpM2ibV0PxZAMq IiFaKcOcJNc2ITIvkS2yJn 8voBYyhS1qzHYdPUawUQD9 mFYziHA4kJVywUPzUX2jDZ 4NJkXyR1Nmc4Gxx99oybIr YmVyIGFuZCAicHJveGltYW ztJZXwsAihE0UhFfTtzcIt C70rr5wnrEAap8Aue60dsE csSeKgY46mzjAjMT3yLYYn xi80dPc7IUU4cDWggHEvuT Zxg7GbsH3bGLwtCUNfW2Gf X8R5BKFfZdWtlOPgQwGiwU YoArVjP43dMKNCePEza7Gv E4mxCJ3wzKOrRA68kIDbqH izi9QssRr6gKTyDCIznUhu e2miZzCrwNk2jiM6nA5eER zxAYYuj9KgwNOfRTDrKOfp bmUgXGxpbmUgRkVccGFyIA 0KXHBhciANClxjZjBcZnMy MiANClxwbGFpblxlcGljTm OkaVUxVlRinIjetR30KJTa iVWqWQQ1KE8hJVNuupchSF EpBPQlNOT5DVxyrT91sTJn UJPvFAAdcPItgD3QTOUmKI D3LKtmaN61fFMvLC3EUYLn FLJ9ESZbkTAmPNY5UR3gfR 0KfQ== MICROSCOPIC DESCRIPTION j5gnrIEhHLRhoIS7FqXiZQ (test code = 3371) Yvm2ksc4TjzWGagVUeXYrl vTYlxuFkaq26jRP9uV72TV 8bSDEyYyS1GFBmucX3Ohu7 PGDiXRZjaEOfQ454o7wcf2 jzxnFojFA6vXsvHANzdwyd EaE2ZQocVLHfxdubCGn2YL vlHGFojSE2LPMkfSNvK3Dj OHHhOL6mazm2KCM1OIuzNC FrMmG6ZUZdiPPlXVZjfObn XZsic009PBF6RrZaVWDpah FdmVahuW8bQlKoIMCNPTJe s8BkLYIvKSNixz6= Gross assessment was [facility] performed at ([facility], = 2777) Department of Pathology, [address] [place] [address], Technical component was [facility] performed at ([facility], = 6640) Department of Pathology, [address] [place] [address], Professional component [facility] was performed at ([facility], code = 2779) Department of Pathology, [address] [place] [address], [facility] [id number] 14:29:40Surgical Pathology Report Case: [id number] Authorizing Provider: Paige Covarrubias, Collected: 09/17/2021 08:28 AM Ordering Location: [facility] Received: 09/17/2021 03:38 PM SERVICES Pathologist: Luanne Larkin MD Specimens: A) - Distal Esophagus, bxs r/o EOE B) - Proximal Esophagus, bxs r/o EOE A. DISTAL ESOPHAGUS, BIOPSY: - ESOPHAGEAL SQUAMOUS MUCOSA WITH BASAL CELL HYPERPLASIAWITH MILD INCREASE IN INTRAEPITHELIAL LYMPHOCYTES - RARE EOSINOPHILS 0-1. (See Comment) B. PROXIMAL ESOPHAGUS, BIOPSY: - ESOPHAGEAL SQUAMOUS MUCOSA WITH DIFFUSE BASAL CELL HYPERPLASIA, INCREASED INTRAEPITHELIAL LYMPHOCYTES - NO INCREASED INTRAEPITHELIAL EOSINOPHILS NOTED SJ/pl Signing Pathologist Direct Phone Line: [phone] signed by Luanne Larkin MD on 09/18/2021 at 2:29 PMEndoscopic report reviewed. These findings show increased intraepithelial lymphocytes throughout the esophagus which suggest a lymphocytic pattern of esophagitis which can be seen in multiple conditions like drugs, infection, or systemic disease.However with a given history of eosinophilic esophagitis and patient on treatment, this finding may be consistent with treated eosinophilic [id number] x2A. Distal Esophagus.Received in formalin labeled the patient's name MRN accession number and "distal esophagus" and consists of multiple fragments of cruz-white to focally brown tissue measuring in aggregate 0.8 x 0.6 x 0.1 cm. The specimen is entirely submitted following filtration in cassette A1B. Proximal Esophagus.Received in formalin labeled the patient name MRN accession number and "proximal esophagus" and consists of small fragments of cruz-white tissue measuring in aggregate 0.6 x 0.4 x 0.1 cm. The spe cimen is entirely submitted following filtration in cassette [id number] [facility], Department of Pathology, [address] [place] [address], [facility], [facility] of [facility]ology, [address] [place] [address], [facility], Department of Pathology, [address] [place] [address], JUND. METABOLIC PANEL ([id number])2021-07-04 01:23:48 Test Item Value Reference Range Interpretation Comments NA (test code = 139 mmol/L 135-145 4766060124) K (test code = 3.8 mmol/L 3.5-5.0 6546583722) CL (test code = 104 mmol/L 98-108 3451449588) CO2 TOTAL (test code 24 mmol/L 23-31 = 7143072162) AGAP (test code = 2-16 4292390231) BUN (test code = 12 mg/dL 7-23 7787513403) GLUCOSE (test code = 90 mg/dL 70-110 3115181649) CREATININE (test code 0.70 mg/dL 0.50-1.04 = 8525132256) TOTAL BILI (test code 0.4 mg/dL 0.1-1.1 = 4268233150) CALCIUM (test code = 8.9 mg/dL 8.6-10.6 3865374506) T PROTEIN (test code 7.2 g/dL 6.3-8.2 = 9527864500) ALBUMIN (test code = 4.7 g/dL 3.5-5.0 8068464125) ALK PHOS (test code = 47 U/L 34-122 5329597871) ALTv (test code = 15 U/L 5-35 1742-6) AST(SGOT) (test code 20 U/L 13-40 = 5996201996) eGFR (test code = mL/min/1.73m2 6116460906) RAGHU (test code = RAGHU) Association of Glomerular Filtration Rate (GFR) and Staging of Kidney Disease* + + +- +| GFR (mL/min/1.73 m2) ?| With Kidney Damage ?| ?Without Kidney Damage+ ------+ ----+ ------+| ?>90 ?| ?Stage one ?| ? Normal ?+ -+ + -+| ?60-89 ?| ?Stage two ?| ? Decreased GFR ? + + +- +| ?30-59 ?| ?Stage three ?| ? Stage three ? + + +- +| ?15-29 ?| ?Stage four ? | ? Stage four ?+ -+ + -+| ?<15 (or dialysis) ? ?| ?Stage five ? | ? Stage five ?+ -+ + -+ *Each stage assumes the associated GFR level has been in effect for at least three months. ?Stages 1 to 5, with or without kidney disease, indicate chronic kidney disease. Notes: Determination of stages one and two (with eGFR >59mL/min/1.73 m2) requires estimation of kidney damage for at least three months as defined by structural or functional abnormalities of the kidney, manifested by either:Pathological abnormalities or Markers of kidney damage (including abnormalities in the composition of the blood or urine or abnormalities in imaging tests). [facility] WITH [id number] 01:07:08 Test Item Value Reference Range Interpretation Comments WBC (test code = See_Comment [Automated 7172-2) message] The sy stem which generated this result transmitted reference range : 4.30 - 11.10 10*3/?L. The reference range was not used to interpret this result as normal/abnormal . RBC (test code = See_Comment [Automated 229-8) message] The sy stem which generated this result transmitted reference range : 3.93 - 5.25 10*6/?L. The reference range was not used to interpret this result as normal/abnormal . HGB (test code = 14.0 g/dL 11.6-15.0 718-7) HCT (test code = 42.1 % 35.7-45.2 4544-3) MCV (test code = 93.8 fL 80.6-95.5 787-2) MCH (test code = 31.2 pg 25.9-32.8 785-6) MCHC (test code = 33.3 g/dL 31.6-35.1 786-4) RDW-SD (test code = 43.8 fL 39.0-49.9 23857-9) RDW-CV (test code = 12.7 % 12.0-15.5 788-0) PLT (test code = See_Comment [Automated 777-3) message] The sy stem which generated this result transmitted reference range : 166 - 358 10*3/ ?L. The reference r abhishek was not used to interpret this result as normal/abnormal . MPV (test code = 9.9 fL 9.5-12.9 01610-4) NRBC/100 WBC (test See_Comment [Automat ed code = 0542129873) message] The system which generated this result transmitted reference range : 0.0 - 10.0 /100 WBCs. The refer ence range was not u sed to interpret th is result as normal/abnormal . NRBC x10^3 (test code <0.01 See_Comment [Auto mated = 2003390332) message] The s ystem which generated this result transmitted reference range : 10*3/?L. The reference range was not used to interpret this result as normal/abnormal . GRAN MAT (NEUT) % 61.6 % (test code = 770-8) IMM GRAN % (test code 0.30 % = 9328357565) LYMPH % (test code = 29.3 % 736-9) MONO % (test code = 8.7 % 5905-5) EOS % (test code = 0.0 % 713-8) BASO % (test code = 0.1 % 706-2) GRAN MAT x10^3(ANC) 4.57 10*3/uL 1.88-7.09 (test code = 5768723639) IMM GRAN x10^3 (test <0.03 0.00-0.06 code = 5798483512) LYMPH x10^3 (test code 2.18 10*3/uL 1.32-3.29 = 731-0) MONO x10^3 (test code 0.65 10*3/uL 0.33-0.92 = 742-7) EOS x10^3 (test code = <0.03 0.03-0.39 L 711-2) BASO x10^3 (test code <0.03 0.01-0.07 = 704-7) Lab Interpretation Abnormal (test code = 56269-6) [facility] ResourcesTR[facility]IN [id number] 19:24:18 Test Item Value Reference Interpretation Comments Range TROPONIN I (test 0.002 ng/mL See_Comment [Automated code = 4099957514) message] The system which generated this result transmitted reference range : <=0.034. The reference range was not used to interpret this result as normal/abnormal . RAGHU (test code = Reference (Normal) RAGHU) Range (defined by the 99th percentile reference limit): <= 0.034 ng/mL Note: Cardiac troponin begins to rise 3-4 hours after the onset of ischemia. Repeat in 4-6 hours if the sample was drawn within 3-4 hours of the onset of the symptom and found normal. Diagnosis of myocardial injury is made with acute changes in cTn concentrations with at least one serial sample above the 99th percentile upper reference limit (URL), taken together with the patient's clinical presentation. Biotin has been reported to cause a negative bias, interpret results relative to patient's use of biotin. Lab Interpretation Normal (test code = 81009-7) [facility] ResourcesCOMP. METABOLIC PANEL ([id number])2021-04-21 19:12:59 Test Item Value Reference Range Interpretation Comments NA (test code = 138 mmol/L 135-145 5089755405) K (test code = 4.1 mmol/L 3.5-5.0 8750324520) CL (test code = 101 mmol/L 98-108 4547732558) CO2 TOTAL (test code 29 mmol/L 23-31 = 2078163886) AGAP (test code = 2-16 1212265570) BUN (test code = 10 mg/dL 7-23 3761022854) GLUCOSE (test code = 71 mg/dL 70-110 4581261112) CREATININE (test code 0.71 mg/dL 0.50-1.04 = 1123067962) TOTAL BILI (test code 0.5 mg/dL 0.1-1.1 = 7115866527) CALCIUM (test code = 9.6 mg/dL 8.6-10.6 6328204930) T PROTEIN (test code 7.6 g/dL 6.3-8.2 = 1169042542) ALBUMIN (test code = 4.7 g/dL 3.5-5.0 6059489348) ALK PHOS (test code = 66 U/L 34-122 3068521960) ALTv (test code = 17 U/L 5-35 1742-6) AST(SGOT) (test code 22 U/L 13-40 = 1385373527) eGFR (test code = mL/min/1.73m2 5657619250) RAGHU (test code = RAGHU) Association of Glomerular Filtration Rate (GFR) and Staging of Kidney Disease* + + +- +| GFR (mL/min/1.73 m2) ?| With Kidney Damage ?| ?Without Kidney Damage+ ------+ ----+ ------+| ?>90 ?| ?Stage one ?| ? Normal ?+ -+ + -+| ?60-89 ?| ?Stage two ?| ? Decreased GFR ? + + +- +| ?30-59 ?| ?Stage three ?| ? Stage three ? + + +- +| ?15-29 ?| ?Stage four ? | ? Stage four ?+ -+ + -+| ?<15 (or dialysis) ? ?| ?Stage five ? | ? Stage five ?+ -+ + -+ *Each stage assumes the associated GFR level has been in effect for at least three months. ?Stages 1 to 5, with or without kidney disease, indicate chronic kidney disease. Notes: Determination of stages one and two (with eGFR >59mL/min/1.73 m2) requires estimation of kidney damage for at least three months as defined by structural or functional abnormalities of the kidney, manifested by either:Pathological abnormalities or Markers of kidney damage (including abnormalities in the composition of the blood or urine or abnormalities in imaging tests). [facility] ResourcesLIPASE, [id number] 19:12:39 Test Item Value Reference Range Interpretation Comments LIPASE (test code = 2820307592) 81 U/L 0-220 Lab Interpretation (test code = Normal 55918-6) [facility] ResourcesaPTT2021-12-19 19:07:37 Test Item Value Reference Range Interpretation Comments APTT Patient (test See_Comment [Automat ed code = 3173-2) message] The system which generated this result transmitted reference range : 23 - 38 Seconds . The reference range was not used to interpr et this result as normal/abnormal . RAGHU (test code = RAGHU) The [facility] patient population mean normal value for aPTT is 30 seconds. Lab Interpretation Normal (test code = 12921-6) [facility] ResourcesPROTHROMBIN TIME / [id number] 19:05:41 Test Item Value Reference Range Interpretation Comments PROTIME PATIENT (test See_Comment [Auto mated message] code = 5964-2) The system wh ich generated this result transmitted ref erence range: 12.0 - 1 4.7 Seconds. The re ference range was not u sed to interpret this result as normal/abnor mal. INR (test code = 6301-6) Nor mal INR <1.1; Warfarin Therap eutic range 2.0 to 3. 0 or 2.5 to 3.5, dep ending upon the indica tions. Lab Interpretation (test Normal code = 52443-2) [facility] ResourcesCBC WITH [id number] 18:57:17 Test Item Value Reference Range Interpretation Comments WBC (test code = See_Comment [Automated 2890-2) message] The sy stem which generated this result transmitted reference range : 4.30 - 11.10 10*3/?L. The reference range was not used to interpret this result as normal/abnormal . RBC (test code = See_Comment [Automated 969-8) message] The sy stem which generated this result transmitted reference range : 3.93 - 5.25 10*6/?L. The reference range was not used to interpret this result as normal/abnormal . HGB (test code = 15.0 g/dL 11.6-15.0 718-7) HCT (test code = 45.8 % 35.7-45.2 H 4544-3) MCV (test code = 94.2 fL 80.6-95.5 787-2) MCH (test code = 30.9 pg 25.9-32.8 785-6) MCHC (test code = 32.8 g/dL 31.6-35.1 786-4) RDW-SD (test code = 42.4 fL 39.0-49.9 32995-2) RDW-CV (test code = 12.2 % 12.0-15.5 788-0) PLT (test code = See_Comment [Automated 777-3) message] The sy stem which generated this result transmitted reference range : 166 - 358 10*3/ ?L. The reference r abhishek was not used to interpret this result as normal/abnormal . MPV (test code = 9.5 fL 9.5-12.9 56179-7) NRBC/100 WBC (test See_Comment [Automat ed code = 4493483710) message] The system which generated this result transmitted reference range : 0.0 - 10.0 /100 WBCs. The refer ence range was not u sed to interpret th is result as normal/abnormal . NRBC x10^3 (test code <0.01 See_Comment [Auto mated = 6294128320) message] The s ystem which generated this result transmitted reference range : 10*3/?L. The reference range was not used to interpret this result as normal/abnormal . GRAN MAT (NEUT) % 65.7 % (test code = 770-8) IMM GRAN % (test code 0.60 % = 0227084319) LYMPH % (test code = 19.3 % 736-9) MONO % (test code = 10.2 % 5905-5) EOS % (test code = 3.8 % 713-8) BASO % (test code = 0.4 % 706-2) GRAN MAT x10^3(ANC) 4.50 10*3/uL 1.88-7.09 (test code = 5554941404) IMM GRAN x10^3 (test 0.04 10*3/uL 0.00-0.06 code = 0229131996) LYMPH x10^3 (test code 1.32 10*3/uL 1.32-3.29 = 731-0) MONO x10^3 (test code 0.70 10*3/uL 0.33-0.92 = 742-7) EOS x10^3 (test code = 0.26 10*3/uL 0.03-0.39 711-2) BASO x10^3 (test code 0.03 10*3/uL 0.01-0.07 = 704-7) Lab Interpretation Abnormal (test code = 60142-9) [facility] [id number] 18:47:00 Test Item Value Reference Range Interpretation Comments POCT PREG (test code = 1605) negative On board controls acceptable with present C Line (test code = 3574) POCT PREG LOT # (test code = 3575) [id number] POCT PREG TEST DATE (test code = 3576) Lab Interpretation (test code = Normal 62463-1) [facility] [id number] 10:19:40Surgical Pathology Report Case: [id number] Authorizing Provider: Paige Covarrubias, Collected:04/16/2021 09:04 AM Ordering Location: [facility] Received: 04/16/2021 12:59 PM SERVICES Pathologist: Danelle Brown MD Specimens: A) - Distal Esophagus B) - Proximal Esophagus A. DISTAL ESOPHAGUS, BIOPSY:-Squamous esophageal mucosa with intramucosal eosinophils (20/HPF), minute eosinophilic micro abscesses elongated fibrovascular papillae and basal cell hyperplasia, see commentD. PROXIMAL ESOPHAGUS, BIOPSY:-Squamous esophageal mucosa with intramucosal eosinophils (13/HPF), elongated fibrovascular papillae and basal cell hyperplasia, see comment Signing Pathologist Direct Phone Line: [phone] signed by Danelle Brown MD on 04/17/2021 at10:19 Gonzalez the right clinical setting, the findings are consistent with eosinophilic esophagitis.[id number] dysphagia, Eosinophilic esophagitisA. Distal esophagusB. Proximal esophagusA. Receivedin formalin labeled the patient's name, accession number and "distal esophagus" are 4 cruz soft tissue fragments measuring up to 0.4 cm in greatest dimension which are filtered and submitted in toto in A1.B. Received in formalin labeled the patient's name, accession number and "proximal esophagus" are 3 cruz soft tissue fragments measuring up to 0.4 cm in greatest dimension which are filtered and submitted in toto in B1.NABIL Blanca, HT (ASCP)[facility], Department of Pathology, [address] [place] [id number], [facility], [address] [place] [address], [facility], [facility], [address] [place] [id number], RDKC. METABOLIC PANEL (29837)2021-03-31 07:44:02 Test Item Value Reference Range Interpretation Comments NA (test code = 138 mmol/L 135-145 6520487930) K (test code = 4.0 mmol/L 3.5-5.0 9184268630) CL (test code = 102 mmol/L 98-108 5685520506) CO2 TOTAL (test code 26 mmol/L 23-31 = 9544717176) AGAP (test code = 2-16 1342546501) BUN (test code = 8 mg/dL 7-23 9070418856) GLUCOSE (test code = 95 mg/dL 70-110 3787367477) CREATININE (test code 0.69 mg/dL 0.50-1.04 = 1796934323) TOTAL BILI (test code 0.6 mg/dL 0.1-1.1 = 9078637390) CALCIUM (test code = 10.1 mg/dL 8.6-10.6 2364878338) T PROTEIN (test code 7.9 g/dL 6.3-8.2 = 8372386817) ALBUMIN (test code = 4.9 g/dL 3.5-5.0 4723250747) ALK PHOS (test code = 89 U/L 34-122 7936934587) ALTv (test code = 18 U/L 5-35 1742-6) AST(SGOT) (test code 24 U/L 13-40 = 6404047931) eGFR (test code = mL/min/1.73m2 2682000780) RAGHU (test code = RAGHU) Association of Glomerular Filtration Rate (GFR) and Staging of Kidney Disease* + + +- +| GFR (mL/min/1.73 m2) ?| With Kidney Damage ?| ?Without Kidney Damage+ ------+ ----+ ------+| ?>90 ?| ?Stage one ?| ? Normal ?+ -+ + -+| ?60-89 ?| ?Stage two ?| ? Decreased GFR ? + + +- +| ?30-59 ?| ?Stage three ?| ? Stage three ? + + +- +| ?15-29 ?| ?Stage four ? | ? Stage four ?+ -+ + -+| ?<15 (or dialysis) ? ?| ?Stage five ? | ? Stage five ?+ -+ + -+ *Each stage assumes the associated GFR level has been in effect for at least three months. ?Stages 1 to 5, with or without kidney disease, indicate chronic kidney disease. Notes: Determination of stages one and two (with eGFR >59mL/min/1.73 m2) requires estimation of kidney damage for at least three months as defined by structural or functional abnormalities of the kidney, manifested by either:Pathological abnormalities or Markers of kidney damage (including abnormalities in the composition of the blood or urine or abnormalities in imaging tests). [facility] WITH [id number] 07:31:00 Test Item Value Reference Range Interpretation Comments WBC (test code = See_Comment [Automated message] 6690-2) The system [employer] generated this result transmitted ref erence range: 4.30 - 1 1.10 10*3/?L. The re ference range was not u sed to interpret this result as normal/abnor mal. RBC (test code = See_Comment [Automated message] 789-8) The system [employer] generated this result transmitted ref erence range: 3.93 - 5 .25 10*6/?L. The re ference range was not u sed to interpret this result as normal/abnor mal. HGB (test code = 14.4 g/dL 11.6-15.0 718-7) HCT (test code = 41.6 % 35.7-45.2 4544-3) MCV (test code = 90.8 fL 80.6-95.5 787-2) MCH (test code = 31.4 pg 25.9-32.8 785-6) MCHC (test code = 34.6 g/dL 31.6-35.1 786-4) RDW-SD (test code 40.0 fL 39.0-49.9 = 57755-0) RDW-CV (test code 12.0 % 12.0-15.5 = 788-0) PLT (test code = See_Comment [Automated message] 777-3) The system [employer] h generated this result transmitted ref erence range: 166 - 35 8 10*3/?L. The re ference range was not u sed to interpret this result as normal/abnor mal. MPV (test code = 9.5 fL 9.5-12.9 61856-3) NRBC/100 WBC (test See_Comment [Automat ed message] code = 2281644440) The syste m which generated this result transmitted ref erence range: 0.0 - 10 .0 /100 WBCs. The refer ence range was not u sed to interpret this result as normal/abnor mal. NRBC x10^3 (test <0.01 See_Comment [Automated message] code = 8032230189) The syste m which generated this result transmitted ref erence range: 10*3/?L. The reference range was not used to interpr et this result as normal/abnormal . GRAN MAT (NEUT) % 63.1 % (test code = 770-8) IMM GRAN % (test 0.50 % code = 3476285838) LYMPH % (test code 27.0 % = 736-9) MONO % (test code 7.9 % = 5905-5) EOS % (test code = 1.1 % 713-8) BASO % (test code 0.4 % = 706-2) GRAN MAT 6.93 10*3/uL 1.88-7.09 x10^3(ANC) (test code = 6178839357) IMM GRAN x10^3 0.05 10*3/uL 0.00-0.06 (test code = 8433922423) LYMPH x10^3 (test 2.96 10*3/uL 1.32-3.29 code = 731-0) MONO x10^3 (test 0.87 10*3/uL 0.33-0.92 code = 742-7) EOS x10^3 (test 0.12 10*3/uL 0.03-0.39 code = 711-2) BASO x10^3 (test 0.04 10*3/uL 0.01-0.07 code = 704-7) [facility] [id number] 06:38:00 Test Item Value Reference Range Interpretation Comments POCT PREG (test code = 1605) negative On board controls acceptable with present C Line (test code = 3574) POCT PREG LOT # (test code = 3575) [id number] POCT PREG TEST DATE (test 2022-06-03 code = 3576) Lab Interpretation (test code = Normal 36088-5) [facility] [id number] 15:18:00Surgical Pathology Report Case: [id number] Authorizing Provider: Paige Covarrubias, Collected: 12/06/2020 09:46 AM Ordering Location: [facility] Received: 12/06/2020 11:33 AM SERVICES Pathologist: Blanca Doty MD Specimens: A) - Distal Esophagus, BX B) - Proximal Esophagus, BX A. ESOPHAGUS, DISTAL, BIOPSY: - ESOPHAGITIS (SEE MICRO)B. ESOPHAGUS, PROXIMAL, BIOPSY: - ESOPHAGITIS (SEE MICRO)MAKEDA/roxi Signing Pathologist Direct Phone Line: [phone] signed by Blanca Doty MD on 12/07/2020 at 3:18 [id number] dysphagiaEosinophilic esophagitisA. Distal esophagusB. Proximal esophagusAll specimens are received in formalin labelled with the patient's name and medical record number. A. "Distal esophagus biopsy" consists of 3 cruz-pink mucosa-covered tissue fragments (from 0.2 cm to 0.4 cm in greatest dimension). The specimen is submitted in toto in cassette A1.B. "Proximal esophagus biopsy" consists of 4 cruz-pink mucosa-covered tissue fragments (from [] cm to [] cm in greatest dimension). The specimen is submitted in toto in cassette B1.KL (resident)A-B: Esophageal biopsies have squamous epithelium with basal cell hyperplasia and intraepithelial lymphocytes and eosinophils. Twenty eosinophils per high power field are seen in the distal esophageal biopsy while 38 are seen in the proximal biopsy. The findings in the right clinical settings indicate eosinophilic esophagitis. Clinical correlation is recommended. SARS-COV2/RT-PCR ([facility])2020-12-05 23:01:00 Test Item Value Reference Range Interpretation Comments SARS-COV2/RT-PCR (test code = Negative Negative [id number]) Negative result for this test determines that SARS-CoV-2 RNA was not present in the specimen above the Limit of Detection (LOD). However, Negative results do not preclude SARS-CoV-2 infection and should not be used as the sole basis for treatment or patient management decisions. Negative results must be combined with clinical observations, patient history, and epidemiological information. A false negative result may occur if a specimen is improperly collected, transported, or handled. A false negative result should be considered if patient's recent exposures or clinical presentation indicate that COVID-19 (SARS-CoV-2) is likely and diagnostic tests for other causes of illness are negative. Re-testing should be considered in cases of suspected false negatives.The limit of detection for this assay is 100 copies/mL.This SARS-CoV-2 test is a real-time RT_PCR test intended for the qualitative detection of nucleic acid from SARS-CoV-2 in a nasopharyngeal swab specimen collected from individuals suspected of COVID-19 by their healthcare provider.This test has not been Food and Drug Administration (FDA) cleared or approved. This is a modified version of an approved Emergency Use Authorization (EUA) and is in the process of review by the FDA. Once authorized by the FDA, the issued EUA will be effective until the declaration that circumstances exist justifying the authorization of the emergency use of in vitro diagnostic tests for detection and/or diagnosis of COVID-19 is terminated under Section 564(b)(2) of the Act or the EUA is revoked under Section 564(g) of the Act.Testing was performed using the Quiroz SARS-CoV-2 assay.Fact Sheet for Healthcare Providers:https://www.Skadoosh.quiroz/rosie/RT SARS-CoV-2 HCP Fact Sheet 51- 792814.pdfFact Sheet for Healthcare Patients:https://www.Skadoosh.Zooplus/rosie/RT SARS-CoV-2 Patient Fact Sheet EN 51-392294I0.pdfTISSUE [id number] 16:32:00 Surgical Pathology Report Case: [id number] Authorizing Provider: Paige Covarrubias, Collected: 08/02/2020 09:10 AM Ordering Location: [facility] Received: 08/02/2020 12:40 PM SERVICES Pathologist: Blanca Doty MD Specimens: A) - Distal Esophagus, BX R/O EOE B) - ProximalEsophagus, BX R/O EOE A. ESOPHAGUS, DISTAL, BIOPSY: - ESOPHAGITIS (SEE MICRO)B. ESOPHAGUS, PROXIMAL,BIOPSY: - ESOPHAGITIS (SEE MICRO)NZK/pl Signing Pathologist Direct Phone Line: [phone] signed by Blanca Doty MD on 08/04/2020 at 4:32 [id number] esophagitis, esophageal dysphagiaA. Distal esophagusB. Proximal esophagusRule out EOEA. Received in formalin labeled with the patient's name, medical record number and "distal esophagus" and consists of multiple translucent, graywhite tissue fragments measuring 0.1-0.5 centimeters in greatest dimension. Submitted in toto in A1.B. Received in formalin labeled with the patient's name, medical record number and "proximal e sophagus" and consists of 4 translucent graywhite tissue fragments measuring from less than 0.1 to 0.5 cm in greatest dimension. Submitted in toto in B1./CEDRIC-B. Esophageal biopsies have squamous epithelium. Marked reactive change and basal cell hyperplasia is seen in the biopsy of the distal esophaguswith many intraepithelial lymphocytes and eosinophils (as many as 15 eosinophils per HPF). Biopsy ofproximal esophagus on the other hand has mild basal cell hyperplasia with no intraepithelial eosinophils. This pattern is suggestive of a severe reflux esophagitis. No fungi, viral cytopathic effect, intestinal metaplasia, dysplasia or malignancy is seen.- DUP AB/PEL/SC/[id number] 21:02:00[facility] : 1985 Sex: F Patient Name: MORGAN FERGUSON Unit No: [id number] EXAMS: CPT CODE: [id number] DUP AB/PEL/SC/LTD 94728 PROCEDURE: PELVIC ULTRASOUND INDICATION: Vaginal bleeding status [...] 2 x 2.3 cm containing few follicles. Leftovary is not visualized. No adnexal mass or free fluid visualized. IMPRESSION: Status post hysterectomy. No pelvic sonographic abnormality identified. SL: BUSTER-H at 2101 Reported and signed by: Magan Ayala MD CC: Mari De La O DO Technologist: Karin Winters RDMS Probe: Trnscrbd D/ (2101) t.SABASR.SG9 Orig Print D/T: S: 04/15/2020 (2104) [facility] NAME: MORGAN FERGUSON Radiology Department PHYS: CHRISBlanca RodríguezRodney [address] : 1985 AGE: 35 SEX: F [place], [place] [address] LOC: EugeneERS PHONE #: [phone] EXAM DATE: 04/15/2020 STATUS: REG ER FAX #: [phone] RAD NO: Page 1 Signed Report Patient Name: MORGAN FERGUSON Unit No: [id number] EXAMS: CPT CODE: [id number] DUP AB/PEL/SC/LTD 35111 (Continued) [facility] NAME: MORGAN FERGUSON Radiology Department PHYS: CHRISBlanca RodríguezRodney [address] : 1985 AGE: 35 SEX: F [place], [place] [address] LOC: [place].ERS PHONE #: [phone] EXAM DATE: 04/15/2020 STATUS: REG ER FAX #: [phone] RAD NO: Page 2 Signed Report- US TRANSVAGINAL W/[id number] 21:02:00 [facility] [place] [facility] : 1985 Sex: F Patient Name: MORGAN FERGUSON Unit No: [id number] EXAMS: CPT CODE: [id number] US TRANSVAGINAL W/PELVIS 79928 PROCEDURE: PELVIC ULTRASOUND INDICATION: Vaginal bleeding status post hysterectomy 1month ago. COMPARISON: None. TRANSABDOMINAL SCAN: The uterus is not visualized. Right ovary appears normal measuring 2.8 x 1.8 x 1.6 cm with arterial waveforms documented. Left ovary appears normal patricia uring 2.9 x 2.2 x 2 cm with arterial waveforms documented. No adnexal masses visualized. No free pelvic fluid. TRANSVAGINAL SCAN: Transvaginal exam was performed for better visualization of the pelvic structures. Uterus is not visualized. Right ovary measures 2.8 x 2 x 2.3 cm containing few follicles.Left ovary is not visualized. No adnexal mass or free fluid visualized. IMPRESSION: Status post hysterectomy. No pelvic sonographic abnormality identified. SL: SG- H at 2101 Reported and signed by: Magan Ayala MD CC: Mari De La O DO Technologist: Karin Winters RDMS Probe: [id number] Trnscrbd D/ (2101) t.SABASRChecoSG9 OrigPrint D/T: S: 04/15/2020 (2104) [facility] NAME: MORGAN FERGUSON TOÑO Radiology Department PHYS: Rodney Glynn [address] : 1985 AGE: 35 SEX: F [place] [address] LOC: EugeneERS PHONE #: [phone] EXAM DATE: 04/15/2020 STATUS: REG ER FAX #: [phone] RAD NO: Page 1 Signed Report Patient Name: MORGAN FERGUSON Unit No: [id number] EXAMS: CPT CODE: [id number] US TRANSVAGINAL W/PELVIS 39049 (Continued) [facility] NAME: MORGAN FERGUSON TOÑO Radiology Department PHYS: Rodney Glynn [address] : 1985 AGE: 35 SEX: F [place] [address] LOC: EugeneERS PHONE #: [phone] EXAM DATE: 04/15/2020 STATUS: REG ER FAX #: [phone] RAD NO: Page 2 Signed Report- US PELVIS COMPLETE 2020-04-15 21:02:00 [facility] [place] [facility] : 1985 Sex: F Patient Name: MORGAN FERGUSON Unit No: [id number] EXAMS: CPT CODE: [id number] US PELVIS COMPLETE 50982 PROCEDURE: PELVIC ULTRASOUND INDICATION: Vaginal bleeding status [...] Karin Winters RDMS Probe: Trnscrbd D/ (2101) t.SABASR.SG9 Orig Print D/T: S: 04/15/2020 (2104) [facility] NAME: MORGAN FERGUSON Radiology Department PHYS: Rodney Gly[address] : 1985 AGE: 35 SEX: F [place], [place] [address] LOC: EugeneERS PHONE #: [phone] EXAM DATE: 04/15/2020 STATUS: REG ER FAX #: [phone] RAD NO: Page 1 Signed Report Patient Name: MORGAN FERGUSON Unit No: [id number] EXAMS: CPT CODE: [id number] US PELVIS COMPLETE 83189 (Continued) [facility] NAME: MORGAN FERGUSON Radiology Department PHYS: LUIZ Booth Rodney Rodríguez [address] : 1985 AGE: 35 SEX: F [place], [place] [address] LOC: UNIQUE PHONE #: [phone] EXAM DATE:04/15/2020 STATUS: REG ER FAX #: [phone] RAD NO: Page 2 Signed Report COMPREHENSIVE METABOLIC [id number] 19:45:00 Test Item Value Reference Range Interpretation Comments SODIUM (test code = NA) 141 mEq/L 135-145 N POTASSIUM (test code = K) 3.3 mEq/L 3.5-5.0 L CHLORIDE (test code = CL) 106 mEq/L 100-115 N CARBON DIOXIDE (test code = CO2) 28 mEq/L 22-31 N ANION GAP (test code = GAP) 10.20 10-20 N GLUCOSE (test code = GLU) 103 mg/dL 65-110 N BLOOD UREA NITROGEN (test code = 10 mg/dL 7-18 N BUN) GLOMERULAR FILTRATION RATE (test 72 ml/min >60 N code = GFR) CREATININE (test code = CREAT) 0.9 mg/dL [...] units/L 12-78 N ALKALINE PHOSPHATASE TOTAL (test 66 units/L 46-116 N code = ALKP) UA RFLX MICR CULT IF [id number] 19:42:00 Test Item Value Reference Range Interpretation [...] culture: Gross HematuriaSpecimen Description: CLEAN CATCHCBC W/AUTO [id number] 19:33:00 Test Item Value Reference Range Interpretation [...] Blood Count (test code = 6690-2) 10.7 4.8-10.8 [facility] erythrocytes automated count (number/volume)2020-03-28 23:58:00 Test Item Value Reference Range Interpretation Comments Red Blood Count (test code = 789-8) 4.30 4.00-5.20 [facility] hemoglobin measurement (mass/volume)2020-03-28 23:58:00 Test Item Value Reference Range Interpretation Comments Hemoglobin (test code = 718-7) 13.5 11.9-15.3 [facility] HealthAutomated blood hematocrit (volume fraction)2020-03-28 23:58:00 Test Item Value Reference Range Interpretation Comments Hematocrit (test code = 4544-3) 40.4 35.0-45.2 [facility] HealthAutomated erythrocyte mean corpuscular volume (MCV) measurement 2020-03-28 23:58:00 Test Item Value Reference Range Interpretation Comments Mean Corpuscular Volume (test code = 94.0 81.0-97.0 787-2) [facility] HealthAutomated erythrocyte mean corpuscular hemoglobin (mass per erythrocyte)2020-03-28 23:58:00 Test Item Value Reference Range Interpretation Comments Mean Corpuscular Hemoglobin (test code 31.4 27.0-33.0 = 785-6) [facility] HealthAutomated erythrocyte mean corpuscular hemoglobin concentration measurement (mass/volume)2020-03-28 23:58:00 Test Item Value Reference Range Interpretation Comments Mean Corpuscular Hemoglobin Concent 33.4 32.5-35.0 (test code = 786-4) [facility] HealthAutomated erythrocyte distribution width [id number] 23:58:00 Test Item Value Reference Range Interpretation Comments Red Cell Distribution Width (test code 13.1 11.5-14.5 = 788-0) [facility] HealthAutomated blood platelet count (count/volume)2020-03-28 23:58:00 Test Item Value Reference Range Interpretation Comments Platelet Count (test code = 777-3) 259 160-400 [facility] HealthAutomated blood platelet mean volume pdunggoukga4553-63-25 23:58:00 Test Item Value Reference Range Interpretation Comments Mean Platelet Volume (test code = 9.8 7.5-11.2 86508-1) [facility] HealthAutomated blood neutrophil count as percentage of total yrdvtdxwxd4341-75-29 23:58:00 Test Item Value Reference Range Interpretation Comments Neutrophils (%) (Auto) (test code = 58 45-75 770-8) [facility] HealthAutomated blood immature granulocyte count as percentage of total fwqbzlgwsj6465-58-87 23:58:00 Test Item Value Reference Range Interpretation Comments Immature Granulocyte % (Auto) (test 0.3 0.0-1.5 code = 75342-3) [facility] HealthAutomated blood lymphocyte count as percentage of total zxsrkuczuf7217-40-76 23:58:00 Test Item Value Reference Range Interpretation Comments Lymphocytes (%) (Auto) (test code = 32 20-48 736-9) [facility] HealthAutomated blood monocyte count as percentage of total leukocytes 2020-03-28 23:58:00 Test Item Value Reference Range Interpretation Comments Monocytes (%) (Auto) (test code = 8 1-9 5905-5) [facility] HealthAutomated blood eosinophil count as percentage of total tfbyycvygw3610-45-61 23:58:00 Test Item Value Reference Range Interpretation Comments Eosinophils (%) (Auto) (test code = 2 0-4 713-8) [facility] HealthAutomated blood basophil count as percentage of total leukocytes 2020-03-28 23:58:00 Test Item Value Reference Range Interpretation Comments Basophils (%) (Auto) (test code = 0 0-2 706-2) [facility] HealthAutomated blood nucleated erythrocyte count as percentage of total dkijfrbptp5936-04-82 23:58:00 Test Item Value Reference Range Interpretation Comments Nucleated Red Blood Cells % (test code 0 0-1 = 46101-4) [facility] HealthAutomated blood neutrophil count (number/volume)2020-03-28 23:58:00 Test Item Value Reference Range Interpretation Comments Neutrophils # (Auto) (test code = 6.18 751-8) [facility] HealthSerum or plasma sodium measurement (moles/volume)2020-03-28 23:58:00 Test Item Value Reference Range Interpretation Comments Sodium Level (test code = 2951-2) 138 135-142 [facility] HealthSerum or plasma potassium measurement (moles/volume)2020-03-28 23:58:00 Test Item Value Reference Range Interpretation Comments Potassium Level (test code = 2823-3) 3.9 3.6-5.1 [facility] or plasma chloride measurement (moles/volume)2020-03-28 23:58:00 Test Item Value Reference Range Interpretation Comments Chloride Level (test code = 2075-0) 107 97-108 [facility]um or plasma total carbon dioxide measurement (moles/volume) 2020-03-28 23:58:00 Test Item Value Reference Range Interpretation Comments Carbon Dioxide Level (test code = 25 26-34 2028-01) [facility] HealthSerum or plasma anion gap determination (moles/volume)2020-03-28 23:58:00 Test Item Value Reference Range Interpretation Comments Anion Gap (test code = 77608-6) 6.0 3.0-11.0 [facility] Health[facility]um or plasma urea nitrogen measurement (mass/volume)2020-03-28 23:58:00 Test Item Value Reference Range Interpretation Comments Blood Urea Nitrogen (test code = 10.0 6-22 3094-0) [facility] or plasma creatinine measurement (mass/volume)2020-03-28 23:58:00 Test Item Value Reference Range Interpretation Comments Creatinine (test code = 2160-0) 0.78 0.60-1.02 [facility] HealthEstimated renal creatinine clearance calculated from serum or plasma creatinine by Cockcroft-Gault formula (volume/time)2020-03-28 23:58:00 Test Item Value Reference Range Interpretation Comments Estimated Creatinine Clearance (test 99.8 code = 67927-2) [facility] HealthGlomerular filtration rate (GFR) estimation using MDRD equation 2020-03-28 23:58:00 Test Item Value Reference Range Interpretation Comments Estimat Glomerular Filtration Rate 90.40 >60 (test code = 819833549) [facility] HealthSerum or plasma urea nitrogen/creatinine mass xwgmd8098-84-23 23:58:00 Test Item Value Reference Range Interpretation Comments BUN/Creatinine Ratio (test code = 13 3097-3) [facility] HealthSerum or plasma glucose measurement (mass/volume)2020-03-28 23:58:00 Test Item Value Reference Range Interpretation Comments Glucose Level (test code = 2345-7) 106 74-112 [facility] HealthSerum or plasma calcium measurement (mass/volume)2020-03-28 23:58:00 Test Item Value Reference Range Interpretation Comments Calcium Level (test code = 69790-5) 10.0 9.0-10.2 [facility] HealthSerum or plasma total bilirubin measurement (mass/volume) 2020-03-28 23:58:00 Test Item Value Reference Range Interpretation Comments Total Bilirubin (test code = 1975-2) 0.3 0.3-2.0 [facility] HealthSerum or plasma aspartate aminotransferase measurement (enzymatic activity/volume)2020-03-28 23:58:00 Test Item Value Reference Range Interpretation Comments Aspartate Amino Transf (AST/SGOT) (test code = 1920-8) [facility] HealthSerum or plasma alanine aminotransferase measurement (enzymatic activity/volume)2020-03-28 23:58:00 Test Item Value Reference Range Interpretation Comments Alanine Aminotransferase (ALT/SGPT) 18 10-49 (test code = 1742-6) [facility] HealthSerum or plasma protein measurement (mass/volume)2020-03-28 23:58:00 Test Item Value Reference Range Interpretation Comments Total Protein (test code = 2885-2) 7.3 6.2-8.0 [facility]um or plasma albumin measurement (mass/volume)2020-03-28 23:58:00 Test Item Value Reference Range Interpretation Comments Albumin (test code = 1751-7) 5.0 4.2-5.4 [facility] HealthSerum globulin measurement by calculation (mass/volume)2020-03-28 23:58:00 Test Item Value Reference Range Interpretation Comments Globulin (test code = 10308-9) 2.3 [facility] HealthSerum or plasma albumin/globulin mass enjjn4865-91-72 23:58:00 Test Item Value Reference Range Interpretation Comments Albumin/Globulin Ratio (test code = 2.2 1759-0) [facility] HealthSerum or plasma alkaline phosphatase measurement (enzymatic activity/volume)2020-03-28 23:58:00 Test Item Value Reference Range Interpretation Comments Alkaline Phosphatase (test code = 76 45-100 6768-6) [facility] count (number/volume)2020-03-28 23:58:00 Test Item Value Reference Range Interpretation Comments White Blood Count (test code = 6690-2) 10.7 [facility] erythrocytes automated count (number/volume)2020-03-28 23:58:00 Test Item Value Reference Range Interpretation Comments Red Blood Count (test code = 789-8) 4.30 [facility] HospitalBlood hemoglobin measurement (mass/volume) 2020-03-28 23:58:00 Test Item Value Reference Range Interpretation Comments Hemoglobin (test code = 718-7) 13.5 [facility] HospitalAutomated blood hematocrit (volume fraction)2020-03-28 23:58:00 Test Item Value Reference Range Interpretation Comments Hematocrit (test code = 4544-3) 40.4 [facility] HospitalAutomated erythrocyte mean corpuscular volume (MCV) aaytzmndlrb5745-33-78 23:58:00 Test Item Value Reference Range Interpretation Comments Mean Corpuscular Volume (test code = 94.0 787-2) [facility] HospitalAutomated erythrocyte mean corpuscular hemoglobin (mass per erythrocyte)2020-03-28 23:58:00 Test Item Value Reference Range Interpretation Comments Mean Corpuscular Hemoglobin (test code 31.4 = 785-6) [facility] HospitalAutomated erythrocyte mean corpuscular hemoglobin concentration measurement (mass/volume)2020-03-28 23:58:00 Test Item Value Reference Range Interpretation Comments Mean Corpuscular Hemoglobin Concent 33.4 (test code = 786-4) [facility] otlbr1669-47-36 23:58:00 Test Item Value Reference Range Interpretation Comments Red Cell Distribution Width (test code 13.1 = 788-0) [facility]Autom[facility] blood platelet count (count/volume)2020-03-28 23:58:00 Test Item Value Reference Range Interpretation Comments Platelet Count (test code = 777-3) 259 [facility]Autom[facility] blood platelet mean volume jxqqqfvzapj7428-36-32 23:58:00 Test Item Value Reference Range Interpretation Comments Mean Platelet Volume (test code = 9.8 12775-6) [facility]Automated blood neutrophil count as percentage of total jmdonhebuu7326-31-87 23:58:00 Test Item Value Reference Range Interpretation Comments Neutrophils (%) (Auto) (test code = 58 770-8) [facility]Automated blood immature granulocyte count as percentage of total jfmsgpayof4770-43-58 23:58:00 Test Item Value Reference Range Interpretation Comments Immature Granulocyte % (Auto) (test 0.3 code = 53407-5) [facility] HospitalAutomated blood lymphocyte count as percentage of total prfawkxqpz1988-88-20 23:58:00 Test Item Value Reference Range Interpretation Comments Lymphocytes (%) (Auto) (test code = 32 736-9) [facility] HospitalAutomated blood monocyte count as percentage of total dtsnvasbdj1352-07-26 23:58:00 Test Item Value Reference Range Interpretation Comments Monocytes (%) (Auto) (test code = 8 5905-5) [facility] HospitalAutomated blood eosinophil count as percentage of total [id number] 23:58:00 Test Item Value Reference Range Interpretation Comments Eosinophils (%) (Auto) (test code = 2 713-8) [facility] bas[facility] count as percentage of total [id number] 23:58:00 Test Item Value Reference Range Interpretation Comments Basophils (%) (Auto) (test code = 0 706-2) [facility]Autom[facility] nucleated erythrocyte count as percentage of total moyzfmitps6362-85-02 23:58:00 Test Item Value Reference Range Interpretation Comments Nucleated Red Blood Cells % (test code 0 = 72634-2) [facility] neutrophil count (number/volume)2020-03-28 23:58:00 Test Item Value Reference Range Interpretation Comments Neutrophils # (Auto) (test code = 6.18 751-8) [facility] plasma sodium measurement (moles/volume)2020-03-28 23:58:00 Test Item Value Reference Range Interpretation Comments Sodium Level (test code = 2951-2) 138 [facility] or plasma potassium measurement (moles/volume)2020-03-28 23:58:00 Test Item Value Reference Range Interpretation Comments Potassium Level (test code = 2823-3) 3.9 [facility] or plasma chloride measurement (moles/volume)2020-03-28 23:58:00 Test Item Value Reference Range Interpretation Comments Chloride Level (test code = 2075-0) 107 [facility] or plasma total carbon dioxide measurement (moles/volume)2020-03-28 23:58:00 Test Item Value Reference Range Interpretation Comments Carbon Dioxide Level (test code = 25 8-9) [facility] or plasma anion gap determination (moles/volume)2020-03-28 23:58:00 Test Item Value Reference Range Interpretation Comments Anion Gap (test code = 71479-8) 6.0 [facility] or plasma urea nitrogen measurement (mass/volume)2020-03-28 23:58:00 Test Item Value Reference Range Interpretation Comments Blood Urea Nitrogen (test code = 10.0 3094-0) [facility] or plasma creatinine measurement (mass/volume)2020-03-28 23:58:00 Test Item Value Reference Range Interpretation Comments Creatinine (test code = 2160-0) 0.78 [facility] HospitalEstimated renal creatinine clearance calculated from serum or plasma creatinine by Cockcroft-Gault formula (volume/time)2020-03-28 23:58:00 Test Item Value Reference Range Interpretation Comments Estimated Creatinine Clearance (test 99.8 code = 30595-3) [facility] HospitalGlomerular filtration rate (GFR) estimation using MDRD qitabpne3224-96-94 23:58:00 Test Item Value Reference Range Interpretation Comments Estimat Glomerular Filtration Rate 90.40 (test code = 058638940) [facility]um or plasma urea nitrogen/creatinine mass spcan1826-23-21 23:58:00 Test Item Value Reference Range Interpretation Comments BUN/Creatinine Ratio (test code = 13 3097-3) [facility]um or plasma glucose measurement (mass/volume)2020-03-28 23:58:00 Test Item Value Reference Range Interpretation Comments Glucose Level (test code = 2345-7) 106 [facility]um or plasma calcium measurement (mass/volume)2020-03-28 23:58:00 Test Item Value Reference Range Interpretation Comments Calcium Level (test code = 57598-4) 10.0 [facility]um or plasma total bilirubin measurement (mass/volume)2020-03-28 23:58:00 Test Item Value Reference Range Interpretation Comments Total Bilirubin (test code = 1975-2) 0.3 [facility]um or plasma aspartate aminotransferase measurement (enzymatic activity/volume)2020-03-28 23:58:00 Test Item Value Reference Range Interpretation Comments Aspartate Amino Transf (AST/SGOT) (test 19 code = 1920-8) [facility] or plasma alanine aminotransferase measurement (enzymatic activity/volume)2020-03-28 23:58:00 Test Item Value Reference Range Interpretation Comments Alanine Aminotransferase (ALT/SGPT) 18 (test code = 1742-6) [facility] or plasma protein measurement (mass/volume)2020-03-28 23:58:00 Test Item Value Reference Range Interpretation Comments Total Protein (test code = 2885-2) 7.3 [facility] or plasma albumin measurement (mass/volume)2020-03-28 23:58:00 Test Item Value Reference Range Interpretation Comments Albumin (test code = 1751-7) 5.0 [facility] globulin measurement by calculation (mass/volume)2020-03-28 23:58:00 Test Item Value Reference Range Interpretation Comments Globulin (test code = 30112-4) 2.3 [facility]um or plasma albumin/globulin mass ratio 2020-03-28 23:58:00 Test Item Value Reference Range Interpretation Comments Albumin/Globulin Ratio (test code = 2.2 1759-0) [facility] or plasma alkaline phosphatase measurement (enzymatic activity/volume)2020-03-28 23:58:00 Test Item Value Reference Range Interpretation Comments Alkaline Phosphatase (test code = 76 6768-6) [facility] [place] [facility] HospitalUrinalysis specimen collection method 2020-03-28 23:53:00 Test Item Value Reference Range Interpretation Comments Urine Source (test code = Urine Clean Catch 24461-9) [facility] dckkykdsynmth9617-29-27 23:53:00 Test Item Value Reference Range Interpretation Comments Urine Color (test code = 5778-6) Red Yel-Mallory [facility] appearance slcxcrcsumopg2525-23-32 23:53:00 Test Item Value Reference Range Interpretation Comments Urine Appearance (test code = 5767-9) Turbid Clear [facility] pH measurement by test [id number] 23:53:00 Test Item Value Reference Range Interpretation Comments Urine pH (test code = 5803-2) 6.5 5.0-7.5 [facility] gravity ur ccuxzjag6459-03-59 23:53:00 Test Item Value Reference Range Interpretation Comments Urine Specific Patterson (test code = 1.022 1.003-1.029 5811-5) [facility] protein measurement by automated test strip (mass/volume) 2020-03-28 23:53:00 Test Item Value Reference Range Interpretation Comments Urine Protein (test code = 13472-2) 3+ Neg - Trace [facility] glucose measurement by automated test strip (mass/volume) 2020-03-28 23:53:00 Test Item Value Reference Range Interpretation Comments Urine Glucose (UA) (test code = Negative Negative 91112-0) [facility] ketones detection by automated test dkufw1126-91-06 23:53:00 Test Item Value Reference Range Interpretation Comments Urine Ketones (test code = 04805-4) Negative Negative [facility] erythrocytes count by automated test strip (number/volume) 2020-03-28 23:53:00 Test Item Value Reference Range Interpretation Comments Urine Occult Blood (test code = 3+ Negative 05797-1) [facility] nitrite detection by automated test pmcsh0359-19-21 23:53:00 Test Item Value Reference Range Interpretation Comments Urine Nitrite (test code = 99413-0) Negative Negative [facility] total bilirubin detection by automated test gsejg1881-00-57 23:53:00 Test Item Value Reference Range Interpretation Comments Urine Bilirubin (test code = Negative Negative 65265-3) [facility] urobilinogen measurement by automated test strip (mass/volume)2020-03-28 23:53:00 Test Item Value Reference Range Interpretation Comments Urine Urobilinogen (test code = Normal Norm-1.0 28742-9) [facility] leukocyte esterase detection by automated test strip 2020-03-28 23:53:00 Test Item Value Reference Range Interpretation Comments Urine Leukocyte Esterase (test code Negative Negative = 46222-0) [facility] sediment erythrocyte count by microscopy (number/high power field)2020-03-28 23:53:00 Test Item Value Reference Range Interpretation Comments Urine RBC (test code 5-10 See_Comment [Autom ated message] The = 74730-2) system which ge nerated this result transmit christina reference range : 0 to 5. The reference r abhishek was not used to interpr et this result as armida l/abnormal. [facility] sediment leukocyte count by microscopy (number/high power field)2020-03-28 23:53:00 Test Item Value Reference Range Interpretation Comments Urine WBC (test code 0 to 2 See_Comment [Autom ated message] The = 5821-4) system which ge nerated this result tra nsmitted reference range : 0 to 5. The reference r abhishek was not used to int erpret this result as armida l/abnormal. [facility] sediment epithelial cell count by microscopy (number/low power field)2020-03-28 23:53:00 Test Item Value Reference Range Interpretation Comments Urine Epithelial Cells (test code = None seen None/Occ 33551-6) [facility] sediment bacteria count by microscopy (number/high power field)2020-03-28 23:53:00 Test Item Value Reference Range Interpretation Comments Urine Bacteria (test code = 5769-5) Few None [facility] sediment hyaline cast count by microscopy (number/low power field)2020-03-28 23:53:00 Test Item Value Reference Range Interpretation Comments Urine Hyaline Casts (test code = None Seen 5796-8) [facility] HealthYeast detection in urine sediment by light rasyjpwczy9944-81-37 23:53:00 Test Item Value Reference Range Interpretation Comments Urine Yeast (test code = 13299-5) None [facility]en [facility] [id number] 23:53:00 Test Item Value Reference Range Interpretation Comments Urine Culture Indicated (test code = No 8264-4) [facility] [id number] 23:53:00 Test Item Value Reference Range Interpretation Comments Urine Source (test code = Urine Clean Catch 06473-8) [facility] color esgnybdtivalj5332-35-37 23:53:00 Test Item Value Reference Range Interpretation Comments Urine Color (test code = 5778-6) Red [facility] [place] [facility] appearance jugzkvnpjwquo9576-60-51 23:53:00 Test Item Value Reference Range Interpretation Comments Urine Appearance (test code = 5767-9) Turbid [facility] pH measurement by test strip 2020-03-28 23:53:00 Test Item Value Reference Range Interpretation Comments Urine pH (test code = 5803-2) 6.5 [facility] Health[facility] gravity ur dctrndeb9228-83-73 23:53:00 Test Item Value Reference Range Interpretation Comments Urine Specific Patterson (test code = 1.022 5811-5) [facility] protein measurement by automated test strip (mass/volume)2020-03-28 23:53:00 Test Item Value Reference Range Interpretation Comments Urine Protein (test code = 07717-6) 3+ [facility] glucose measurement by automated test strip (mass/volume)2020-03-28 23:53:00 Test Item Value Reference Range Interpretation Comments Urine Glucose (UA) (test code = Negative 93816-9) [facility] ketones detection by automated test xvqzs1529-75-08 23:53:00 Test Item Value Reference Range Interpretation Comments Urine Ketones (test code = 32870-4) Negative [facility] erythrocytes count by automated test strip (number/volume)2020-03-28 23:53:00 Test Item Value Reference Range Interpretation Comments Urine Occult Blood (test code = 3+ 92564-4) [facility] nitrite detection by automated test [id number] 23:53:00 Test Item Value Reference Range Interpretation Comments Urine Nitrite (test code = 53359-2) Negative [facility] total bilirubin detection by automated test [id number] 23:53:00 Test Item Value Reference Range Interpretation Comments Urine Bilirubin (test code = Negative 19026-2) [facility] urobilinogen measurement by automated test strip (mass/volume)2020-03-28 23:53:00 Test Item Value Reference Range Interpretation Comments Urine Urobilinogen (test code = Normal 68382-5) [facility] leukocyte esterase detection by automated test odjjb3958-52-55 23:53:00 Test Item Value Reference Range Interpretation Comments Urine Leukocyte Esterase (test code Negative = 59488-2) [facility] sediment erythrocyte count by microscopy (number/high power field)2020-03-28 23:53:00 Test Item Value Reference Range Interpretation Comments Urine RBC (test code = 01785-5) 5-10 [facility] sediment leukocyte count by microscopy (number/high power field)2020-03-28 23:53:00 Test Item Value Reference Range Interpretation Comments Urine WBC (test code = 5821-4) 0 to 2 [facility] epithelial cell count by microscopy (number/low power field)2020-03-28 23:53:00 Test Item Value Reference Range Interpretation Comments Urine Epithelial Cells (test code = None seen 38638-2) [facility] sediment bacteria count by microscopy (number/high power field)2020-03-28 23:53:00 Test Item Value Reference Range Interpretation Comments Urine Bacteria (test code = 5769-5) Few [facility] sediment hyaline cast count by microscopy (number/low power field)2020-03-28 23:53:00 Test Item Value Reference Range Interpretation Comments Urine Hyaline Casts (test code = None Seen 5796-8) [facility]Yeast detection in urine sediment by light lhssqmbqve5508-95-34 23:53:00 Test Item Value Reference Range Interpretation Comments Urine Yeast (test code = 07767-1) None Seen [facility] comment 23:53:00 Test Item Value Reference Range Interpretation Comments Urine Culture Indicated (test code = No 8264-4) [facility] ChildrenUTERUS,OTHER THAN PROLAPSE/ZIG1205-00-16 08:51:00 Test Item Value Reference Range Interpretation Comments UTERUS,OTHER THAN PROLAPSE/ALONZO (test code = UTERUSOTH) RUN DATE: 03/16/20 [facility] PAGE 1 RUN TIME: 1659 Specimen Inquiry RUN USER: INTERFACE PATIENT: MORGAN FERGUSON LOC: CRYS #: [id number] AGE/SX: 35/F ROOM: [facility] RE03/14/20REG DR: Mari De La O DO : 89 BED: A DIS: 03/15/20 STATUS: DIS Josias TLOC: SPEC #: [id number] RECD: 03/14/20 STATUS: SOUT REQ #: [id number] PHILLIP: 03/14/20- SUBM DR: Mari De La O DO ENTERED: 03/14/20-1028 SP TYPE: UTERUSOTH OTHR DR: ORDERED: LEVEL V SURGICA CODES: E62348 - UTERUS, NOS PROCEDURES: LEVEL V SURGICA (Incomplete) TISSUES: UTERUS, NOS - UTERUS, CERVIX AND BILATERAL FALLOPIAN TUBES CLINICAL HISTORY 35 year old, endometriosis, chronic pelvic pain (kr) FINAL DIAGNOSIS Uterus, hysterectomy, cervix - microglandular hyperplasia endomyometrium - intact intrauterine device embedded in myometrium - inactive-appearing endometrium serosa - no pathologic diagnosis fallopian tubes, bilateral - no pathologic diagnosis CPT code(s): 94490 cds/kr GROSS DESCRIPTION ANATOMIC SOURCE OF TISSUE [...] [facility] PAGE 2 RUN TIME: 1659 Specimen Inquiry RUN USER: INTERFACE SPEC #: [id number] PATIENT: MORGAN FERGUSON #[id number] (Continued) GROSS DESCRIPTION (Continued) lumens. [employer] sections are submitted as follows: A1 - anterior cervix A2 - posterior cervix A3 - anterior endomyometrium A4 - posterior endomyometrium A5 and A6 - fallopian tubes jameson 03/14/20 Signed KaryMinisterio 03/16/20 0851 END OF REPORT HGB [id number] 04:21:00 Test Item Value Reference Range Interpretation Comments HEMOGLOBIN (test code = HGB) 12.7 g/dL 10.7-13.9 N HEMATOCRIT (test code = HCT) 38.2 % 32.1-42.1 N COVID 19 Asymptomatic IH [id number] 13:11:00 Test Item Value Reference Range Interpretation Comments COVID 19 NEGATIVE NEGATIVE This test has b een Asymptomatic IH AG authorize d only for the (test code = detection ofpro teins from COVNONPUIAG) SARS-CoV-2, not for any other viruses orpathogens. Ne gative results should be treated as presumptive andconfirmed [...] cleared or approved; th e test hasbeen authornba newberry by FDA under an Emerge ncy Use Authorization(E UA) for use by may harris certified under the CLIA thatmeet the re quirements to perform mode rate, high or waivedcomple xity tests. This janes t is authorized for use at thePoint of Car e (POC), i.e., in patien t care settingsoperati ng under a CLIA Certificat e of Waiver, Certifi nancy ofCompliance, o r Certificate of Accreditation. This test is only authori coni for the duration of thedeclaration that circumstances e xist justifying theauthorizatio n of emergency use o f in vitro diagnostic test sfor detection and/o r diagnosis of CO VID-19 under Vbreudc44 4(b)(1) of the Act, 21 U.S .C. 360bbb-3(b)(1), unless theauthorizatio n is terminated or r evoked sooner. AG HEPATITIS B [id number] 11:58:00 Test Item Value Reference Range Interpretation Comments AG HEPATITIS B SURFACE (test code NONREACTIVE NONREACTIVE = HBSAG) IS CONSENT FORM SIGNED FOR HIV TESTING? YAB HEPATITIS C [id number] 11:58:00 Test Item Value Reference Range Interpretation Comments AB HEPATITIS C (test code = NONREACTIVE NONREACTIVE HCVAB) SIGNAL TO CUTOFF (test code = 0.11 <0.80 N CUTOFF) IS CONSENT FORM SIGNED FOR HIV TESTING? YAB HIV 1 11:58:00 Test Item Value Reference Range Interpretation Comments AB HIV 1 2 (test NONREACTIVE NONREACTIVE [facility] code = UEM23XA) 4th Gen HIV Ag/Ab Combo Screen IS CONSENT FORM SIGNED FOR HIV TESTING? YAG HEPATITIS B [id number] 11:37:00 Test Item Value Reference Range Interpretation Comments AG HEPATITIS B SURFACE (test code NONREACTIVE NONREACTIVE = HBSAG) IS CONSENT FORM SIGNED FOR HIV TESTING? YAB HEPATITIS C [id number] 11:37:00 Test Item Value Reference Range Interpretation Comments AB HEPATITIS C (test code = HCVAB) NONREACTIVE SIGNAL TO CUTOFF (test code = CUTOFF) <0.80 IS CONSENT FORM SIGNED FOR HIV TESTING? YAB HIV 1 11:37:00 Test Item Value Reference Range Interpretation Comments AB HIV 1 2 (test code = TIF97WD) NONREACTIVE IS CONSENT FORM SIGNED FOR HIV TESTING? YPROTHROMBIN [id number] 11:28:00 Test Item Value Reference Range Interpretation Comments PROTHROMBIN TIME PATIENT (test code 11.8 secs 10.4-12.4 N = PTP) THROMBOPLASTIN TIME [id number] 11:28:00 Test Item Value Reference Range Interpretation Comments THROMBOPLASTIN TIME PARTIAL (test 39.4 secs 22-38 H code = PTT) CHEMISTRY 7 [id number] 11:05:00 Test Item Value Reference Range Interpretation [...] = CA) 9.1 mg/dL 8.4-10.2 N URINALYSIS [id number] 10:49:00 Test Item Value Reference Range Interpretation [...] /HPF RARE-FEW URINE SAMPLE: CLEAN CATCHUR HCG [id number] 10:49:00 Test Item Value Reference Range Interpretation [...] later and tested. URINE SAMPLE: CLEAN CATCHURINALYSIS [id number] 10:48:00 Test Item Value Reference Range Interpretation [...] /HPF RARE-FEW URINE SAMPLE: CLEAN CATCHUR HCG [id number] 10:48:00 Test Item Value Reference Range Interpretation Comments UR HCG QUAL (test code = HCGQLU) URINE SAMPLE: CLEAN CATCHCBC W/AUTO [id number] 10:47:00 Test Item Value Reference Range Interpretation [...] REQUIRED (test NORMAL NORMAL code = PLTMR) XR CHEST 1 VW [id number] 20:26:31 1. No acute intrathoracic abnormality, specifically no detectableradiographic findings to suggest COVID-19 pneumonia. Disclaimer: Generally, the findings on chest imaging in COVID-19 are notspecific, and overlap with other infections, including influenza, H1N1,SARS and MERS.According to the Centers for Disease Control (CDC) and the [employer], viral testing remains the only specific method of diagnosiseven if CXR or CT findings are suggestive of COVID-19. PROCEDURE: CHEST XRAY 1 view, CLINICAL INDICATION: COVID suspected, cough, SOB COMPARISON: None FINDINGS: Lungs: Lungs are clear. No focal consolidation or other parenchymalabnormality seen. Pleura: No pleural effusion or pneumothorax is seen. The heart is normal insize. No acute bony abnormality. [facility], Radiant Results Inft User - 10/30/2019 3:27 PM CDTPROCEDURE: CHEST XRAY 1 view, CLINICAL INDICATION: COVID suspected, cough,SOB COMPARISON: NoneFINDINGS:Lungs: Lungs are clear. No focal consolidation or other parenchymalabnormality seen.Pleura: No pleural effusion or pneumothorax is seen. The heart is normal insize.No acute bony abnormality.IMPRESSION1. No acute intrathoracic abnormality, specifically no detectableradiographic findings to suggest COVID-19 pneumonia.Disclaimer: Generally, the findings on chest imaging in COVID-19 are notspecific, and overlap with other infections, including influenza, H1N1,SARS and MERS.According to the Centers for Disease Control (CDC) and the [employer], viral testingremains the only specific method of diagnosiseven if CXR or CT findings are suggestive of COVID-19.[facility] between [facility]
[2022-01-25] MEDS ORDERED: METHYLPREDNISOLONE 125 MG INJ ONE (15:09)
[2022-01-27 01:45] VITALS: BP 161/93; TEMP 97.8; O2SAT 100
== END 2022-01-25 15:14 | disposition home or self-care (01) ==
LOC: ER 14:50
DX: J30.9 Allergic rhinitis, unspecified (principal)
CPT/HCPCS: 96372; 99283; J2930

== ENCOUNTER 2022-02-16 17:47 | Emergency (ER) | payer OTHER ==
--- OUTSIDE RECORDS SUMMARY | 2022-02-16 17:57 | XMS REPORT | Continuity of Care Document ---
:1985 Author Organization [facility] t Address [address] [place] [address] Dr. R[address] [place] [id number] Care Team Providers Name Role Phone FOUND, PCP NOT Primary Care Physician Unavailable Betsy Mehta Attending Clinician Unavailable PAIGE COVARRUBIAS Attending Clinician Unavailable Mari De La O Attending Clinician Unavailable IRVIN NAVARRETE Attending Clinician Unavailable Chuckie Garcia MD Attending Clinician CHUCKIE GARCIA Attending Clinician Unavailable SHANNON KIM Attending Clinician Unavailable Shannon Kim DO Attending Clinician [phone] ESPERANZA COOK Attending Clinician Unavailable Esperanza Ridley Attending Clinician PAIGE COVARRUBIAS Attending Clinician Unavailable Paige Covarrubias MD Attending Clinician [phone] Haylie Alva MD Attending Clinician JACKSON BINGHAM Attending Clinician Unavailable MELO BELLO Attending Clinician Unavailable ELPIDIO HOROWITZ Attending Clinician Unavailable Matthew SHARMA Attending Clinician Unavailable Edith PACMatthew Attending Clinician Only, Ang Db Test Attending Clinician Unavailable Iris Brown Attending Clinician IRIS STEWART Attending Clinician Unavailable FATOU EPSTEIN Attending Clinician Unavailable Fatou Epstein MD Attending Clinician [phone] Juliana WILEY, Renetta Claire Attending Clinician [phone] Damián Strong Attending Clinician STAN THAKKAR Attending Clinician Unavailable Stan Bateman Attending Clinician CARLI COTE Attending Clinician Unavailable Carli Cote DO Attending Clinician Doctor Unassigned, Cornelia Attending Clinician Unavailable Sheng LEE, Mallory Rose Attending Clinician [phone] Steve Arechiga Attending Clinician Unavailable PHYSICIAN, [...] Policy Number Effective Date Expiration Date S ermias SIAR [id number] 2020 [place] 00:00:00 AMBETTER - [id number] 2020 [facility] 00:00:00 [facility] AMBETTER [id number] 2018 [facility] 00:00:00 [facility] Ambetter from [id number] [facility] Ambetter from [id number] Common [facility] Ambetter from [id number] Common [facility] Ambetter from [id number] Common [facility] Problems Condition Condition Condition Status Onset Resolution Last Treating Co mments Source Name Details Category Date Date Treatment Clinician Date Systemic Systemic Disease Active [facility] lupus lupus 07-20 [facility] erythemato erythemato 00:00: of barron barron 00 Medicin e Encounter Encounter Disease Active 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 - s [facility] [id number] Pain in Problem Active Common right leg [facility] [id number] Neuropathi Problem Active Co mmon c pain [facility] [id number] Essential Problem Active Comm on hypertensi Spirit on [facility] [id number] Skin Problem Active Common cancer [facility] [id number] Other Problem Active Common chronic Spirit gastritis - without [facility] [id number] Esophageal Problem Active Com mon stricture [facility] [id number] Multiple Problem Active Comm on food Spirit allergies [facility] [id number] Environmen Problem Active Co mmon karla Spirit allergies [facility] [id number] Sciatica Problem Active Commo n of right Spirit side [facility] Allergies, Adverse Reactions, Alerts Allergy Allergy Status Severity Reaction(s) Onset Inactive Treating Comm ents Source Name Type Date Date Clinician SHELLFIS DRUG Active Anaphylaxis 2022-0 Uni vers H INGREDI 6 ity of DERIVED 00:00: [place] 00 [facility] Branch Shellfis Propensi Active Anaphylaxis 2021-0 U nivers h ty to 6 ity of Derived adverse 00:00: [place] reaction 00 Medical s to Branch drug IBUDILAS Allergy Active [address] [facility] LEVOFLOX Allergy Active 2021-[address] [facility] [address] ACIN [facility]13 [facility] Center OTHER Allergy Active 2021-[address] [facility] 00 Center Ibudilas Propensi Active 2021-[address] [facility] [facility] ty to 5-13 [facility] adverse 00:00: Medical reaction 00 Center s Levoflox Drug Active 2021-[address] [facility] acin Allergy 5-13 [facility] 00[facility] Medical 00 Center Other Propensi Active 0 monistat- [facility] t ty to 5-13 burning [facility] adverse 00:00: of skin Medical reaction 00 Center s IODINE DRUG Active Anaphylaxis 0 Unive rs INGREDI 3- ity of 00:00: [place] 00 [facility] Branch TREE Food Active Anaphylaxis 0 Unive rs NUTS - ity of 00:00: [place] 00 [facility] Branch LACTOSE DRUG Active Anaphylaxis 2021-0 Univ ers INGREDI 3- ity of 00:00: [place] 00 [facility] Branch GLUTEN DRUG Active Anaphylaxis 2021-0 Unive rs INGREDI 07-03 ity of 00:00: [place] 00 [facility] Branch WHEAT DRUG Active Unknown-Cmnt 2021-0 Univ ers INGREDI 3- ity of 00:00: [place] 00 Medical Branch Gluten Propensi Active Anaphylaxis 2021-0 Uni vers ty to 3- ity of adverse 00:00: [place] reaction 00 Medical s Branch Iodine Propensi Active Anaphylaxis 2021-0 Uni vers ty to 3-02 ity of adverse 00:00: [place] reaction 00 Medical s Branch Lactose Propensi Active Anaphylaxis 2021-0 Un alphonso ty to 07-03 ity of adverse 00:00: [place] reaction 00 Medical s Branch Tree Propensi Active Anaphylaxis 0 Uni vers Nuts ty to 3- ity of adverse 00:00: [place] reaction 00 Medical s Branch Wheat Propensi Active Unknown - 2021-0 Unive rs ty to See comments 3-02 ity of adverse 00:00: [place] reaction 00 Medical s Branch SALICYLA DRUG Active Anaphylaxis 2020- Uni vers JANES INGREDI 2-19 ity of 00:00: [place] 00 [facility] Branch Salicyla Propensi Active Anaphylaxis 2020- U nivers janes ty to 2-19 ity of adverse 00:00: [place] reaction 00 Medical s Branch SOY Allergy Active High Other 2020-[address] [facility] [facility] Soy Drug Active Other (See 0 + on skin [facility] 6[facility] allergy [facility] 00[facility] test Medical 00 Center soy FA Active SV 1-0 [facility] [place] soy FA Active SV ANAPHYLAXIS 1-0 [facility] [place] peanut FA Active SV 1-0 [facility] [place] peanut FA Active SV THROAT 1-0 [facility] CLOSES [...] l of [place] lactase DA Active SV 1-0 [facility] [place] aspirin DA Active SV 2021-0 [facility] [place] ibuprofe DA Active SV 1-0 [facility] n [facility] [place] egg FA Active SV 2021-0 [facility] [place] wheat FA Active SV 2021-0 [facility] [place] GLUTEN Allergy Active High Anaphylaxis 2020-[address] [facility] PROTEIN 3-30 [facility] Medical 00 Center SHELLFIS Allergy Active High Anaphylaxis 2020-[address] [facility] 3[facility]30 [facility] CONTAINI 00:00: Medical NG 00 Center PRODUCTS TREE NUT Allergy Active High Anaphylaxis 2020-[address] [facility] 00[facility]: Medical 00 [place] WHEAT Allergy Active High Anaphylaxis 2020-[address] CONTAINI 3-30 [facility] NG PROD 00:00: Medical 00 [place] GLUTEN Allergy Active High Anaphylaxis 2020-[address] [facility] [facility] 00[facility]: Medical 00 Center Egg Drug Active Anaphylaxis 2020-0 [facility]30 [facility] 00:[facility]: Medical 00 Center Gluten Drug Active Anaphylaxis 2020-0 [facility]30 [facility] 00:[facility]: Medical 00 Center Gluten Drug Active Anaphylaxis 2020-0 [facility] Protein Allergy 3-30 [facility] 00:[facility]: Medical 00 [place] Shellfis Drug Active Anaphylaxis 2020-0 Scallops, [facility] Allergy 3-30 shrimp, [facility] Containi 00:00: lobster, Medica l ng 00 " All Center Products shellfish and seafood" Tree Nut Drug Active Anaphylaxis 2020-0 Peanuts," [facility] Allergy 3-30 All types [facility] 00:00: of Nuts" Medical 00 Center Wheat Drug Active Anaphylaxis 2020-0 [facility] Containi Allergy 3-30 [facility] ng Prod 00:00: Medical 00 [place] EGG Allergy Active High Anaphylaxis 2020-[address] [facility] [facility] 00:[facility]: Medical 00 [place] Egg Propensi Active Anaphylaxis 2020-[facility] ty to 3-30 College adverse 00:00: of reaction 00 Medicin s to e food Gluten Propensi Active Anaphylaxis 2020-0 [facility] ty to 3-30 College adverse 00:00: of reaction 00 Medicin s to e drug Shellfis Propensi Active Severe 2020-0 Scallops, [facility] h-Derive ty to 3-30 shrimp, College d adverse 00:00: lobster, of Products reaction 00 " All Medici n s to shellfish e drug and seafood" ASPIRIN Allergy Active High Anaphylaxis 2020-[address] [facility] [facility] 00:[facility]: Medical 00 [place] Aspirin Propensi Active Anaphylaxis 2021-0 Ba ylor ty to 2-24 College adverse 00:00: of reaction 00 Medicin s to e drug ALMOND Allergy Active High Other 2019-[address] [facility] [facility] Medical 00 Center CLAMS Allergy Active High Other 2019-[address] [facility] 00:[facility] Medical 00 Center MILK Allergy Active High Other 2019-[address] [facility] 00:[facility]: Medical 00 Center SCALLOPS Allergy Active High Anaphylaxis 2019-[address] [facility] 00[facility]: Medical 00 Center [place] Drug Active Other (See 2019-05 + on skin [facility] 05-29 allergy [facility] 00:[facility]: test Medical 00 Center Clams Drug Active Other (See 2019-05 + on skin [facility] 05-29 allergy [facility] 00:[facility]: test Medical 00 Center Milk Drug Active Other (See 2019-05 + on skin [facility] 05-29 allergy [facility] 00:[facility]: test Medical 00 Center Scallops Drug Active Anaphylaxis 2019-[address] Allergy 05-29 [facility] 00:[facility]: Medical 00 Center Peanuts Allergy Active Mild 2019-1 [facility] to 1-26 S substanc 00:00: Health e 00 Eggs Allergy Active Mild 2020-1 [facility] to 1-26 S substanc 00:00: Health e 00 Milk Allergy Active Mild 2020-1 [facility] to 1-26 S substanc 00:00: Health e 00 Wheat Allergy Active Mild 2019-1 [facility] to 1-26 S substanc 00:00: Health e 00 almond Allergy Active Mild 2020-1 [facility] to 1-26 S substanc 00:00: Health e 00 clams Allergy Active Mild 2020-1 [facility] to 1-26 S substanc 00:00: Health e 00 scallops Allergy Active Mild 2020-1 [facility] to 1-26 S substanc 00:00: Health e 00 LACTASE Allergy Active High Other 2019- [facility] 00 Center PEANUT Allergy Active High Anaphylaxis 2019- [facility] Medical 00 Center WHEAT Allergy Active High Anaphylaxis 2019- [facility] Medical 00 Center Lactase Drug Active Other (See 2019-[address] [facility] Comments) 05-12 on skin [facility] 00:00: test Medical 00 Center Peanut Drug Active Anaphylaxis 2020-1 [facility] - [facility]: Medical 00 Center Wheat Drug Active Anaphylaxis 2020-1 [facility] - [facility] 00[facility]: Medical 00 Center peanut FA Active U 2020-1 [facility] 00[facility] [place] lactase DA Active U 2020-1 [facility] 00:[facility]: [facility] [place] ibuprofe DA Active U 2020-1 [facility] n [facility]09 [facility] 00:[facility]: [facility] 00 [facility] [place] egg FA Active U 2020-1 [facility] 1[facility] 00:00: [facility] 00 [facility] [place] wheat FA Active U 2020-1 [facility] 1[facility] 00:00: [facility] 00 [facility] [place] peanut FA Active U THROAT 2020-1 [facility] CLOSES 1-09 [facility] 00:00: [facility] 00 [facility] [place] lactase DA Active U THROAT 2020-1 [facility] CLOSES 1-09 [facility] 00:00: [facility] 00 [facility] [place] ibuprofe DA Active U THROAT 2020-1 [facility] n CLOSES 1-09 [facility] 00:00: [facility]ita 00 [facility] [place] egg FA Active U THROAT 2020-1 [facility] CL[facility]ES 1-09 [facility] 00:00: [facility] 00 [facility] [place] wheat FA Active U THROAT 2020-1 [facility] CLOSES 1-09 [facility] 00:00: [facility] 00 [facility] [place] ASPIRIN Allergy Active High Anaphylaxis 2018- [facility] 00[facility]: Medical 00 [place] ASPRIN DA Active SV ANAPHYLAXIS 2018- [facility] 00:00: [facility] 00 [facility] [place] IBUPROFE Allergy Active High Anaphylaxis [address] [facility] 07[facility]20 [facility] 00:00: Medical 00 [place] Ibuprofe Propensi Active Anaphylaxis [facility] n ty to 3-19 College adverse 00:00: of reaction 00 Medicin s to e drug Ibuprofe Propensi Active Anaphylaxis 0 U nivers n ty to 3-19 ity of adverse 00:00: [place] reaction 00 Medical s Branch IBUPROFE DRUG Active High Anaphylaxis Uni vers N INGREDI 3-19 ity of 00:00: [place] 00 Medical Branch trazodon trazodon Active Migraine Comm on e e [facility] 29 Drug Active nightmares Common allergy [facility] ibuprofe ibuprofe Active Anaphylaxis C ommon n n [facility] aspirin aspirin Active Anaphylaxis Com mon [facility] [id number] Drug Active burning of Common allergy skin [facility] Social History Social Habit Start Date Stop Date Quantity Comments Source History of Tobacco Common [facility] - Use [facility] Sex Assigned At Common Sp ap - [facility] Exposure to 2022-01-16 2022[facility]01-26 [facility] 00:00:00 19:53:00 of Med icine Cigarette 2021-11-18 2021-11-18 [facility] pack-years 00:00:00 00:00:00 of Medicine Tobacco use and 2021-11-18 2021-11-18 Smokeless tobacco [facility] exposure 00:00:00 00:00:00 non-user of Medicine Alcohol intake 2021-09-17 2021-09-17 Ex-drinker [facility] es 00:00:00 00:00:00 ([facility] Smoking Status Start Date Stop Date Source Never Smoker [facility] Unknown if ever smoked [facility] Medications Ordered Filled Start Stop Current Ordering Indication Dosage Frequency Signature Comments Components Source Medication Medication Date Date Medication? Clinician (SIG) Name Name lisinopril 2021-05 Yes 10mg Take 10 mg [facility] (PRINIVIL, 0-03 by mouth Colle ge ZESTRIL) 10 13:34: in the of MG tablet 46 morning. Medici n e ondansetron 2021-05 Yes 4mg Take 1 [facility] (ZOFRAN-ODT 0-03 Tablet by Col legcatalino ) 4 mg 00:00: mouth of disintegrat 00 every 8 Medic in ing tablet hours as e needed for Nausea. predniSONE Yes 40mg Take 2 [facility] (DELTASONE) 9-26 Tablets by Co llege 20 MG 00:00: mouth of tablet 00 daily. Medicin e Ramelteon 8 Ramelteon 8 No QD Ramelteon MG MG 9-01 8 MG 00:00: 00 Belsomra 5 Belsomra 5 2021- No 1{table QD Belsomra 5 MG MG 812 09-11 t_at_be MG 00:00: 00:00 dtime_a 00 :00 s_neede d} QUEtiapine QUEtiapine No 1{table QD QUEtiapine Fumarate 25 Fumarate 25 8-02 t_at_be Fumarate MG MG 00:00: dtime} 25 MG 00 lisinopril Yes 10mg Take 10 mg [facility] (PRINIVIL, 7-18 by mouth Colle ge ZESTRIL) 10 10:26: in the of MG tablet 53 morning. Medici n e HYDROcodone 2021- No 1{tbl} 1 tablet, Univers -acetaminop 6-30 -30 Oral, ity of hen (NORCO 02:45: 03:04 ONCE, 1 Jim[place] as 5) 5-325 mg 00 :00 dose, On Medi gemma tablet 1 Wed Branch tablet 10/30/21 at 2145, LAMONTE traMADoL 2021- No 50mg 50 mg, Univer s (ULTRAM) 630 10-31 Oral, ity of tablet 50 02:15: 01:16 ONCE, 1 [place] mg 00 :00 dose, On Medical Wed Branch 10/30/21 at 2115, Routine acetaminoph Yes 4647 1{tbl} Take 1 Un alphonso en-codeine 6-29 tablet by ity of 300-30 mg 00:00: mouth [place] tablet 00 every 4 Medical (four) Branch hours as needed for Pain (scale 7-10) for up to 12 doses. Indication s: acute pain Dupilumab Yes 300mg Inject 300 [facility] 300 MG/2ML 6-17 mg into Colleg e SOPN 00:00: the skin of 00 every 7 Medicin days. e Dupilumab 0 Yes 300mg Inject 300 [facility] 300 MG/2ML 6-17 mg into Colleg e SOPN 00:00: the skin of 00 every 7 Medicin days. e predniSONE Yes 40mg Take 2 [facility] (DELTASONE) 6-10 Tablets by Co llege 20 MG 00:00: mouth of tablet 00 daily. Medicin e omeprazole Yes 40mg Q.5D Take [address] (PriLOSEC) 5-17 by mouth 2 Rebecca es 40 MG 09:31: (two) Medical capsule 01 times Center daily . fluticasone 0 Yes 2{puff} Q.5D Inhale [address] propionate 5-17 puffs by [facility] (FLOVENT 09:31: mouth via Medi gemma HFA) 220 01 inhaler 2 Center mcg/actuati (two) on inhaler times daily. fexofenadin 0 Yes 180mg Q.5D Take [address] e (KAYLA) 5-17 mg by [facility] 180 MG 09:31: mouth 2 Medical tablet 01 (two) Center times daily . EPINEPHrine Yes .15mg Inject [facility] (EPIPEN JR) 5-17 0.15 mg [facility] 0.15 mg/0.3 09:31: intramuscu Medical mL 01 larly as Center injection needed for Anaphylaxi s. gabapentin Yes 600mg Q.[id number] Take [address] (NEURONTIN) 5-17 [id number] mg by L ukes 800 MG 09:31: [...] Take 1.5 Ba [facility]lor roquine 4-27 tablets [place] (PLAQUENIL) 00:00: daily of 200 MG 00 Medicin tablet e hydroxychlo Yes Take 1.5 [facility] roquine 4-27 tablets [place] (PLAQUENIL) 00:00: daily of 200 MG 00 Medicin tablet e amoxicillin Yes 1{tbl} Take 1 Ba ylor -clavulanat 4-22 Tablet by Col lege e 00:00: mouth two of (AUGMENTIN) 00 times Medicin 875-125 MG daily. e per tablet amoxicillin 0 Yes 1{tbl} Take 1 Ba ylor -clavulanat 4-22 Tablet by Col lege e 00:00: mouth two of (AUGMENTIN) 00 times Medicin 875-125 MG daily. e per tablet Benralizuma Yes 30mg Inject 1 Ba ylor b (FASENRA) 4-07 mL into Colle ge 30 MG/ML 00:00: the skin of syringe 00 once for 1 Medici n dose. e Benralizuma 2021- No 30mg Inject 1 B aylor b (FASENRA) 4-07 10-03 mL into Phillip ege 30 MG/ML 00:00: 00:00 the skin of syringe 00 :00 once for 1 Medici n dose. e lisinopril Yes 10mg Take 10 mg [facility] (PRINIVIL, 4-05 by mouth Colle ge ZESTRIL) 10 12:48: daily. of MG tablet 22 Medicin e clindamycin 2021- No 600mg 600 mg, IV Univers in 5 % 07-04 Piggyback, ity of dextrose 03:15: 02:40 ONCE NOW, [place] as (CLEOCIN) 00 :00 1 dose, On Medi gemma 600 mg/50 Thu07/03/21 Bran ch mL IV at 2115, piggyback Administer RTU 600 mg over 30 [...] 1 Medical dose, On Branch Thu07/03/21 at 2115, Routine
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 approving Restricted medication : EDITH, K AFSHAN iopamidol 2021- No [id number] 100mL 100 mL, Univers (ISOVUE 07-04 Intravenou ity o f 370-500 mL) 02:30: 01:30 s, ONCE, 1 [place] injection 00 :00 dose, On Medica l 100 mL 07/03/21 Branch at 2030, Routine diphenhydrA No 50mg 50 mg, Uni vers MINE 07-04 Slow IV ity of (BENADRYL) 02:00: 01:07 Push, [place] injection 00 :00 ONCE, 1 Medical 50 mg dose, On Branch 07/03/21 at 1999, STAT methylpredn 2021- No 125mg 125 mg, U nivers isolone sod 07-04 Intravenou i ty of succ 02:00: 01:07 s, ONCE, 1 [place] (SOLU-MEDRO 00 :00 dose, On Medi gemma L) Thu07/03/21 Branch injection at 1999, 125 mg STAT fluconazole Yes [id number] Take as Univers 150 mg 02 directed. ity of tablet 00:00: Medical Branch fluconazole Yes [id number] Take as Univers 150 mg 02 directed. ity of tablet 00:00: [facility] Branch clindamycin 2021- No [id number] 300mg Take 1 Univers 300 mg 07-03 03-13 capsule by ity of capsule 00:00: 05:59 mouth 4 [place] 00 :00 (four) Medical times Branch daily for 10 days. EPINEPHrine Yes [id number] .3mg Inject 0.3 Thai 0.3 2-22 mg into College MG/0.3ML 00:00: the muscle of injection 00 as needed Medic in for Other e (As needed for anaphylaxi s severe allergy reactions) . As needed for anaphylaxi s severe allergy reactions EPINEPHrine Yes [id number] .3mg Inject 0.3 [facility] 0.3 2-22 mg into College MG/0.3ML 00:00: the muscle of injection 00 as needed Medic in for Other e (As needed for anaphylaxi s severe allergy reactions) . As needed for anaphylaxi s severe allergy reactions EPINEPHrine Yes [id number] .3mg Inject 0.3 Thai 0.3 2-22 mg [...] once for 1 Medici n dose. e Fluconazole Fluconazole 2021- No 1{table QD Fluconazol 150 MG 150 MG 05-27} e 150 MG 00:00: 00:00 00 :00 acetaminoph 2020-05- No 1000mg 1,000 mg, Univers en 06-22 Oral, ONCE ity of (TYLENOL) 22:45: 21:41 NOW, 1 [place] tablet 00 :00 dose, On Medical 1,000 mg [facility] 04/21/21 at 1645, Routine diphenhydrA 2020-05- No 25mg 25 mg, Uni vers MINE 06-22 Slow IV ity of (BENADRYL) 22:45: 21:43 Push, [place] injection 00 :00 ONCE, 1 Medical 25 mg dose, On [facility] 04/21/21 at 1645, STAT metoclopram 2020-05- No 10mg 10 mg, Uni vers car HCl 06-22 Slow IV ity of (REGLAN) 22:45: 21:43 Push, [place] injection 00 :00 ONCE, 1 Medical 10 mg dose, On [facility] 04/21/21 at 1645, LAMONTE iopamidol 2020-05- No [id number] 100mL 100 mL, Univers (ISOVUE 06-22 Intravenou ity o f 370-500 mL) 19:47: 19:47 s, ONCE, 1 [place] injection 00 :00 dose, On Medica l 100 mL [facility] 04/21/21 at 1400, Routine No known 2020-05 No Univers medications - ity of 12:44: [place] 11 Medical Branch No known 2020-05 No Univers medications 2-19 ity of 12:44: [place] [address] Medical Branch benzonatate 2020-05- No 100mg 100 mg, U nivers (TESSALON 05-31 Oral, ity of PERLES) 08:30: 07:22 ONCE, 1 [place] capsule 100 00 :00 dose, On Medi gemma mg [place] [facility] 03/31/21 at 0230, Routine codeine-gua 2020-05- No 10mL 10 mL, Uni vers ifenesin 05-31 Oral, ity of (ROBITUSSIN 07:30: 06:29 [place] 1 [place] 10-100 00 :00 dose, On Medic al mg/5 mL [place] [facility] oral 03/31/21 solution 10 at 0130, mL LAMONTE NaCl 0.9% 2020-05- No 1000mL at 999 Uni vers (NS) [...] 00 :00 dose, On Medical mg(2.5 mg [place] Branch base)/3 mL 03/31/21 nebulizer at 0130, solution 6 Routine mL maalox:diph 2020-05 No 15mL 15 mL, Uni vers enhydrAMINE 05-31 Oral, ity of :lidocaine 07:30: 06:30 ONCE, 1 [place] as 2 % viscous 00 :00 dose, On Medi gemma 1:1:1 [place] (FIRST-MOUT 03/31/21 HWASH BLM) at 0130, oral Routine suspension 15 mL dexamethaso 2020-05- No 10mg 10 mg, IV Univers ne 05-31 Push, ity of (DECADRON 07:30: 06:40 [place]CE[place] 1 [place] PHOSPHATE) 00 :00 dose, On Medic al injection [place] 10 mg 03/31/21 at 0130, STAT No known 2020-05 No Univers medications 05-31 ity of 01:43: [place] 54 [facility] Branch dexamethaso 2020-05- No 10mg 10 mg, Uni vers ne 05-24 Oral, ity of (DECADRON 20:30: 19:31 ONCE, 1 [place] PHOSPHATE) 00 :00 dose, On Medic al injection [place] 10 mg 03/24/21 at 1430, STAT No known 2020-05 No Univers medications 05-24 ity of 13:18: [address] meclizine 2020-05 Yes 12.5mg Take 1 [...] times Medicin daily as e needed. lisinopril Yes 10mg Take 10 mg [facility] (PRINIVIL, 8-30 by mouth Colle ge ZESTRIL) 10 11:51: daily. of MG tablet 02 Medicin e Diflucan Diflucan 2020- No 1{table Diflucan 150 MG 150 MG 12-28 t} 150 MG 00:00: 00:00 00 :00 lisinopril Yes 10mg Take 10 mg [facility] (PRINIVIL, 7-13 by mouth Colle ge ZESTRIL) 10 13:47: daily. of MG tablet 33 Medicin e lisinopril Yes 10mg Take 10 mg [facility] (PRINIVIL, 4-07 by mouth Colle ge ZESTRIL) 10 10:19: daily. of MG tablet 49 Medicin e fluticasone Yes 2{puff} 2 Puffs Thai 220 MCG/ACT 4-07 two times Col lege AERO 00:00: daily. 2 of 00 puffs Medicin twice per e day swallowed for eosinophil ic esophagiti s. fluticasone 0 Yes 2{puff} 2 Puffs Thai 220 MCG/ACT 4-07 two times Col lege AERO 00:00: daily. 2 of 00 puffs Medicin twice per e day swallowed for eosinophil ic esophagiti s. fluticasone 0 Yes 2{puff} 2 Puffs Thai 220 MCG/ACT [...] for anaphylaxi s severe allergy reactions fluticasone 2020-0 Yes 2{puff} 2 Puffs Thai 220 MCG/ACT [...] for anaphylaxi s severe allergy reactions fluticasone 2020-0 Yes 2{puff} 2 Puffs [facility] 220 MCG/ACT 4-07 two times Col lege AERO 00:00: daily. 2 of 00 puffs Medicin twice per e day swallowed for eosinophil ic esophagiti s. EPINEPHrine Yes .3mg Inject 0.3 [facility] 0.3 4-07 mg into College MG/0.3ML 00:00: the muscle of injection 00 as needed Medic in for Other e (As needed for anaphylaxi s severe allergy reactions) . As needed for anaphylaxi s severe allergy reactions fluticasone 2020-0 2022- No 2{puff} 2 Puffs [facility] 220 MCG/ACT 4-07 10- two times Co llege AERO 00:00: 00:00 daily. 2 of 00 :00 puffs Medicin twice per e day swallowed for eosinophil ic esophagiti s. gabapentin 2020- Yes TAKE ONE [facility] (NEURONTIN) 06-04 (1) College 800 MG 00:00: TABLET(S) of tablet 00 BY MOUTH Medicin THREE e TIMES A DAY. gabapentin 2020- Yes TAKE ONE [facility] (NEURONTIN) 06-04 (1) [facility] 800 MG 00:00: TABLET(S) of tablet 00 BY MOUTH Medicin THREE e TIMES A DAY. gabapentin 2020- Yes TAKE ONE [facility] (NEURONTIN) 06-04 (1) [facility] 800 MG 00:00: TABLET(S) of tablet 00 BY MOUTH Medicin THREE e TIMES A DAY. gabapentin 2020- Yes TAKE ONE [facility] (NEURONTIN) 06-04 (1) [facility] 800 MG 00:00: TABLET(S) of tablet 00 BY MOUTH Medicin THREE e TIMES A DAY. gabapentin 2020- Yes TAKE ONE [facility] (NEURONTIN) 06-04 (1) [facility] 800 MG 00:00: TABLET(S) of tablet 00 BY MOUTH Medicin THREE e TIMES A DAY. gabapentin 2020- Yes TAKE ONE [facility] (NEURONTIN) 06-04 (1) [facility] 800 MG 00:00: TABLET(S) of tablet 00 BY MOUTH Medicin THREE e TIMES A DAY. fexofenadin 2020- Yes 180mg Take 1 [facility] (KAYLA) 1-12 Tablet by [facility] 180 MG 00:00: mouth two of tablet 00 times Medicin daily. e fexofenadin 2020-0 [address]mg Take [address] [facility] (KAYLA) 1-12 Tablet by [facility] 180 MG 00:00: mouth two of tablet 00 times Medicin daily. e fexofenadin 2020-0 Yes [address]mg Take 1 [facility] (KAYLA) 1-12 Tablet by [facility] 180 MG 00:00: mouth two of tablet 00 times Medicin daily. e fexofenadin 2020- Yes 180mg Take 1 [facility] (KAYLA) 1-12 Tablet by [facility] 180 MG 00:00: mouth two of tablet 00 times Medicin daily. e EPINEPHrine 2020- Yes INJECT [facility] 0.3 1-12 INTO [facility] MG/0.3ML 00:00: MUSCLE of injection 00 DIRECTED. Medic in e fexofenadin Yes 180mg Take 1 [facility] (KAYLA) 1-12 Tablet by [facility] 180 MG 00:00: mouth two of tablet 00 times Medicin daily. e EPINEPHrine Yes INJECT [facility] 0.3 1-12 INTO [facility] MG/0.3ML 00:00: MUSCLE of injection 00 DIRECTED. Medic in e fexofenadin Yes 180mg Take 1 [facility] (KAYLA) 1-12 Tablet by [facility] 180 MG 00:00: mouth two of tablet 00 times Medicin daily. e omeprazole 2019-0 Yes [id number] 40mg Take 1 [facility] (PRILOSEC) 9-28 by mouth 2 [facility] 40 MG 00:00: times of capsule 00 daily Medicin (before e meals). 30 minutes before breakfast and 30 minutes before dinner omeprazole 2020-0 Yes [id number] 40mg Take 1 Cap [facility] (PRILOSEC) 9-28 by mouth 2 [facility] 40 MG 00:00: times of capsule 00 daily Medicin (before e meals). 30 minutes before breakfast and 30 minutes before dinner omeprazole 2020-0 Yes [id number] 40mg Take 1 [facility] (PRILOSEC) 9-28 by mouth 2 [facility] 40 MG 00:00: times of capsule 00 daily Medicin (before e meals). 30 minutes before breakfast and 30 minutes before dinner omeprazole 2020-0 Yes [id number] 40mg Take 1 [facility] (PRILOSEC) 9-28 by mouth 2 [facility] 40 MG 00:00: times of capsule 00 daily Medicin (before e meals). 30 minutes before breakfast and 30 minutes before dinner omeprazole 2020-0 Yes [id number] 40mg Take 1 Cap [facility] (PRILOSEC) 9-28 by mouth 2 [facility] 40 MG 00:00: times of capsule 00 daily Medicin (before e meals). 30 minutes before breakfast and 30 minutes before dinner omeprazole 2020-0 Yes [id number] 40mg Take 1 [facility] (PRILOSEC) 9-28 by mouth 2 [facility] 40 MG 00:00: times of capsule 00 daily Medicin (before e meals). 30 minutes before breakfast and 30 minutes before dinner acetaminoph 2020-0 2020- No 1000mg 1,000 mg, Univers en 10-29 Oral, ity of (TYLENOL) 21:00: 20:26 ONCE, [place] dose, [facility] 1,000 mg 10/30/[address] [place] h 1600, [place] No known 2020- No Univers medications 10-29 ity of 14:41: [address] Lisinopril Lisinopril 2019-0 Yes Betsy 1 tablet [facility] 4-17 [place] [facility] 00:00: - [facility] ProAir HFA ProAir HFA 2020-0 Yes Betsy 1 puff as Common - [place] needed [facility] 00:00: - [facility] Geo Kenalog 2018- No 40mg Common (Triamcinol (Triamcinol 1-13 S pirit one) one) 00:00: - [facility] Dexamethaso Dexamethaso 2019- No 4mg Common ne ne 1-13 [facility] 00:00: - [facility] Kenalog Kenalog 2018- No 40mg Common (Triamcinol (Triamcinol 1-13 S pirit one) one) 00:00: - [facility] Dexamethaso Dexamethaso 2019- No 4mg Common ne ne 1-13 [facility] 00:00: - [facility] Kenalog Kenalog 2019- No 40mg Common (Triamcinol (Triamcinol 1-13 S pirit one) one) 00:00: - [facility] Dexamethaso Dexamethaso 2019-1 No 4mg Common ne ne 1-13 Spirit 00:00: - [facility] Kenalog Kenalog 2019- No 40mg Common (Triamcinol (Triamcinol 1-13 S pirit one) one) 00:00: - [facility] Dexamethaso Dexamethaso 2019- No 4mg Common ne ne 1-13 Spirit 00:00: - [facility] Kenalog Kenalog 2019-1 No 40mg Common (Triamcinol (Triamcinol 1-13 S pirit one) one) 00:00: - 00 [facility] Dexamethaso Dexamethaso 2019-1 No 4mg Common ne ne - Spirit 00:00: [facility] No known [facility] Pantoprazol Pantoprazol Yes Betsy 1 tablet Common e Sodium e Sodium [facility] Gabapentin Gabapentin Yes Betsy 1 capsule Common [facility] Gabapentin Gabapentin No 1{table TID Gabapentin 600 MG 600 MG t} 600 MG Omeprazole Omeprazole No 1{capsu BID Omeprazole 40 MG 40 MG le} 40 MG Flovent HFA Flovent HFA No 1{puff} BID Flovent 220 MCG/ACT 220 MCG/ACT HFA 220 MCG/ACT Kayla Kayla No 1{table QD Kayla Allergy 180 Allergy 180 t} Allergy MG MG 180 MG Lisinopril Lisinopril No 1{table QD Lisinopril 10 MG 10 MG t} 10 MG Gabapentin Gabapentin No Gabapentin 600 MG 600 MG 600 MG Lisinopril Lisinopril No 1{table QD Lisinopril 10 MG 10 MG t} 10 MG Kayla Kayla No 1{table QD Kayla Allergy 180 Allergy 180 t} Allergy MG MG 180 MG Flovent HFA Flovent HFA No 1{puff} BID Flovent 220 MCG/ACT 220 MCG/ACT HFA 220 MCG/ACT Omeprazole Omeprazole No 1{capsu BID Omeprazole 40 MG 40 MG le} 40 MG Gabapentin Gabapentin No Gabapentin 600 MG 600 MG 600 MG Lisinopril Lisinopril No 1{table QD Lisinopril 10 MG 10 MG t} 10 MG Kayla Kayla No 1{table QD Kayla Allergy 180 Allergy 180 t} Allergy MG MG 180 MG Omeprazole Omeprazole No 1{capsu BID Omeprazole 40 MG 40 MG le} 40 MG Gabapentin Gabapentin No Gabapentin 600 MG 600 MG 600 MG Flovent HFA Flovent HFA No 1{puff} BID Flovent 220 MCG/ACT 220 MCG/ACT HFA 220 MCG/ACT Gabapentin Gabapentin No QD Gabapentin 600 MG 600 MG 600 MG Plaquenil Plaquenil No Plaquenil 200 MG 200 MG 200 MG Flovent HFA Flovent HFA No 1{puff} BID Flovent 220 MCG/ACT 220 MCG/ACT HFA 220 MCG/ACT Kayla Kayla No 1{table QD Kayla Allergy 180 Allergy 180 t} Allergy MG MG 180 MG Omeprazole Omeprazole No 1{capsu BID Omeprazole 40 MG 40 MG le} 40 MG Gabapentin Gabapentin No TID Gabapentin 600 MG 600 MG 600 MG Kayla Kayla No 1{table QD Kayla Allergy 180 Allergy 180 t} Allergy MG MG 180 MG Plaquenil Plaquenil No Plaquenil 200 MG 200 MG 200 MG Elmiron 100 Elmiron 100 No 1{capsu TID Elmiron MG MG le_on_a 100 MG n_empty _stomac h} Dupixent Dupixent No Dupixent 300 MG/2ML 300 MG/2ML 300 MG/2ML Omeprazole Omeprazole No 1{capsu BID Omeprazole 40 MG 40 MG le} 40 MG Flovent HFA Flovent HFA No 1{puff} BID Flovent 220 MCG/ACT 220 MCG/ACT HFA 220 MCG/ACT Dupixent Dupixent No Dupixent 300 MG/2ML 300 MG/2ML 300 MG/2ML Omeprazole Omeprazole No 1{capsu BID Omeprazole 40 MG 40 MG le} 40 MG Kayla Kayla No 1{table QD Kayla Allergy 180 Allergy 180 t} Allergy MG MG 180 MG Flovent HFA Flovent HFA No 1{puff} BID Flovent 220 MCG/ACT 220 MCG/ACT HFA 220 MCG/ACT Plaquenil Plaquenil No Plaquenil 200 MG 200 MG 200 MG Elmiron 100 Elmiron 100 No 1{capsu TID Elmiron MG MG le_on_a 100 MG n_empty _stomac h} Gabapentin Gabapentin No TID Gabapentin 600 MG 600 MG 600 MG QUEtiapine QUEtiapine No 1{table QD QUEtiapine Fumarate 25 Fumarate 25 t_at_be Fumarate MG MG dtime} 25 MG Flovent HFA Flovent HFA No 1{puff} BID Flovent 220 MCG/ACT 220 MCG/ACT HFA 220 MCG/ACT Dupixent Dupixent No Dupixent 300 MG/2ML 300 MG/2ML 300 MG/2ML Elmiron 100 Elmiron 100 No 1{capsu TID Elmiron MG MG le_on_a 100 MG n_empty _stomac h} Kayla Kayla No 1{table QD Kayla Allergy 180 Allergy 180 t} Allergy MG MG 180 MG Omeprazole Omeprazole No 1{capsu BID Omeprazole 40 MG 40 MG le} 40 MG Plaquenil Plaquenil No Plaquenil 200 MG 200 MG 200 MG Gabapentin Gabapentin No TID Gabapentin 600 MG 600 MG 600 MG Kayla Kayla No 1{table QD Kayla Allergy 180 Allergy 180 t} Allergy MG MG 180 MG Omeprazole Omeprazole No 1{capsu BID Omeprazole 40 MG 40 MG le} 40 MG Gabapentin Gabapentin No 1{table TID Gabapentin 600 MG 600 MG t} 600 MG Flovent HFA Flovent HFA No 1{puff} BID Flovent 220 MCG/ACT 220 MCG/ACT HFA 220 MCG/ACT Lisinopril Lisinopril No 1{table QD Lisinopril 10 MG 10 MG t} 10 MG Kayla Kayla No 1{table QD Kayla Allergy 180 Allergy 180 t} Allergy MG MG 180 MG Omeprazole Omeprazole No 1{capsu BID Omeprazole 40 MG 40 MG le} 40 MG Gabapentin Gabapentin No 1{table TID Gabapentin 600 MG 600 MG t} 600 MG Flovent HFA Flovent HFA No 1{puff} BID Flovent 220 MCG/ACT 220 MCG/ACT HFA 220 MCG/ACT Lisinopril Lisinopril No 1{table QD Lisinopril 10 MG 10 MG t} 10 MG Omeprazole Omeprazole No 1{capsu BID Omeprazole 40 MG 40 MG le} 40 MG Lisinopril Lisinopril No 1{table QD Lisinopril 10 MG 10 MG t} 10 MG Gabapentin Gabapentin No 1{table TID Gabapentin 600 MG 600 MG t} 600 MG Flovent HFA Flovent HFA No 1{puff} BID Flovent 220 MCG/ACT 220 MCG/ACT HFA 220 MCG/ACT Kayla Kayla No 1{table QD Kayla Allergy 180 Allergy 180 t} Allergy MG MG 180 MG Gabapentin Gabapentin No 1{table TID Gabapentin 600 MG 600 MG t} 600 MG Omeprazole Omeprazole No 1{capsu BID Omeprazole 40 MG 40 MG le} 40 MG Flovent HFA Flovent HFA No 1{puff} BID Flovent 220 MCG/ACT 220 MCG/ACT HFA 220 MCG/ACT Kayla Kayla No 1{table QD Kayla Allergy 180 Allergy 180 t} Allergy MG MG 180 MG Lisinopril Lisinopril No 1{table QD Lisinopril 10 MG 10 MG t} 10 MG Gabapentin Gabapentin No Gabapentin 600 MG 600 MG 600 MG Immunizations Ordered Immunization Filled Immunization Date Status Commen ts Source Name Name Dexamethasone Dexamethasone 2019-03-16 Completed [facility] S [facility]irit 14:01:00 [facility] Dexamethasone Dexamethasone 2019-03-16 Completed Common S pirit 14:01:00 [facility] Dexamethasone Dexamethasone 2019-03-16 Completed Common S pirit 14:01:00 [facility] Kenalog Kenalog 2019-03-16 Completed [facility] (Triamcinolone) (Triamcinolone) 14:00:00 [facility] Kenalog Kenalog 2019-03-16 Completed [facility] (Triamcinolone) (Triamcinolone) 14:00:00 [facility] Kenalog Kenalog 2019-03-16 Completed [facility] (Triamcinolone) (Triamcinolone) 14:00:00 [facility] Vital Signs Vital Name Observation Time Observation Value Comments Source HEIGHT 2020-12-06 09:00:00 170.2 cm WEIGHT 2020-12-06 09:00:00 67.132 kg HEIGHT 2020-12-05 11:34:00 170.2 cm WEIGHT 2020-12-05 11:34:00 68.04 kg HEIGHT 2020-08-02 08:26:00 170.2 cm WEIGHT 2020-08-02 08:26:00 70.58 kg WEIGHT 2020-07-31 10:06:00 68.04 kg HEIGHT 2020-07-31 10:06:00 170.2 cm Systolic blood 2022-02-03 18:32:00 148 mm[Hg] [facility] Medicine Diastolic blood 2022-02-03 18:32:00 110 mm[Hg] [facility] Medicine Heart rate 2022-02-03 18:32:00 79 /min [facility] Body height 2022-02-03 18:32:00 170.2 cm [facility] Body weight 2022-02-03 18:32:00 65.318 kg [facility] BMI 2022-02-03 18:32:00 22.55 kg/m2 [facility] height 2022-01-02 08:00:00 66.5 [in_i] [facility] weight 2022-01-02 08:00:00 143 [lb_av] [facility] bmi 2022-01-02 08:00:00 22.73 kg/m2 [facility] height 2021-12-03 09:40:00 [facility] weight 2021-12-03 09:40:00 143.2 [lb_av] [facility] temperature 2021-12-03 09:40:00 98.1 [degF] [facility] bmi 2021-12-03 09:40:00 22.76 kg/m2 [facility] oximetry 2021-12-03 09:40:00 100 % [facility] respiratory rate 2021-12-03 09:40:00 16 /min Comm on [facility] blood pressure 2021-12-03 09:40:00 135 mm[Hg] [facility] - systolic [facility] blood pressure 2021-12-03 09:40:00 82 mm[Hg] [facility] - diastolic [facility] Systolic blood 2021-11-18 15:27:00 122 mm[Hg] [facility] Diastolic blood 2021-11-18 15:27:00 87 mm[Hg] [facility] Medicine Heart rate 2021-11-18 15:27:00 80 /min [facility] Body temperature 2021-11-18 15:27:00 37.11 Steffanie [facility] Respiratory rate 2021-11-18 15:27:00 16 /min [facility] Body height 2021-11-18 15:27:00 170.2 cm [facility] Body weight 2021-11-18 15:27:00 65.681 kg [facility] BMI 2021-11-18 15:27:00 22.68 kg/m2 [facility] Systolic blood 2021-10-31 00:51:00 177 mm[Hg] Univer sity of pressure [facility] Diastolic blood 2021-10-31 00:51:00 115 mm[Hg] Unive rsity of [facility] Heart rate 2021-10-31 00:51:00 91 /min [facility] Body temperature 2021-10-31 00:51:00 36.11 Steffanie [facility] ersity of [facility] Respiratory rate 2021-10-31 00:51:00 20 /min Univ ersity of [facility] Body height 2021-10-31 00:51:00 170.2 cm [facility] Body weight 2021-10-31 00:51:00 65.363 kg [facility] BMI 2021-10-31 00:51:00 22.57 kg/m2 Universi ty [facility] Oxygen saturation in 2021-10-31 00:51:00 100 /min [facility] blood by [facility] Pulse oximetry Branch HEIGHT 2021-09-17 07:39:00 167.6 cm WEIGHT 2021-09-17 07:39:00 67.586 kg HEIGHT 2021-09-13 16:34:00 167.6 cm WEIGHT 2021-09-13 16:34:00 66.679 kg HEIGHT 2021-09-17 07:39:00 167.6 cm WEIGHT 2021-09-17 07:39:00 67.586 kg HEIGHT 2021-09-13 16:34:00 167.6 cm WEIGHT 2021-09-13 16:34:00 66.679 kg height 2021-09-03 10:40:00 67 [in_i] [facility] - [facility] weight 2021-09-03 10:40:00 149.4 [lb_av] [facility] temperature 2021-09-03 10:40:00 97.9 [degF] Common S [facility] - [facility] bmi 2021-09-03 10:40:00 23.4 kg/m2 Common S pirit - [facility] oximetry 2021-09-03 10:40:00 100 % Common S [facility] - [facility] respiratory rate 2021-09-03 10:40:00 16 /min Comm on [facility] - [facility] blood pressure 2021-09-03 10:40:00 139 mm[Hg] [facility] - systolic [facility] blood pressure 2021-09-03 10:40:00 82 mm[Hg] Common [facility] - diastolic [facility] Systolic blood 2021-08-06 17:42:00 141 mm[Hg] [facility] Medicine Diastolic blood 2021-08-06 17:42:00 97 mm[Hg] [facility] Medicine Heart rate 2021-08-06 17:42:00 90 /min [facility] Body temperature 2021-08-06 17:42:00 37 Steffanie [facility] Body height 2021-08-06 17:42:00 167.6 cm [facility] Body weight 2021-08-06 17:42:00 67.495 kg [facility] BMI 2021-08-06 17:42:00 24.02 kg/m2 [facility] Oxygen saturation in 2021-08-06 17:42:00 100 /min [facility] Arterial blood by [facility] Pulse oximetry Systolic blood 2021-07-04 02:37:00 123 mm[Hg] Univer sity of pressure [facility] Diastolic blood 2021-07-04 02:37:00 85 mm[Hg] Unive rsity of pressure [facility] Heart rate 2021-07-04 02:37:00 79 /min [facility] Respiratory rate 2021-07-04 02:37:00 16 /min Univ ersity [facility] Oxygen saturation in 2021-07-04 02:37:00 100 /min [facility] Arterial blood by [facility] Pulse oximetry Branch Body temperature 2021-07-04 00:25:00 37.22 Steffanie [facility] Body weight 2021-07-04 00:25:00 65.772 kg [facility] BMI 2021-07-04 00:25:00 22.71 kg/m2 [facility] Systolic blood 2021-04-21 22:00:00 115 mm[Hg] Univer sity of pressure [facility] Diastolic blood 2021-04-21 22:00:00 96 mm[Hg] Unive rsity of pressure [facility] Heart rate 2021-04-21 22:00:00 88 /min [facility] Respiratory rate 2021-04-21 22:00:00 15 /min [facility] Oxygen saturation in 2021-04-21 22:00:00 100 /min [facility] Arterial blood by [facility] Pulse oximetry [place] Body temperature 2021-04-21 18:36:00 37.17 Steffanie Univ [facility] Body weight 2021-04-21 18:36:00 79.379 kg [facility] BMI 2021-04-21 18:36:00 27.41 kg/m2 [facility] HEIGHT 2021-04-16 07:00:00 170.2 cm WEIGHT 2021-04-16 07:00:00 68.448 kg HEIGHT 2021-04-12 11:00:00 170.2 cm WEIGHT 2021-04-12 11:00:00 68.04 kg HEIGHT 2021-04-16 07:00:00 170.2 cm WEIGHT 2021-04-16 07:00:00 68.448 kg HEIGHT 2021-04-12 11:00:00 170.2 cm WEIGHT 2021-04-12 11:00:00 68.04 kg Systolic blood 2021-03-31 08:00:00 144 mm[Hg] Univer sity of pressure [facility] Diastolic blood 2021-03-31 08:00:00 108 mm[Hg] Unive rsity of pressure [facility] Heart rate 2021-03-31 08:00:00 97 /min Universi ty of [facility] Respiratory rate 2021-03-31 08:00:00 26 /min Univ ersity of [facility] Oxygen saturation in 2021-03-31 08:00:00 98 /min University of Arterial blood by [facility] Pulse oximetry Branch Body temperature 2021-03-31 05:14:00 37.11 Steffanie [facility] ersity of [facility] Body height 2021-03-31 05:14:00 170.2 cm [facility] Body weight 2021-03-31 05:14:00 79.379 kg [facility] BMI 2021-03-31 05:14:00 27.41 kg/m2 [facility] Systolic blood 2021-03-24 19:17:00 145 mm[Hg] Univer sity of pressure [facility] Diastolic blood 2021-03-24 19:17:00 108 mm[Hg] Unive rsity of [facility] Heart rate 2021-03-24 19:17:00 111 /min [facility] Body temperature 2021-03-24 19:17:00 37.06 Steffanie [facility] ersity of [facility] Respiratory rate 2021-03-24 19:17:00 20 /min [facility] ersity [facility] Body height 2021-03-24 19:17:00 170.2 cm [facility] Body weight 2021-03-24 19:17:00 79.379 kg [facility] BMI 2021-03-24 19:17:00 27.41 kg/m2 [facility] Oxygen saturation in 2021-03-24 19:17:00 100 /min University of Arterial blood by [facility] Pulse oximetry Branch height 2021-03-13 10:40:00 67 [in_i] Common [facility] weight 2021-03-13 10:40:00 154.8 [lb_av] Common [facility] temperature 2021-03-13 10:40:00 98.2 [degF] Common [facility] bmi 2021-03-13 10:40:00 24.24 kg/m2 [facility] oximetry 2021-03-13 10:40:00 99 % [facility] respiratory rate 2021-03-13 10:40:00 18 /min Comm on [facility] blood pressure 2021-03-13 10:40:00 124 mm[Hg] Common [facility] - systolic [facility] blood pressure 2021-03-13 10:40:00 70 mm[Hg] Common [facility] - diastolic [facility] height 2021-02-14 14:40:00 67 [in_i] [facility] weight 2021-02-14 14:40:00 149.4 [lb_av] [facility] temperature 2021-02-14 14:40:00 97.0 [degF] [facility] bmi 2021-02-14 14:40:00 23.4 kg/m2 [facility] oximetry 2021-02-14 14:40:00 100 % [facility] respiratory rate 2021-02-14 14:40:00 18 /min Comm on [facility] Systolic blood 2020-12-31 16:51:00 128 mm[Hg] [facility] Diastolic blood 2020-12-31 16:51:00 92 mm[Hg] [facility] pressure Medicine Heart rate 2020-12-31 16:51:00 73 /min [facility] HEIGHT 2020-12-06 09:00:00 170.2 cm WEIGHT 2020-12-06 09:00:00 67.132 kg HEIGHT 2020-12-05 11:34:00 170.2 cm WEIGHT 2020-12-05 11:34:00 68.04 kg Systolic blood 2020-11-08 23:10:00 136 mm[Hg] See notes [facility] pressure Medicine Diastolic blood 2020-11-08 23:10:00 102 mm[Hg] See notes [facility] pressure Medicine Heart rate 2020-11-08 23:10:00 91 /min [facility] HEIGHT 2020-08-02 08:26:00 170.2 cm WEIGHT 2020-08-02 08:26:00 70.58 kg WEIGHT 2020-07-31 10:06:00 68.04 kg HEIGHT 2020-07-31 10:06:00 170.2 cm Systolic blood 2019-10-30 20:53:00 149 mm[Hg] Univer sity of pressure [facility] Diastolic blood 2019-10-30 20:53:00 92 mm[Hg] Unive rsity of pressure [facility] Heart rate 2019-10-30 20:53:00 85 /min [facility] Body temperature 2019-10-30 20:53:00 36.78 Steffanie Univ ersity [facility] Respiratory rate 2019-10-30 20:53:00 20 /min Univ ersity [facility] Oxygen saturation in 2019-10-30 20:53:00 100 /min University of Arterial blood by [facility] Pulse oximetry Branch Body weight 2019-10-30 19:24:51 79.379 kg [facility] Systolic blood 2019-10-30 20:53:00 149 mm[Hg] Univer sity of pressure [facility] Diastolic blood 2019-10-30 20:53:00 92 mm[Hg] Unive rsity of pressure [facility] Heart rate 2019-10-30 20:53:00 85 /min [facility] Body temperature 2019-10-30 20:53:00 36.78 Steffanie Univ [facility]ity [facility] Respiratory rate 2019-10-30 20:53:00 20 /min Univ [facility]ity [facility] Oxygen saturation in 2019-10-30 20:53:00 100 /min [facility] of Arterial blood by [facility] Pulse oximetry Branch Body weight 2019-10-30 19:24:51 79.379 kg [facility] Systolic blood 2021-09-17 09:05:00 120 mm[Hg] [facility] Diastolic blood 2021-09-17 09:05:00 73 mm[Hg] S t [facility] Heart rate 2021-09-17 09:05:00 68 /min [facility] Respiratory rate 2021-09-17 09:05:00 17 /min [facility] Oxygen saturation in 2021-09-17 09:05:00 98 /min [facility] Arterial blood by Medical Ce nter Pulse oximetry Body temperature 2021-09-17 08:38:00 36.28 Steffanie [facility] Body height 2021-09-17 07:39:00 167.6 cm [facility] Body weight 2021-09-17 07:39:00 67.586 kg [facility] BMI 2021-09-17 07:39:00 24.05 kg/m2 [facility] BP Diastolic 2020-03-29 04:20:00 86 mm[Hg] [facility] Diastolic 2020-03-28 23:51:00 80 mm[Hg] [facility] BP Systolic 2020-03-28 23:51:00 128 mm[Hg] [facility] BP Diastolic 2020-03-28 23:28:00 120 mm[Hg] [facility] BP Systolic 2020-03-28 23:28:00 153 mm[Hg] [facility] Heart Rate 2020-03-28 23:28:00 116 /min [facility] Respiratory rate 2020-03-28 23:28:00 18 /min [facility] Body Temperature 2020-03-28 23:28:00 98.3 [degF] [facility] Body Temperature 2020-03-28 23:28:00 98.3 [degF] [facility] Procedures Procedure Date / Time Performing Clinician Source Performed CERVICAL CANCER 2021-12-02 00:00:00 [facility] SCREENING - RESULT Medicine CONSOLE CT ABDOMEN PELVIS WO 2021-10-31 01:26:00 Esperanza Cook [facility] CONTRAST Medical Branch COMP. METABOLIC PANEL 2021-10-31 01:11:00 Esperanza Cook [facility] ([id number]) Medical Branch CBC WITH DIFF 2021-10-31 01:11:00 Esperanza Cook [place] [facility] POCT TEST 2021-10-31 01:11:00 Esperanza Cook [facility] URINALYSIS 2021-10-31 01:01:00 Esperanza Cook [place] [facility] NOTICE OF PRIVACY 2021-10-31 00:41:53 Doctor Un[facility]igned, No [facility] Name [facility] CONSENT/REFUSAL FOR 2021-10-31 00:41:38 Doctor Unassigned, No [facility]AT[facility] Name [facility] Branch REPORT OF PROCEDURE - 2021-09-17 08:36:13 [facility] ENDOSCOPY URL [facility] TISSUE EXAM 2021-09-17 08:28:00 [facility] ENDOSCOPY, UPPER GI 2021-09-17 08:13:00 [facility] TRACT. WITH STRICTURE [facility] DILATION ESOPHAGOGASTRODUODENOSC 2021-09-17 08:13:00 [facility] OPY, WITH BIOPSY [facility] ANTI SCLERODERMA 2021-09-03 13:06:00 [facility] CT 2021-07-04 01:29:14 Matthew Sharma Afshan [place] [facility] MAXILLOFACIAL/MANDIBLE Medical [facility] ranch W CONTRAST COMP. METABOLIC PANEL 2021-07-04 00:55:00 Matthew Sharma [facility] ([id number]) Medical Branch CBC WITH DIFF 2021-07-04 00:55:00 Matthew Sharma [facility] o [facility] CONSENT/REFUSAL FOR 2021-07-04 00:17:51 Doctor Unassigned, No [facility] Name [facility] COVID-19 (ID NOW RAPID 2021-04-21 21:50:00 Fatou Epstein [facility] TESTING) [facility] CT THORAX W CONTRAST 2021-04-21 19:56:56 Fatou Epstein [facility] XR CHEST 1 VW 2021-04-21 18:55:31 Fatou Epstein [facility] LIPASE 2021-04-21 18:47:00 Lucian Fatou [facility] TROPONIN I 2021-04-21 18:47:00 Fatou Epstein [facility] COMP. METABOLIC PANEL 2021-04-21 18:47:00 Fatou Epstein [facility] ([id number]) [facility] CBC WITH DIFF 2021-04-21 18:47:00 Fatou Epstein [facility] PROTHROMBIN TIME / INR 2021-04-21 18:47:00 Fatou Epstein [facility] ACTIVATED PARTIAL 2021-04-21 18:47:00 Fatou Epstein [facility] THRMPLAS [facility] POCT TEST 2021-04-21 18:47:00 Fatou Epstein [facility] CONSENT/REFUSAL FOR 2021-04-21 18:31:52 Doctor Unassigned, No Un [facility] DIAGNOSIS AND TREATMENT Name Medical Branch REPORT OF PROCEDURE - 2021-04-16 09:18:36 Paige Covarrubias [facility] ENDOSCOPY URL [facility] TISSUE EXAM 2021-04-16 09:04:00 Paige Covarrubias [facility] ENDOSCOPY, UPPER GI 2021-04-16 08:46:00 Paige Covarrubias [facility] TRACT. WITH STRICTURE [facility] DILATION ESOPHAGOGASTRODUODENOSC 2021-04-16 08:46:00 Paige Covarrubias [facility] OPY, WITH BIOPSY [facility] POCT TEST 2021-03-31 06:38:00 Stan Thakkar [facility] COMP. METABOLIC PANEL 2021-03-31 06:36:00 Stan Thakkar Un [facility] ([id number]) [facility] CBC WITH DIFF 2021-03-31 06:36:00 Stan Thakkar [facility] URINALYSIS 2021-03-31 06:36:00 Stan Thakkar [facility] NOTICE OF PRIVACY 2021-03-31 05:04:41 Doctor [facility]igned, [facility]SENT/REFUSAL FOR 2021-03-31 05:04:16 Doctor Unassigned, No [facility] [place] [facility] NOTICE OF PRIVACY 2021-03-24 19:12:45 Doctor Unassigned, No Univ [facility] CONSENT/REFUSAL FOR 2021-03-24 19:12:28 Doctor Unassigned, No [facility] [place] [facility] Complete ultrasound of 2020-03-29 00:00:00 [facility] pelvis Computed tomography of 2020-03-29 00:00:00 [facility] abdomen and pelvis without contrast XR CHEST 1 VW COVID 2019-10-30 20:16:48 [facility] of Care Planned Activity Planned Date Details Comments Source Future Scheduled 2022-02-03 COVID-19 Vaccine (#1) Ba [facility] Test 13:34:23 [code = COVID-19 of Medicine Vaccine (#1)] Future Scheduled 2022-02-03 TETANUS SHOT (ADULT) [facility] Test 13:34:23 [code = TETANUS SHOT of Medi cine (ADULT)] Future Scheduled 2022-02-03 Hepatitis C screening Ba [facility] Test 13:34:23 (procedure) [code = of Medic ine 947883902] Future Scheduled 2022-02-03 Human immunodeficiency B [facility] Test 13:34:23 virus screening of Medicine (procedure) [code = 810029402] Future Scheduled 2022-02-03 Screening for malignant [facility] Test 13:34:23 neoplasm of cervix of Medici ne (procedure) [code = 234551254] Future Scheduled 2022-02-03 FLU VACCINE > 6 MONTHS [facility] Test 13:34:23 [code = FLU VACCINE > 6 of M edicine MONTHS] Future Scheduled 2022-01-02 INFLUENZA VACCINE (#1) [facility] Test 00:00:00 [code = INFLUENZA Medical Ce nter VACCINE (#1)] Future Scheduled 2021-11-18 COVID-19 Vaccine (#1) [employer] Test 15:02:21 [code = COVID-19 of Medicine Vaccine (#1)] Future Scheduled 2021-11-18 TETANUS SHOT (ADULT) [facility] [employer] [facility] Test 15:02:21 [code = TETANUS SHOT of Medi cine (ADULT)] Future Scheduled 2021-11-18 Hepatitis C screening [facility] [employer] Test 15:02:21 (procedure) [code = of Medic ine 533058737] Future Scheduled 2021-11-18 Human immunodeficiency [facility] [employer] Test 15:02:21 virus screening of Medicine (procedure) [code = 055656779] Future Scheduled 2021-11-18 Screening for malignant [facility] Test 15:02:21 neoplasm of cervix of Medici ne (procedure) [code = 533166712] Future Scheduled 2021-11-18 FLU VACCINE > 6 MONTHS [employer] Test 15:02:21 [code = FLU VACCINE > 6 of M edicine MONTHS] Future Scheduled 2021-08-06 COVID-19 Vaccine (1) [facility] [employer] [facility] Test 13:13:13 [code = COVID-19 of Medicine Vaccine (1)] Future Scheduled 2021-08-06 TETANUS SHOT (ADULT) [facility] [employer] [facility] Test 13:13:13 [code = TETANUS SHOT of Medi cine (ADULT)] Future Scheduled 2021-08-06 Hepatitis C screening [employer] Test 13:13:13 (procedure) [code = of Medic ine 835908238] Future Scheduled 2021-08-06 Human immunodeficiency [facility] [employer] Test 13:13:13 virus screening of Medicine (procedure) [code = 195773185] Future Scheduled 2021-08-06 Screening for malignant [employer] Test 13:13:13 neoplasm of cervix of Medici ne (procedure) [code = 793524930] Future Scheduled 2021-08-06 FLU VACCINE > 6 [...] [facility] Test 00:00:00 (12+) [code = [facility] DEPRESSION SCREENING (12+)] Future Scheduled 2020-12-31 COVID-19 Vaccine (1) [facility] [employer] Test 09:24:17 [code = COVID-19 of Medicine Vaccine (1)] Future Scheduled 2020-12-31 TETANUS SHOT (ADULT) [facility] [employer] Test 09:24:17 [code = TETANUS SHOT of Medi cine (ADULT)] Future Scheduled 2020-12-31 Hepatitis C screening [facility] [employer] Test 09:24:17 (procedure) [code = of Medic ine 656275540] Future Scheduled 2020-12-31 Human immunodeficiency [facility] Test 09:24:17 virus screening of Medicine (procedure) [code = 223638545] Future Scheduled 2020-12-31 Screening for malignant [facility] Test 09:24:17 neoplasm of cervix of Medici ne (procedure) [code = 605884561] Future Scheduled 2020-12-31 FLU VACCINE > 6 MONTHS B [facility] Test 09:24:17 [code = FLU VACCINE > 6 of M edicine MONTHS] Future Scheduled 2020-11-13 MRI KNEE LEFT WO 1 Occurrences [facility] [employer] Test 14:22:04 CONTRAST [code = 17012] starting of M edicine 11/13/2020 until 11/13/2021 Future Scheduled 2020-11-13 COVID-19 Vaccine (1) [facility] [facility] Test 13:51:06 [code = COVID-19 of Medicine Vaccine (1)] Future Scheduled 2020-11-13 TETANUS SHOT (ADULT) [facility] [employer] [facility] Test 13:51:06 [code = TETANUS SHOT of Medi cine (ADULT)] Future Scheduled 2020-11-13 Hepatitis C screening [employer] Test 13:51:06 (procedure) [code = of Medic ine 347962966] Future Scheduled 2020-11-13 Human immunodeficiency [facility] [employer] Test 13:51:06 virus screening of Medicine (procedure) [code = 760551678] Future Scheduled 2020-11-13 Screening for malignant [facility] [employer] Test 13:51:06 neoplasm of cervix of Medici ne (procedure) [code = 680947249] Future Scheduled 2020-11-13 FLU VACCINE > 6 MONTHS [facility] [employer] Test 13:51:06 [code = FLU VACCINE > 6 of M edicine MONTHS] Future Scheduled 2020-11-13 ORT - XR KNEE LEFT 4V Ordered: [facility] [employer] Test 13:46:10 (CHARGE ONLY) [code = 11/13/2020 of Med vickey 07533] Future Scheduled 2020-11-08 COVID-19 Vaccine (1) [facility] Test 18:26:49 [code = COVID-19 of Medicine Vaccine (1)] Future Scheduled 2020-11-08 TETANUS SHOT (ADULT) [facility] Test 18:26:49 [code = TETANUS SHOT of Medi cine (ADULT)] Future Scheduled 2020-11-08 Hepatitis C screening Ba or [employer] Test 18:26:49 (procedure) [code = of Medic ine 316657276] Future Scheduled 2020-11-08 Human immunodeficiency [facility] Test 18:26:49 virus screening of Medicine (procedure) [code = 653393795] Future Scheduled 2020-11-08 [facility] 18:26:49 neoplasm of cervix of Medici ne (procedure) [code = 926341084] Future Scheduled 2020-11-08 FLU VACCINE > 6 MONTHS B [facility] Test 18:26:49 [code = FLU VACCINE > 6 of M edicine MONTHS] Future Scheduled 2008 Screening for malignant [facility] Test 00:00:00 neoplasm of cervix Medical C enter (procedure) [code = 635316149] Future Scheduled 2006 DTAP/TDAP/TD VACCINES CH I [...] 2112-1] Hospital Goal Patient referral [code CHAYO AILINGalilea St. = [id number] ] [facility]attie [facility] Encounters Start End Encounter Admission Attending Care Care Encounter Source Date/Time Date/Time Type Type Clinicians Facility Department ID 2021-12-31 Outpatient [place], STLMLC STLMLC [id number] Common 11:24:00 [facility]y [facility] 2021-12-03 Outpatient [place], STLMLC STLMLC [id number] Common 08:26:01 B[facility]y [facility] 2021-11-20 Outpatient [place], STLMLC STLMLC [id number] Common 08:44:00 B[place]y [facility] 2021-05-29 Outpatient [place], STLMLC STLMLC [id number] Common 14:10:22 Betsy 82731 [facility] 2021-05-29 Outpatient [place], STLMLC STLMLC [id number] Common 12:16:28 Betsy 07028 [facility] 2021-05-29 Outpatient [place], STLMLC STLMLC [id number] Common 11:33:08 Betsy 78127 [facility] 2021-05-29 Outpatient [place], STLMLC STLMLC [id number] Common 11:32:07 Betsy 84819 [facility] 2021-05-29 Outpatient [place], STLMLC STLMLC [id number] Common 11:02:11 Betsy 55426 [facility] 2021-02-10 [facility]patient [facility] [id number] [facility] 05:31:08 [facility] 2021-02-09 Outpatient [facility] Surgery [id number] SLEH 09:27:36 [facility] 2020-04-15 Inpatient [facility] [id number] [facility] 19[facility]01:00 [facility] 2020-03-14 Inpatient AMADOU De La O [facility] [id number] [facility] 09:00:00 Crystal [facility] 2022-02-13 2022-02-13 Outpatient TAWANNA NAVARRETE [facility] [id number] [facility] 10:04:59 12:41:41 IRVIN bae of Medicin e 2022-02-03 2022-02-03 Office Chuckie Garcia [facility] [id number] [id number] [facility] 14:00:00 14:20:00 Visit AMBULATOR 350.1.13.21 College Y 0.2.7.2.686 of [id number] Medi mare 305 e 2022-01-20 2022-01-20 Outpatient CHUCKIE GARCIA [facility] [id number] [facility] 09:36:20 14:04:16 Colleg e of Medicin e 2022-01-02 2022-01-02 OFFICE [facility] [id number] Co mmon 00:00:00 00:00:00 VISIT EST Spir it PT LEVEL 3 - [facility] 2021-12-23 2021-12-23 Outpatient CHUCKIE GARCIA [facility] [id number] [facility] 09:47:15 13:44:01 Colleg e of Medicin e 2021-12-18 2021-12-18 Outpatient [facility] [id number] [facility] 13:06:14 13:06:14 Colleg e [facility] Medicin e 2021-12-18 2021-12-18 Outpatient TAWANNA KIM [facility] [id number] [facility] 12:14:11 12:14:11 SHANNON Colleg e of Medicin e 2021-12-11 2021-12-11 (TEL) [facility] STLC [id number] Co mmon 00:00:00 00:00:00 Spirit - [facility] 2021-12-03 2021-12-03 OFFICE [facility] [id number] Co mmon 00:00:00 00:00:00 VISIT Spirit ESTAB PT - CHI LEVEL 4 [facility] 2021-11-18 2021-11-18 Office TAWANNA Kim 1.2.840.114 [id number] [facility] 10:40:00 14:35:07 Visit Shannon Lim AMBULATOR 350.1.13.21 College Y 0.2.7.2.686 of [id number] [facility] mare 805 e 2021-11-18 2021-11-18 Outpatient [facility] [id number] [facility] 11:43:23 11:43:23 Colleg e of Medicin e 2021-10-30 2021-10-30 Emergency X TIMOTEO COOK ERT [id number] Univers 19:56:00 22:09:00 ESPERANZA [facility] 2021-10-30 2021-10-30 [facility] [id number] Univers 19:56:00 22:09:00 Esperanza MCDONNELL 350.1.13.10 i ty of [place] 4.2.7.2.686 [facility] [id number] [facility] 084 Branch 2021-10-28 2021-10-28 Outpatient CHUCKIE GARCIA [facility] [id number] [facility] 08:52:55 12:50:13 Colleg e of Medicin e 2021-09-23 2021-09-23 Outpatient CHUCKIE GARCIA [facility] [id number] [facility] 09:08:43 12:17:11 Colleg e of Medicin e 2021-09-17 2021-09-17 Outpatient TAWANNA COVARRUBIAS [facility] [id number] [facility] 09:44:39 09:44:39 PAIGE Colleg e [facility] Medicin e 2021-09-17 2021-09-17 [facility], [facility] [id number] 06:38:00 09:30:00 Encounter [facility] 2021-09-17 2021-09-17 Outpatient [facility] Surgery [id number] [facility] 06:38:00 09:30:00 [facility] 2021-09-17 2021-09-17 Anesthesia [place], [facility] [id number] 08:18:00 08:41:00 Event Haylie Izzy [facility] 2021-09-17 2021-09-[address] [facility], [facility] [id number] 08:00:00 08:30:00 [facility] 2021-09-03 2021-09-03 OFFICE [facility] [id number] Co mmon 00:00:00 00:00:00 VISIT Spirit ESTAB PT - CHI LEVEL 4 [facility] 2021-08-28 2021-08-28 Outpatient TAWANNA BINGHAM [facility] [id number] [facility] 08:58:38 09:24:46 JACKSON [facility]in e 2021-08-23 2021-08-23 Outpatient MELO BELLO [facility] [id number] [facility] 12:36:00 14:11:06 Colleg e [facility] Medicin e 2021-08-23 2021-08-23 Outpatient [facility] [id number] [facility] 12:36:22 12:36:22 Colleg e [facility] Medicin e 2021-08-23 2021-08-23 Outpatient CHUCKIE GARCIA [facility] [id number] [facility] 11:15:39 11:15:39 Colleg e [facility] Medicin e 2021-08-06 2021-08-06 Office WALTERCAROLINE [facility] 1.2.840.114 [id number] [facility] 12:36:09 14:49:31 Visit JACKSON AMBULATOR 350.1.13.21 College Y 0.2.7.2.686 [id number] [facility] mare 370 e 2021-08-06 2021-08-06 Outpatient ELPIDIO HOROWITZ [facility] [id number] [facility] 13:23:28 13:23:28 Colleg e [facility] Medicin e 2021-07-23 2021-07-23 Outpatient ELPIDIO HOROWITZ [facility] [id number] [facility] 14:22:13 16:31:22 Colleg e of Medicin e 2021-07-03 2021-07-03 Emergency X Matthew SHARMA [facility] ERT [id number] Univers 18:43:00 20:40:00 [facility] 2021-07-03 2021-07-03 Emergency Matthew Sharma [facility] 1.2.840.114 [id number] Univers 18:43:00 20:40:00 Afshan MCDONNELL 350.1.13.10 i ty [facility] 4.2.7.2.686 [facility] [id number] [facility] 084 Branch 2021-07-02 2021-07-02 (TEL) STLMLC STLMLC [id number] Co mmon 00:00:00 00:00:00 [facility] 2021-06-12 2021-06-12 Outpatient CHUCKIE GARCIA [facility] [id number] [facility] 10:00:30 13:57:17 Colleg e of Medicin e 2021-05-27 2021-05-27 (TEL) [facility] [id number] Co mmon 00:00:00 00:00:00 [facility] 2021-05-17 2021-05-17 Outpatient CHUCKIE GARCIA [facility] [id number] [facility] 10:07:38 12:43:50 Colleg e of Medicin e 2021-04-30 2021-04-30 Outpatient [facility] [id number] [facility] 13:09:50 13:09:50 Colleg e [facility] Medicin e 2021-04-25 2021-04-25 Laboratory Only, Ang Db Test [facility] 1.2.8 40.114 [id number] Univers 20:45:00 21:00:00 Only Iris Stewart [facility] 350.1.13.10 Jesús 4.2.7.2.686 Jimenez as ROMELIA?BLEA [id number] [address] MEDICAL OFFICE BUILDING 2021-04-16 2021-04-25 Outpatient ELIER [facility] [id number] [facility] 09:44:19 15:18:24 PAIGE Colleg e [facility] Medicin e 2021-04-25 2021-04-25 Outpatient R LINDA [facility] [id number] Univers 20:45:00 10:28:32 IRIS [facility] 2021-04-24 2021-04-24 (TEL) [facility] [id number] Co mmon 00:00:00 00:00:00 [facility] 2021-04-21 2021-04-21 Emergency X AUFDERHEIDE [facility] ERT [id number] Univers 12:39:00 17:12:00 , [facility] 2021-04-21 2021-04-21 Emergency [facility] 1.2.840.114 [id number] Univers 12:39:00 17:12:00 , Fatou MCDONNELL 350.1.13.10 i ty of Arabella LEVIN 4.2.7.2.686 [facility] [id number] [facility] 084 Branch 2021-04-16 2021-04-16 Outpatient [facility] [id number] [facility] 07:24:00 23:59:00 Lindsey Medicin e 2021-04-16 2021-04-16 [facility] [id number] 07:24:00 10:14:00 Encounter [facility] 2021-04-16 2021-04-16 Outpatient [facility] Surgery [id number] SLE 07:24:00 10:14:00 [facility] 2021-04-16 2021-04-16 Anesthesia Renetta Andrews [facility] [id number] [facility] 08:52:00 09:16:00 Event Damián Walker [facility] 2021-04-16 2021-04-16 Surgery [facility] [id number] 08:45:00 09:15:00 [facility] 2021-04-12 2021-04-12 Outpatient [facility] [id number] SLE 11:21:19 23:59:00 2021-04-12 2021-04-12 [facility] [id number] 10:05:00 23:59:00 Encounter [facility] 2021-04-12 2021-04-12 Travel [facility] [id number] [facility] 00:00:00 00:00:00 [facility] 2021-03-30 2021-03-31 Emergency X [facility] ERT [id number] Univers 23:16:00 03:07:00 STAN [facility] 2021-03-30 2021-03-31 Emergency [facility] 1.2.840.114 [id number] Univers 23:16:00 03:07:00 Stan MCDONNELL 350.1.13.10 ity POONAM 4.2.7.2.686 [facility] [id number] [facility] 084 Branch 2021-03-24 2021-03-24 Emergency [facility] [id number] Univers 13:23:00 13:49:00 CARLI [facility] 2021-03-24 2021-03-24 [facility] 1.2.840.114 [id number] Univers 13:23:00 13:49:00 Carli MCDONNELL 350.1.13.10 ity of [place] 4.2.7.2.686 [facility] [id number] [facility] 084 Branch 2021-03-24 2021-03-24 Orders Doctor MARCO ANTONIO 1.2.840.114 [id number] Univers 00:00:00 00:00:00 Only Unassigned, ZULEYKA 350.1.13.10 ity of [facility] 4.2.7.2.686 [facility] [id number] [facility] 009 Branch 2021-03-13 2021-03-13 OFFICE STLMLC STLMLC [id number] Co mmon 00:00:00 00:00:00 VISIT EST Spir it PT LEVEL 3 - [facility] 2021-02-18 2021-02-18 Outpatient CHUCKIE GARCIA Liban [facility] [id number] [facility] 09:55:02 14:00:19 Colleg e of Medicin e 2021-02-14 2021-02-14 OFFICE STLMLC STLMLC [id number] Co mmon 00:00:00 00:00:00 VISIT Spirit ESTAB PT - CHI LEVEL 2 [facility] 2021-02-12 2021-02-12 Outpatient TAWANNA KIM [id number] [facility] 11:33:23 11:49:11 SHANNON Colleg [facility] Medicin e 2021-01-24 2021-01-24 Outpatient TAWANNA KIM [id number] [facility] 10:16:48 12:54:32 SHANNON [facility]in e 2021-01-21 2021-01-21 Outpatient CHUCKIE GARCIA [facility] [id number] [facility] 09:51:45 13:27:43 Colleg e [facility] Medicin e 2021-01-21 2021-01-21 (TEL) STLC STLC [id number] Co mmon 00:00:00 00:00:00 [facility] 2020-12-31 2020-12-31 Office Chuckie Garcia [facility] 1.2.840.114 [id number] [facility] 11:32:01 11:52:01 Visit AMBULATOR 350.1.13.21 College Y 0.2.7.2.686 [facility] [id number] Medi mare 305 e 2020-12-31 2020-12-31 Outpatient JULIO [facility] [id number] [facility] 09:25:09 09:57:38 SHANNON Colleg [facility] Medicin e 2020-12-17 2020-12-17 Outpatient JULIO [facility] [id number] [facility] 11:05:40 13:11:16 SHANNON Colleg [facility] Medicin e 2020-12-06 2020-12-17 Outpatient ELIER [facility] [id number] [facility] 12:54:01 08:36:19 PAIGE Colleg e [facility] Medicin e 2020-12-16 2020-12-16 (TEL) STLC STLC [id number] Co mmon 00:00:00 00:00:00 [facility] 2020-12-11 2020-12-11 Outpatient CHUCKIE GARCIA [facility] [id number] [facility] 13:04:20 15:56:03 Colleg e [facility] Medicin e 2020-12-11 2020-12-11 Outpatient STLC STLC [id number] Common 00:00:00 00:00:00 [facility] 2020-12-05 2020-12-05 Outpatient EL [facility] [id number] [facility] 00:00:00 00:00:00 2020-12-05 2020-12-05 Outpatient EL [facility] [id number] [facility] 00:00:00 00:00:00 2020-12-04 2020-12-04 Outpatient [facility] [id number] [facility] 13:57:43 13:57:43 [facility] Medicin e 2020-12-04 2020-12-04 Outpatient [facility] [id number] [facility] 12:47:41 12:47:41 [facility] Medicin e 2020-12-04 2020-12-04 Outpatient BCM [facility] [id number] [facility] 12:42:43 12:42:43 [facility]in e 2020-12-04 2020-12-04 Outpatient [facility] [id number] [facility] 12:42:24 12:42:24 Colleg [facility] Medicin e 2020-11-28 2020-11-28 Outpatient CHUCKIE GARCIA [facility] [id number] [facility] 10:55:51 13:59:34 Colleg [facility] Medicin e 2020-11-21 2020-11-21 Outpatient CHUCKIE GARCIA [facility] [id number] [facility] 10:01:51 13:12:00 [employer] 2020-11-14 2020-11-14 Outpatient CHUCKIE GARCIA [facility] [id number] [facility] 09:08:59 13:18:23 [employer] 2020-11-13 2020-11-13 Office Sheng [facility] [id number] [facility] 13:40:55 14:49:28 Visit Mallory Rose AMBULATOR 350.1.13.21 College Y 0.2.7.2.686 of [id number] Medi mare 600 e 2020-11-13 2020-11-13 Outpatient [facility] [id number] [facility] 13:51:00 13:51:00 [employer] 2020-11-08 2020-11-08 Office CHUCKIE GARCIA [facility] [id number] [facility] 10:05:15 13:25:36 Visit AMBULATOR 350.1.13.21 College Y 0.2.7.2.686 of [id number] Medi mare 305 e 2020-10-25 2020-10-25 Outpatient ELPIDIO HOROWITZ [facility] [id number] [facility] 10:11:27 16:28:48 [employer] 2020-10-25 2020-10-25 Emergency EM Collins-G [facility] MARCELLO [id number] [id number] [facility] 12:28:00 14:54:00 omez, 77 Woman[facility] s [facility] 2020-10-17 2020-10-17 Outpatient CHUCKIE GARCIA MARTINLiban [facility] [id number] [facility] 11:29:56 14:23:51 [employer] 2020-09-26 2020-09-26 Outpatient CHUCKIE GARCIA [facility] [id number] [facility] 10:04:59 12:41:27 [employer] 2020-09-12 2020-09-12 Outpatient CHUCKIE GARCIA [facility] [id number] [facility] 09:48:11 13:08:14 [employer] 2020-09-05 2020-09-05 Outpatient CHUCKIE GARCIA [facility] [id number] [facility] 10:27:53 13:18:17 [employer] 2020-08-29 2020-08-29 Outpatient CHUCKIE GARCIA [facility] [id number] [facility] 09:53:09 12:27:39 [employer] 2020-08-15 2020-08-15 Outpatient CHUCKIE GARCIA [facility] [id number] [facility] 09:46:01 12:39:28 [employer] 2020-08-08 2020-08-08 Outpatient CHUCKIE GARCIA [facility] [id number] [facility] 10:12:46 12:52:19 [employer] 2020-07-31 2020-07-31 Outpatient SLE SLE [id number] [facility] 00:00:00 00:00:00 2020-07-25 2020-07-25 Outpatient CHUCKIE GARCIA [facility] [id number] [facility] 09:40:34 12:40:35 [employer] 2020-07-18 2020-07-18 Outpatient CHUCKIE GARCIA [facility] [id number] [facility] 09:29:25 13:06:24 [employer] 2020-07-04 2020-07-04 Outpatient CHUCKIE GARCIA [facility] [id number] [facility] 09:56:06 12:18:00 [employer] 2020-06-27 2020-06-27 Outpatient CHUCKIE GARCIA [facility] [id number] [facility] 10:19:58 13:23:42 [employer] 2020-06-26 2020-06-26 Outpatient STLMLC ST[facility] [id number] Common 00:00:00 00:00:00 [facility] 2020-06-13 2020-06-13 Outpatient CHUCKIE GARCIA [facility] [id number] [facility] 10:39:13 13:23:18 [employer] 2020-06-08 2020-06-08 Outpatient CHUCKIE GARCIA [facility] [id number] [facility] 09:25:28 13:24:47 [employer] 2020-05-28 2020-05-28 Outpatient CHUCKIE GARCIA [facility] [id number] [facility] 09:04:10 13:17:06 [employer] 2020-05-22 2020-05-22 Outpatient CHUCKIE GARCIA [facility] [id number] [facility] 14:45:08 17:11:00 [employer] 2020-05-01 2020-05-01 Outpatient STLMLC STLMLC [id number] Common 00:00:00 00:00:00 [facility] 2020-03-28 2020-03-29 Departed HIMA Torres [id number] [facility] 23:27:00 04:37:00 [facility] 2020-03-28 2020-03-28 Departed ER PHYSICIANFLORA AF00 [id number] [facility] 23:27:00 23:27:00 Emergency ER [address] [place] [address] 2020-03-27 2020-03-27 Outpatient STLMLC STLMLC [id number] Common 00:00:00 00:00:00 [facility] 2020-03-07 2020-03-07 Outpatient STLMLC STLMLC [id number] Common 00:00:00 00:00:00 [facility] 2019-11-30 2019-11-30 Outpatient [facility] 29 [id number] Common 10:40:00 10:40:00 [facility] [address] [facility] 2019-11-01 2019-11-01 Telephone Cristian BERNARD 1.2.840.114 [id number] 00:00:00 00:00:00 Ana delatorre 350.[address].13.[address] [id number] 2019-11-01 2019-11-01 Telephone Cristian BERNARD [id number] [facility] 00:00:00 00:00:00 dAna 350.1.13.10 ity [facility] 4.2.7.2.686 Jimenez [id number] [address] 2019-10-30 2019-10-30 [place] 1.2.840.114 [id number] 14:26:51 16:21:00 Krys Mcdonnell 350.1.13.10 [place] 4.2.7.2.686 [place] [id number] [facility] 2019-10-30 2019-10-30 Emergency [place], [facility] 1.2.840.114 [id number] [facility] 14:26:51 16:21:00 Krys Mcdonnell 350.1.13.10 i ty of [place] 4.2.7.2.686 [facility] [id number] [address] 2019-10-30 2019-10-30 Emergency X [place], [facility] ERT [id number] [facility] 14:26:51 14:26:51 KRYS orona [facility] 2019-08-19 2019-08-19 Outpatient [facility] 30 [id number] Common 08:20:00 08:20:00 [facility] [address] [facility] 2019-07-01 2019-07-01 Outpatient [facility] 29 [id number] Common 10:00:00 10:00:00 [facility] [address] [facility] 2019-05-25 2019-05-25 Outpatient [facility] 29 [id number] Common 10:40:00 10:40:00 [facility] it [facility] 2019-04-06 2019-04-06 Outpatient Jessica Lynn [id number] Common 10:40:00 10:40:00 [facility] it [facility] 2019-03-16 2019-03-16 Outpatient Jessica Lynn [id number] Common 13:20:00 13:20:00 [facility] Results Test Description Test Time Test Comments Results Result Comments Source COMP. METABOLIC PANEL (71709) 2021-10-31 01:37:35 Test Item Value Reference Range Interpretation Comme nts NA (test code = 1404422807) 137 mmol/L 135-145 K (test code = 1739413123) 3.9 mmol/L 3.5-5.0 CL (test code = 5745634964) 102 mmol/L 98-108 CO2 TOTAL (test code = 27 mmol/L 23-31 3870507172) AGAP (test code = 1056845449) 2-16 BUN (test code = 0700261363) 12 mg/dL 7-23 GLUCOSE (test code = 5958059213) 104 mg/dL 70-110 CREATININE (test code = 0.75 mg/dL 0.50-1.04 6355864783) TOTAL BILI (test code = 0.4 mg/dL 0.1-1.0 5246918223) CALCIUM (test code = 8313623568) 9.4 mg/dL 8.6-10.6 T PROTEIN (test code = 7.2 g/dL 6.3-8.2 8254583375) ALBUMIN (test code = 2984181486) 4.8 g/dL 3.5-5.0 ALK PHOS (test code = 5982007870) 42 U/L 34-122 ALTv (test code = 1742-6) 13 U/L 5-35 AST(SGOT) (test code = 21 U/L 13-40 5918965699) eGFR (test code = 7664086544) mL/min/1.73m2 RAGHU (test code = RAGHU) Association [...] or urine or abnormalities in imaging tests). [facility] WITH [id number] 01:28:35 Test Item Value Reference Range Interpretation Comments WBC (test code = See_Comment [Automated 9914-2) message] The sy stem which generated this result transmitted reference range : 4.30 - 11.10 10*3/?L. The reference range was not used to interpret this result as normal/abnormal . RBC (test code = See_Comment [Automated 993-0) message] The sy stem which generated this [...] RDW-SD (test code = 43.8 fL 39.0-49.9 46789-5) RDW-CV (test code = 12.9 % 12.0-15.5 788-0) PLT (test code = See_Comment [Automated 777-3) message] The sy stem which generated this result transmitted reference range : 166 - 358 10*3/ ?L. The reference r abhishek was not used to interpret this result as normal/abnormal . MPV (test code = 9.4 fL 9.5-12.9 L 87009-2) NRBC/100 WBC (test See_Comment [Automat ed code = 7649238087) message] The system which generated this result transmitted reference range : 0.0 - 10.0 /100 WBCs. The refer ence range was not u sed to interpret th is result as normal/abnormal . NRBC x10^3 (test code <0.01 See_Comment [Auto mated = 2500100316) message] The s ystem which generated this result transmitted reference range : 10*3/?L. The reference range was not used to interpret this result as normal/abnormal . GRAN MAT (NEUT) % 57.1 % (test code = 770-8) IMM GRAN % (test code 0.30 % = 0637552935) LYMPH % (test code = 33.9 % 736-9) MONO % (test code = 8.6 % 5905-5) EOS % (test code = 0.0 % 713-8) BASO % (test code = 0.1 % 706-2) GRAN MAT x10^3(ANC) 4.04 10*3/uL 1.88-7.09 (test code = 8730986828) IMM GRAN x10^3 (test <0.03 0.00-0.06 code = 3533569265) LYMPH x10^3 (test code 2.40 10*3/uL 1.32-3.29 = 731-0) MONO x10^3 (test code 0.61 10*3/uL 0.33-0.92 = 742-7) EOS x10^3 (test code = <0.03 0.03-0.39 L 711-2) BASO x10^3 (test code <0.03 0.01-0.07 = 704-7) Lab Interpretation Abnormal (test code = 46554-0) [id number]00 Test Item Value Reference Range Interpretation Comments POCT PREG (test code = 1605) negative On board controls acceptable with present C Line (test code = 3574) POCT PREG LOT # (test code = 3575) [id number] POCT PREG TEST DATE (test 03/03/2023 code = 3576) Lab Interpretation (test code = Normal 59190-1) [facility] [id number] 14:29:40 Test Item Value Reference Range Interpretation Comments Case Report (test code Surgical Pathology = 104) Report Case: [id number] Authorizing Provider: Paige Covarrubias, Collected: 09/17/2021 08:28 AM Ordering Location: [facility] ENDOSCOPY Received: 09/17/2021 03:38 PM SERVICES Pathologist: Luanne Larkin MD Specimens: A) - Distal Esophagus, bxs r/o EOE B) - Proximal Esophagus, bxs r/o EOE DIAGNOSIS (test code = a6easCWvKNSca6lwJRBiiQ 3220) FuZzEwMzNcZnRuYmpcdWMx IHtccnRmMVxlcGljOTYwMl pbsrWsFWFitWFgH2Cfjryn BTauER5aYL7cdDbqvYDddS DpIHUfBmLxo9dtv181dTMb l0ibFZSVlpjbaTt2gBinW7 5tv7N8BxesI92sqWMtASE7 BBDtTTDimGKnXIZhHUL8LV IsfWXrO6dvWVKqSE4sihwu QHarTOryBBVzlYI5ILStmA BnK1YmRBUuYHtiZIUalif9 KwElGn4zwCNerTeaXEisKC VrISBiVWvwWBQpSvUnMR1f PErJLSQLQUDYE3JRFGoWTs wgQklPUFNZOlxwYXIgICAg WJQCT58HRIOHXTHIDCRYXN SFX7QUZK6YQ85TUTZPUPYR TBRTN3PKNGKPKFliIDlVDW ZOANJWGPBlE5iHBACCODsP LTyIT8SYOOEJQZbXNUcpAJ IgICAgICAgICAgIElOVFJB ERAGEKpJXOaLFAUNUT4XDE 7IAZGYX6zeAKNiZEZhXOHV TVFVEJLJF1zLM2DMGNcEWA PqYS4rCGhPCFSfG35esLNm dClccGFyICBccGFyXHBhci EPAxMONe6HJW0ZHOIMM46S BXFWDOXwIOMTX8ONAVgqlD JbVNLzWH9wNYMYSRkEW3JH PHKIVIBMVM2IPuDAGYCMU6 OfU0jZBARFNBRQFQVKNZLC V7LRDIGJPUoqBEoVYTVPFE JWRGGmPDuQC2JKFFDTMAde ODOlJWTkYWDyZEDgVV9NIo FFUElUSEVMSUFMIExZTVBI M7PDLLDZKFWgdqHmRMLvGX 2UISyMO9DKCVJFWKTUNsCL PDIDAXWDVBmQOPudBK7VOP 8MEOsVJFKnCh0MBWPeXTHa bqEzATcvPHZxI9chcBqktN HagJlkfjBqHEtfw3VjSXqr AOSwCW7liAuzMLEvDM2bOO UsC4nnwZ6hvug5QyPbJOMk WjC6WZMjjsH9Vrw5WOGyNA jhh8jiv6NfBTBpAFv0gKyi HsKpFIMqs1nifxIxCwUiDZ XqHPQlMJTsmQTuO812f7qc q1uiudTorWL5XFAjGZD1TV yvlvRrfkS8RAtpgHRwAgW2 IDtccmVkMFxncmVlbjBcYm a8XXJmE512NKC0aNikd9ea XQU2KPJpSYXaLgJoJl4bdO GqR089QHWbGEFMPTPrzAu1 PHUkekOuokXxmSQVt016Z7 36c0sxRIFyyhAoyThNkzfg c6szO391HBQydSZzqpKpJq CpMCLleCLmtFR5XBGzUG7p spycVDplIXokXFNcqoR7HQ RbtNUyX8ZpHIJaTB1sajko SHK7PFqgWTMtMGZ2UrDgZW Mcf5Zzcyx1OeLrnv4ixf22 ENW5i7NmuWoyRHQ1BLZ5Xf FkQk3maHOfBIWwLT5oQcFk lTUqXJJyzc05dWgfHKhjYU K2DAPpnaBoe6Awf8aaJsGo frHuF6mxW5MtJBBuGVVmNX FoNhRqhaXkt8Mmc7DeeAZe gQl4y6pgVCZuGBFjdYpmk9 jcOXS5HRXnjSWeS4jztQ9k EVFjLB4oqgdma8ocXZrhKP vcCBZtyLR8ocY3LCBqxMAc D9WtsZ6zZAVcOCxxVUElrq k4WmNqXq8gfPNxiSifCMxh YmtwYWdlXHBnbmNvbnRccG duZGVjXHBsYWluXHBsYWlu XGYwXGZzMjRccWxcbGFuZz EwMzNcaGljaFxmMVxkYmNo CBDmMKgpQ8bsBiCrZeEgTg p2WAPuhTSbAKJoDyu9IIZt vMUsXFNZdGadcY0sTHJncA rxuI0uxGD9WKQiaqDplJPW zE2wITHLtV3mTdZ4NfHhZw A9PTa8NZDeeZMsfQ7= COMMENT (test code = q1kdyXWiIPQnvRD6CdSkVE 8539) Gif7gfi0UxdVUvdOMbZEto hQGgivGyrz22jWA8uW11ER 9aCJQpJbB2EPPctzJ9Oef8 MLDcSDSwwVEsC385z1upl0 jxjcCltBD8lJewVNWffuse ZtM9QVljQUUuxtdfGFv4GN aeVOSwnVH3CDIfmVKsF1Sl JGShFV7lmoz5AHG9PJdvWV LiSeI2PPOtcTJhTJFjeUva EOwyl119GWF0UqNgIPSbij GwyAtckL8hFhFeXEJClwSp h5XfhWoaKJBswA6nxJFhEH BhGVsnLL8rINZdtsdqFUBi ITozc1DbDkrfFBasV8Fln9 kaewHsinWcJNCdXVPjyL96 efWujJi9wIYtpTYnXPk9uF Uib9Y4hVMvLHTysg99W5en jBQpgNqlUFBjr9EdRRc8sz U0rUlcdGOipLszCRC0KRHf nQzujQsuE8n1oIZkmGU0tS CkwwUgUtMhc57viGFghMHn rkR1bCrjlXCzOV7rGoSgn1 NjxkOybmQwdJv4wEShUPRz w43tyTCne37qYDdqh1QqIX V4B1KaQThpBxQzzAurglma z3Flv3ewoODtlPSfDJshGR EmTP4whBMjREMmbmLWt6wp dmVyIHdpdGggYSBnaXZlbi KbfWB4n5X2NW4fBUXmw9oo h8FbwTngJiVfb69xiTBlwM AptjPexhCfvFY4zDBciFMq nbS4ztHmaM6tfzJjELGvjA MgZmluZGluZyBtYXkgYmUg V81pz8pojCRokMT3kUVxER HbAEU4JEXbRM5niO1ecJne jVrjCAWhs3VoGEircHptDE Bhcn0= CPT Code(s) (test code a0vvvEQfCPHpeSI5XkUjKR = 3357) Qkp6fuc9PouDIrsUPjRDno oPHxxaJfmp10mDN4fH40AU 4oKTAgMgD1CUSvecA4Hjo0 QMRlQGHbnLQvP938q5fxx7 ygukEbpVT8sRxlGVGcqngl TzH3EHhjIUZivpgxXEi8MK nsVONrkUU6XVYagSVvV4Sa JANoUM3hkgr8AXJ1TSjwUF RqMuI1ZFMyeZQlJJAixJwp QKucv721DGR0SeFyAQWnae EnpVqtrB8hTbAyUJL9ZSBp USV9DshvTCO3 GROSS DESCRIPTION (test n5imnRWxEXIpkSCWOYAsI8 code = 2873582593) uukpSlHQCriJLpP8Gzkjal FJbkIO3fBL7xiVkrlBHgrO OtZJ3RJJWySzQrGSVduMGy utJhHcYuLAJohUTqpHN0MD FhJV4jhsluYLffIYryHJDt mcK3DZXneYUiB3YwSGRkNK 4hkwoiFOY8DPyrsF9rwtIN KydbTo3geEKvnMqoObXkFf NoYXJzZXQwXGZuaWwgQXJp ZCg4qC6PGavgS18mx3K7Te q5ZJMqNTAzP8QsFR2gHXRx wTOsV77GNmquOUG0MWYFGm pzNDYsAE5Xw8unHENovWSm ZFL0HWbqiGOgMJIfDWVcYV b1EPUhAFbvxMTqCR8efOaf QxrtdQqao7EnzGNnEFouGD FvJEKfTMpcTPEkQA0RDtGs BDD9MHC4OeBbNKu2CYu1AA 9QYhXwNCSaNPC1TkB5NgRp FBx5DEpbMX0UZQQ7RUd2XL SoDzV5MEP4JSGlQTRwLmGb XGYgQXJpYWwgXFxmbCBcXG 0xdRdicGXiieRKDoCIsEL4 PFnfETXpfQgiT5DqAnrqZQ JgMMggVEAvF04uf5BOp3Vj GX8SGHr6mtTusghyhC4gHB IkjfGzMNgvcMIdD6izH0Xq DQTdUfKuJhMyKLe1WPDpxV 0rEi7maQYozP8hhUWqGGds AMZ5gYXcaBF4gFRqrShvMX 9mgPYwKAGRRZJjG0Ceg6oj alMfuT1oUILzYR3kVLRmbT H2DUagFVTbnOjfG0LxAbGp oyFfP77tf1friVPzw8IjuH UdeOuodBRuXuNeU86yxiLp AC5oCCJhbf26iTk1OIA2tz Joo9TwbRo3KXWss5huVUIa h6D9WJAiSGUeyIRzqbyeiF 6bYXtsspPwGCSnDATbEQZ9 IQJfXeC0AWQuAYIjgO5iBZ JcXHKinIBgvF7vvmJtkcXc rrTpraZqkUXqyQPqmFW9BO RpMr7iaZ97bM2dCUDcoCCc DADrb86alB0nK8Kdq2C3oU QcMUOvnXZcJQ1GHNFgyvYN ClxjZjBcZnMyMiANClxwbG FpblxlcGljTmVzdERvYzBc pMiqbJ82POGdqIYlINV5EN 9iEVDfcaceHHUiXFLaFSE6 UUemtY57mYXqXORlAHBjbL GseQ2Do4coCHXjxBDpCMZ6 IFxcaWQgNTEwMDIgXFxkYi YfP5BJPXDpDVX6TmFfIDNa JZh4SXkkM0CEHIYxBVR4KH WfCFlvNaA0DZr7LWDBMv6e UQV1NKV5EpXuGHK4Gre6XR xcdCAyIFxcZiBBcmlhbCBc SUMqHZxsjgG4LVOmUVJxrP yjsZ7lHa7iNKYzwZwpNCgd SSDrhYtrM3YbDmoyBHVcAH tpQYPbN99gz3PRq5ZiDF2P ERx1kcFqnylrkT7dPJEswf YeGMkjtTPtX0nuY3KjYQSa IvRjXrNzPAv5XDLmeJ7uUc 0mrMRhxZ6lcXRxEXfvLZQ3 nMIvfUP7mGXbbVBeAZ5hON 2GKuUtH2Fmx9Hpe01huoAa YmVyIGFuZCAicHJveGltYW xzYSBcgCtnI0XcHjYidhBu O44ht3crwGYnr0Hco05icA meWaGzD78cbsSjXO9aWUVr od56uHh8FTZ7yPSzkJNcrJ Hbz1GydT6sDRggTCPbD9Yy E8U2EERcZwNarOVuYkOfxJ TtEiZcH53oQYSRfHOhm8Sm Y3mnNP5wgPZuHE79gYBucJ hga7CeeWh5mDTiMTIddTxf i2mrOdImrDx8vtW2kF1fCW avEPObo1DbxMBrPAPiDXlm bmUgXGxpbmUgRkVccGFyIA 0KXHBhciANClxjZjBcZnMy MiANClxwbGFpblxlcGljTm AkzNUgUhNznTaxyC15CYYb aGZmQGC3FC0vPKTwxweyVM QcCINsIZK3HJemgM99qDSr QAKfSRQnyERnqH9OEEYqTW U5UHuqyM83xISaXS1OXLSf PYQ3DHZraCWoBIO3YO0voR 0KfQ== MICROSCOPIC DESCRIPTION u1jcnEQsHGKmgUJ3PjImEJ (test code = 3371) Dko7ajl4KzyZNihTCcVNwi pFLmsuWtbp97vSM6fJ99VK 9fXDLpMbD7ATMqadY0Xfa9 VHRsGWFnpPUbY802p4hep8 jspzRbyJQ7kKitWCYfrrxf BdO6HExxBCNyrpjeALa6YQ etCHFixRL0YLOayWKrX8Vt PZFvLH0yztq6EMN2GVmpJI TlWfE0ZLZoaZSuQARjeUjz CLdxg205IZQ1HhTeDQSwvi TwvRnmhL3rDuIjYCLNEKSo p0EvCXJsXTPqmi6= Gross assessment was [facility] performed at ([facility], = 2777) Department of Pathology, [address] [place] [address], Technical component was [facility] performed at ([facility], = 2778) Department of Pathology, [address] [place], [place] [address], Professional component [facility] was performed at ([facility], code = 2779) Department of Pathology, [address] [place] [address], [facility] [id number] 14:29:40Surgical Pathology Report Case: [id number] Authorizing Provider: Paige Covarrubias, Collected:09/17/2021 08:28 AM Ordering Location: [facility] ENDOSCOPY Received: 09/17/2021 03:38 PM SERVICES Pathologist: Luanne Larkin MD Specimens: A) - Distal Esophagus, bxs r/o EOE B) - Proximal Esophagus, bxs r/o EOE A. DISTAL ESOPHAGUS, BIOPSY: - ESOPHAGEAL SQUAMOUS MUCOSA WITH BASAL CELL HYPERPLAS IA WITH MILD INCREASE IN INTRAEPITHELIAL LYMPHOCYTES - RARE EOSINOPHILS 0-1. (See Comment) B. PROXIMAL ESOPHAGUS, BIOPSY: - ESOPHAGEAL SQUAMOUS MUCOSA WITH DIFFUSE BASAL CELL HYPERPLASIA, INCREASED INTRAEPITHELIAL LYMPHOCYTES - NO INCREASED INTRAEPITHELIAL EOSINOPHILS NOTED SJ/pl Signing Pathologist Direct Phone Line: [phone] signed by Luanne Larkin MD on 09/18/2021 at 2:29 PMEndoscopic report reviewed. These findings show increased intraepithelial lymphocytes throughout the esophagus which suggest a lymphocytic pattern of esophagitis which can be seen in multiple conditions like drugs, infection, or systemic disease.However with a given history of eosinophilic esophagitis and patient on treatment, this finding may be consistent with treated eosinophilic [id number] x2A. Distal Esophagus.Received in formalin labeled the patient's name MRN accession number and "distal esophagus" and consists of multiple fragments of cruz-white to focally brown tissue measuring in aggregate 0.8 x 0.6 x 0.1 cm. The specimen is entirely submitted following filtration in cassette A1B. ProximalEsophagus.Received in formalin labeled the patient name MRN accession number and "proximal esophagus" and consists of small fragments of cruz-white tissue measuring in aggregate 0.6 x 0.4 x 0.1 cm. The s pecimen is entirely submitted following filtration in cassette D7GVQuovtssmu [facility], Department of Pathology, [address] [place] [address], [facility], Department of Pathology, [address] [place] [address], [facility], Department of Pathology, [address] [place] [address], [facility]. METABOLIC PANEL (86496)2021-07-04 01:23:48 Test Item Value Reference Range Interpretation Comments NA (test code = 139 mmol/L 135-145 8752593249) K (test code = 3.8 mmol/L 3.5-5.0 1178350743) CL (test code = 104 mmol/L 98-108 3284627247) CO2 TOTAL (test code 24 mmol/L 23-31 = 8229644736) AGAP (test code = 2-16 7450583314) BUN (test code = 12 mg/dL 7-23 8433971030) GLUCOSE (test code = 90 mg/dL 70-110 5519609882) CREATININE (test code 0.70 mg/dL 0.50-1.04 = 1292112700) TOTAL BILI (test code 0.4 mg/dL 0.1-1.1 = 6627632764) CALCIUM (test code = 8.9 mg/dL 8.6-10.6 4578399547) T PROTEIN (test code 7.2 g/dL 6.3-8.2 = 5305757126) ALBUMIN (test code = 4.7 g/dL 3.5-5.0 1649700852) ALK PHOS (test code = 47 U/L 34-122 9375155109) ALTv (test code = 15 U/L 5-35 1742-6) AST(SGOT) (test code 20 U/L 13-40 = 2423874102) eGFR (test code = mL/min/1.73m2 1776211958) RAGHU (test code = RAGHU) Association of [...] or urine or abnormalities in imaging tests). [facility] WITH [id number] 01:07:08 Test Item Value Reference Range Interpretation Comments WBC (test code = See_Comment [Automated 6690-2) message] The sy stem which generated this result transmitted reference range : 4.30 - 11.10 10*3/?L. The reference range was not used to interpret this result as normal/abnormal . RBC (test code = See_Comment [Automated 789-8) message] The sy stem which generated this [...] RDW-SD (test code = 43.8 fL 39.0-49.9 82598-1) RDW-CV (test code = 12.7 % 12.0-15.5 788-0) PLT (test code = See_Comment [Automated 777-3) message] The sy stem which generated this result transmitted reference range : 166 - 358 10*3/ ?L. The reference r abhishek was not used to interpret this result as normal/abnormal . MPV (test code = 9.9 fL 9.5-12.9 85244-3) NRBC/100 WBC (test See_Comment [Automat ed code = 6097201991) message] The system which generated this result transmitted reference range : 0.0 - 10.0 /100 WBCs. The refer ence range was not u sed to interpret th is result as normal/abnormal . NRBC x10^3 (test code <0.01 See_Comment [Auto mated = 9136581298) message] The s ystem which generated this result transmitted reference range : 10*3/?L. The reference range was not used to interpret this result as normal/abnormal . GRAN MAT (NEUT) % 61.6 % (test code = 770-8) IMM GRAN % (test code 0.30 % = 2113777482) LYMPH % (test code = 29.3 % 736-9) MONO % (test code = 8.7 % 5905-5) EOS % (test code = 0.0 % 713-8) BASO % (test code = 0.1 % 706-2) GRAN MAT x10^3(ANC) 4.57 10*3/uL 1.88-7.09 (test code = 4388393903) IMM GRAN x10^3 (test <0.03 0.00-0.06 code = 8558606585) LYMPH x10^3 (test code 2.18 10*3/uL 1.32-3.29 = 731-0) MONO x10^3 (test code 0.65 10*3/uL 0.33-0.92 = 742-7) EOS x10^3 (test code = <0.03 0.03-0.39 L 711-2) BASO x10^3 (test code <0.03 0.01-0.07 = 704-7) Lab Interpretation Abnormal (test code = 18977-8) [facility] [id number] 19:24:18 Test Item Value Reference Interpretation Comments Range TROPONIN I (test 0.002 ng/mL See_Comment [Automated code = 9972864842) message] The system which generated this result [...] biotin. Lab Interpretation Normal (test code = 94071-8) [facility]. METABOLIC PANEL ([id number])2021-04-21 19:12:59 Test Item Value Reference Range Interpretation Comments NA (test code = 138 mmol/L 135-145 8031662952) K (test code = 4.1 mmol/L 3.5-5.0 1763279139) CL (test code = 101 mmol/L 98-108 7528854037) CO2 TOTAL (test code 29 mmol/L 23-31 = 0401714390) AGAP (test code = 2-16 5321242398) BUN (test code = 10 mg/dL 7-23 2897495894) GLUCOSE (test code = 71 mg/dL 70-110 7742831804) CREATININE (test code 0.71 mg/dL 0.50-1.04 = 3408733468) TOTAL BILI (test code 0.5 mg/dL 0.1-1.1 = 7899785508) CALCIUM (test code = 9.6 mg/dL 8.6-10.6 0875650428) T PROTEIN (test code 7.6 g/dL 6.3-8.2 = 1672075940) ALBUMIN (test code = 4.7 g/dL 3.5-5.0 1273330059) ALK PHOS (test code = 66 U/L 34-122 9853723267) ALTv (test code = 17 U/L 5-35 1742-6) AST(SGOT) (test code 22 U/L 13-40 = 8747886215) eGFR (test code = mL/min/1.73m2 1238067221) RAGHU (test code = RAGHU) Association of [...] or urine or abnormalities in imaging tests). [id number]:12:39 Test Item Value Reference Range Interpretation Comments LIPASE (test code = 6494130567) 81 U/L 0-220 Lab Interpretation (test code = Normal 67808-8) [facility] 19:07:37 Test Item Value Reference Range Interpretation Comments APTT Patient (test See_Comment [Automat ed code = 3173-2) message] The system which generated this result transmitted reference range : 23 - 38 Seconds . The reference range was not used to interpr et this result as normal/abnormal . RAGHU (test code = RAGHU) The [facility] patient population mean normal value for aPTT is 30 seconds. Lab Interpretation Normal (test code = 47532-7) [facility] / [id number] 19:05:41 Test Item Value Reference Range Interpretation [...] tions. Lab Interpretation (test Normal code = 78195-4) [facility] [id number] 18:57:17 Test Item Value Reference Range Interpretation Comments WBC (test code = See_Comment [Automated 6690-2) message] The sy stem which generated this result transmitted reference range : 4.30 - 11.10 10*3/?L. The reference range was not used to interpret this result as normal/abnormal . RBC (test code = See_Comment [Automated 789-8) message] The sy stem which generated this [...] RDW-SD (test code = 42.4 fL 39.0-49.9 43625-5) RDW-CV (test code = 12.2 % 12.0-15.5 788-0) PLT (test code = See_Comment [Automated 777-3) message] The sy stem which generated this result transmitted reference range : 166 - 358 10*3/ ?L. The reference r abhishek was not used to interpret this result as normal/abnormal . MPV (test code = 9.5 fL 9.5-12.9 65075-8) NRBC/100 WBC (test See_Comment [Automat ed code = 5256171442) message] The system which generated this result transmitted reference range : 0.0 - 10.0 /100 WBCs. The refer ence range was not u sed to interpret th is result as normal/abnormal . NRBC x10^3 (test code <0.01 See_Comment [Auto mated = 5529538299) message] The s ystem which generated this result transmitted reference range : 10*3/?L. The reference range was not used to interpret this result as normal/abnormal . GRAN MAT (NEUT) % 65.7 % (test code = 770-8) IMM GRAN % (test code 0.60 % = 0912266466) LYMPH % (test code = 19.3 % 736-9) MONO % (test code = 10.2 % 5905-5) EOS % (test code = 3.8 % 713-8) BASO % (test code = 0.4 % 706-2) GRAN MAT x10^3(ANC) 4.50 10*3/uL 1.88-7.09 (test code = 2374608951) IMM GRAN x10^3 (test 0.04 10*3/uL 0.00-0.06 code = 6593723318) LYMPH x10^3 (test code 1.32 10*3/uL 1.32-3.29 = 731-0) MONO x10^3 (test code 0.70 10*3/uL 0.33-0.92 = 742-7) EOS x10^3 (test code = 0.26 10*3/uL 0.03-0.39 711-2) BASO x10^3 (test code 0.03 10*3/uL 0.01-0.07 = 704-7) Lab Interpretation Abnormal (test code = 45729-9) [id number] 18:47:00 Test Item Value Reference Range Interpretation Comments POCT PREG (test code = 1605) negative On board controls acceptable with present C Line (test code = 3574) POCT PREG LOT # (test code = 3575) [id number] POCT PREG TEST DATE (test code = 3576) Lab Interpretation (test code = Normal 50390-5) [facility] [id number] 10:19:40Surgical Pathology Report Case: [id number] Authorizing Provider: Paige Covarrubias, Collected: 04/16/2021 09:04 AM Ordering Location: [facility]COPY Received: 04/16/2021 12:59 PM SERVICES Pathologist: Danelle Brown MD Specimens: A) - Distal Esophagus B) - Proximal Esophagus A. DISTAL ESOPHAGUS, BIOPSY:-Squamous esophageal mucosa with intramucosal eosinophils (20/HPF),minute eosinophilic micro abscesses elongated fibrovascular papillae and basal cell hyperplasia, seecommentD. PROXIMAL ESOPHAGUS, BIOPSY:-Squamous esophageal mucosa with intramucosal eosinophils (13/HPF), elongated fibrovascular papillae and basal cell hyperplasia, see comment Signing Pathologist Direct Phone Line: [phone] signed by Danelle Brown MD on 04/17/2021 at 10:19 Gonzalez the right clinical setting, the findings are consistent with eosinophilic esophagitis.[id number] dysphagia, Eosinophilic esophagitisA. Distal esophagusB. Proximal esophagusA. Received in formalin labeled the patient's name, accession number and "distal esophagus" are 4 cruz soft tissuefragments measuring up to 0.4 cm in greatest dimension which are filtered and submitted in toto in A1.B. Received in formalin labeled the patient's name, accession number and "proximal esophagus" are 3tan soft tissue fragments measuring up to 0.4 cm in greatest dimension which are filtered and submitted in toto in B1.NABIL Blanca, HT (ASCP)[facility], Department of Pathology, [address] [place] [address], [facility], [facility] of [facility], [address] [place] [address], [facility], Department of [facility]ology, [address] [place] [address], LXYT. METABOLIC PANEL (55985)2021-03-31 07:44:02 Test Item Value Reference Range Interpretation Comments NA (test code = 138 mmol/L 135-145 3453011304) K (test code = 4.0 mmol/L 3.5-5.0 0982456647) CL (test code = 102 mmol/L 98-108 2627153631) CO2 TOTAL (test code 26 mmol/L 23-31 = 8482258117) AGAP (test code = 2-16 6500525619) BUN (test code = 8 mg/dL 7-23 3125910307) GLUCOSE (test code = 95 mg/dL 70-110 8960374689) CREATININE (test code 0.69 mg/dL 0.50-1.04 = 9467265381) TOTAL BILI (test code 0.6 mg/dL 0.1-1.1 = 0125420360) CALCIUM (test code = 10.1 mg/dL 8.6-10.6 8873226352) T PROTEIN (test code 7.9 g/dL 6.3-8.2 = 0591495829) ALBUMIN (test code = 4.9 g/dL 3.5-5.0 4371009423) ALK PHOS (test code = 89 U/L 34-122 6067349816) ALTv (test code = 18 U/L 5-35 1742-6) AST(SGOT) (test code 24 U/L 13-40 = 0263890190) eGFR (test code = mL/min/1.73m2 2033115593) RAGHU (test code = RAGHU) Association of [...] or urine or abnormalities in imaging tests). [facility] WITH [id number] 07:31:00 Test Item Value Reference Range Interpretation Comments WBC (test code = See_Comment [Automated message] 6690-2) The system [employer]Sendo generated this result transmitted ref erence range: 4.30 - 1 1.10 10*3/?L. The re ference range was not u sed to interpret this result as normal/abnor mal. RBC (test code = See_Comment [Automated message] 789-8) The system [employer] generated this result transmitted ref erence range: [...] RDW-SD (test code 40.0 fL 39.0-49.9 = 74740-5) RDW-CV (test code 12.0 % 12.0-15.5 = 788-0) PLT (test code = See_Comment [Automated message] 777-3) The system [employer] generated this result transmitted ref erence range: 166 - 35 8 10*3/?L. The re ference range was not u sed to interpret this result as normal/abnor mal. MPV (test code = 9.5 fL 9.5-12.9 66823-3) NRBC/100 WBC (test See_Comment [Automat ed message] code = 8874358028) The syste Ahead which generated this result transmitted ref erence range: 0.0 - 10 .0 /100 WBCs. The refer ence range was not u sed to interpret this result as normal/abnor mal. NRBC x10^3 (test <0.01 See_Comment [Automated message] code = 3298774867) The syste m which generated this result transmitted ref erence range: 10*3/?L. The reference range was not used to interpr et this result as normal/abnormal . GRAN MAT (NEUT) % 63.1 % (test code = 770-8) IMM GRAN % (test 0.50 % code = 3893589489) LYMPH % (test code 27.0 % = 736-9) MONO % (test code 7.9 % = 5905-5) EOS % (test code = 1.1 % 713-8) BASO % (test code 0.4 % = 706-2) GRAN MAT 6.93 10*3/uL 1.88-7.09 x10^3(ANC) (test code = 5906119593) IMM GRAN x10^3 0.05 10*3/uL 0.00-0.06 (test code = 0134885538) LYMPH x10^3 (test 2.96 10*3/uL 1.32-3.29 code = 731-0) MONO x10^3 (test 0.87 10*3/uL 0.33-0.92 code = 742-7) EOS x10^3 (test 0.12 10*3/uL 0.03-0.39 code = 711-2) BASO x10^3 (test 0.04 10*3/uL 0.01-0.07 code = 704-7) [facility] [id number] 06:38:00 Test Item Value Reference Range Interpretation Comments POCT PREG (test code = 1605) negative On board controls acceptable with present C Line (test code = 3574) POCT PREG LOT # (test code = 3575) [id number] POCT PREG TEST DATE (test 2022-06-03 code = 3576) Lab Interpretation (test code = Normal 33765-8) [facility] [id number] 15:18:00Surgical Pathology Report Case: [id number] Authorizing Provider: Paige Covarrubias, Collected:12/06/2020 09:46 AM Ordering Location: [facility] Received: 12/06/2020 11:33 AM SERVICES Pathologist: Blanca Doty MD Specimens: A) - Distal Esophagus, BX B) - Proximal Esophagus, BX A. ESOPHAGUS, DISTAL, BIOPSY: - ESOPHAGITIS (SEE MICRO)B. ESOPHAGUS, PROXIMAL, BIOPSY: - ESOPH AGITIS (SEE MICRO)NZK/pl Signing Pathologist Direct Phone Line: [phone] signed byBlanca Doty MD on 12/07/2020 at 3:18 [id number] o9Nhqhrhisuf dysphagiaEosinophilic esophagitisA.Distal esophagusB. Proximal esophagusAll specimens are received in [...] eosinophilic esophagitis. Clinical correlation is recommended. SARS-COV2/RT-PCR ([facility])2020-12-05 23:01:00 Test Item Value Reference Range Interpretation Comments SARS-COV2/RT-PCR (test code = Negative Negative 7201209) Negative result for this test determines that [...] of the Act.Testing was performed using the Quiorz SARS-CoV-2 assay.Fact Sheet for Healthcare Providers:https://www.Artvalue.com.Teravac/rosie/RT SARS-CoV-2 HCP Fact Sheet 51- 356859.pdfFact Sheet for Healthcare Patients:https://www.Artvalue.com.quiroz/rosie/RT SARS-CoV-2 Patient Fact Sheet EN 51-340951C8.pdfTISSUE [id number] 16:32:00 Surgical Pathology Report Case: [id number] Authorizing Provider: Paige Covarrubias, Collected: 08/02/2020 09:10 AM Ordering Location: [facility] Received: 08/02/2020 12:40 PM SERVICES Pathologist: Blanca Doty MD Specimens: A) - Distal Esophagus, BX R/O EOE B) - Proximal Esophagus, BX R/O EOE A. ESOPHAGUS, DISTAL, BIOPSY: - ESOPHAGITIS (SEE MICRO)B. ESOPHAGUS, PROXIMAL, BIOPSY: - ESOPHAGITIS (SEE MICRO)MAKEDA/roxi Signing Pathologist Direct Phone Line: [phone] signed by Blanca Doty MD on 08/04/2020 at 4:32 [id number] b4Vesquqypybie esophagitis, esophageal dysphagiaA. Distal esophagusB. Proximal esophagusRule out EOEA. Received in formalin labeled withthe patient's name, medical record number and "distal esophagus" and consists of multiple translucent, graywhite tissue fragments measuring 0.1-0.5 centimeters in greatest dimension. Submitted in toto in A1.B. Received in formalin labeled with the patient's name, medical record number and "proximal esophagus" and consists of 4 translucent graywhite tissue fragments measuring from less than 0.1 to 0.5cm in greatest dimension. Submitted in toto in B1./CEDRIC- B. Esophageal biopsies have squamous epithelium. Marked reactive change and basal cell hyperplasia is seen in the biopsy of the distal esophagus with many intraepithelial lymphocytes and eosinophils (as many as 15 eosinophils per HPF). Biopsy of proximal esophagus on the other hand has mild basal cell hyperplasia with no intraepithelial eosinophils. This pattern is suggestive of a severe reflux esophagitis. No fungi, viral cytopathic effect, intestinal metaplasia, dysplasia or malignancy is seen.- DUP AB/PEL/SC/[id number] 21:02:00 [facility] : 1985 Sex: F Patient Name: MORGAN FERGUSON Unit No: [id number] EXAMS: CPT CODE: [id number] DUP AB/PEL/SC/LTD 01200 PROCEDURE: PELVIC ULTRASOUND INDICATION: Vaginal bleeding status [...] Orig Print D/T: S: 04/15/2020 (2104) [facility] [place] [facility] NAME: MORGAN FERGUSON Radiology Department PHYS: CHRISBlanca RodríguezRodney Forte [address] : 1985 AGE: 35 SEX: F [place] [address] LOC: EugeneERS PHONE #: [phone] EXAM DATE: 04/15/2020 STATUS: REG ER FAX #: [phone] RAD NO: Page 1 Signed Report Patient Name: MORGAN FERGUSON Unit No: [id number] EXAMS: CPT CODE: [id number] DUP AB/PEL/SC/LTD 93638 (Continued) [facility] [place] [facility] NAME: MORGAN FERGUSON Radiology Department PHYS: Jesus Emmy MarcosRodney Radhacatalino [address] : 1985 AGE: 35 SEX: F [place] [address] LOC: EugeneERS PHONE #: [phone] EXAM DATE: 04/15/2020 STATUS: REG ER FAX #: [phone] RAD NO: Page 2 Signed Report- US TRANSVAGINAL W/[id number] 21:02:00 [facility] : 1985 Sex: F Patient Name: MORGAN FERGUSON Unit No: [id number] EXAMS: CPT CODE: [id number] US TRANSVAGINAL W/PELVIS 16085 PROCEDURE: PELVIC ULTRASOUND INDICATION: Vaginal bleeding status post hysterectomy 1 month ago. COMPARISON: None. TRANSABDOMINAL SCAN: The uterus is not visualized. Right ovary appearsnormal measuring 2.8 x 1.8 x 1.6 cm with arterial waveforms documented. Left ovary appears normal jamey suring 2.9 x 2.2 x 2 cm with [...] O DO Technologist: Karin Winters RDMS Probe: [id number] Trnscrbd D/ (2101) t.SABASR.SG9 Orig Print D/T: S: 04/15/2020 (2104) [facility] [place] [facility] NAME: MORGAN FERGUSON Radiology Department PHYS: Rodney Glynn [address] : 1985 AGE: 35 SEX: F [place], [place] [address] LOC: UNIQUE PHONE #: [phone] EXAM DATE: 04/15/2020 STATUS: [place] FAX #: [phone] RAD NO: Page 1 Signed Report Patient Name: MORGAN FERGUSON Unit No: [id number] EXAMS: CPT CODE: [id number] US TRANSVAGINAL W/PELVIS 38505 (Continued) [facility] [place] [facility] NAME: MORGAN FERGUSON Radiology Department PHYS: Rodney Glynn [address] : 1985 AGE: 35 SEX: F [place], [place] [address] LOC: UNIQUE PHONE #: [phone] EXAM DATE: 04/15/2020 STATUS: REG ER FAX #: [phone] RAD NO: Page 2 Signed Report- US PELVIS [id number] 21:02:00 [facility] : 1985 Sex: F Patient Name: MORGAN FERGUSON Unit No: [id number] EXAMS: CPT CODE: [id number] US PELVIS COMPLETE 01478 PROCEDURE: PELVIC ULTRASOUND INDICATION: Vaginal bleeding status post hysterectomy 1 monthago. COMPARISON: None. TRANSABDOMINAL SCAN: The uterus is not visualized. Right ovary appears normalmeasuring 2.8 x 1.8 x 1.6 cm with arterial waveforms documented. Left ovary appears normal measuring2.9 x 2.2 x 2 cm with arterial [...] pelvic sonographic abnormality identified. SL: SG-H at 2102 Reported and signed by: Magan Ayala MD CC: Mari De La O DO Technologist: Karin Winters RDMS Probe: Trnscrbd D/ (2101) t.SABASR.SG9 Orig Print D/T: S: 04/15/2020 (2104) [facility] NAME: MORGAN FERGUSON Radiology Department PHYS: CHRISChecoRodney Jean [address] : 1985 AGE: 35 SEX: F [place] [address] LOC: EugeneERS PHONE #: [phone] EXAM DATE: 04/15/2020 STATUS: REG ER FAX #: [phone] RAD NO: Page 1 Signed Report Patient Name: MORGAN FERGUSON Unit No: [id number] EXAMS: CPT CODE: [id number] US PELVIS COMPLETE 13518 (Continued) [facility] [place] [facility] NAME: MORGAN FERGUSON Radiology Department PHYS: CHRISChecoRodney Jean [address] : 1985 AGE: 35 SEX: F [place] [address] LOC: [place].ERS PHONE #: [phone] EXAM DATE: 04/15/2020 STATUS: REG ER FAX #: [phone] RAD NO: Page 2 Signed ReportCOMPREHENSIVE METABOLIC [id number] 19:45:00 Test Item Value Reference Range Interpretation [...] = ALKP) UA RFLX MICR CULT IF [id number] 19:42:00 Test Item Value Reference Range Interpretation [...] culture: Gross HematuriaSpecimen Description: CLEAN CATCHCBC W/AUTO [id number] 19:33:00 Test Item Value Reference Range Interpretation [...] NORMAL NORMAL code = PLTMR) Automated blood neutrophil count (number/volume)2020-03-28 23:58:00 Test Item [...] Interpretation Comments Anion Gap (test code = 11416-2) 6.0 3.0-11.0 [facility] or plasma urea nitrogen measurement (mass/volume)2020-03-28 23:58:00 Test Item Value Reference Range Interpretation Comments Blood Urea Nitrogen (test code = 10.0 -22 3094-0) [facility] HealthSerum or plasma creatinine measurement (mass/volume)2020-03-28 23:58:00 Test Item Value Reference Range Interpretation Comments Creatinine (test code = 2160-0) 0.78 0.60-1.02 [facility] HealthEstimated renal creatinine clearance calculated from serum or plasma creatinine by Cockcroft-Gault formula (volume/time)2020-03-28 23:58:00 Test Item Value Reference Range Interpretation Comments Estimated Creatinine Clearance (test 99.8 code = 21092-2) [facility] HealthGlomerular filtration rate (GFR) estimation using MDRD equation 2020-03-28 23:58:00 Test Item Value Reference Range Interpretation Comments Estimat Glomerular Filtration Rate 90.40 >60 (test code = 295462840) [facility] HealthSerum or plasma urea nitrogen/creatinine mass [id number] 23:58:00 Test Item Value Reference Range Interpretation Comments BUN/Creatinine Ratio (test code = 13 3097-3) [facility] HealthSerum or plasma glucose measurement (mass/volume)2020-03-28 23:58:00 Test Item Value Reference Range Interpretation Comments Glucose Level (test code = 2345-7) 106 74-112 [facility] HealthSerum or plasma calcium measurement (mass/volume)2020-03-28 23:58:00 Test Item Value Reference Range Interpretation Comments Calcium Level (test code = 01493-1) 10.0 9.0-10.2 [facility] HealthSerum or plasma total [...] Reference Range Interpretation Comments Alanine Aminotransferase (ALT/SGPT) (test code = 1742-6) [facility] HealthSerum or [...] Range Interpretation Comments Globulin (test code = 13133-2) 2.3 [facility] HealthSerum or plasma albumin/globulin mass xeusg4602-47-82 23:58:00 Test Item Value Reference Range Interpretation Comments Albumin/Globulin Ratio (test code = 2.2 1759-0) [facility] HealthSerum or plasma alkaline phosphatase measurement (enzymatic activity/volume)2020-03-28 23:58:00 Test Item Value Reference Range Interpretation Comments Alkaline Phosphatase (test code = 76 45-100 6768-6) [facility] HealthAutomated blood leukocyte count (number/volume)2020-03-28 23:58:00 Test Item [...] = 786-4) [facility] HealthAutomated erythrocyte distribution width jwcoe0062-48-60 23:58:00 Test Item Value Reference Range Interpretation Comments Red Cell Distribution Width (test code 13.1 11.5-14.5 = 788-0) [facility] HealthAutomated blood platelet count (count/volume)2020-03-28 23:58:00 Test Item Value Reference Range Interpretation Comments Platelet Count (test code = 777-3) 259 160-400 [facility] HealthAutomated blood platelet mean volume gkammxkpubt2641-95-78 23:58:00 Test Item Value Reference Range Interpretation Comments Mean Platelet Volume (test code = 9.8 7.5-11.2 75485-3) [facility] HealthAutomated blood neutrophil count as percentage of total cyanwcezqz8860-85-08 23:58:00 Test Item Value Reference Range Interpretation Comments Neutrophils (%) (Auto) (test code = 58 45-75 770-8) [facility] HealthAutomated blood immature granulocyte count as percentage of total oezyodialj4892-49-09 23:58:00 Test Item Value Reference Range Interpretation Comments Immature Granulocyte % (Auto) (test 0.3 0.0-1.5 code = 27735-2) [facility] HealthAutomated blood lymphocyte count as percentage of total dcziktulos1413-53-40 23:58:00 Test Item Value Reference Range Interpretation Comments Lymphocytes (%) (Auto) (test code = 32 20-48 736-9) [facility] HealthAutomated blood monocyte count as percentage of total leukocytes 2020-03-28 23:58:00 Test Item Value Reference Range Interpretation Comments Monocytes (%) (Auto) (test code = 8 1-9 5905-5) [facility] HealthAutomated blood eosinophil count as percentage of total uuidtzuwmp5359-87-36 23:58:00 Test Item Value Reference Range Interpretation Comments Eosinophils (%) (Auto) (test code = 2 0-4 713-8) [facility] HealthAutomated blood basophil count as percentage of total leukocytes 2020-03-28 23:58:00 Test Item Value Reference Range Interpretation Comments Basophils (%) (Auto) (test code = 0 0-2 706-2) [facility] HealthAutomated blood nucleated erythrocyte count as percentage of total doetemudzt2380-01-65 23:58:00 Test Item Value Reference Range Interpretation Comments Nucleated Red Blood Cells % (test code 0 0-1 = 59132-8) [facility] HealthAutomated blood neutrophil count as percentage of total sjjavocttp3396-27-35 23:58:00 Test Item Value Reference Range Interpretation Comments Neutrophils (%) (Auto) (test code = 58 770-8) [facility] HospitalAutomated blood immature granulocyte count as percentage of total elxvogngmc7171-80-65 23:58:00 Test Item Value Reference Range Interpretation Comments Immature Granulocyte % (Auto) (test 0.3 code = 93155-7) [facility] HospitalAutomated blood lymphocyte count as percentage of total vipacnrgtm4198-63-82 23:58:00 Test Item Value Reference Range Interpretation Comments Lymphocytes (%) (Auto) (test code = 32 736-9) [facility] HospitalAutomated blood monocyte count as percentage of total drteknihve1318-83-77 23:58:00 Test Item Value Reference Range Interpretation Comments Monocytes (%) (Auto) (test code = 8 5905-5) [facility] HospitalAutomated blood eosinophil count as percentage of total umweqbuard0793-09-81 23:58:00 Test Item Value Reference Range Interpretation Comments Eosinophils (%) (Auto) (test code = 2 713-8) [facility] HospitalAutom[facility] basophil count as percentage of total bcnxhzbrut0933-05-48 23:58:00 Test Item Value Reference Range Interpretation Comments Basophils (%) (Auto) (test code = 0 706-2) [facility] HospitalAutomated blood nucleated erythrocyte count as percentage of total ceuktfpuel8328-12-86 23:58:00 Test Item Value Reference Range Interpretation Comments Nucleated Red Blood Cells % (test code 0 = 91261-9) [facility] HospitalAutomated blood neutrophil count (number/volume)2020-03-28 23:58:00 Test Item Value Reference Range Interpretation Comments Neutrophils # (Auto) (test code = 6.18 751-8) [facility] HospitalSerum or plasma sodium measurement (moles/volume)2020-03-28 23:58:00 Test Item Value Reference Range Interpretation Comments Sodium Level (test code = 2951-2) 138 [facility] potassium measurement (moles/volume)2020-03-28 23:58:00 Test Item Value Reference Range Interpretation Comments Potassium Level (test code = 2823-3) 3.9 [facility] HospitalSerum or plasma chloride measurement (moles/volume)2020-03-28 23:58:00 Test Item Value Reference Range Interpretation Comments Chloride Level (test code = 2075-0) 107 [facility] HospitalSerum or plasma total carbon dioxide measurement (moles/volume)2020-03-28 23:58:00 Test Item Value Reference Range Interpretation Comments Carbon Dioxide Level (test code = 25 8-9) [facility] anion gap determination (moles/volume)2020-03-28 23:58:00 Test Item Value Reference Range Interpretation Comments Anion Gap (test code = 77388-2) 6.0 [facility] urea nitrogen measurement (mass/volume)2020-03-28 23:58:00 Test Item Value Reference Range Interpretation Comments Blood Urea Nitrogen (test code = 10.0 3094-0) [facility] creatinine measurement (mass/volume)2020-03-28 23:58:00 Test Item Value Reference Range Interpretation Comments Creatinine (test code = 2160-0) 0.78 [facility] HospitalEstimated renal creatinine clearance calculated from serum or plasma creatinine by Cockcroft-Gault formula (volume/time)2020-03-28 23:58:00 Test Item Value Reference Range Interpretation Comments Estimated Creatinine Clearance (test 99.8 code = 46212-6) [facility] HospitalGlomerular filtration rate (GFR) estimation using MDRD qxfprrcf1871-81-73 23:58:00 Test Item Value Reference Range Interpretation Comments Estimat Glomerular Filtration Rate 90.40 (test code = 878064138) [facility]er[facility] urea nitrogen/creatinine mass zfusu3168-95-94 23:58:00 Test Item Value Reference Range Interpretation Comments BUN/Creatinine Ratio (test code = 13 3097-3) [facility]er[facility] or plasma glucose measurement (mass/volume)2020-03-28 23:58:00 Test Item Value Reference Range Interpretation Comments Glucose Level (test code = 2345-7) 106 [facility]er[facility] or plasma calcium measurement (mass/volume)2020-03-28 23:58:00 Test Item Value Reference Range Interpretation Comments Calcium Level (test code = 82291-5) 10.0 [facility]er[facility] or plasma total bilirubin measurement (mass/volume)2020-03-28 23:58:00 Test Item Value Reference Range Interpretation Comments Total Bilirubin (test code = 1975-2) 0.[address] [facility] or plasma aspartate aminotransferase measurement (enzymatic activity/volume)2020-03-28 23:58:00 Test Item Value Reference Range Interpretation Comments Aspartate Amino Transf (AST/SGOT) (test 19 code = 1920-8) [facility] alanine aminotransferase measurement (enzymatic activity/volume)2020-03-28 23:58:00 Test Item Value Reference Range Interpretation Comments Alanine Aminotransferase (ALT/SGPT) 18 (test code = 1742-6) [facility] plasma protein measurement (mass/volume)2020-03-28 23:58:00 Test Item Value Reference Range Interpretation Comments Total Protein (test code = 2885-2) 7.3 [facility] Hospitaler[facility] or plasma albumin measurement (mass/volume)2020-03-28 23:58:00 Test Item Value Reference Range Interpretation Comments Albumin (test code = 1751-7) 5.[address] [facility] globulin measurement by calculation (mass/volume)2020-03-28 23:58:00 Test Item Value Reference Range Interpretation Comments Globulin (test code = 27743-2) 2.3 [facility] albumin/globulin mass ratio 2020-03-28 23:58:00 Test Item Value Reference Range Interpretation Comments Albumin/Globulin Ratio (test code = 2.2 1759-0) [facility] alkaline phosphatase measurement (enzymatic activity/volume)2020-03-28 23:58:00 Test Item Value Reference Range Interpretation Comments Alkaline Phosphatase (test code = 76 6768-6) [facility] HospitalAutomated blood leukocyte count (number/volume)2020-03-28 23:58:00 Test Item Value Reference Range Interpretation Comments White Blood Count (test code = 6690-2) 10.7 [facility] automated count (number/volume)2020-03-28 23:58:00 Test Item Value Reference Range Interpretation Comments Red Blood Count (test code = 789-8) 4.30 [facility] (mass/volume) 2020-03-28 23:58:00 Test Item Value Reference Range Interpretation Comments Hemoglobin (test code = 718-7) 13.5 [facility] blood hematocrit (volume fraction)2020-03-28 23:58:00 Test Item Value Reference Range Interpretation Comments Hematocrit (test code = 4544-3) 40.4 [facility] HospitalAutomated erythrocyte mean corpuscular volume (MCV) [id number] 23:58:00 Test Item Value Reference Range Interpretation Comments Mean Corpuscular Volume (test code = 94.0 787-2) [facility] HospitalAutomated erythrocyte mean corpuscular hemoglobin (mass per erythrocyte)2020-03-28 23:58:00 Test Item Value Reference Range Interpretation Comments Mean Corpuscular Hemoglobin (test code 31.4 = 785-6) [facility] HospitalAutomated erythrocyte mean corpuscular hemoglobin concentration measurement (mass/volume)2020-03-28 23:58:00 Test Item Value Reference Range Interpretation Comments Mean Corpuscular Hemoglobin Concent 33.4 (test code = 786-4) [facility] distribution width [id number] 23:58:00 Test Item Value Reference Range Interpretation Comments Red Cell Distribution Width (test code 13.1 = 788-0) [facility] HospitalAutomated blood platelet count (count/volume)2020-03-28 23:58:00 Test Item Value Reference Range Interpretation Comments Platelet Count (test code = 777-3) 259 [facility] HospitalAutomated blood platelet mean volume [id number] 23:58:00 Test Item Value Reference Range Interpretation Comments Mean Platelet Volume (test code = 9.8 29325-7) [facility] HospitalUrinalysis specimen collection method 2020-03-28 23:53:00 Test Item Value Reference Range Interpretation Comments Urine Source (test code = Urine Clean Catch 18625-3) [facility] [id number] 23:53:00 Test Item Value Reference Range Interpretation Comments Urine Color (test code = 5778-6) Red Yel-Mallory [facility] appearance [id number] 23:53:00 Test Item Value Reference Range Interpretation Comments Urine Appearance (test code = 5767-9) Turbid Clear [facility] pH measurement by test [id number] 23:53:00 Test Item Value Reference Range Interpretation Comments Urine pH (test code = 5803-2) 6.5 5.0-7.5 [facility] gravity ur [id number] 23:53:00 Test Item Value Reference Range Interpretation Comments Urine Specific [place] (test code = 1.022 1.003-1.029 5811-5) [facility] protein measurement by automated test strip (mass/volume) 2020-03-28 23:53:00 Test Item Value Reference Range Interpretation Comments Urine Protein (test code = 36646-0) 3+ Neg - Trace [facility] glucose measurement by automated test strip (mass/volume) 2020-03-28 23:53:00 Test Item Value Reference Range Interpretation Comments Urine Glucose (UA) (test code = Negative Negative 83010-0) [facility] ketones detection by automated test [id number] 23:53:00 Test Item Value Reference Range Interpretation Comments Urine Ketones (test code = 80277-4) Negative Negative [facility] erythrocytes count by automated test strip (number/volume) 2020-03-28 23:53:00 Test Item Value Reference Range Interpretation Comments Urine Occult Blood (test code = 3+ Negative 50732-9) [facility] nitrite detection by automated test [id number] 23:53:00 Test Item Value Reference Range Interpretation Comments Urine Nitrite (test code = 60620-5) Negative Negative [facility] total bilirubin detection by automated test [id number] 23:53:00 Test Item Value Reference Range Interpretation Comments Urine Bilirubin (test code = Negative Negative 53903-3) [facility] urobilinogen measurement by automated test strip (mass/volume)2020-03-28 23:53:00 Test Item Value Reference Range Interpretation Comments Urine Urobilinogen (test code = Normal Norm-1.0 24894-7) [facility] leukocyte esterase detection by automated test strip 2020-03-28 23:53:00 Test Item Value Reference Range Interpretation Comments Urine Leukocyte Esterase (test code Negative Negative = 46006-4) [facility] sediment erythrocyte count by microscopy (number/high power field)2020-03-28 23:53:00 Test Item Value Reference Range Interpretation Comments Urine RBC (test code 5-10 See_Comment [Autom ated message] The = 98539-7) system which ge nerated this result transmit chrisitna reference range : 0 to 5. The reference r abhishek was not used to interpr et this result as armida l/abnormal. [facility] sediment leukocyte count by microscopy (number/high power field)2020-03-28 23:53:00 Test Item Value Reference Range Interpretation Comments Urine WBC (test code 0 to 2 See_Comment [Autom ated message] The = 5821-4) system which ge nerated this result tra nsmitted reference range : 0 to 5. The reference r abhishek was not used to int erpret this result as armida l/abnormal. [facility] sediment epithelial cell count by microscopy (number/low power field)2020-03-28 23:53:00 Test Item Value Reference Range Interpretation Comments Urine Epithelial Cells (test code = None seen None/Occ 76678-7) [facility] sediment bacteria count by microscopy (number/high power field)2020-03-28 23:53:00 Test Item Value Reference Range Interpretation Comments Urine Bacteria (test code = 5769-5) Few None [facility] sediment hyaline cast count by microscopy (number/low power field)2020-03-28 23:53:00 Test Item Value Reference Range Interpretation Comments Urine Hyaline Casts (test code = None Seen 5796-8) [facility]east detection in urine sediment by light [id number] 23:53:00 Test Item Value Reference Range Interpretation Comments Urine Yeast (test code = 23533-1) None Seen [facility] comment [id number] 23:53:00 Test Item Value Reference Range Interpretation Comments Urine Culture Indicated (test code = No 8264-4) [facility] HealthUrinalysis specimen collection [id number] 23:53:00 Test Item Value Reference Range Interpretation Comments Urine Source (test code = Urine Clean Catch 01282-9) [place] color [id number] 23:53:00 Test Item Value Reference Range Interpretation Comments Urine Color (test code = 5778-6) Red [place] appearance [id number] 23:53:00 Test Item Value Reference Range Interpretation Comments Urine Appearance (test code = 5767-9) Turbid [place] pH measurement by test strip 2020-03-28 23:53:00 Test Item Value Reference Range Interpretation Comments Urine pH (test code = 5803-2) 6.5 [facility] gravity ur [id number] 23:53:00 Test Item Value Reference Range Interpretation Comments Urine Specific [place] (test code = 1.022 5811-5) [place] protein measurement by automated test strip (mass/volume)2020-03-28 23:53:00 Test Item Value Reference Range Interpretation Comments Urine Protein (test code = 56206-1) 3+ [place] glucose measurement by automated test strip (mass/volume)2020-03-28 23:53:00 Test Item Value Reference Range Interpretation Comments Urine Glucose (UA) (test code = Negative 08958-5) [place] ketones detection by automated test [id number] 23:53:00 Test Item Value Reference Range Interpretation Comments Urine Ketones (test code = 29142-6) Negative [place] erythrocytes count by automated test strip (number/volume)2020-03-28 23:53:00 Test Item Value Reference Range Interpretation Comments Urine Occult Blood (test code = 3+ 87220-2) [place] nitrite detection by automated test [id number] 23:53:00 Test Item Value Reference Range Interpretation Comments Urine Nitrite (test code = 77626-2) Negative [place] total bilirubin detection by automated test [id number] 23:53:00 Test Item Value Reference Range Interpretation Comments Urine Bilirubin (test code = Negative 41418-1) [place] urobilinogen measurement by automated test strip (mass/volume)2020-03-28 23:53:00 Test Item Value Reference Range Interpretation Comments Urine Urobilinogen (test code = Normal 14834-1) [place] leukocyte esterase detection by automated test [id number] 23:53:00 Test Item Value Reference Range Interpretation Comments Urine Leukocyte Esterase (test code Negative = 11544-6) [place] sediment erythrocyte count by microscopy (number/high power field)2020-03-28 23:53:00 Test Item Value Reference Range Interpretation Comments Urine RBC (test code = 38488-7) 5-[address] [place] sediment leukocyte count by microscopy (number/high power field)2020-03-28 23:53:00 Test Item Value Reference Range Interpretation Comments Urine WBC (test code = 5821-4) 0 to [address] [place] sediment epithelial cell count by microscopy (number/low power field)2020-03-28 23:53:00 Test Item Value Reference Range Interpretation Comments Urine Epithelial Cells (test code = None seen 65870-0) [place] sediment bacteria count by microscopy (number/high power field)2020-03-28 23:53:00 Test Item Value Reference Range Interpretation Comments Urine Bacteria (test code = 5769-5) Few [place] sediment hyaline cast count by microscopy (number/low power field)2020-03-28 23:53:00 Test Item Value Reference Range Interpretation Comments Urine Hyaline Casts (test code = None Seen 5796-8) [facility] detection in urine sediment by light [id number] 23:53:00 Test Item Value Reference Range Interpretation Comments Urine Yeast (test code = 06157-1) None Seen [facility] comment 23:53:00 Test Item Value Reference Range Interpretation Comments Urine Culture Indicated (test code = No 8264-4) [facility] HospitalUTERUS,OTHER THAN PROLAPSE/[id number] 08:51:00 Test Item Value Reference Range Interpretation Comments UTERUS,OTHER THAN PROLAPSE/ALONZO (test code = UTERUSOTH) RUN DATE: 03/16/20 [facility] PAGE 1 RUN TIME: 1659 Specimen Inquiry RUN USER: INTERFACE PATIENT: MORGAN FERGUSON LOC: [facility] [place] #: [id number] AGE/SX: 35/F ROOM: [facility] RE03/14/20REG DR: Mari De La O DO : 89 BED: A DIS: 03/15/20 STATUS: DIS Josias TLOC: SPEC #: [id number] RECD: 03/14/20 STATUS: MITZY WATSON #: [id number] PHILLIP: 03/14/20- SUBM DR: Mari De La O DO ENTERED: 03/14/20-1028 SP TYPE: UTERUSOTH OTHR DR: ORDERED: LEVEL V SURGICA CODES: [id number] - UTERUS, NOS PROCEDURES: LEVEL V SURGICA (Incomplete) TISSUES: UTERUS, NOS - UTERUS, CERVIX AND BILATERAL FALLOPIAN TUBES CLINICAL HISTORY 35 year old, endometriosis, chronic pelvic pain (kr) FINAL DIAGNOSIS Uterus, hysterectomy, cervix - microglandular hyperplasia endomyometrium - intact intrauterine device embedded in myometrium - inactive-appearing endometrium serosa - no pathologic diagnosis fallopian tubes, bilateral - no pathologic diagnosis CPT code(s): 11727 cds/kr GROSS DESCRIPTION ANATOMIC SOURCE OF TISSUE [...] Specimen Inquiry RUN USER: INTERFACE SPEC #: [id number] PATIENT: MORGAN FERGUSON #[id number] (Continued) GROSS DESCRIPTION (Continued) lumens. [employer] sections are submitted as follows: A1 - anterior cervix A2 - posterior cervix A3 - anterior endomyometrium A4 - posterior endomyometrium A5 and A6 - fallopian tubes jameson 03/14/20 Signed Ministerio Preston 03/16/20 0851 END OF REPORT HGB [id number] 04:21:00 Test Item Value Reference Range Interpretation Comments HEMOGLOBIN (test code = HGB) 12.7 g/dL 10.7-13.9 N HEMATOCRIT (test code = HCT) 38.2 % 32.1-42.1 N COVID 19 Asymptomatic IH [id number] 13:11:00 Test Item Value Reference Range Interpretation [...] or approved; th e test hasbeen authori zed by FDA under an Emerge ncy Use [...] of Accreditation. This test is only authori zed for the duration of thedeclaration that circumstances e xist justifying theauthorizatio n of emergency use o f in vitro diagnostic test sfor detection and/o r diagnosis of CO VID-19 under Fscvayf78 4(b)(1) of the Act, 21 U.S .C. 360bbb-3(b)(1), unless theauthorizatio n is terminated or r evoked sooner. AG HEPATITIS B [id number] 11:58:00 Test Item Value Reference Range Interpretation Comments AG HEPATITIS B SURFACE (test code NONREACTIVE NONREACTIVE = HBSAG) IS CONSENT FORM SIGNED FOR HIV TESTING? YAB HEPATITIS C [id number] 11:58:00 Test Item Value Reference Range Interpretation Comments AB HEPATITIS C (test code = NONREACTIVE NONREACTIVE HCVAB) SIGNAL TO CUTOFF (test code = 0.11 <0.80 N CUTOFF) IS CONSENT FORM SIGNED FOR HIV TESTING? YAB HIV 1 11:58:00 Test Item Value Reference Range Interpretation Comments AB HIV 1 2 (test NONREACTIVE NONREACTIVE Done by [facility] code = [id number]) 4th Gen HIV Ag/Ab Combo Screen IS CONSENT FORM SIGNED FOR HIV TESTING? YAG HEPATITIS B [id number] 11:37:00 Test Item Value Reference Range Interpretation Comments AG HEPATITIS B SURFACE (test code NONREACTIVE NONREACTIVE = HBSAG) IS CONSENT FORM SIGNED FOR HIV TESTING? YAB HEPATITIS C [id number] 11:37:00 Test Item Value Reference Range Interpretation Comments AB HEPATITIS C (test code = HCVAB) NONREACTIVE SIGNAL TO CUTOFF (test code = CUTOFF) <0.80 IS CONSENT FORM SIGNED FOR HIV TESTING? YAB HIV 1 11:37:00 Test Item Value Reference Range Interpretation Comments AB HIV 1 2 (test code = WIW07RY) NONREACTIVE IS CONSENT FORM SIGNED FOR HIV TESTING? YPROTHROMBIN [id number] 11:28:00 Test Item Value Reference Range Interpretation Comments PROTHROMBIN TIME PATIENT (test code 11.8 secs 10.4-12.4 N = PTP) THROMBOPLASTIN TIME [id number] 11:28:00 Test Item Value Reference Range Interpretation Comments THROMBOPLASTIN TIME PARTIAL (test 39.4 secs 22-38 H code = PTT) CHEMISTRY 7 [id number] 11:05:00 Test Item Value Reference Range Interpretation [...] = CA) 9.1 mg/dL 8.4-10.2 N URINALYSIS [id number] 10:49:00 Test Item Value Reference Range Interpretation [...] /HPF RARE-FEW URINE SAMPLE: CLEAN CATCHUR HCG [id number] 10:49:00 Test Item Value Reference Range Interpretation [...] later and tested. URINE SAMPLE: CLEAN CATCHURINALYSIS [id number] 10:48:00 Test Item Value Reference Range Interpretation [...] /HPF RARE-FEW URINE SAMPLE: CLEAN CATCHUR HCG [id number] 10:48:00 Test Item Value Reference Range Interpretation Comments UR HCG QUAL (test code = HCGQLU) URINE SAMPLE: CLEAN CATCHCBC W/AUTO [id number] 10:47:00 Test Item Value Reference Range Interpretation [...] code = PLTMR) XR CHEST 1 VW [id number] 20:26:31 1. No acute intrathoracic abnormality, specifically no detectableradiographic findings to suggest COVID-19 pneumonia. Disclaimer: Generally, the findings on chest imaging in COVID-19 are notspecific, and overlap with other infections, including influenza, H1N1,SARS and MERS.According to the Centers for Disease Control (CDC) and the [employer], viral testing remains the only [...] Centers for Disease Control (CDC) and the [employer], viral testingremains the only specific method of diagnosiseven if CXR or CT findings are suggestive of COVID-19.[facility]
[2022-02-16 19:10] LABS: Urine Blood Trace-lysed (Negative); Urine Glucose Negative (Negative); Urine Protein Negative (Negative)
[2022-02-16 19:12] LABS: Absolute Lymphocytes (CBC) 2.1 K/uL (0.7-4.9); Hematocrit 41.2 % (36.0-45.0); Lymphocytes % 32.7 % (15.3-44.8); MCV 95.6 fL (80-100); MPV 7.5 fL (7.6-11.3); RBC Red Blood Cell Count 4.31 M/uL (3.86-4.86)
[2022-02-16 19:15] LABS: Urine Bacteria <20 /HPF (<20); Urine RBC <5 /HPF (None Seen)
[2022-02-16 19:38] LABS: Albumin 4.3 g/dL (3.4-5.0); Bilirubin Total 0.2 mg/dL (0.2-1.0); Potassium 3.9 mmol/L (3.5-5.1); Protein, Total 7.4 g/dL (6.4-8.2)
--- NOTE | 2022-02-16 20:31 | RAD REPORT ---
EXAM DESCRIPTION: CTAbdomen Pelvis W Contrast - 02/16/2022 8:19 pm CLINICAL HISTORY: abd pain COMPARISON: No comparisons TECHNIQUE: CT of the abdomen and pelvis was performed with IV contrast. All CT scans are performed using dose optimization technique as appropriate and may include automated exposure control or mA/KV adjustment according to patient size. FINDINGS: Lower chest: No acute abnormality. Circumferential thickening of distal esophagus. Liver: No acute abnormality or suspicious lesions. Biliary: No biliary ductal dilatation. Stomach: No significant focal abnormality. Duodenum: No significant focal abnormality. Pancreas: No significant abnormality. Spleen: No significant abnormality. Adrenal: No suspicious lesions. Kidney/ureter: No hydronephrosis. No renal calculi. Too small to characterize and/or benign appearing renal lesions are noted. Retroperitoneum: No retroperitoneal adenopathy. Vascular: No aneurysm. Bowel: Normal appendix.. Moderate stool in the colon. Peritoneum: No ascites or free air. Bladder: Grossly unremarkable. Reproductive: No adnexal masses. Hysterectomy. Bones: No acute fracture. Other: Subcutaneous gas and skin thickening in the right abdominal wall. IMPRESSION: No acute intra-abdominal or pelvic finding. Normal appendix. Subcutaneous gas and skin thickening at the right abdominal wall may be from a recent injection. Skin thickening could represent a cellulitis. Correlate clinically.
[2022-02-16] MEDS ORDERED: NA CHLORIDE 0.9% 1,000 ML ONE (20:37)
--- NOTE | 2022-02-16 21:23 | EDPHYS ---
Physician Documentation [facility] Name: Renea Solano Age: 36 yrs Sex: Female : 1985 Arrival Date: 02/16/2022 Time: 17:59 Bed 24 Private MD: SHELLY Physician Gumaro Roberts HPI: 02/17 00:08 This 36 yrs old Female presents to ER via Ambulatory with complaints of Bladder Pain, kb Low Back Pain. 00:08 The patient has not recently seen a physician. kb 00:09 The patient presents with abdominal pain in the lower abdomen. Onset: The kb symptoms/episode began/occurred yesterday. The symptoms do not radiate. Associated signs and symptoms: Pertinent positives: dysuria. The symptoms are described as constant, sharp. Modifying factors: The symptoms are alleviated by nothing, the symptoms are aggravated by nothing. Severity of pain: At its worst the pain was moderate in the emergency department the pain is unchanged. The patient has experienced similar episodes in the past, a few times. 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 LMP N/A - Hysterectomy as6 Historical: - Allergies: 18:10 NSAIDS (Non-Steroidal Anti-Inflammatory Drug); tw2 18:10 Aspirin; tw2 18:10 Ibuprofen; tw2 18:10 egg; tw2 18:10 tree nut; tw2 18:10 wheat; tw2 18:10 milk; tw2 18:10 Toradol; (flush, head throbbing); tw2 - Home Meds: 18:10 gabapentin 600 mg oral Tb24 1 tabs once daily [Active]; lisinopril 2.5 mg Oral tab 1 tw2 tab once daily [Active]; Dupixent Syringe 300 mg/2 mL subcutaneous syrg 2 mL once weekly [Active]; Vistaril 25 mg Oral cap 1 cap once daily [Active]; - PMHx: 18:10 Hypertension; restless leg syndrome; tw2 - PSHx: 18:10 partial hysterectomy; endometriosis sx x4; throat sx; tw2 - Immunization history:: Adult Immunizations. - Social history:: Smoking status: . ROS: 02/17 00:08 Constitutional: Negative for fever, chills, and weight loss. kb Abdomen/GI: Positive for abdominal pain. : Positive for burning with urination. All other systems are negative. Exam: 00:08 Constitutional: This is a well developed, well nourished patient who is awake, alert, kb and in no acute distress. Head/Face: Normocephalic, atraumatic. ENT: Moist Mucous membranes Cardiovascular: Regular rate and rhythm with a normal S1 and S2. No gallops, murmurs, or rubs. No pulse deficits. Respiratory: Respirations even and unlabored. No increased work of breathing. Talking in full sentences Skin: Warm, dry with normal turgor. Normal color. MS/ Extremity: Pulses equal, no cyanosis. Neurovascular intact. Full, normal range of motion. Neuro: Awake and alert, GCS 15, oriented to person, place, time, and situation. Moves all extremities. Normal gait. 00:08 Abdomen/GI: Inspection: abdomen appears normal, Bowel sounds: normal, Palpation: soft, in all quadrants, mild abdominal tenderness, in the right lower quadrant and left lower quadrant. Vital Signs: 02/16 18:05 BP 151 / 99; Pulse 92; Resp 17; Temp 98.8(TE); Pulse Ox 100% on R/A; Weight 65.32 kg; tw2 Height 5 ft. 6 in. (167.64 cm); Pain 6/10; 20:42 BP 146 / 94; Pulse 60; Resp 18 S; Pulse Ox 96% on R/A; as6 21:30 BP 144 / 93; Pulse 68; Resp 17 S; Pulse Ox 100% on R/A; as6 18:05 Body Mass Index 23.24 (65.32 kg, 167.64 cm) tw2 MDM: 18:19 Patient medically screened. [facility] 02/17 00:07 Data reviewed: vital signs, nurses notes. Data interpreted: Pulse oximetry: on room air kb is 100 %. Interpretation: normal. Counseling: I had a detailed discussion with the patient and/or guardian regarding: the historical points, exam findings, and any diagnostic results supporting the discharge/admit diagnosis, lab results, radiology results, the need for outpatient follow up, an OB/Gyne specialist, a urologist, to return to the emergency department if symptoms worsen or persist or if there are any questions or concerns that arise at home. 02/16 18:12 Order name: Urine Microscopic Only; Complete Time: 19:19 kb 02/16 18:47 Order name: CBC with Diff; Complete Time: 19:19 kb 02/16 18:47 Order name: CMP; Complete Time: 19:43 kb 02/16 18:47 Order name: Lipase; Complete Time: 19:43 kb 02/16 18:47 Order name: CT Abd/Pelvis - IV Contrast Only; Complete Time: 20:33 kb 02/16 19:10 Order name: Urine Dipstick-Ancillary; Complete Time: 19:14 EDMS 02/16 18:12 Order name: Urine Dipstick-Ancillary (obtain specimen); Complete Time: 19:57 kb 02/16 18:47 Order name: IV Saline Lock; Complete Time: 19:03 kb 02/16 18:47 Order name: Labs collected and sent; Complete Time: 19:03 kb Administered Medications: 02/16 20:40 Drug: NS 0.9% 1000 ml Route: IV; Rate: 1 bolus; Site: right antecubital; as6 21:29 Follow up: Response: No adverse reaction; IV Status: Completed infusion; IV Intake: as6 1000ml Disposition Summary: 02/16/22 21:22 Discharge Ordered Location: Home kb Condition: Stable kb Diagnosis - Abdominal pain, Generalized kb Followup: kb - With: Private Physician - When: 2 - 3 days - Reason: Recheck today's complaints, Continuance of care, Re-evaluation by your physician Followup: kb - With: Emergency Department - When: As needed - Reason: Worsening of condition Discharge Instructions: - Discharge Summary Sheet kb - Abdominal Pain, Adult, Lwbr-by-Hoxw kb Forms: - Medication Reconciliation Form kb - Thank You Letter kb - Antibiotic Education kb - Prescription Opioid Use kb Signatures: Dispatcher [employer] Sofie Rivas, TITLE I COORDINATOR-C TITLE I COORDINATOR-Gumaro Dougherty MD MD cha Wise, Tara, RN RN tw2 Erick Negron, RN RN as6 Corrections: (The following items were deleted from the chart) 20:41 18:12 Urine Test ordered. kb as6
--- NOTE | 2022-02-16 21:23 | ER ---
Nurse's Notes [facility] Name: Renea Solano Age: 36 yrs Sex: Female : 1985 Arrival Date: 02/16/2022 Time: 17:59 Bed 24 Private MD: Diagnosis: Abdominal pain, Generalized Presentation: 02/16 18:05 Chief complaint: Patient states: i have had endometriosis and sx. december was the tw2 surgery. it was wrapped ureter and bladder. they did a scope on my bladder and they found a lesion. i have an appt on Thursday with the urologist. but yesterday it feels like something is stabbing pain in bladder and throbbing. and it radiates to my right low back. and i feel like i am peeing razor blades. Coronavirus screen: At this time, the client does not indicate any symptoms associated with coronavirus-19. Ebola Screen: Patient denies travel to an Ebola-affected area in the 21 days before illness onset. Initial Sepsis Screen: Does the patient meet any 2 criteria? HR > 90 bpm. No. Patient's initial sepsis screen is negative. Does the patient have a suspected source of infection? No. Patient's initial sepsis screen is negative. Risk Assessment: Do you want to hurt yourself or someone else? Patient reports no desire to harm self or others. Onset of symptoms was February 16, 2022. 18:05 Method Of Arrival: Ambulatory tw2 18:05 Acuity: ROSMERY 3 tw2 Triage Assessment: 18:10 General: Appears in no apparent distress. uncomfortable, Behavior is calm, cooperative, tw2 appropriate for age. Pain: Complains of pain in abdomen and pelvis. : Reports burning with urination. 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 - Hysterectomy as6 Historical: - Allergies: 18:10 NSAIDS (Non-Steroidal Anti-Inflammatory Drug); tw2 18:10 Aspirin; tw2 18:10 Ibuprofen; tw2 18:10 egg; tw2 18:10 tree nut; tw2 18:10 wheat; tw2 18:10 milk; tw2 18:10 Toradol; (flush, head throbbing); tw2 - Home Meds: 18:10 gabapentin 600 mg oral Tb24 1 tabs once daily [Active]; lisinopril 2.5 mg Oral tab 1 tw2 tab once daily [Active]; Dupixent Syringe 300 mg/2 mL subcutaneous syrg 2 mL once weekly [Active]; Vistaril 25 mg Oral cap 1 cap once daily [Active]; - PMHx: 18:10 Hypertension; restless leg syndrome; tw2 - PSHx: 18:10 partial hysterectomy; endometriosis sx x4; throat sx; tw2 - Immunization history:: Adult Immunizations. - Social history:: Smoking status: . Screenin:41 Abuse screen: Denies threats or abuse. Denies injuries from another. Nutritional as6 screening: No deficits noted. Tuberculosis screening: No symptoms or risk factors identified. Fall Risk None identified. Assessment: 20:41 General: Appears in no apparent distress. Behavior is calm, cooperative. Pain: as6 Complains of pain in suprapubic area, right lower quadrant and left lower quadrant. Neuro: Level of Consciousness is awake, alert. Respiratory: Respiratory effort is even, unlabored. : Reports pain in bilateral in suprapubic area. Vital Signs: 18:05 BP 151 / 99; Pulse 92; Resp 17; Temp 98.8(TE); Pulse Ox 100% on R/A; Weight 65.32 kg; tw2 Height 5 ft. 6 in. (167.64 cm); Pain 6/10; 20:42 BP 146 / 94; Pulse 60; Resp 18 S; Pulse Ox 96% on R/A; as6 21:30 BP 144 / 93; Pulse 68; Resp 17 S; Pulse Ox 100% on R/A; as6 18:05 Body Mass Index 23.24 (65.32 kg, 167.64 cm) tw2 ED Course: 17:59 Patient arrived in ED. ja2 17:59 Sofie Sauer FNP-C is PHCP. kb 17:59 Gumaro Roberts MD is Attending Physician. kb 18:05 Arm band placed on. tw2 18:10 Triage completed. tw2 19:03 CBC with Diff Sent. em1 19:03 CMP Sent. em1 19:03 Lipase Sent. em1 19:03 Initial lab(s) drawn, by ia, sent to lab. Inserted saline lock: 22 gauge in right em1 antecubital area, using aseptic technique. Blood collected. 19:57 Erick Negron, RN is Primary Nurse. as6 20:21 CT Abd/Pelvis - IV Contrast Only In Process Unspecified. EDMS 20:42 Bed in low position. Call light in reach. as6 21:29 No provider procedures requiring assistance completed. IV discontinued, intact, as6 bleeding controlled, No redness/swelling at site. Pressure dressing applied. Administered Medications: 20:40 Drug: NS 0.9% 1000 ml Route: IV; Rate: 1 bolus; Site: right antecubital; as6 21:29 Follow up: Response: No adverse reaction; IV Status: Completed infusion; IV Intake: as6 1000ml Medication: 21:29 VIS not applicable for this client. as6 Intake: 21:29 IV: 1000ml; Total: 1000ml. as6 Outcome: 21:22 Discharge ordered by . konstantin 21:29 Discharged to home ambulatory. as6 21:29 Condition: stable 21:29 Discharge instructions given to patient, Instructed on discharge instructions, follow up and referral plans. Demonstrated understanding of instructions, follow-up care. 21:30 Patient left the ED. as6 Signatures: Dispatcher [employer] EDMS Sofie Sauer, PSYCHOLOGICAL OPERATIONS SPECIALIST-C PSYCHOLOGICAL OPERATIONS SPECIALIST-Cristofer Diego em1 Oliva Mccray, RN RN tw2 Lizeth Esqueda2 Erick Negron, RN RN as6
[2022-02-16 21:59] VITALS: TEMP 98.8
[2022-02-16 22:06] VITALS: BP 144/93; O2SAT 100
== END 2022-02-16 21:30 | disposition home or self-care (01) ==
LOC: ER 17:47
DX: R10.84 Generalized abdominal pain (principal); R30.0 Dysuria; I10 Essential (primary) hypertension; Z88.6 Allergy status to analgesic agent; Z91.011 Allergy to milk products; Z91.012 Allergy to eggs; Z91.018 Allergy to other foods
CPT/HCPCS: 85025; 36415; 83690; 80053; 74177; 96360; 99284; Q9967; J7030; 81003; 81015

== ENCOUNTER 2022-11-13 19:03 | Emergency (ER) | payer OTHER ==
--- OUTSIDE RECORDS SUMMARY | 2022-11-13 19:12 | XMS REPORT | Continuity of Care Document ---
:1985 Author Organization [facility] t Address [address] [place] [address] [place] [id number] Care Team Providers Name Role Phone PAULIE HARRIS Primary Care Physician Unavailable PAIGE COVARRUBIAS Attending Clinician Unavailable Paulie Harris Attending Clinician Unavailable Mari De La O Attending Clinician Unavailable JONES LACKEY Attending Clinician Unavailable AYLIN AMRTIN Attending Clinician Unavailable Mario WILEY, Aylin Leslie Attending Clinician Unavailmarina Fournier MD, Joe Hernandez Attending Clinician ESPERANZA COOK Attending Clinician Unavailable Esperanza Ridley Attending Clinician Paige Covarrubias MD Attending Clinician [phone] Artie WILEY, Haylie Magana Attending Clinician Matthew SHARMA Attending Clinician Unavailable Edith PACMatthew Attending Clinician Only, Ang Db Test Attending Clinician Unavailable Iris Brown Attending Clinician IRIS STEWART Attending Clinician Unavailable FATOU EPSTEIN Attending Clinician Unavailable Lucian WILYE, Fatou Bell Attending Clinician [phone] Juliana WILEY, Renetta Claire Attending Clinician [phone] Damián Strong Attending Clinician STAN THAKKAR Attending Clinician Unavailable Bijan JUDGE, Stan Alvarez Attending Clinician CARLI COTE Attending Clinician Unavailable Carli Cote DO Attending Clinician Doctor Unassigned, Two Strike Attending Clinician Unavailable Steve Arechiga Attending Clinician Unavailable PHYSICIAN, ER Attending Clinician Unavailable Ana Mckinnon RN Attending Clinician Unavailable Krys Lara Attending Clinician KRYS MUNGUIA Attending Clinician Unavailable PAIGE COVARRUBIAS Admitting Clinician Unavailable Mari De La O Admitting Clinician Unavailable Physician, No Primary or Family Admitting Clinician UnavailJONES Lopez Admitting Clinician Unavailable AYLIN MARTIN Admitting Clinician Unavailable ESPERANZA COOK Admitting Clinician Unavailable Matthew SHARMA Admitting Clinician Unavailable FATOU EPSTEIN Admitting Clinician Unavailable Referred, Self Admitting Clinician Unavailable Payers Payer Name Policy Type Policy Number Effective Date Expiration Date S ermias AMBETTER [id number] 2021 [place] 00:00:00 HIM AMBETTER [id number] 2018 FROM [place] 00:00:00 HEALTH Ambetter from [id number] [facility] Ambetter from [id number] [facility] Ambetter from [id number] Common Spi rit [facility] Ambetter from [id number] Common [facility] Problems Condition Condition Condition Status Onset Resolution Last Treating Co mments Source Name Details Category Date Date Treatment Clinician Date Interstiti Interstiti Disease Active 2021-[address] [facility] al 05-26 [facility] cy[facility]is cystitis [facility]: Medica l 00 Center Overactive Overactive Disease Active 2021-[address] bladder bladder 05-26 [facility] 00 Center Encounter Encounter Disease Active Uni vers for for 07-20 [place] Med[place] gemma use of use of Branch other other medication medication s s Systemic Systemic Disease Active Unive rs lupus lupus 07-20 [place] erythe[place] [facility] Branch Problem Condition [facility] [id number] Primary Problem Active Common insomnia [facility] [id number] Oropharyng Problem Active Com mon eal Spirit dysphagia [facility] [id number] Seasonal Problem Active Comm on allergies [facility] [id number] Pain in Problem Active Commo n left leg Spirit [facility] [id number] Restless Problem Active Commo n leg Spirit syndrome [facility] [id number] 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 [id number] Esophageal Problem Active Com mon stricture [facility] [id number] Multiple Problem Active Comm on food Spirit allergies [facility] [id number] Environmen Problem Active Co mmon karla Spirit allergies [facility] [id number] Sciatica Problem Active Commo n of right Spirit side - [facility] Allergies, Adverse Reactions, Alerts Allergy Allergy Status Severity Reaction(s) Onset Inactive Treating Comm ents Source Name Type Date Date Clinician MELATONI Allergy Active Med Other 2021-[address] [facility] 05-26 [facility] Center TRAZODON Allergy Active High Other 2021-[address] [facility] [facility] 05-26 [facility] 00 Center Melatoni Drug Active Other (See 2021-[address] [facility] [facility] Allergy Comments) 05-26 [facility] 00:[facility]: Medical 00 Center Trazodon Drug Active Other (See 2021-[address] [facility] [facility] Allergy Comments) 05-26 [facility] 00:[facility] Medical 00 Center SHELLFIS DRUG Active Anaphylaxis 2021-0 Uni vers H INGREDI - ity of DERIVED 00:00: [place] 00 Medical Branch Shellfis Propensi Active Anaphylaxis 2021-0 U nivers h ty to 10-30 ity of Derived adverse 00:00: [place] reaction 00 Medical s to Branch drug SHELLFIS Allergy Active High Anaphylaxis 2021-[address] [facility] DERIVED 00:[facility]: Medical 00 Center Shellfis Drug Active Anaphylaxis 2021-[address] [facility] Allergy -29 [facility] Derived 00:00: Medical 00 [place] IBUDILAS Allergy Active 2021-0 [facility] T 5-13 00:00: 00 LEVOFLOX Allergy Active 2021-0 [facility] ACIN 5-13 00:00: 00 OTHER Allergy Active 2021-0 [facility] 5-13 00:00: 00 Ibudilas Propensi Active 2021-[address] [facility] ty to 5-13 [facility] adverse 00:00: Medical reaction 00 Center s Levoflox Drug Active 2021-[address] acin Allergy 5-13 [facility] 00:00: Medical 00 [place] Other Propensi Active 2021-0 monistat- [facility]I S t ty to 5-13 burning [facility] adverse 00:00: of skin Medical reaction 00 Center s IODINE DRUG Active Anaphylaxis 2021-0 Unive rs INGREDI 3-02 ity of 00:00: [place] 00 Medical Branch TREE Food Active Anaphylaxis 2021-0 Unive rs NUTS 3-02 ity of 00:00: [place] 00 Medical Branch LACTOSE DRUG Active Anaphylaxis 2021-0 Univ ers INGREDI 3- ity of 00:00: [place] 00 Medical Branch GLUTEN DRUG Active Anaphylaxis 2022-0 Unive rs INGREDI 3- ity of 00:00: [place] 00 Medical Branch WHEAT DRUG Active Unknown-Cmnt 0 Univ ers INGREDI 07-03 ity of 00:00: [place] 00 Medical Branch Gluten Propensi Active Anaphylaxis 0 Uni vers ty to 3 ity of adverse 00:00: [place] reaction 00 Medical s Branch Iodine Propensi Active Anaphylaxis Uni vers ty to 3 ity of adverse 00:00: [place] reaction 00 Medical s Branch Lactose Propensi Active Anaphylaxis 0 Un alphonso ty to 07-03 ity of adverse 00:00: [place] reaction 00 Medical s Branch Tree Propensi Active Anaphylaxis Uni vers Nuts ty to 07-03 ity of adverse 00:00: [place] reaction 00 Medical s Branch Wheat Propensi Active Unknown - Unive rs ty to See comments 07-03 ity of adverse 00:00: [place] reaction 00 Medical s Branch SALICYLA DRUG Active Anaphylaxis 2020-05 Uni vers JANES INGREDI 2-19 ity of 00:00: [place] 00 Medical Branch Salicyla Propensi Active Anaphylaxis 2020- U nivers janes ty to 2-19 ity of adverse 00:00: [place] reaction 00 Medical s Branch SALICYLA Allergy Active High Anaphylaxis 2020-[address] JANES 2-19 [facility] Medical 00 Center Salicyla Drug Active Anaphylaxis, 2020-[address] janes Allergy Hives 2-19 [facility] 00:[facility]: Medical 00 Center SOY Allergy Active High Other 0 SLSL 6-24 00:00: 00 Soy Drug Active Other (See 0 + on skin [facility]) 624 allergy [facility] 00:00: test Medical 00 Center soy FA Active SV 2020-0 [facility] 6[facility] [place] soy FA Active SV ANAPHYLAXIS 2020-0 [facility] 6-24 [facility] 00:[facility] [place] peanut FA Active SV 2020-0 [facility] 6-24 [facility] 00:[facility]: [facility] [place] peanut FA Active SV THROAT 2020-0 [facility] CLOSES 6-24 [facility] 00:00: [facility] [place] lactase DA Active SV THROAT 2021-0 [facility] CLOSES 6-24 [facility] 00:00: [facility] 00 [facility] [place] aspirin DA Active SV ANAPHYLAXIS 2021-0 [facility] 6-24 [facility] 00:00: [facility] [place] ibuprofe DA Active SV THROAT 2021-0 [facility] n CLOSES 6-24 [facility] 00:00: [facility] [place] egg FA Active SV THROAT 2021-0 [facility] CLOSES 6-24 [facility] 00:00: [facility] [place] wheat FA Active SV THROAT 2021-0 [facility] CLOSES 6-24 [facility] 00:00: [facility] 00 [facility] [place] lactase DA Active SV 2021-0 [facility] 6-24 [facility] 00:00: [facility] 00 [facility] [place] aspirin DA Active SV 2021-0 [facility] 6-24 [facility] 00:00: [facility] 00 [facility] [place] ibuprofe DA Active SV 2021-0 [facility] n 6-24 [facility] 00:00: [facility]ospita 00 [facility] [place] egg FA Active SV 2021-0 [facility] 6-24 [facility] 00:00: [facility] 00 [facility] [place] wheat FA Active SV 2021-0 [facility] 6-24 [facility] 00:00: [facility] [place] SHELLFIS Allergy Active High Anaphylaxis 1-0 SL SL H 3-30 CONTAINI 00:00: NG 00 PRODUCTS TREE NUT Allergy Active High Anaphylaxis 1-0 SL SL 3-30 00:00: 00 WHEAT Allergy Active High Anaphylaxis 2021-0 [facility]SL CONTAINI 3-30 NG PROD 00:00: 00 GLUTEN Allergy Active High Anaphylaxis 2021-0 [facility] 3-30 00:00: 00 GLUTEN Allergy Active High Anaphylaxis 2021-0 [facility] PROTEIN 3-30 00:00: 00 Gluten Drug Active Anaphylaxis 2021-0 [facility] Protein Allergy 3-30 [facility] 00:[facility]: Medical 00 Center Shellfis Drug Active Anaphylaxis 2021-0 Scallops, [facility] Allergy 3-30 shrimp, [facility] Containi 00:00: lobster, Medica l ng 00 " All Center Products shellfish and seafood" Wheat Drug Active Anaphylaxis 2021-0 [facility] t Containi Allergy 3-30 [facility] ng Prod 00:00: Medical 00 Center Egg Drug Active Anaphylaxis 2021-0 [facility] t Allergy 3-30 [facility] 00:00: Medical 00 Center Gluten Drug Active Anaphylaxis 2021-0 [facility] t Allergy 3-30 [facility] 00:00: [...] [facility]ukes ng Prod 00:00: Medical 00 Center EGG Allergy Active High Anaphylaxis 2020-[address] 3-30 [facility] 00:00: Medical 00 Center ASPIRIN Allergy Active High Anaphylaxis 2020-[address] 2-24 [facility] 00:00: Medical 00 Center MILK Allergy Active High Other 2020-1 SLSL 1-26 00:00: 00 SCALLOPS Allergy Active High Anaphylaxis 2020-1 SL SL 1-26 00:00: 00 ALMOND Allergy Active High Other 2020-1 [facility]SL 1-26 00:00: 00 CLAMS Allergy Active High Other 2020-1 [facility]SL 1-26 00:00: 00 Peanuts Allergy Active Mild 2020-1 CHRISTU to [...] 1-26 S substanc 00:00: Health e 00 [place] Drug Active Other (See 2020-1 + on skin [facility]) 26 allergy [facility] 00:00: test Medical 00 Center Clams Drug Active Other (See 2020-1 + on skin [facility] Comments) 1-26 allergy [facility] 00:00: test Medical 00 Center Milk Drug Active Other (See 2019-05 + on skin [facility] Comments) 05-29 allergy [facility] 00:00: test Medical 00 Center Scallops Drug Active Anaphylaxis 2019-[address] [facility] Allergy 05-29 [facility] 00:00: Medical 00 Center PEANUT Allergy Active High Anaphylaxis 2019- [facility]SL 05-12 00:00: 00 WHEAT Allergy Active High Anaphylaxis 2019-05 [facility] 05-12 00:00: 00 LACTASE Allergy Active High Other 2019-05 [facility] 05-12 00:00: 00 peanut FA Active U 2019- [facility] 1-09 [facility] 00:00: [facility] [place] lactase DA Active U 2019- [facility] 1- [facility] 00:00: [facility] [place] ibuprofe DA Active U 2019- [facility] n - [facility]'s 00:00: [facility] 00 [facility] [place] egg FA Active U 2019- [facility] -09 [facility] 00:00: [facility] 00 [facility] [place] wheat FA Active U 2019- [facility] - Woman's 00:00: [facility] 00 [facility] [place] peanut FA Active U THROAT 2020- [facility] CLOSES - Woman's 00:00: [facility] 00 [facility] [place] lactase DA Active U THROAT 2019- [facility] CLOSES -09 Woman's 00:00: [facility] 00 [facility] [place] ibuprofe DA Active U THROAT 2020- [facility] n CLOSES - Woman's 00:00: [facility]ospita 00 [facility] [place] egg FA Active U THROAT 2020- [facility] CLOSES - Woman's 00:00: [facility] 00 [facility] [place] wheat FA Active U THROAT 2019- [facility] CLOSES - Woman's 00:00: [facility] 00 [facility] [place] Lactase Drug Active Other (See 2019-[address] [facility] Comments) 05-12 on skin [facility] 00:00: test Medical 00 Center Peanut Drug Active Anaphylaxis 2019-05 [facility] Allergy 05-12 [facility] 00:00: Medical 00 Center Wheat Drug Active Anaphylaxis, 2019-[address] [facility] [facility] Hives 05-12 [facility] 00:00: Medical 00 Center ASPIRIN Allergy Active High Anaphylaxis 2017-05 SLS L 05-18 00:00: 00 ASPRIN DA Active SV ANAPHYLAXIS 2017-05 [facility] - [facility] 00:00: [facility] 00 [facility] [place] IBUPROFE Allergy Active High Anaphylaxis SL SL N 07-20 00:00: 00 Ibuprofe Propensi Active Anaphylaxis U nivers n ty to 07-20 ity of adverse 00:00: [place] reaction 00 Medical s Branch IBUPROFE DRUG Active High Anaphylaxis Uni vers N INGREDI 07-20 ity of 00:00: [place] 00 Medical Branch 29 Drug Active nightmares Common allergy [facility] ibuprofe ibuprofe Active Anaphylaxis C ommon n n [facility] aspirin aspirin Active Anaphylaxis Com mon [facility] [id number] Drug Active burning of Common allergy skin [facility] Social History Social Habit Start Date Stop Date Quantity Comments Source History of Common [facility] - Tobacco Use [facility] Sex Assigned At Common Sp ap - [facility] Alcohol intake 2022-03-26 2022-03-26 Ex-drinker [facility] Rebecca es 00:00:00 00:00:00 (finding) Medical Center Exposure to 2021-10-20 2021-10-30 Not sure [facility] SARS-CoV-2 00:00:00 19:48:00 [facility] (event) [place] Tobacco use and 2020-07-31 2020-07-31 Never used [facility] St Dodie kes exposure 00:00:00 00:00:00 Medical Center Smoking Status Start Date Stop Date Source Never smoker [facility] Unknown if ever smoked [facility] Medications Ordered Filled Start Stop Current Ordering Indication Dosage Frequency Signature Comments Components Source Medication Medication Date Date Medication? Clinician (SIG) Name Name omeprazole 2021-05 Yes 40mg Q.5D Take [address] (PriLOSEC) 1-23 by mouth 2 Rebecca es 40 MG 13:36: (two) Medical capsule 01 times Center daily . fexofenadin 2021-05 Yes 180mg Q.5D Take [address] (KAYLA) 1-23 mg by [facility] 180 MG 13:36: mouth 2 Medical tablet 01 (two) Center times daily . EPINEPHrine 2021-05 Yes .15mg Inject [facility] (EPIPEN JR) 1-23 0.15 mg [facility]ukes 0.15 mg/0.3 13:36: intramuscu Medical mL 01 larly as Center injection needed for Anaphylaxi s. gabapentin 2021-05 Yes 600mg Q.[id number] Take [address] (NEURONTIN) 1-23 [id number] mg by L ukes 800 MG 13:36: 3D mouth 3 Medical tablet 01 (three) Center times daily . benralizuma 2021-05 Yes 30mg Inject [address] b (Fasenra) 1-23 mg [facility] 30 mg/mL 13:36: subcutaneo Med ical Syrg 01 usly once Center syringe every 8 weeks. lisinopriL 2021-05 Yes 2.5mg QD Take 2.[address] (PRINIVIL,Z 1-23 mg by [facility]ukes ESTRIL) 2.5 13:36: mouth Medic al MG tablet 01 daily Center Nightly . dupilumab 2021-05 Yes 300mg Q7D Inject [address] 300 mg/2 mL 1-23 mg [facility] PnIj 13:36: subcutaneo Medical 01 usly once Center a week Every 7 days (Sundays) . hydrOXYzine 2021-05 Yes 25mg QD Take [address] (ATARAX) 25 1-23 by mouth Luke s MG tablet 13:36: daily Medical 01 Nightly . Center omeprazole 2021-05 Yes 40mg Q.5D Take [address] (PriLOSEC) 1-23 by mouth 2 Rebecca es 40 MG 13:36: (two) Medical capsule 01 times Center daily . fexofenadin 2021-05 Yes 180mg Q.5D Take [address] e (KAYLA) 1-23 mg by [facility] 180 MG 13:36: mouth 2 Medical tablet 01 (two) Center times daily . EPINEPHrine 2021-05 Yes .15mg Inject [facility] (EPIPEN JR) 1-23 0.15 mg [facility] 0.15 mg/0.3 13:36: intramuscu Medical mL 01 larly as Center injection needed for Anaphylaxi s. gabapentin 2021-05 Yes 600mg Q.[id number] Take [address] (NEURONTIN) 1-23 [id number] mg by L ukes 800 MG 13:36: 3D mouth 3 Medical tablet 01 (three) Center times daily . benralizuma 2021-05 Yes 30mg Inject [address] b (Fasenra) 1-23 mg [facility] 30 mg/mL 13:36: subcutaneo Med ical Syrg 01 usly once Center syringe every 8 weeks. lisinopriL 2021-05 Yes 2.5mg QD Take 2.[address] (PRINIVIL,Z 1-23 mg by [facility] ESTRIL) 2.5 13:36: mouth Medic al MG tablet 01 daily Center Nightly . dupilumab 2021-05 Yes 300mg Q7D Inject [address] 300 mg/2 mL 1-23 mg [facility] PnIj 13:36: subcutaneo Medical 01 usly once Center a week Every 7 days (Sundays) . hydrOXYzine 2021-05 Yes 25mg QD Take [address] (ATARAX) 25 1-23 by mouth Luke s MG tablet 13:36: daily Medical 01 Nightly . [place] hydrOXYchlo 2021-05 No 300mg QD Take [address] roQUINE 1-23 11-23 mg by [facility]ukes (PLAQUENIL) 05:57: 00:00 mouth Medi gemma 200 mg 27 :00 daily. Center tablet hydrOXYchlo 2021-05 No 300mg QD Take [address] roQUINE 1-23 11-23 mg by [facility]ukes (PLAQUENIL) 05:57: 00:00 mouth Medi gemma 200 mg 27 :00 daily. Center tablet fluticasone 2021-05 No 2{puff} Q.5D Inhale [address] propionate 1-23 11-23 puffs by Luke s (FLOVENT 05:57: 00:00 mouth via Med ical HFA) 220 15 :00 inhaler 2 Center mcg/actuati (two) on inhaler times daily. fluticasone 2021-05- No 2{puff} Q.5D Inhale [address] propionate 1-23 11-23 puffs by Luke s (FLOVENT 05:57: 00:00 mouth via Med ical HFA) 220 15 :00 inhaler 2 Center mcg/actuati (two) on inhaler times daily. Ramelteon 8 Ramelteon 8 No QD Ramelteon MG MG 9-01 8 MG 00:00: 00 Belsomra 5 Belsomra 5 2021- No 1{table QD Belsomra 5 MG MG 12-13-11 t_at_be MG 00:00: 00:00 dtime_a 00 :00 s_neede d} QUEtiapine QUEtiapine No 1{table QD QUEtiapine Fumarate 25 Fumarate 25 12-03 t_at_be Fumarate MG MG 00:00: dtime} 25 MG 00 HYDROcodone 2021- No 1{tbl} 1 tablet, Univers -acetaminop 10-3130 Oral, ity of hen (NORCO 02:45: 03:04 ONCE, 1 [place] as 5) 5-325 mg 00 :00 dose, On [facility] tablet 1 Thu Branch tablet 10/30/21 at 2145, [place] traMADoL 2021- No 50mg 50 mg, Univer s (ULTRAM) 10-31 Oral, ity of tablet 50 02:15: [...] to 12 doses. Indication s: acute pain fluticasone Yes 2{puff} Q.5D Inhale [address] propionate 5-17 puffs by [facility]ukes (FLOVENT 09:31: mouth via Medi gemma HFA) 220 01 inhaler 2 Center mcg/actuati (two) on inhaler times daily. fexofenadin Yes 180mg Q.5D Take [address] e (KAYLA) 5-17 mg by [facility] 180 MG 09:31: mouth 2 Medical tablet 01 (two) Center times daily . EPINEPHrine Yes .15mg Inject [facility] (EPIPEN JR) 5-17 0.15 mg [facility] 0.15 mg/0.3 09:31: intramuscu Medical mL 01 larly as Center injection needed for Anaphylaxi s. gabapentin Yes 600mg Q.[id number] Take [address] (NEURONTIN) 5-17 [id number] mg by L ukes 800 MG 09:31: [...] mouth Medic al 200 mg 01 daily. [place] tablet omeprazole Yes 40mg Q.5D Take [address] (PriLOSEC) 5-17 by mouth 2 Rebecca es 40 MG 09:31: (two) Medical capsule 01 times Center daily . lisinopriL 2021- No 10mg QD Take [address] (PRINIVIL,Z 5-13 05-13 by mouth Rebecca es ESTRIL) 10 16:31: 00:00 daily. Medi gemma MG tablet 47 :00 [place] lisinopriL 2021- No 10mg QD Take [address] (PRINIVIL,Z 5-13 05-13 by mouth Rebecca es ESTRIL) 10 16:31: 00:00 daily. Medi gemma MG tablet 47 :00 [place] lisinopriL 2021- No 10mg QD Take [address] (PRINIVIL,Z 5-13 05-13 by mouth Rebecca es ESTRIL) 10 16:31: 00:00 daily. Medi gemma MG tablet 47 :00 [place] clindamycin No 600mg 600 mg, IV Univers in 5 % 3-03 03-03 Piggyback, ity of dextrose 03:15: 02:40 ONCE NOW, [place] as (CLEOCIN) 00 :00 1 dose, On Medi gemma 600 mg/50 07/03/21 Bran ch mL IV at 2115, piggyback Administer RTU 600 mg over 30 Minutes, 50 mL
Reas on for Anti-Infec tive: Empiric Therapy for Suspected Infection< br>Empiric Therapy Site: HEENT
D uration of therapy: 7 days
Re stricted use approved by: ADC PROVIDER ketorolac No 15mg 15 mg, Unive rs (TORADOL) 07-04 Slow IV ity of injection 03:15: 02:15 [place], [place] 15 mg 00 :00 ONCE, 1 Medical dose, On Branch Thu07/03/21 at 2115, Routine
[employer] membership advisors approving Restricted medication : Matthew SHARMA iopamidol 2021- No [id number] 100mL 100 mL, Univers (ISOVUE 07-04 Intravenou ity o f 370-500 mL) 02:30: 01:30 s, ONCE, 1 injection 00 :00 dose, On Medica l 100 mL 07/03/21 Branch at 2030, Routine diphenhydrA No 50mg 50 mg, Uni vers MINE 07-04 Slow IV ity of (BENADRYL) 02:00: 01:07 [place], [place] injection 00 :00 ONCE, 1 Medical 50 mg dose, On Branch 07/03/21 at 2000, STAT methylpredn No 125mg 125 mg, U nivers isolone sod 07-04 Intravenou i ty of succ 02:00: 01:07 s, ONCE, 1 [place] (SOLU-MEDRO 00 :00 dose, On Medi gemma L) Thu07/03/21 Branch injection at 2000, 125 mg STAT fluconazole Yes [id number] Take as Univers 150 mg 3-02 directed. ity of tablet 00:00: [address] fluconazole Yes [id number] Take as Univers 150 mg 07-03 directed. ity of tablet 00:00: [address] clindamycin 2021- No [id number] 300mg Take 1 Univers 300 mg 07-03 capsule by ity of capsule 00:00: 05:59 mouth 4 [place] 00 :00 (four) Medical times [place] daily for 10 days. Fluconazole Fluconazole 2021- No 1{table QD Fluconazol 150 MG 150 MG 05-27 t} e 150 MG 00:00: 00:00 00 :00 acetaminoph 2020-05- No 1000mg 1,000 mg, Univers en 2-19 12-19 Oral, ONCE ity of (TYLENOL) 22:45: 21:41 NOW, 1 [place] tablet 00 :00 dose, On Medical 1,000 mg [facility] 04/21/21 at 1645, Routine diphenhydrA 2020-05- No 25mg 25 mg, Uni vers MINE 06-22 Slow IV ity of (BENADRYL) 22:45: 21:43 [place], [place] injection 00 :00 ONCE, 1 Medical 25 mg dose, On [facility] 04/21/21 at 1645, STAT metoclopram 2020-05- No 10mg 10 mg, Uni vers car HCl 06-22 Slow IV ity of (REGLAN) 22:45: 21:43 [place], [place] injection 00 :00 ONCE, 1 Medical 10 mg dose, On [facility] 04/21/21 at 1645, [place] iopamidol 2020-05- No [id number] 100mL 100 mL, Univers (ISOVUE 06-22 Intravenou ity o f 370-500 mL) 19:47: 19:47 s, ONCE, 1 [place] injection 00 :00 dose, On Medica l 100 mL [facility] 04/21/21 at 1400, Routine No known 2020-05 No Univers medications - ity of 12:44: [address] No known 2020-05 No Univers medications - ity of 12:44: [address] benzonatate 2020-05- No 100mg 100 mg, U nivers (TESSALON 05-31 Oral, ity of PERLES) 08:30: 07:22 ONCE, 1 [place] capsule 100 00 :00 dose, On Medi gemma mg [facility] 03/31/21 at 0230, Routine codeine-gua 2020-05- No 10mL 10 mL, Uni vers ifenesin 05-31 Oral, ity of (ROBITUSSIN 07:30: 06:29 [place]CE[place] 1 [place] 10-100 00 :00 dose, On Medic al mg/5 mL [facility] oral 03/31/21 solution 10 at 0130, mL [place] NaCl 0.9% 2020-05- No 1000mL at 999 Uni vers (NS) bolus 05-31 mL/hr, ity of infusion 07:30: 09:07 1,000 mL, [place] as 1,000 mL 00 :00 IV Medical Infusion, Branch ONCE, 1 dose, On 03/31/21 at 0130, [place] ipratropium 2020-05 No 6mL 6 mL, Univ ers -albuteroL 05-31 Inhalation it y of (DUONEB) 07:30: 08:28 , ONCE, 1 [place] as 0.5 mg-3 00 :00 dose, On Medical mg(2.5 mg Sun [place] base)/3 mL 03/31/21 nebulizer at 0130, [...] No Univers medications 05-31 ity of 01:43: [address] dexamethaso 2020-05- No 10mg 10 mg, Uni vers ne 05-24 Oral, ity of (DECADRON 20:30: 19:31 ONCE, 1 [place] PHOSPHATE) 00 :00 dose, On Medic al injection Sun Branch 10 mg 03/24/21 at 1430, STAT No known 2020-05 No Univers medications 05-24 ity of 13:18: [address] Diflucan Diflucan 2020- No 1{table Diflucan 150 MG 150 MG 12-28 0903 t} 150 MG 00:00: 00:00 00 :00 acetaminoph 2019- No 1000mg 1,000 mg, Univers en 10-29 Oral, ity of (TYLENOL) 21:00: 20:26 ONCE, 1 [place] tablet 00 :00 dose, Sun Medical 1,000 mg 10/30/19 at [facility] h 1600, [place] No known No Univers medications 10-29 ity of 14:41: [address] Lisinopril Lisinopril 2019- Yes Paulie 1 tablet Common 4-17 [place] [facility] 00:00: - [facility] ProAir HFA ProAir HFA 2019-0 Yes Paulie 1 puff as Common 2-28 [place] needed Spirit 00:00: - [facility] Geo Kenalog 2018- No 40mg Common (Triamcinol (Triamcinol 1-13 S pirit one) one) 00:00: - [facility] Dexamethaso Dexamethaso 2019- No 4mg Common ne ne 1-13 Spirit 00:00: - [facility] Kenalog Kenalog 2019- No 40mg Common (Triamcinol (Triamcinol 1-13 S pirit one) one) 00:00: - [facility] Dexamethaso Dexamethaso 2019- No 4mg Common ne ne 1-13 Spirit 00:00: - [facility] Kenalog Kenalog 2019- No 40mg Common (Triamcinol (Triamcinol 1-13 S pirit one) one) 00:00: - [facility] Dexamethaso Dexamethaso 2019-1 No 4mg Common ne ne 1-13 Spirit 00:00: - [facility] Kenalog Kenalog 2019- No 40mg Common (Triamcinol (Triamcinol 1-13 S pirit one) one) 00:00: - [facility] Dexamethaso Dexamethaso 2019- No 4mg Common ne ne 1-13 Spirit 00:00: - [facility] Kenalog Kenalog 2019- No 40mg Common (Triamcinol (Triamcinol 1-13 S pirit one) one) 00:00: - [facility] Dexamethaso Dexamethaso 2019-1 No 4mg Common ne ne -13 Spirit 00:00: - [facility] Pantoprazol Pantoprazol Yes Paulie 1 tablet Common e Sodium e Sodium [facility] Gabapentin Gabapentin Yes Paulie 1 capsule Common [facility] Gabapentin Gabapentin No 1{table TID Gabapentin 600 [...] Gabapentin 600 MG 600 MG 600 MG Kayal Kayla No 1{table QD Kayla Allergy 180 [...] Gabapentin 600 MG 600 MG 600 MG No known No Univers medications [facility] No known No Univers medications [facility] Immunizations Ordered Immunization Filled Immunization Date Status Commen ts Source Name Name Dexamethasone Dexamethasone 2019-03-16 Completed Common S pirit 14:01:00 [facility] Dexamethasone Dexamethasone 2019-03-16 Completed Common S pirit 14:01:00 [facility] Dexamethasone Dexamethasone 2019-03-16 Completed Common S pirit 14:01:00 [facility] Kenalog Kenalog 2019-03-16 Completed [facility] (Triamcinolone) (Triamcinolone) 14:00:00 [facility] Kenalog Kenalog 2019-03-16 Completed [facility] (Triamcinolone) (Triamcinolone) 14:00:00 [facility] Kenalog Kenalog 2019-03-16 Completed [facility] (Triamcinolone) (Triamcinolone) 14:00:00 [facility] Vital Signs Vital Name Observation Time Observation Value Comments Source HEIGHT 2020-12-06 09:00:00 170.2 cm WEIGHT 2020-12-06 09:00:00 67.132 kg HEIGHT 2020-12-05 11:34:00 170.2 cm WEIGHT 2020-12-05 11:34:00 68.04 kg HEIGHT 2020-08-02 08:26:00 170.2 cm WEIGHT 2020-08-02 08:26:00 70.58 kg WEIGHT 2020-07-31 10:06:00 68.04 kg HEIGHT 2020-07-31 10:06:00 170.2 cm HEIGHT 2022-09-19 09:58:00 170.2 cm WEIGHT 2022-09-19 09:58:00 76.1 kg HEIGHT 2022-09-03 14:18:00 170.2 cm WEIGHT 2022-09-03 14:18:00 71.668 kg HEIGHT 2022-08-26 09:15:00 170.2 cm WEIGHT 2022-08-26 09:15:00 72.122 kg HEIGHT 2022-07-28 13:26:00 170.2 cm WEIGHT 2022-07-28 13:26:00 69.4 kg HEIGHT 2022-08-26 09:15:00 170.2 cm WEIGHT 2022-08-26 09:15:00 72.122 kg HEIGHT 2022-07-28 13:26:00 170.2 cm WEIGHT 2022-07-28 13:26:00 69.4 kg HEIGHT 2022-06-09 13:40:00 170.2 cm WEIGHT 2022-06-09 13:40:00 67.132 kg HEIGHT 2022-06-09 13:40:00 170.2 cm WEIGHT 2022-06-09 13:40:00 67.132 kg HEIGHT 2022-03-26 05:40:00 170.2 cm WEIGHT 2022-03-26 05:40:00 65.7 kg HEIGHT 2022-03-17 09:28:00 170.2 cm WEIGHT 2022-03-17 09:28:00 65.772 kg HEIGHT 2022-03-26 05:40:00 170.2 cm WEIGHT 2022-03-26 05:40:00 65.7 kg HEIGHT 2022-03-17 09:28:00 170.2 cm WEIGHT 2022-03-17 09:28:00 65.772 kg height 2022-01-02 08:00:00 66.5 [in_i] [facility] weight 2022-01-02 08:00:00 143 [lb_av] [facility] bmi 2022-01-02 08:00:00 22.73 kg/m2 [facility] height 2021-12-03 09:40:00 [facility] weight 2021-12-03 09:40:00 143.2 [lb_av] [facility] temperature 2021-12-03 09:40:00 98.1 [degF] [facility] bmi 2021-12-03 09:40:00 22.76 kg/m2 [facility] oximetry 2021-12-03 09:40:00 100 % [facility] respiratory rate 2021-12-03 09:40:00 16 /min Comm on [facility] - [facility] blood pressure 2021-12-03 09:40:00 135 mm[Hg] [facility] - systolic [facility] blood pressure 2021-12-03 09:40:00 82 mm[Hg] [facility] - diastolic [facility] Systolic blood 2021-10-31 00:51:00 177 mm[Hg] [facility] Diastolic blood 2021-10-31 00:51:00 115 mm[Hg] [facility]ive [facility] Heart rate 2021-10-31 00:51:00 91 /min Universi ty [facility] Body temperature 2021-10-31 00:51:00 36.11 Steffanie [facility] Res[facility] 2021-10-31 00:51:00 20 /min [facility] Body height 2021-10-31 00:51:[address] [facility] Body weight 2021-10-31 00:51:00 65.363 [facility] BMI 2021-10-31 00:51:00 22.57 kg/m2 [facility] Oxygen saturation in 2021-10-31 00:51:00 100 /min [facility] blood by [facility] Pulse oximetry Branch HEIGHT 2021-09-17 07:39:00 167.6 cm WEIGHT 2021-09-17 07:39:00 67.586 kg HEIGHT 2021-09-13 16:34:00 167.6 cm WEIGHT 2021-09-13 16:34:00 66.679 kg HEIGHT 2021-09-17 07:39:00 167.6 cm WEIGHT 2021-09-17 07:39:00 67.586 kg HEIGHT 2021-09-13 16:34:00 167.6 cm WEIGHT 2021-09-13 16:34:00 66.679 kg height 2021-09-03 10:40:00 67 [in_i] Common S pirit - [facility] weight 2021-09-03 10:40:00 149.4 [lb_av] [facility] - [facility] temperature 2021-09-03 10:40:00 97.9 [degF] Common S pirit - [facility] bmi 2021-09-03 10:40:00 23.4 kg/m2 Common S pirit - [facility] oximetry 2021-09-03 10:40:00 100 % Common S pirit - [facility] respiratory rate 2021-09-03 10:40:00 16 /min Comm on Spirit - [facility] blood pressure 2021-09-03 10:40:00 139 mm[Hg] [facility] - systolic [facility] blood pressure 2021-09-03 10:40:00 82 mm[Hg] [facility] - diastolic [facility] Systolic blood 2021-07-04 02:37:00 123 mm[Hg] Univer sity of pressure [facility] Diastolic blood 2021-07-04 02:37:00 85 mm[Hg] [facility] Heart rate 2021-07-04 02:37:00 79 /min Universi ty [facility] Respiratory rate 2021-07-04 02:37:00 16 /min Univ ersity of [facility] Oxygen saturation in 2021-07-04 02:37:00 100 /min University of Arterial blood by [employer] Pulse oximetry Branch Body temperature 2021-07-04 00:25:00 37.22 Steffanie Univ ersity of [facility] Body weight 2021-07-04 00:25:00 [facility] 2021-07-04 00:25:00 22.71 kg/m2 [facility] Systolic blood 2021-04-21 22:00:00 115 mm[Hg] [facility] Diastolic blood 2021-04-21 22:00:00 96 mm[Hg] Unive rsity of pressure [facility] Heart rate 2021-04-21 22:00:00 88 /min Universi ty [facility] Respiratory rate 2021-04-21 22:00:00 15 /min Univ ersity of [facility] Oxygen saturation in 2021-04-21 22:00:00 100 /min [facility] of Arterial blood by [employer] Pulse oximetry Branch Body temperature 2021-04-21 18:36:00 37.17 Steffanie [facility] Body weight 2021-04-21 18:36:00 79.379 kg Universi ty of [facility] Branch BMI 2021-04-21 18:36:00 27.41 kg/m2 [facility] HEIGHT 2021-04-16 07:00:00 170.2 cm WEIGHT 2021-04-16 07:00:00 68.448 kg HEIGHT 2021-04-12 11:00:00 170.2 cm WEIGHT 2021-04-12 11:00:00 68.04 kg HEIGHT 2021-04-16 07:00:00 170.2 cm WEIGHT 2021-04-16 07:00:00 68.448 kg HEIGHT 2021-04-12 11:00:00 170.2 cm WEIGHT 2021-04-12 11:00:00 68.04 kg Systolic blood 2021-03-31 08:00:00 144 mm[Hg] Univer sity of pressure [facility] Diastolic blood 2021-03-31 08:00:00 108 mm[Hg] [facility] Heart rate 2021-03-31 08:00:00 97 /min [facility] Respiratory rate 2021-03-31 08:00:00 26 /min [facility] Oxygen saturation in 2021-03-31 08:00:00 98 /min [facility] Arterial blood by [facility] Pulse oximetry [place] Body temperature 2021-03-31 05:14:00 37.11 Steffanie [facility] ersity of [facility] Body height 2021-03-31 05:14:00 170.2 cm [facility] Body weight 2021-03-31 05:14:00 79.379 kg Universi ty [facility] Branch BMI 2021-03-31 05:14:00 27.41 kg/m2 [facility]i ty [facility] Branch Systolic blood 2021-03-24 19:17:00 145 mm[Hg] Univer sity of pressure [facility] Branch Diastolic blood 2021-03-24 19:17:00 108 mm[Hg] Unive rsity of pressure [facility] Heart rate 2021-03-24 19:17:00 111 /min [facility]i [facility] Body temperature 2021-03-24 19:17:00 37.06 Steffanie [facility] Respiratory rate 2021-03-24 19:17:00 20 /min [facility] Body height 2021-03-24 19:17:00 170.2 cm [facility] Body weight 2021-03-24 19:17:00 79.379 kg [facility] BMI 2021-03-24 19:17:00 27.41 kg/m2 [facility] Oxygen saturation in 2021-03-24 19:17:00 100 /min [facility] Arterial blood by [facility] Pulse oximetry Branch height 2021-03-13 10:40:00 67 [in_i] Common [facility] weight 2021-03-13 10:40:00 154.8 [lb_av] [facility] temperature 2021-03-13 10:40:00 98.2 [degF] [facility] bmi 2021-03-13 10:40:00 24.24 kg/m2 [facility] oximetry 2021-03-13 10:40:00 99 % [facility] respiratory rate 2021-03-13 10:40:00 18 /min Comm on [facility] blood pressure 2021-03-13 10:40:00 124 mm[Hg] Common [facility] - systolic [facility] blood pressure 2021-03-13 10:40:00 70 mm[Hg] Common [facility] - diastolic [facility] height 2021-02-14 14:40:00 67 [in_i] Common [facility] weight 2021-02-14 14:40:00 149.4 [lb_av] [facility] temperature 2021-02-14 14:40:00 97.0 [degF] [facility] bmi 2021-02-14 14:40:00 23.4 kg/m2 [facility] oximetry 2021-02-14 14:40:00 100 % Common S pirit - [facility] respiratory rate 2021-02-14 14:40:00 18 /min Comm on Spirit [facility] HEIGHT 2020-12-06 09:00:00 170.2 cm WEIGHT 2020-12-06 09:00:00 67.132 kg HEIGHT 2020-12-05 11:34:00 170.2 cm WEIGHT 2020-12-05 11:34:00 68.04 kg HEIGHT 2020-08-02 08:26:00 170.2 cm WEIGHT 2020-08-02 08:26:00 70.58 kg WEIGHT 2020-07-31 10:06:00 68.04 kg HEIGHT 2020-07-31 10:06:00 170.2 cm Systolic blood 2019-10-30 20:53:00 149 mm[Hg] Univer sity of pressure [facility] Diastolic blood 2019-10-30 20:53:00 92 mm[Hg] Unive rsity of pressure [facility] Heart rate 2019-10-30 20:53:00 85 /min Universi ty [facility] Body temperature 2019-10-30 20:53:00 36.78 Steffanie Univ ersity of [facility] Respiratory rate 2019-10-30 20:53:00 20 /min Univ ersity of [facility] Oxygen saturation in 2019-10-30 20:53:00 100 /min [facility] Arterial blood by [facility] Pulse oximetry Branch Body weight 2019-10-30 19:24:51 79.379 kg Universi ty [facility] Systolic blood 2019-10-30 20:53:00 149 mm[Hg] Univer sity of pressure [facility] Diastolic blood 2019-10-30 20:53:00 92 mm[Hg] Unive rsity of pressure [facility] Heart rate 2019-10-30 20:53:00 85 /min Universi ty [facility] Body temperature 2019-10-30 20:53:00 36.78 Steffanie Univ ersity of [facility] Branch Respiratory rate 2019-10-30 20:53:00 20 /min Univ ersity of [facility] Oxygen saturation in 2019-10-30 20:53:00 100 /min [facility] Arterial blood by [facility] Pulse oximetry Branch Body weight 2019-10-30 19:24:[address] [facility] Systolic blood 2022-03-26 12:30:00 114 mm[Hg] [facility] Diastolic blood 2022-03-26 12:30:00 84 mm[Hg] [facility] Heart rate 2022-03-26 12:30:00 66 /min [facility] Respiratory rate 2022-03-26 12:30:00 20 /min [facility] Oxygen saturation in 2022-03-26 12:30:00 96 /min [facility] Arterial blood by Medical Ce nter Pulse oximetry Body temperature 2022-03-26 12:05:00 36.11 Steffanie [facility] Body height 2022-03-26 05:40:00 170.2 cm [facility] Body weight 2022-03-26 05:40:00 65.7 kg [facility] BMI 2022-03-26 05:40:00 22.69 kg/m2 [facility] Systolic blood 2021-09-17 09:05:00 120 mm[Hg] [facility] Diastolic blood 2021-09-17 09:05:00 73 mm[Hg] [facility] Heart rate 2021-09-17 09:05:00 68 /min [facility] Respiratory rate 2021-09-17 09:05:00 17 /min [facility] Oxygen saturation in 2021-09-17 09:05:00 98 /min [facility] Arterial blood by Medical Ce nter Pulse oximetry Body temperature 2021-09-17 08:38:00 36.28 Steffanie [facility] Body height 2021-09-17 07:39:00 167.6 cm [facility] Body weight 2021-09-17 07:39:00 67.586 kg [facility] BMI 2021-09-17 07:39:00 24.05 kg/m2 [facility] BP Diastolic 2020-03-29 04:20:00 86 mm[Hg] [facility] BP Systolic 2020-03-29 04:20:00 130 mm[Hg] [facility] Heart Rate 2020-03-29 04:20:00 87 /min [facility] [employer] Respiratory rate 2020-03-29 04:20:00 17 /min [email or web address] BP Diastolic 2020-03-29 04:07:00 86 mm[Hg] [facility] [employer] BP Systolic 2020-03-29 04:07:00 130 mm[Hg] [facility] [employer] Heart Rate 2020-03-29 04:07:00 87 /min [facility] [employer] Respiratory rate 2020-03-29 04:07:00 17 /min [facility] BP Diastolic 2020-03-28 23:51:00 80 mm[Hg] [facility] [employer] BP Systolic 2020-03-28 23:51:00 128 mm[Hg] [facility] [employer] BP Diastolic 2020-03-28 23:28:00 120 mm[Hg] [facility] [employer] BP Systolic 2020-03-28 23:28:00 153 mm[Hg] [facility] [employer] Heart Rate 2020-03-28 23:28:00 116 /min [facility] [employer] Respiratory rate 2020-03-28 23:28:00 18 /min [facility] Body Temperature 2020-03-28 23:28:00 98.3 [degF] [facility] Procedure Date / Time Performing Clinician Source Performed EGD 2022-06-04 11:30:[facility]ESOPHAGOGASTRODUODENOSCO [facility]) EGD 2022-06-04 10:00:00 [facility] (ESOPHAGOGASTRODUODENOSCO [facility]) TISSUE EXAM 2022-03-26 08:30:[address] [facility] CYSTOSCOPY, WITH BLADDER 2022-03-26 07:49:00 Aylin Martin [facility] HYDRODISTENSION [facility] CYSTOSCOPY, WITH 2022-03-26 07:49:00 Aylin Martin [facility] THERAPEUTIC AGENT [facility] INSTILLATION INTO BLADDER CYSTOSCOPY, WITH 2022-03-26 07:49:00 Aylin Martin [facility] BOTULINUM TOXIN INJECTION [facility] CYSTOSCOPY, WITH BLADDER 2022-03-26 07:49:00 Aylin Martin [facility] BIOPSY [facility] ECG 12-LEAD 2022-03-26 06:22:37 Joe Fournier [facility] ECG 12-LEAD 2022-03-26 06:22:37 Unknown, Hl7 Doctor [facility] URINE CULTURE 2022-03-19 10:49:[address] [facility] SCREEN, URINE 2022-03-19 10:49:00 Aylin Martin [facility] HEMOGLOBIN AND HEMATOCRIT 2022-03-19 10:49:00 [facility] BASIC METABOLIC PANEL 2022-03-19 10:49:00 Mario [facility] URINALYSIS W/ MICROSCOPIC 2022-03-19 10:49:00 [facility] PELVIS WO 2021-10-31 01:26:00 Esperanza Cook [facility] CONTRAST [facility] COMP. METABOLIC PANEL 2021-10-31 01:11:00 Esperanza Cook [facility] ([id number]) [facility] CBC WITH DIFF 2021-10-31 01:11:00 Esperanza Cook [facility] POCT TEST 2021-10-31 01:11:[address] [facility] URINALYSIS 2021-10-31 01:01:00 Esperanza Cook [facility] NOTICE OF PRIVACY 2021-10-31 00:41:53 Doctor Unassigned, No [facility] PRACTICES Name Medical Branch CONSENT/REFUSAL FOR 2021-10-31 00:41:38 Doctor Unassigned, No [facility] DIAGNOSIS AND TREATMENT Name [facility] REPORT OF PROCEDURE - 2021-09-17 08:36:13 [facility] ENDOSCOPY URL [facility] TISSUE EXAM 2021-09-17 08:28:00 Satish [facility] ENDOSCOPY, UPPER GI 2021-09-17 08:13:00 [facility] TRACT. WITH STRICTURE [facility] DILATION ENDOSCOPY, UPPER GI 2021-09-17 08:13:[address] [facility] Medical TRACT, WITH BIOPSY [facility] CT MAXILLOFACIAL/MANDIBLE 2021-07-04 01:29:14 [facility] COMP. METABOLIC PANEL 2021-07-04 00:55:00 Matthew Sharma [facility] ([id number]) Medical Branch CBC WITH DIFF 2021-07-04 00:55:00 Matthew Sharma [place] [facility] CONSENT/REFUSAL FOR 2021-07-04 00:17:51 Doctor Unassigned, No [facility]AT[facility] Name Medical Branch COVID-19 (ID NOW RAPID 2021-04-21 21:50:00 Fatou Epstein [facility] TESTING) [facility] CT THORAX W CONTRAST 2021-04-21 19:56:56 Fatou Epstein [facility] XR CHEST 1 VW 2021-04-21 18:55:31 Fatou Epstein [facility] LIPASE 2021-04-21 18:47:00 Lucian [facility] TROPONIN I 2021-04-21 18:47:00 Lucian [facility] COMP. METABOLIC PANEL 2021-04-21 18:47:00 Fatou Epstein [facility] ([id number]) [facility] CBC WITH DIFF 2021-04-21 18:47:00 Fatou Epstein [facility] PROTHROMBIN TIME / INR 2021-04-21 18:47:00 Lucian Fatou [facility] ACTIVATED PARTIAL 2021-04-21 18:47:00 Fatou Epstein [facility] THRMPLAS [facility] POCT TEST 2021-04-21 18:47:00 Fatou Epstein [facility] CONSENT/REFUSAL FOR 2021-04-21 18:31:52 Doctor Unassigned, No Un [facility] DIAGNOSIS AND TREATMENT Name Medical Branch REPORT OF PROCEDURE - 2021-04-16 09:18:36 Paige Covarrubias [facility] ENDOSCOPY URL [facility] TISSUE EXAM 2021-04-16 09:04:00 Paige Covarrubias [facility] ENDOSCOPY, UPPER GI 2021-04-16 08:46:00 Paige Covarrubias [facility] Medical TRACT. WITH STRICTURE [facility] DILATION ESOPHAGOGASTRODUODENOSCOP 2021-04-16 08:46:00 Paige Covarrubias CH I [facility] Y, WITH BIOPSY [facility] POCT TEST 2021-03-31 06:38:00 Stan Thakkar [facility] COMP. METABOLIC PANEL 2021-03-31 06:36:00 [id number] CBC WITH DIFF 2021-03-31 06:36:[address] [facility] URINALYSIS 2021-03-31 06:36:[address] [facility] NOTICE OF PRIVACY 2021-03-31 05:04:41 Doctor Unassigned, No [facility] CONSENT/REFUSAL FOR 2021-03-31 05:04:16 Doctor [facility], No [facility] NOTICE OF PRIVACY 2021-03-24 19:12:45 Doctor Unassigned, No [facility] CONSENT/REFUSAL FOR 2021-03-24 19:12:28 Doctor Unassigned, No Un iversity [facility] DIAGNOSIS AND TREATMENT [facility] Complete ultrasound of 2020-03-29 00:00:00 [facility] [employer] pelvis Computed tomography of 2020-03-29 00:00:00 [facility] [employer] abdomen and pelvis without contrast XR CHEST 1 VW COVID 2019-10-30 20:16:48 [facility] Care Planned Activity Planned Date Details Comments Source Future Scheduled 2023-03-26 Tobacco Cessation [facility] Medical Test 00:00:00 [facility]ing [facility] Center Screening (12+) [code = Tobacco Cessation Counseling and Screening (12+)] Future Scheduled 2023-03-[address] [facility] Medical Test 00:00:00 Counseling and Center Screening (12+) [code = Tobacco Cessation Counseling and Screening (12+)] Future Scheduled 2022-05-[address] [facility] Medical Test 00:00:00 (12+) [code = Center DEPRESSION SCREENING (12+)] Future Scheduled 2022-05-[address] [facility] Medical Test 00:00:00 (12+) [code = Center DEPRESSION SCREENING (12+)] Future Scheduled 2022-01-[address] [facility] Test 00:00:00 (#1) [code = Center INFLUENZA VACCINE (#1)] Future Scheduled 2022-01-[address] [facility] Test 00:00:00 (#1) [code = Center INFLUENZA VACCINE (#1)] Future Scheduled 2022-01-[address] [facility] Test 00:00:00 (#1) [code = Center INFLUENZA VACCINE (#1)] Future Scheduled 2021-05-[address] [facility] Test 00:00:00 (12+) [code = Center DEPRESSION SCREENING (12+)] Future Scheduled [address] [facility] Test 00:00:00 malignant neoplasm of Center cervix (procedure) [code = 834736599] Future Scheduled [address] [facility] Test 00:00:00 malignant neoplasm of Center cervix (procedure) [code = 781895112] Future Scheduled [address] [facility] Test 00:00:00 malignant neoplasm of Center cervix (procedure) [code = 578149560] Future Scheduled 2006 DTAP/TDAP/TD VACCINES [facility] 00:00:00 (1 - Tdap) [code = Center DTAP/TDAP/TD VACCINES (1 - Tdap)] Future Scheduled 2006 DTAP/TDAP/TD VACCINES [facility] 00:00:00 (1 - Tdap) [code = Center DTAP/TDAP/TD VACCINES (1 - Tdap)] Future Scheduled 2006 DTAP/TDAP/TD VACCINES [facility] 00:00:00 (1 - Tdap) [code = Center DTAP/TDAP/TD VACCINES (1 - Tdap)] Future Scheduled 2005 HEPATITIS C SCREENING [facility] 00:00:00 [code = HEPATITIS C Center SCREENING] Future Scheduled 2005 HEPATITIS C SCREENING [facility] 00:00:00 [code = HEPATITIS C Center SCREENING] Future Scheduled 2005 HEPATITIS C SCREENING [facility] 00:00:00 [code = HEPATITIS C Center SCREENING] Future Scheduled 1987 COVID-19 VACCINE (#1) [facility] 00:00:00 [code = COVID-19 Center VACCINE (#1)] Future Scheduled 1987 COVID-19 VACCINE (#1) [facility] 00:00:00 [code = COVID-19 Center VACCINE (#1)] Future Scheduled 1987 COVID-19 VACCINE (#1) [facility] 00:00:00 [code = COVID-19 Center VACCINE (#1)] Future Scheduled Urine beta-human [facility] Test chorionic gonadotropin (BhCG) detection [code = 2112-1] Goal Patient referral [facility] [code = 3410515 ] Encounters Start End Encounter Admission Attending Care Care Encounter Source Date/Time Date/Time Type Type Clinicians Facility Department ID 2022-05-12 Outpatient [facility] Surgery [id number] [facility] 14:36:57 PAIGE 2021-12-31 Outpatient [place], STLC [facility] [id number] Common 11:24:00 Paulie [id number] [facility] 2021-12-03 Outpatient [place] [id number] Common 08:26:01 Paulie [id number] [facility] 2021-11-20 [facility] [place] [id number] Common 08:44:00 Paulie [id number] [facility] 2021-05-29 [facility] [place] [id number] Common 14:10:22 Paulie 73422 [facility] 2021-05-29 Outpatient [place], STLMLC [facility] Common 12:16:28 Paulie 83484 [facility] 2021-05-29 Outpatient Tyson STGOGO [facility] Common 11:33:08 Paulie [id number] [facility] 2021-05-29 Outpatient Tyson [facility] Common 11:32:07 Paulie [id number] [facility] 2021-05-29 Outpatient Tyson [facility]GOGO [facility] Common 11:02:11 Paulie [id number] [facility] 2021-02-10 [facility] [id number] [facility] 05:31:08 PAIGE 2021-02-09 Outpatient AMADOU COVARRUBIAS SLE Surgery [id number] SLEH 09:27:36 PAIGE 2020-04-15 Inpatient [facility] [id number] [facility] 19:01:[address] [facility] 2020-03-14 Inpatient AMADOU De La O [facility] [id number] [facility] 09:00:00 Crystal [address] [facility] 2022-09-19 2022-09-19 Outpatient AMADOU DARYA, SLE Surgery [id number] [facility]H 09:09:00 14:45:00 JONES 2022-09-25 2022-09-03 Outpatient AMADOU SLE SLE [id number] [facility] 14:56:35 23:59:00 2022-08-26 2022-08-26 Outpatient AMADOU COVARRUBIAS SLE Surgery [id number] [facility] 07:49:00 11:30:00 PAIGE 2022-07-28 2022-07-28 Outpatient SLE SLE [id number] SLEH 00:00:00 00:00:00 2022-06-11 2022-06-11 Outpatient AMADOU ARACELIDANII [facility] Surgery [id number] SLSL 08:46:00 11:15:00 PAIGE 2022-03-26 2022-03-26 Outpatient AMADOU MARTIN [facility] Surgery [id number] SLEH 05:29:00 13:34:00 AYLIN 2022-03-26 2022-03-26 [facility] AMADOU Martin [facility] [id number] 05:29:00 13:34:00 Encounter [facility] 2022-03-26 2022-03-26 [facility] [id number] 08:00:00 09:30:00 [facility] 2022-03-26 2022-03-26 Anesthesia [facility] [id number] 07:50:00 09:03:00 [facility] 2022-03-26 2022-03-26 Orders [facility] [id number] 00:00:00 00:00:00 Only [facility] 2022-03-26 2022-03-26 Travel [facility] [id number] [facility] 00:00:00 00:00:00 [facility] 2022-03-19 2022-03-19 Outpatient AMADOU [facility]ARTIN [facility] [id number] [facility] 10:43:50 23:59:00 [facility] 2022-03-19 2022-03-19 [facility] [id number] 10:00:00 23:59:00 Encounter [facility] 2022-03-17 2022-03-17 Outpatient SLE SLE [id number] SLEH 10:00:42 23:59:00 2022-03-17 2022-03-17 [facility] [id number] 09:00:00 23:59:00 Encounter [facility] 2022-03-17 2022-03-17 Outpatient SLE SLEH [id number] [facility]H 00:00:00 00:00:00 2022-03-17 2022-03-17 Outpatient SLEH SLEH [id number] SLEH 00:00:00 00:00:00 2022-03-17 2022-03-17 Travel [facility] [id number] [facility] 00:00:00 00:00:00 [facility] 2022-01-02 2022-01-02 OFFICE STLMLC STLMLC [id number] Co mmon 00:00:00 00:00:00 VISIT EST Spir it PT LEVEL 3 - [facility] 2021-12-11 2021-12-11 (TEL) STLMLC STLMLC [id number] Co mmon 00:00:00 00:00:00 Spirit - [facility] 2021-12-03 2021-12-03 OFFICE STLMLC STLMLC [id number] Co mmon 00:00:00 00:00:00 VISIT Tr GONZALEZ PT - [facility] LEVEL 4 [facility] 2021-10-30 2021-10-30 Emergency X COOK, [facility] ERT [id number] Univers 19:56:00 22:09:00 ESPERANZA orona [facility] 2021-10-30 2021-10-30 Emergency Cook, [facility] [id number] Univers 19:56:00 22:09:00 Esperanza Calero [place] 350.1.13.10 i ty [facility] 4.2.7.2.686 [facility] [id number] [place] [address] Branch 2021-09-17 2021-09-17 Outpatient [facility] Surgery [id number] SLE 06:38:00 09:30:00 [facility] 2021-09-17 2021-09-17 Hospital [facility] [id number] 06:38:00 09:30:00 Encounter [facility] 2021-09-17 2021-09-17 Anesthesia Artie, [facility] [id number] 08:18:00 08:41:00 Event Haylie Izzy [facility] 2021-09-17 2021-09-17 Surgery [facility] [id number] 08:00:00 08:30:00 [facility] 2021-09-03 2021-09-03 OFFICE STLMLC STLC [id number] Co mmon 00:00:00 00:00:00 VISIT Tr GONZALEZ PT - [facility] L[facility] 4 [facility] 2021-07-03 2021-07-03 Emergency X Matthew SHARMA [facility] ERT [id number] Univers 18:43:00 20:40:00 ity of [facility] 2021-07-03 2021-07-03 Emergency Matthew Sharma [facility] 1.2.840.114 [id number] Univers 18:43:00 20:40:00 Afshan MCDONNELL 350.1.13.10 i ty of [place] 4.2.7.2.686 [facility] [phone] [address] 2021-07-02 2021-07-02 (TEL) STLMLC STLC [id number] Co mmon 00:00:00 00:00:00 [facility] 2021-05-27 2021-05-27 (TEL) STLC STLC [id number] Co mmon 00:00:00 00:00:00 [facility] 2021-04-25 2021-04-25 Laboratory Only, Ang Db Test [facility] 1.2.8 40.114 [id number] Univers 20:45:00 21:00:00 Only Iris Stewart [facility] 350.1.13.10 ity of [place] 4.2.7.2.686 Jimenez as ROMELIA?BLEA [phone] [address] MEDICAL OFFICE BUILDING 2021-04-25 2021-04-25 Outpatient R [facility] [id number] Univers 20:45:00 10:28:32 [facility] 2021-04-24 2021-04-24 (TEL) [facility] STLC [id number] Co mmon 00:00:00 00:00:00 [facility] 2021-04-21 2021-04-21 Emergency X AUFDERHEIDE [facility] ERT [id number] Univers 12:39:00 17:12:00 , FATOU ity [facility] 2021-04-21 2021-04-21 Emergency Aufderide [facility] 1.2.840.114 [id number] Univers 12:39:00 17:12:00 , Fatou MCDONNELL 350.1.13.10 i ty of Arabella LEVIN 4.2.7.2.686 [facility] [phone] [facility] 084 Branch 2021-04-16 2021-04-16 Outpatient EL SATISH [facility] Surgery [id number] SLEH 07:24:00 10:14:00 [facility] 2021-04-16 2021-04-16 Hospital [facility] [id number] 07:24:00 10:14:00 Encounter [facility] 2021-04-16 2021-04-[address] [facility] [id number] [facility] 08:52:00 09:16:00 Event Damián Walker [facility] 2021-04-16 2021-04-16 [facility] [id number] 08:45:00 09:15:00 [facility] 2021-04-12 2021-04-12 Outpatient SLE SLE [id number] SLE 11:21:19 23:59:00 2021-04-12 2021-04-12 [facility] [id number] 10:05:00 23:59:00 Encounter [facility] 2021-04-12 2021-04-12 Travel [facility] [id number] [facility] 00:00:00 00:00:00 [facility] 2021-03-30 2021-03-31 Emergency X BIJAN [facility] ERT [id number] Univers 23:16:00 03:07:00 STAN ity of [facility] 2021-03-30 2021-03-31 [facility] 1.2.840.114 [id number] Univers 23:16:00 03:07:00 Stan MCDONNELL 350.1.13.10 ity [place] 4.2.7.2.686 [facility] [phone] [facility] 084 Branch 2021-03-24 2021-03-24 Emergency X KERA [facility] ERT [id number] Univers 13:23:00 13:49:00 CARLI ity of [facility] 2021-03-24 2021-03-24 Emergency Kera, [facility] 1.2.840.114 [id number] Univers 13:23:00 13:49:00 Carli MCDONNELL 350.1.13.10 ity of [place] 4.2.7.2.686 [facility] [phone] [facility] 084 Branch 2021-03-24 2021-03-24 Orders Doctor MARCO ANTONIO 1.2.840.114 [id number] Univers 00:00:00 00:00:00 Only Unassigned, ZULEYKA 350.1.13.10 ity of [facility] 4.2.7.2.686 [facility] [phone] [facility] 009 Branch 2021-03-13 2021-03-13 OFFICE STLMLC STLMLC [id number] Co mmon 00:00:00 00:00:00 VISIT EST Spir it PT LEVEL 3 - [facility] 2021-02-14 2021-02-14 OFFICE STLMLC STLMLC [id number] Co mmon 00:00:00 00:00:00 VISIT Spirit ESTAB PT - CH[facility] LEVEL 2 [facility] 2021-01-21 2021-01-21 (TEL) STLMLC STLMLC [id number] Co mmon 00:00:00 00:00:00 [facility] 2020-12-16 2020-12-16 (TEL) STLMLC STLMLC [id number] Co mmon 00:00:00 00:00:00 [facility] 2020-12-11 2020-12-11 Outpatient STLMLC STLMLC [id number] Common 00:00:00 00:00:00 [facility] 2020-12-05 2020-12-05 Outpatient EL SLEH SLEH [id number] [facility]H 00:00:00 00:00:00 2020-12-05 2020-12-05 Outpatient EL SLEH SLEH [id number] SLEH 00:00:00 00:00:00 2020-10-25 2020-10-25 Emergency EM Collins-G [facility] [id number] [facility] 12:28:00 14:54:00 omez, 77 [facility] 2020-07-31 2020-07-31 Outpatient EL SLEH SLEH [id number] [facility]H 00:00:00 00:00:00 2020-06-26 2020-06-26 Outpatient STLMLC STLMLC [id number] Common 00:00:00 00:00:00 [facility] 2020-05-01 2020-05-01 Outpatient STLMLC STLMLC [id number] Common 00:00:00 00:00:00 [facility] 2020-03-28 2020-03-29 Departed HIMA Torres [id number] [facility] 23:27:00 04:37:00 Emergency FC Cabrini 47 [facility] 2020-03-28 2020-03-28 Departed ER PHYSICIAN, FLORA TORRES AF00 [id number] [facility] 23:27:00 23:27:00 Emergency ER 47 [facility] 2020-03-27 2020-03-27 Outpatient STLMLC STLMLC [id number] Common 00:00:00 00:00:00 [facility] 2020-03-07 2020-03-07 Outpatient STLMLC STLMLC [id number] Common 00:00:00 00:00:00 [facility] 2019-11-30 2019-11-30 [facility] [id number] Common 10:40:00 10:40:00 [facility] 2019-11-01 2019-11-01 Telephone Stenstadenrique MARCO ANTONIO 1.2.840.114 [id number] 00:00:00 00:00:00 Ana delatorre 350.1.13.10 [facility] 4.2.7.2.686 [id number] 2019-11-01 2019-11-01 Telephone Stenstadenrique BERNARD 1.2.840.114 [id number] [facility] 00:00:00 00:00:00 Ana delatorre 350.1.13.10 [facility] 4.2.7.2.686 Jimenez as [phone] [address] 2019-10-30 2019-10-30 Emergency [place] 1.2.840.114 [id number] 14:26:51 16:21:00 Krys Mcdonnell 350.1.13.10 [place] 4.2.7.2.686 [place] [id number] [facility] 2019-10-30 2019-10-30 Emergency [place], [facility] 1.2.840.114 [id number] Univers 14:26:51 16:21:00 Krys Mcdonnell 350.1.13.10 i ty of [place] 4.2.7.2.686 [facility] [place] [phone] [place] [address] Branch 2019-10-30 2019-10-30 Emergency X [place], [facility] ERT [id number] Univers 14:26:51 14:26:51 KRYSNANETTE orona [facility] 2019-08-19 2019-08-19 Outpatient [facility] [id number] Common 08:20:00 08:20:[address] [facility] [address] [facility] 2019-07-01 2019-07-01 Outpatient [facility] [id number] Common 10:00:00 10:00:[address] [facility] [address] [facility] 2019-05-25 2019-05-25 Outpatient [facility] [id number] Common 10:40:00 10:40:[address] [facility] [address] [facility] 2019-04-06 2019-04-06 Outpatient [facility] [id number] Common 10:40:00 10:40:[address] [facility] [address] [facility] 2019-03-16 2019-03-16 Outpatient [facility] [id number] Common 13:20:00 13:20:[address] [facility] [address] [facility] Results Test Description Test Time Test Comments Results Result [facility] e Comments [place], [place], 2022-09-19 Reason for NON-SPECIFIC, UP 13:15:00 exam:->INTRAOP [facility] : 1985 Sex: F An imaging unit was utilized for this procedure. No radiologist interpretation was requested. Refer to the EMR for findings. Refer to PACS for any patient radiation dose information. TISSUE EXAM 2022-08-28 Surgical Pathology 13:01:48 Report Case: [id number] Authorizing Provider: Paige Covarrubias MD Collected: 08/26/2022 10:18 AM Ordering Location: [facility] Received: 08/26/2022 02:26 PM SERVICES Pathologist: Amber Clark MD Specimens: A) - Distal Esophagus, bxs B) - Proximal Esophagus, bxs A. DISTAL ESOPHAGUS, BIOPSY: - MULTIPLE PIECE OF SQUAMOUS EPITHELIUM WITH MILD REACTIVE CHANGE - NO INCREASED EOSINOPHILS - NO NICOLE'S METAPLASIA OR DYSPLASIA B. PROXIMAL ESOPHAGUS, BIOPSY: - SQUAMOUS EPITHELIUM WITH MILD REACTIVE CHANGE - NO INCREASED EOSINOPHILS Signing Pathologist Direct Phone Line: [phone] lly signed by Amber Clark MD on 08/28/2022 at 1:01 [id number] x2 Eosinophilic esophagitis, Esophageal dysphagiaA. Distal EsophagusReceived in formalin labeled with the patient's name, medical record number and "distal esophagus" are 3 cruz soft tissue fragments measuring up to 0.3 cm in greatest dimension, which are submitted in toto in A1.B. Proximal EsophagusReceived in formalin labeled with the patient's name, medical record number and "proximal esophagus" are multiple cruz soft tissue fragments measuring up to 0.3 cm in greatest dimension, which are submitted in toto in B1.NABIL Blanca, ([facility]) TISSUE EXAM 2022-06-13 Surgical Pathology 14:44:17 Report Case: [id number] Authorizing Provider: Paige Covarrubias MD Collected: 06/11/2022 10:24 AM Ordering Location: [facility] ENDOSCOPY SERVICES Received: 06/11/2022 11:46 AM Pathologist: Stephanie Ralph MD Specimens: A) - Distal Esophagus B) - Proximal Esophagus A. DISTAL ESOPHAGUS, ENDOSCOPIC BIOPSY - SQUAMOUS MUCOSA WITH NO PATHOLOGIC ALTERATION - NO FEATURES OF REFLUX ESOPHAGITIS ARE SEEN - NO FEATURES OF EOSINOPHILIC ESOPHAGITIS NOTED - NO COLUMNAR MUCOSA PRESENT - NO MALIGNANCY SEENB. PROXIMAL ESOPHAGUS, ENDOSCOPIC BIOPSY - SQUAMOUS MUCOSA WITH NO PATHOLOGIC ALTERATION - NO FEATURES OF EOSINOPHILIC ESOPHAGITIS NOTED - NO MALIGNANCY SEEN Signing Pathologist Direct Phone Line: [phone] lly signed by Stephanie Ralph MD on 06/13/2022 at 2:44 [id number] X 2Eosinophilic esophagitis, esophageal dysphagiaA. Distal Esophagus.Received in formalin labeled with the patient's information and labeled "distal esophagus" are multiple fragments of cruz-white mucosal tissue measuring in aggregate 0.6 x 0.1 x 0.1 cm in maximum dimension submitted entirely in cassette labeled A1. B. Proximal Esophagus.Received in formalin labeled with the patient's information and labeled "proximal esophagus" are multiple fragments of mucosal tissue measuring in aggregate 0.3 cm in maximum dimension submitted entirely in cassette labeled B1. BH/ew PERFORMED BASIC METABOLIC PANEL 2022-06-11 10:08:06 Test Item Value Reference Range Interpretation Comme nts SODIUM (BEAKER) (test 139 meq/L 135-148 code = 381) POTASSIUM (BEAKER) 4.3 meq/L 3.6-5.5 (test code = 379) CHLORIDE (BEAKER) (test 106 meq/L 98-106 code = 382) CO2 (BEAKER) (test code 22 meq/L 20-29 = 355) BLOOD UREA NITROGEN 10 mg/dL 10-26 (BEAKER) (test code = 354) CREATININE (BEAKER) 0.80 mg/dL 0.50-1.20 (test code = 358) GLUCOSE RANDOM (BEAKER) 75 mg/dL 70-110 (test code = 652) CALCIUM (BEAKER) (test 9.3 mg/dL 8.5-10.5 code = 697) EGFR (BEAKER) (test 98 mL/min/1.73 sq In terpretation of eGFR values code = 1092) m Stage Descripti on Result G1 Normal or high >=90 G2 Mildly decreased 60-89 G3a Mildly to moderately 45-5 9 G3b Moderately to severely 30- 44 G4 Severly decreased 15-29 G5 Kidney failure <15Repo rted eGFR is based on the CK D-EPI 2020 equation that d oes not use a race coefficien tEstimated GFR is not as accurate as Creatinine Clearance in pr edicting glomerular filt ration rate. Estimated GFR i s not applicable for dialysis pa tients Game Tester ID - LITOOperator ID - LITOOperator ID - LITOOperator ID - LITOOperator ID - LITOOperator ID - LITOOperator ID - LITOOperator ID - LITOOperator ID - LITOOperator ID - LITOOperator ID - LITOOperator ID - LITOCBC W/PLT COUNT & AUTO [id number] 09:51:39 Test Item Value Reference Range Interpretation Comments WHITE BLOOD CELL COUNT (BEAKER) 5.7 K/ L 4.0-10.0 (test code = 775) RED BLOOD CELL COUNT (BEAKER) 4.50 M/ L 4.00-5.00 (test code = 761) HEMOGLOBIN (BEAKER) (test code = 14.3 GM/DL 12.0-15.5 410) HEMATOCRIT (BEAKER) (test code = 42.6 % 36.0-46.0 411) MEAN CORPUSCULAR VOLUME (BEAKER) 95 fL 82-99 (test code = 753) MEAN CORPUSCULAR HEMOGLOBIN 31.8 pg 27.0-33.0 (BEAKER) (test code = 751) MEAN CORPUSCULAR HEMOGLOBIN CONC 33.6 GM/DL 32.0-36.0 (BEAKER) (test code = 752) RED CELL DISTRIBUTION WIDTH 12.7 % 12.0-15.0 (BEAKER) (test code = 412) PLATELET COUNT (BEAKER) (test 236 K/CU MM 150-430 code = 756) MEAN PLATELET VOLUME (BEAKER) 9.8 fL 6.0-11.5 (test code = 754) NUCLEATED RED BLOOD CELLS 0 /100 WBC 0-0 (BEAKER) (test code = 413) NEUTROPHILS RELATIVE PERCENT 56 % (BEAKER) (test code = 429) LYMPHOCYTES RELATIVE PERCENT 31 % (BEAKER) (test code = 430) MONOCYTES RELATIVE PERCENT 9 % (BEAKER) (test code = 431) EOSINOPHILS RELATIVE PERCENT 2 % (BEAKER) (test code = 432) BASOPHILS RELATIVE PERCENT 1 % (BEAKER) (test code = 437) NEUTROPHILS ABSOLUTE COUNT 3.21 K/ L 1.80-8.00 (BEAKER) (test code = 670) LYMPHOCYTES ABSOLUTE COUNT 1.79 K/ L 1.48-4.50 (BEAKER) (test code = 414) MONOCYTES ABSOLUTE COUNT (BEAKER) 0.53 K/ L 0.00-1.30 (test code = 415) EOSINOPHILS ABSOLUTE COUNT 0.12 K/ L 0.00-0.50 (BEAKER) (test code = 416) BASOPHILS ABSOLUTE COUNT (BEAKER) 0.03 K/ L 0.00-0.20 (test code = 417) IMMATURE GRANULOCYTES-RELATIVE 0.40 % 0.00-0.00 H PERCENT (BEAKER) (test code = 2801) Tissue [id number] 14:11:34 Test Item Value Reference Range Interpretation Comments Case Report (test code Surgical Pathology = 104) Report Case: [id number] Authorizing Provider: Aylin Martin, Collected: 03/26/2022 08:30 AM Ordering Location: [facility] PERI[facility] Received: 03/26/2022 11:38 AM SERVICES Pathologist: Valentine Vaughn MD Specimen: Bladder Biopsy DIAGNOSIS (test code = i9aosACaATGvw1haNAQznQY 3220) uZzEwMzNcZnRuYmpcdWMxIH tccnRmMVxlcGljOTYwMlxhb aClREJadDZwM6ZjudnnWHca BR1rOG1jyFymqCYyjNKuMRV mQyRme1xls728pDPmi1eeDR HTwqxrnUk8iOdnZ96xe2U4T gbqH81emTWuZPK3EQFpJNDt kESuGYGtPBF5FDJetLWqF2z pBVLcFZ3xjccvVBmcJJriBZ LswNO5MQJdlQOaM4RjGDHuT QrgSCNfbgw3BuDzIz6qhHPo eTcyMFxwYXJkXHBsYWluXGZ zMjAgVVJJTkFSWSBCTEFERE CGLJGRPT1HA8fneBLwJUVoR iAtVVJPVEhFTElBTCBNVUNP Y8NiF7qGMILSCUiXXJFBWz3 MTXOhWH9BTESIDXQTCH7VNZ ZJMRVVRCnRFLXYBo7PEZKRK YXSUOXPIT4LAKMsuBPsCJZe TeDzPH5BZMACCWISX7IXAC3 FVEFQTEFTSUFccGFyXHRhYi TuMMBKI4CMNVXXNtXOEn6RS cfXQW3BUWDMXVHHDNfGCMLA UCCvtk14RTX1EsJvz0N4ALJ 6JMSjTOLmv5edWJQjnTWaFx EwMzNcZnRuYmpcdWMxXGRlZ vIye3ino377jLVgn0daZQOy KtA8rQVzOQYjzJAnO081CHY bOBdyt4sum0QkSNCfhGMaz9 U7HBQUwcrdlMo4wIseT53hd 4W6GdlfG3hqUOQtNIHpD0Hm WV3gKSMvEjw7FYC0NBG7YHL pDNXwV7CjSW5fWFQruIFtEA m6u5uacBjwXELiOBH8c1weT AfifpNtIO7xsb5zaSu3q9sq ciXkSPHiRWGxcWRNIVIoU3I rcDviYf6xaIo0zMvqEbelJP L9Qvh8CV9acw09kpt5lQqaZ OEbzgizTiJ1TCtkMNDvfpoz VDr9NClnALDgbKP6COSyyYQ kX6VnSEJrTL2bssq3RZD2PT lnPALtXeW7PLUelCGjYKLyh VbkCQsqy222THO0SoYpYU0f V1Kgc8Q2gK2nhEGhKBUrvPE iArXePJPmgh4kwOQuBGxgv0 DlWAB7ccJ3oXUoxVSyVZAuZ rA9EOmaDN5cus44FEUhMTC5 kv3oeGSduDvkowGjtVLgXHu uU9TbVRJhs068XLOwU3QaXV Vyh6Q3czYiElBmIHPviKT9b gC0IXVkUU5guqeug5dhGFkz NQgeMOIigwM2ffB8ZTTtjFZ nW9LyhB8eMSWwUC8rjuvgj2 xiGAO6IRhcNWOuESO3AcQcD YTkf4Vwjyh2NoSjs0YxxHDw UDwkU15ex006FBIrqfGoX4d wbGFpblxwbGFpblxmMFxmcz G2IWDlRWjqdrrwZUAiPHboQ 1slCbPvBRSohNrlPSure3Ux XGYxXGZzMjJcdGFiXHRhYlx 8MUMglXQcIDJiGpPlN9kmxs feMzNTITPvo4nrP3wowIVVm FIwR3AqEIglpfDlAXsmSHdl KdMfTSm0VT85MaRaGLWcup5 9 CPT Code(s) (test code z9eolPJmUNYkgRE1XsZrRGE = 3357) eb0krh6GckCMpvCDpTKrxrC DkzvMfzu20uVI2iQ14GL8vC MIsRdU8TNBultB5Iwr7JMAa DHItqRZwB910t1bfg3wlnxJ vmVC9yMbbWXGkbuyiYjN8IV xsMUAgmnkmPBg2COvrGNOya RC4FDGauNUiS5XvWJObDJ1g tdy3IAK8VCprTZZxEkL9SFO mpQTrYIRkzNlfCBdiu292PT N7FkTpAJMmrdQuzCngkC4zW iVbUGY2CBFiVTEbkXLrxF== CLINICAL HISTORY (test z1hniOZlJADjxWB7DdMsAGL code = 3356) tb8ecc0MprIShpJGiDEukdR LlwmUgfx08lMF8pM44LA8tP BKlLlM8PZHzcxJ6Qxx0OKXl VPJsbWHdB666t0lki1qbqdC vsJR0kNcqMSNejadmHkP7DR sfINIbltzlHGw5JBvxEYZtz IZ6NZQhmLZcQ6BzHREzGV6a hhl8HPT0VKdqBBYrJpX2EAN iiQOjWAXjhPfmIDqxu101VU F1SqTlUGFkyeCzyFhnqR5lP lDaMQATtaMmmmC3cKQuAXtn M4wqkVd2wIZoMH32CXIyQ5Z pdmUgYmxhZGRlclxwYXJ9 GROSS DESCRIPTION j1lhlZFlSRDwlAYAIQTvO5l (test code = beaVmIBIetVWaL6WxkjpcDE [id number]) zwMF2bKU8pfTqdmWKmtCFrB Q5RYEMzYiMhFVTrjRIgwuTw AnNqPEUuiBBfqRC2YOWpNY3 knzokNRbvBByyZZUkimA8UJ MrsZWgT3YrHXQqPZ4cicomW JU4ZMnwmS2jdiSVSpddFp4a dHRibHtcZjFcZmNoYXJzZXQ wZYSabUmiJJGgRAd7eD2EJp dnMHG6MSLWZzryQQZpTX7Sr 4eeGMCorAVaEMD1YGlfgFHv PDMpNPXaRAj5MJHmPYsgsHE nGL9ceKgbLddmdMfwj0MwmG BcXGlkIDUxMDAyIFxcZGIgI O0KUuNcNQBtBDXhBUAsRAf2 NHf9GJ5YMoFgNCQlQYK0DfC 3UULwDZv9BXulDI5KWSKzEu NvIWC8IEZ3CRV4VIIvZWVfW iBcXGYgQXJpYWwgXFxmbCBc FZ7ylIcclNCwvvFNPfFPfPI eRAHcLTPnl4GbaR2iwTAtSC 3SUEJvhMPYCSL4ZN3kQZWZG xxkzSPoAGCyaBvxPMfpkN9t ET6MHQc6duZoPZPyIcVrYcS xLFn2KNYpsJ3uMd5weLDgzG 3jrKGvPQkdNGH5kAQaZLXrO MIpZTSqOO30RAxOXCTqleFs ZSwgbWVkaWNhbCByZWNvcmQ gbnVtYmVyIGFuZCAiYmxhZG BohoMhsT8ei2lzHCcrKEFbH K3vLJIcLQRkmyOsa5R9UTYt f7D6OQQkctRaoVZztROiaRM cyMX2LCFvzO9qpE37wmOcaj INWY0sqHJzIG3UIQHzpgXRE cGeLHwyRBNuD0JorE0gMI7S GvyxHDCkCCJKQ8LbL57zcLz uZSBcbGluZSANClxwbGFpbl xlcGljTmVzdERvYzBccGxha C36TYQalXYqNLJ3GJ0lOWWy xiceWQPiJBLlMLO7CHmivR3 9pBCjILSdMWIvdXVxoP2CXY OvXGJ0GAtecK58yGZgVX1LE PTyDVS2XWEhnEGeLMY3PW4w fQ0KfQ== MICROSCOPIC e7ijrZFwPBHjqHA7BjLoXMH DESCRIPTION (test code vh1kxx1LdtDGoyLGeZHtkjI = 3371) WdkoHiui48sPH1uF43WY8oQ TAiYxN4CMAqlbR3Ltq1QVGx FPTgjMToR265h8err3rytzK daNL5tVdzBRWbhlaoQzN8RL uaTZSuapptEKh8BIqpSAXxc MW7HQTvnIIjR2TrJGRkQO7m eda8SRN4QDwbDUKrRnE0OKN itTSoREYyhDuoAOzkz936FS L1GwRzXSOahsWveBeauF2uI nMyMCBObyBkeXNwbGFzaWEg z7HzvWLmnZeyKU1pxCAmdgM pZGVudGlmaWVkLlxwYXJ9 Gross assessment was [facility] performed at ([facility], code = 2777) Department of Pathology, [address] [place] [id number], Technical component [facility] was performed at ([facility], code = 2778) Department of Pathology, [address] [place] [address], Professional component [facility] was performed at ([facility], code = 2779) Department of Pathology, [address] [place], [place] [id number], [facility] [id number] 14:11:34 Test Item Value Reference Range Interpretation Comments Case Report (test code Surgical Pathology = 104) Report Case: [id number] Authorizing Provider: Aylin Martin, Collected: 03/26/2022 08:30 AM Ordering Location: [facility] PERIOPERATIVE Received: 03/26/2022 11:38 AM SERVICES Pathologist: Valentine Vaughn MD Specimen: Bladder Biopsy DIAGNOSIS (test code = [id number] 3220) uZzEwMzNcZnRuYmpcdWMxIH tccnRmMVxlcGljOTYwMlxhb yIjVCGwgCOjE2KhhylzQIcx VJ9wAS9tdTfeeAFgrCWtIHZ yIoGyg4whh594cYKwk2joIT PTkmvwsEy8wEjeG95tm4E7I skbH32idNZkLDB2VWJaZEWd eJZyVDWoEOR7ETOhlBUrE7u eZUPvJD0lwkziBNhaAYzwYH VziTS3MZKjwYNkH4KwYNNxZ TqoKGKorur3AyXyVu0zgDAl eTcyMFxwYXJkXHBsYWluXGZ zMjAgVVJJTkFSWSBCTEFERE KXXIXVBH0DL5gkhJTbLKEpX iAtVVJPVEhFTElBTCBNVUNP S0ZaN0aORGMUVClSCTVDMx6 WRDAlHU2EUCGBMCSMZO6AWL XSRPKTAYsOALVVAi2ZPKMUN ZEZYWXTSC7MUYFqwBVcMGWy PoIaIZ5ZRKMIPMFLX1JHYT2 FVEFQTEFTSUFccGFyXHRhYi NdOIYZP9NRZDTLCsXFKg4YC whBHF5CGAEGXQHNNDuLUENM HCRkqb07KVM7TeMhb9N0VPR 9NSVnCXBbk2hyXMFzuXOpOg EwMzNcZnRuYmpcdWMxXGRlZ mReg0gxu887dOZln2jwVNZd MyH2cBGeXIRyxPUoF230NMR xUHcgy7mwh9YnRZQxlWWfq5 E8JYGDuzgrhXe4tBhaV12ev 9E0XesxQ4ogOHTmGWWuW0Fq FM0xNLGgZnn6HCD7YSO0UFM mEFIiD8PwEA3vEGZxvVDdPC c6j2meoAimAFPlAWA5w0jtK UyyvtWfPN9ein6ifDp5c7uw qsHqLBTpKURuePKBCAYvN9I vvKqjVd0vtLm6yWtbUqquTD F8Mbd9NB9gex99zmu0pZzbD XPgcriqNgE2NNsnQCVtqcvp NHa0HQfsSVHvhWL4SDAqxPC wO3CwCJJyWW3nkyk5FCK9HU chNDAaQlO7ZPJrgAVkEPHcl BacIJqsu174KLD9RaKhMK9c B0Ikt7F2sC4tlNGkEYRmrTR tRtGzUFErsu8vrLAqXMrqi2 EcLVL4qmB3cQErgJYiGRUrF zB9JPswVX5dpv12GQKfAZP2 mb8ywDTsjSkdcuStlEZiBEq zE5RoSJKvo945OJJeW9YoIU Wvh9K4ibZuGyVeQKCxwBC1i eJ0RMVoFB6jquipg1wqJOni CApeNLYlrqR8pcP4XTHyjGH mN8HdhH0xWTBlHV7rqnifn3 ngVSD3QEvwLLZyIVZ7WzNvP JQpa5Porqq1YuOtv7VlnCWu QZahS05wz553QQMttgHbI5r wbGFpblxwbGFpblxmMFxmcz I3ZFHcEFbdawejCPPrICfiP 9eeLnXdKELlgDhrTKmdd1Sq XGYxXGZzMjJcdGFiXHRhYlx 1GHCjlQIoVPKyXoXlW3vzja ytNyQJSBDva5wlG7gjuXQQc ORwB1UeJVsaqgNsAUwuIFui DmWgNWe1GJ58BaGtFVHvfu2 9 CPT Code(s) (test code i8tluYYuSSGulVU4MlOiQXO = 3357) yg7fgj2OslWOybZZbDAcakP NcafLgoi89oCQ4gM48KM7mD YEqZlX6XHNixyJ4Zju1JPSf ZVNokOUqH885u6ojv8vwejV qoXL5fTzvXPFvifiaIdS8OS nzJOUbshhfTOw5KRvcOCXsp LV3YUWpoLZfE4EpISKoTO2v gro6XZB9FQovYUJkXiC2AZR gmWPwBDUzwTyvOGxwx745PS X2AeKfJBAjsjNuoDeerL1dK eMjJIF1WDKoOQUleSQpgU== CLINICAL HISTORY (test w1ggeJMvXDQslZL3UhPkWIC code = 3356) ap3les2OokOBtpKIfFTerrX LlxmLldz23tPX1eX62VS3mV YKhFhF1SDSgsbY6Dms2QTZy SUVnlTGdE403e7pgy2yxchA yaYR3dNxuTWGlqomvTeZ6AC hyBJFnibopXWl9CKnfQTNmx DG9CNBxaLHoP6MpIPJrFU1m brk6SAD0ANvxJFErGhS8TVU kvONqXQCxmEcxIBjnj377OF N4JdXnAJUtoqPieMkoaS0hT lUoNXZDjtDxdrP5nBSzPAar T6vorLs4mTYkOZ55LGZfT6G pdmUgYmxhZGRlclxwYXJ9 GROSS DESCRIPTION m3bnbQJvZHVjhSHAOHSlW8g (test code = xpmWgZVBjbSCiZ6YkdgjsYZ [id number]) pnLY1fRQ5sjByhlLBhcUYxA W5FTORiCwQsGGOltJDspsZq SpLvMESjsFRxfQA3YISaLA1 ntrlhYXrjPLvbICJckxD9SA LegDZhM9SxPULaPE6jvnftB CA4QTjqhJ1vkgYKJxfmBe3n dHRibHtcZjFcZmNoYXJzZXQ wIXMllHljSWWnXMn0oO1VYm prENW1PQGRNgzxMETyEW7Hk 8ctDNSsxUChJNV1YKsrqKSe GTVgDKZxSNq0GPDaVGbdjOG dKR2egDcoKfasjZzrz7CfeR BcXGlkIDUxMDAyIFxcZGIgI L8VNeBbDQBtDHYgWYVqFPj5 XEd9PQ9WDsArJBNpAZL0YrD 6VMYeJSq7KAszQF5XHPYqJj KmPLN5ESI3QRZ2HSNhCYBzG iBcXGYgQXJpYWwgXFxmbCBc HH3xnRqcxORbraORLlVXnKM uCRJeCSZyo5LyhU1krHVuGG 8ZPTIakFJOREW5CY6hAOORU fapiSZyFOHejDzbKUkniV9d QQ4OQFg3cdGcRGTvEwXbAtX uFNh8USNwoQ3yTs9fdIZxzO 3mfTCzXAloEAM3tRXrFTZwJ YYyKYNjNK74BAmBKDPlcbKn ZSwgbWVkaWNhbCByZWNvcmQ gbnVtYmVyIGFuZCAiYmxhZG AakbFotF3oa5gyFWezMVLbE N4lXTJsWJWobaImf3Q8MUXv a1W5MXCszxDedPBqcTHohDD apUY1WNUdnK2kuH06zpUqsa MSEY5dcXMgTS2DRAKcbdUWQ bYtJWgzTEJpW5OtrH5gHI3T LzaaEIXzXQTBK6OjY38tnNb uZSBcbGluZSANClxwbGFpbl xlcGljTmVzdERvYzBccGxha F77QUKxeFYtRSW3HM3sNWUn kgtjDFMvMPGmXEZ5HRdupT0 7wOCpKNLfMETteKWczZ9ULQ YlBIC6TZlthF56mLItDJ4HU VCiEXB3OIMrjWPyBZB3NA9y fQ0KfQ== MICROSCOPIC i5pzuYNqUFRccPA3HbApKMR DESCRIPTION (test code ml3jwk9ItuVDluUFyVSyatO = 3371) IphhHnhw23aGG5lZ40KV8xT OExHqK1NSNpykY5Rne0TRLh LRWjqZVsL850o8uup3rhmgV beYY4zCqhSOCkfxkvHjX7UC ucMVYxichqHZp4HDkkGMTcg QG1MVKbzWYbU3XzRGVnFO5l rfi9DYA4XTolHPAyJnO9CPY rxYOwCPHyjKgfNWvqo153SN G3NoQdBEBfidRzbFxqqG8vU nMyMCBObyBkeXNwbGFzaWEg p4RtrJJerSpcXE2hjLAbesJ pZGVudGlmaWVkLlxwYXJ9 Gross assessment was [facility] performed at ([facility], code = 2777) Department of Pathology, [address] [place] [address], Technical component [facility] was performed at ([facility], code = 2778) Department of Pathology, [address] [place] [address], Professional component [facility] was performed at ([facility], code = 2779) Department of Pathology, [address] [place] [address], [facility] [id number] 14:11:34Surgical Pathology Report Case: [id number] Authorizing Provider: Aylin Martin, Collected: 03/26/2022 08:30 AM Ordering Location: [facility] PERIOPER[facility]IVE Received: 03/26/2022 11:38 AM SERVICES Pathologist: Valentine Vaughn MD Specimen: Bladder Biopsy URINARY BLADDER, BIOPSY -UROTHELIAL MUCOSA WITH MILD CHRONIC INFLAMMATION, REACTIVE UROTHELIAL CHANGES AND SQUAMOUS METAPLASIA -MUSCULARIS PROPRIA NOT IDENTIFIED Signing Pathologist Direct Phone Line: [phone] signed by Valentine Vaughn MD on 03/28/2022 at 2:11 [id number] Interstitial cystitis, overactive bladderA. BladderBiopsy.Received in formalin labeled with the patient's name, medical record number and "bladder biopsy" is a 0.2 cm cruz soft tissue fragment submitted in toto in A1.JURGEN Johnson, PA (ASCP)cmNo dysplasia or malignancy is identified.[facility], Department of Pathology, [address] [place], [place] [id number], Dmhnsv [facility], Department of Path ology, [address] [place] [address], [facility]qK[facility], [facility] of [facility], [address] [place] [address], Tjyny subtfhb7385-00-16 14:15:50 Test Item Value Reference Range Interpretation Comments Result (test code = 20-29,000 col/mL skin 6463-4) leslie [facility] Hospital[facility] [id number] 14:15:50 Test Item Value Reference Range Interpretation Comments Result (test code = 20-29,000 col/mL skin 6463-4) leslie [facility] [id number] 14:15:50 Test Item Value Reference Range Interpretation Comments CULTURE (BEAKER) (test 20-29,000 col/mL skin code = 1095) leslie BASIC METABOLIC [id number] 11:28:02 Test Item Value Reference Range Interpretation Comments SODIUM (BEAKER) 141 meq/L 136-145 (test code = 381) POTASSIUM 4.0 meq/L 3.5-5.1 (BEAKER) (test code = 379) CHLORIDE (BEAKER) 109 meq/L 98-107 H (test code = 382) CO2 (BEAKER) 28 meq/L 22-29 (test code = 355) BLOOD UREA 9 mg/dL 7-21 NITROGEN (BEAKER) (test code = 354) CREATININE 0.77 mg/dL 0.57-1.25 (BEAKER) (test code = 358) GLUCOSE RANDOM 65 mg/dL 70-105 L (BEAKER) (test code = 652) CALCIUM (BEAKER) 8.8 mg/dL 8.4-10.2 (test code = 697) EGFR (BEAKER) 103 Interpretatio n of eGFR (test code = mL/min/1.73 values Stage De scription 1092) sq m Result G1 Norm al or high >=90 G2 Mildly decreased 60-89 G3a Mildl y to moderately 45-5 9 G3b Moderately to s everely 30-44 G4 Severl y decreased 15-29 G5 Kidney failure <15Reported eGF R is based on the CKD-EPI 2020 equation that d oes not use a race coefficientEsti mated GFR is not as accur ate as Creatinine Lucinda ugalde in predicting glom erular filtration rate . Estimated GFR is not appl icable for dialysis patien ts Game Tester ID - PB MUrinalysis w/Ilmmitfsrkw0222-93-74 11:21:59 Test Item Value Reference Range Interpretation Comments Color, UA (test Yellow code = 5778-6) Clarity, UA (test Clear code = 5767-9) Specific Gantt, 1.011 1.001-1.035 UA (test code = 5811-5) pH, UA (test code 6.5 5.0-8.0 = 5803-2) Protein, UA (test Negative Negative code = 94415-6) Glucose, UA (test Negative Negative code = 365) Ketones, UA (test Negative Negative code = 2514-8) Bilirubin, UA Negative Negative (test code = 83315-5) Blood, UA (test Negative Negative code = 72469-4) Nitrite, UA (test Negative Negative code = 5802-4) Leukocytes, UA Negative Negative (test code = 5799-2) Urobilinogen, UA 0.2 0.2-1.0 (test code = 08695-8) RBC, UA (test 3 See_Comment [Automated me ssage] code = 91102-9) The system [facility] generated this result transmit christina reference range : /HPF. The refer ence range was not u sed to interpret th is result as normal/abnormal . WBC, UA (test 1 See_Comment [Automated me ssage] code = 5821-4) The system [facility] generated this result transmit christina reference range : /HPF. The refer ence range was not u sed to interpret th is result as normal/abnormal . Bacteria, UA Rare (test code = 11111-3) Squam Epithel, UA 1 See_Comment [Automate d message] (test code = The system [place] 69884-9) generated this result transmit christina reference range : /HPF. The refer ence range was not u sed to interpret th is result as normal/abnormal . Specimen Source Urine, Clean (test code = Catch 2795) RAGHU (test code = Game Tester ID - RAGHU) [auto]Game Tester ID - tech [facility] HospitalUrinalysis w/Izlbqndyrgj5853-02-61 11:21:59 Test Item Value Reference Range Interpretation Comments Color, UA (test Yellow code = 5778-6) Clarity, UA (test Clear code = 5767-9) Specific Gantt, 1.011 1.001-1.035 UA (test code = 5811-5) pH, UA (test code 6.5 5.0-8.0 = 5803-2) Protein, UA (test Negative Negative code = 72942-9) Glucose, UA (test Negative Negative code = 365) Ketones, UA (test Negative Negative code = 2514-8) Bilirubin, UA Negative Negative (test code = 26188-1) Blood, UA (test Negative Negative code = 04627-7) Nitrite, UA (test Negative Negative code = 5802-4) Leukocytes, UA Negative Negative (test code = 5799-2) Urobilinogen, UA 0.2 0.2-1.0 (test code = 31164-0) RBC, UA (test 3 See_Comment [Automated me ssage] code = 65571-1) The system [facility] generated this result transmit christina reference range : /HPF. The refer ence range was not u sed to interpret th is result as normal/abnormal . WBC, UA (test 1 See_Comment [Automated me ssage] code = 5821-4) The system [facility] generated this result transmit christina reference range : /HPF. The refer ence range was not u sed to interpret th is result as normal/abnormal . Bacteria, UA Rare (test code = 94931-1) Squam Epithel, UA 1 See_Comment [Automate d message] (test code = The system [place] 14340-0) generated this result transmit christina reference range : /HPF. The refer ence range was not u sed to interpret th is result as normal/abnormal . Specimen Source Urine, Clean (test code = Catch 2795) RAGHU (test code = Game Tester ID - RAGHU) [auto]Game Tester ID - tech [facility] HospitalURINALYSIS W/ [id number] 11:21:59 Test Item Value Reference Range Interpretation Comments COLOR (BEAKER) (test code Yellow = 470) CLARITY (BEAKER) (test Clear code = 469) SPECIFIC GRAVITY UA 1.011 1.001-1.035 (BEAKER) (test code = 468) PH UA (BEAKER) (test code 6.5 5.0-8.0 = 467) PROTEIN UA (BEAKER) (test Negative Negative code = 464) GLUCOSE UA (BEAKER) (test Negative Negative code = 365) KETONES UA (BEAKER) (test Negative Negative code = 371) BILIRUBIN UA (BEAKER) Negative Negative (test code = 462) BLOOD UA (BEAKER) (test Negative Negative code = 461) NITRITE UA (BEAKER) (test Negative Negative code = 465) LEUKOCYTE ESTERASE UA Negative Negative (BEAKER) (test code = 466) UROBILINOGEN UA (BEAKER) 0.2 0.2-1.0 (test code = 463) RBC UA (BEAKER) (test code 3 /HPF = 519) WBC UA (BEAKER) (test code 1 /HPF = 520) BACTERIA (BEAKER) (test Rare code = 517) SQUAMOUS EPITHELIAL 1 /HPF (BEAKER) (test code = 516) SOURCE(BEAKER) (test code Urine, Clean Catch = 2795) Game Tester ID - [auto]Game Tester ID - techPregnancy Screen, hpkiz9427-91-12 11:17:34 Test Item Value Reference Range Interpretation Comments Preg Test, Ur (test code = 2112-1) Negative Negative Lab Interpretation (test code = Normal 75855-3) [facility] HospitalPregnancy Screen, hdmbx2309-00-76 11:17:34 Test Item Value Reference Range Interpretation Comments Preg Test, Ur (test code = 2112-1) Negative Negative Lab Interpretation (test code = Normal 56435-5) [facility] HospitalPREGNANCY SCREEN, [id number] 11:17:34 Test Item Value Reference Range Interpretation Comments TEST URINE (BEAKER) (test Negative Negative code = 583) HEMOGLOBIN AND [id number] 11:06:28 Test Item Value Reference Range Interpretation Comments HEMOGLOBIN (BEAKER) (test code = 13.0 GM/DL 11.2-15.7 410) HEMATOCRIT (BEAKER) (test code = 39.3 % 34.1-44.9 411) Game Tester ID - [id number]. METABOLIC PANEL (31929)2021-10-31 01:37:35 Test Item Value Reference Range Interpretation Comments NA (test code = 137 mmol/L 135-145 2612620048) K (test code = 3.9 mmol/L 3.5-5.0 6299426225) CL (test code = 102 mmol/L 98-108 8628514695) CO2 TOTAL (test code 27 mmol/L 23-31 = 1555608955) AGAP (test code = 2-16 0328873208) BUN (test code = 12 mg/dL 7-23 4194034075) GLUCOSE (test code = 104 mg/dL 70-110 4887355398) CREATININE (test code 0.75 mg/dL 0.50-1.04 = 0807037672) TOTAL BILI (test code 0.4 mg/dL 0.1-1.1 = 3825310966) CALCIUM (test code = 9.4 mg/dL 8.6-10.6 8782820010) T PROTEIN (test code 7.2 g/dL 6.3-8.2 = 6714268450) ALBUMIN (test code = 4.8 g/dL 3.5-5.0 7593014988) ALK PHOS (test code = 42 U/L 34-122 3616747924) ALTv (test code = 13 U/L 5-35 1742-6) AST(SGOT) (test code 21 U/L 13-40 = 9077505027) eGFR (test code = mL/min/1.73m2 4900314031) RAGHU (test code = RAGHU) Association of [...] or urine or abnormalities in imaging tests). [facility] WITH [id number] 01:28:35 Test Item Value Reference Range Interpretation Comments WBC (test code = See_Comment [Automated 0690-2) message] The sy stem which generated this result transmitted reference range : 4.30 - 11.10 10*3/?L. The reference range was not used to interpret this result as normal/abnormal . RBC (test code = See_Comment [Automated 199-8) message] The sy stem which generated this [...] RDW-SD (test code = 43.8 fL 39.0-49.9 26734-6) RDW-CV (test code = 12.9 % 12.0-15.5 788-0) PLT (test code = See_Comment [Automated 777-3) message] The sy stem which generated this result transmitted reference range : 166 - 358 10*3/ ?L. The reference r abhishek was not used to interpret this result as normal/abnormal . MPV (test code = 9.4 fL 9.5-12.9 L 02962-7) NRBC/100 WBC (test See_Comment [Automat ed code = 4641554238) message] The system which generated this result transmitted reference range : 0.0 - 10.0 /100 WBCs. The refer ence range was not u sed to interpret th is result as normal/abnormal . NRBC x10^3 (test code <0.01 See_Comment [Auto mated = 7994762762) message] The s ystem which generated this result transmitted reference range : 10*3/?L. The reference range was not used to interpret this result as normal/abnormal . GRAN MAT (NEUT) % 57.1 % (test code = 770-8) IMM GRAN % (test code 0.30 % = 4112723995) LYMPH % (test code = 33.9 % 736-9) MONO % (test code = 8.6 % 5905-5) EOS % (test code = 0.0 % 713-8) BASO % (test code = 0.1 % 706-2) GRAN MAT x10^3(ANC) 4.04 10*3/uL 1.88-7.09 (test code = 4535421069) IMM GRAN x10^3 (test <0.03 0.00-0.06 code = 8645598365) LYMPH x10^3 (test code 2.40 10*3/uL 1.32-3.29 = 731-0) MONO x10^3 (test code 0.61 10*3/uL 0.33-0.92 = 742-7) EOS x10^3 (test code = <0.03 0.03-0.39 L 711-2) BASO x10^3 (test code <0.03 0.01-0.07 = 704-7) Lab Interpretation Abnormal (test code = 90655-8) [facility] [id number] 01:11:00 Test Item Value Reference Range Interpretation Comments POCT PREG (test code = 1605) negative On board controls acceptable with present C Line (test code = 3574) POCT PREG LOT # (test code = 3575) [id number] POCT PREG TEST DATE (test 03/03/2023 code = 3576) Lab Interpretation (test code = Normal 85926-6) [facility] [id number] 14:29:40 Test Item Value Reference Range Interpretation Comments Case Report (test code Surgical Pathology = 104) Report Case: [id number] Authorizing Provider: Paige Covarrubias, Collected: 09/17/2021 08:28 AM Ordering Location: [facility] Received: 09/17/2021 03:38 PM SERVICES Pathologist: Luanne Larkin MD Specimens: A) - Distal Esophagus, bxs r/o EOE B) - Proximal Esophagus, bxs r/o EOE DIAGNOSIS (test code = b8pqaLUaLAJzl1kfHZHwkS 3220) FuZzEwMzNcZnRuYmpcdWMx IHtccnRmMVxlcGljOTYwMl dppfSuGAAvoBQjO3Hgotdd NJstGY6wOX3mbLggkOFfzU DtMVSrOiSzs2htv782rNFc r0ziRPLDxsisxQm5lZreF6 6fg2A7WnrlM07nuLAlJEA5 MSVvJMJmrYYaVZTtFCO8TQ ZzqZSyU9lyTKKbMN9nbrei OXseVJfcWADvpAI5SEIyzO CsS7RuKELxEQevLTNkxvz3 AbKkXi5nyWUifPlcXPtmUS SwVYJtYAyfYEIjXgZySK0r CRsDELSDYGKNV4EFGEnZSv wgQklPUFNZOlxwYXIgICAg AFBJD83MIMDSLKTCQLOAGC NBX0NOML3VO52VYPKUWPSS QXMTY9WOLRBQBSdyLGrQXD KTPJVRTIUpZ3uRDVUGUCpL JZiRR4STASEZKDhVCTpyEK IgICAgICAgICAgIElOVFJB GOGFKNwDDBjUITWLMV0QYA 1LDXLYR5lnBMIaJFVxGKWU SWODQJVJT9gKJ2IEXQwRKM KfDV6iEVtWGVDlM70afFOt dClccGFyICBccGFyXHBhci XFRmSVBm1ZGC5YBBHUW31E DIGHORBvEOVUR0QWINsyoG IcSJTsPJ3eRNTFIUbAH7JQ GSDDGXVFOX5EDvIZTDGRZ3 VlL4vYLHUTZPCLAEBVEVDV Y4YLIXJXBVqgZSrFTWMSXK CGJCNxNKzIG5GXAYPUHLsd UZFcNLKsPXOmCIKxLA4CRc FFUElUSEVMSUFMIExZTVBI B6DCIAUWMGTnkeTpWETtUV 2JDQfTJ1PASXTIPNCZCcOL VCLKAIPEURzVKKjnZK6PJL 7TZAdNMOEgLu6BOJXnHEDs ykWkABrwFVDbB1gcuAdxgX FcfXmumzSwKIjaw3KqEWke FFPrOQ9soWbrLEDuNH8sWP QiX4dijB8xzal5KsQuOCNs KeF5QWPlcmC6Ivz6OCSkMF ubw8gly2DlKAWtVLz2lPcd NrJpOOCso7cxmlAnRlCrEA ElBCOeZHImwOIvX535f4lq d9uuacSfgHK1GJGcPNM2RK lwneBdeqQ3XMhktUBgRlG4 IDtccmVkMFxncmVlbjBcYm h1MTRaH237JNM2mXcul7om SZC2GYSkLUIqYaMhFk2bqX PfA314JZUaUWBFJBRncHn5 EVIfvoRiqwPtjYKIe942M1 45k1kySXGppnOwxBgEmrzi i4mbF738MHMulEVoxvYhYx GwTSIzcPRkrXK4OUCeET4v yjhaWHioGWbeSWNjduZ2TJ FyoANcJ2GqTGOaIJ0fopbo WTY0XHfnPDUmMYC8HjKcPF Jye8Fgqki3CjGkhx4njm96 LTE2p7JsfPiiURS8JLK4Jt SgYy8zlPPrCHNvIZ8nYdBd fAGpBJGnhy83bZybTMtgWG K7VFArayMcq3Hmg8kaQbGw hkEzL5ykJ4YhYKUyCETpVH EmLkCtalGzz6Akj1TteXVq lMu7c7gtQMLtYJFjvXbae8 epPRQ7SUTzmQBaI5vahK9z PHGsGX7djowen3qsXQarRE zaLEPweHU6geS9MYJwqIGs P4OnpE3xVKYdNYxuYJVuuu o5BrMdRo6seWOtsSolUWle YmtwYWdlXHBnbmNvbnRccG duZGVjXHBsYWluXHBsYWlu XGYwXGZzMjRccWxcbGFuZz EwMzNcaGljaFxmMVxkYmNo KMDnCExjE7odZoAdElOlLn q7VKPooMUqEYNkZqo2VGWu qZCuSWMHrJjyeS2bSFUxmI cjbH7lyEU4CGFaghFhjBPI oG4cVTWFrS1bZoN5ZgYvEb Q6DYa7EWNgxAMvqM7= COMMENT (test code = b4rsvBXcNZDxcQS0NlTpYN 3366) Fyd2xmg1KcxWNwkGGcZOzj sKIuetKbjz41iHJ6pN33AJ 4hNREmTbK8OMKkwsM4Xvn6 HCKsHUNyyQOpR947b3fgy1 hsnrRquBO0aJlvNXRzouzq ThW1XKydZUGqnonrTQu0NZ htMKOwfGR3IDJpwFFvY5Ef DVPyCO4dtiz9NKD9NOsvJI GcFlJ9TIScsVNaEJMkaZzv SPylv435AQR3UrEzNVMjny EscYftqO1uLpHtQWTVbeBx k6AhbUiwJDOziD9tuAHaMS MvFXzdZZ0sFVLmfkiwZSRh SJlsq5ZxRdwxNIjvK6Cyx9 bdmkHnksIcHZYdWFSmfI57 bxWlhVr9pORdhRCwSVq4bA Cko0V9gLYkMYWluw73W1eq oISseSojZKYfe6EnZLz4oc Q4tZxjyBJxjGdlMHE7NDXb wUcbkMntJ5o2iBIieCB7lS RabeNpNaKuu80niMIttYSe lfL9gTupoKAdVV7hDkGjt9 KriaYbmvCraLl6mNEcTEJg o40tpNXzl51zGJscb8QxXD H6T5GsLVqbMoAeaNgckvms a6Wyv7eksIWygSBjLAlmOE EiWI9faRJuUXStufBHz4qy dmVyIHdpdGggYSBnaXZlbi WniUH7f4P4ZG0aIYHpz2kd y7NfuQlvNdJuj17utLDnkR JlqfWxtvUrwFQ9bIUbzVOe rvG2ipHokT4nmtGbJOPcaM MgZmluZGluZyBtYXkgYmUg W40ja4nlwMXilJV8tJRrKA LoIQX8PUZxIW2ndX4qhNqj pXbjCMXem0AqGWpppIcpOC Bhcn0= CPT Code(s) (test code x6qclSIkWWQahWQ7GgGrXX = 3358) Zit5pci5BziGRrlOUqJRxd rNDowsIrcf88jIC0hE09GG 7hNLGvWrW8HSGnqmQ4Pyy4 CEZnPJOcvSZuR743n9llb3 mqzyJcnDK5gYtjFCGicjxm RpU1TCvuLDJsqpoyHWr1DF mwSIXrjVL3JFLknAJbV7Zm SHIeCL3hlla4RIU1IRvcGH EqByH1GMCqlINqPMRxuOrs DJuvy305ZAY2EkSsKKUrlo JhpKzsbG8xSkBuBZE8GZEm GJA8CaokNQH9 GROSS DESCRIPTION (test s2jocFLdYHWhmWCZLRShE5 code = [id number]) vmqvRsAJNyuDIxI3Smulgi KSxxYF0aFO5hoFkqtQVhvV HhOT9PTCScCgWkMGEhrEWf srIvJlNhCKQctPGxeTN8SF FeYP6kmxzjRYgvTYriXSOf uqF5NCCopHFsZ0DhAXXwQK 5xmaoaLPL0KRixuF4lqqZU ShyqTy2noFCpdJdtMxHlQo NoYXJzZXQwXGZuaWwgQXJp GDm0iC1XLjqbU15mf6T0Hj s1DJWySVBwY3HzAS6ePAPl rAHkO89JIewwRBQ8VDRTTd miTOAjOL2Qk2vvJKDcxBQl YBX3WDhgmISePSNgRMLyQC s7XJMlXLshmPVmLV8jkZdx EqrzwHkif7GgyCReSEmkMJ UsBEUvTSaoPAXlZZ9BSlWk TWE4OVP8TyNsHKc3PTz6IB 9ERjIdILZwSDL1EtY2EuNm RLa0IHzbXJ3ZSOH6OIw5UT LqGsC0GER0CJUkHJUmVrLg XGYgQXJpYWwgXFxmbCBcXG 3zhJpsiFGlfsOJEhRAfHX9 DXoiBJBreTmvK0SlVmriVV QePPwkVWLzL50bb5RMn6Kv GH3YQRz0grYeidspbR7fST QtsbAtYKhvjLBsG2ywN7Kn ZWShVxUgKgNlVXb6GNHvoQ 3wWx5leNSibA7puIAdFZkz ZAP8cFTzuSP2oESijFbxAW 8lfARgHLLGFOUcZ9Ajs1si xrUjyA9rJFJcWI1bZHDqxG D2SXtzLJOzdCdqX5DjSxKt bdBzT11ir2yepDZea1MxoF DkoPapsYEoKiVjT42pslIt NI6eGCDjxh75eDs7NJT0ju Zjl9NvlDe8XQTqu7qiIAZd n1W7CTEyKFBegPFkcphrqA 2mHEybieQeLHApCOStRVG0 OGAvSkY6YJJvDVGwxV8tWD UcJHKnwFHqbS2wrgVqsjYa zmDoswPovWVamIGlxBO0JE SiCb7stO68lA4tDBWdfSGo AJNrt72vxN5jH0Vrh6Y1lG SjIFTkfRJuUN4MKWRuxkUB ClxjZjBcZnMyMiANClxwbG FpblxlcGljTmVzdERvYzBc kPsglT49HFJxqKGdGLO7MR 9fVBKsegomBDHkFMGyDLY2 ITvkuI91yHTaEKBtFECmgA AuwW2Ef2coKBTpvYGfRDW2 IFxcaWQgNTEwMDIgXFxkYi VhY9WFYUPjMMP2XdFpNULk JUp5AYsjI6JPRNPeJPH3UB YzBCcmYdC9RBp1HLHDYm9i VWK0LZM4ZvUxQHT3Xwt7LM xcdCAyIFxcZiBBcmlhbCBc CTSnHDuffjW8RWHhSZTnhN ogtB7pYi2iLMQraIprZVbj UEEjmSunO2XcTbkeEHMlES emAGBfO25yz0YYl8HqPH9C WVl5vbDlfqpawU9cRTBhrh VnPZumdMGrA9rvL2FrOTBs OmItQbPrWFj5EAXwoO4iXk 1dyRXybR0zqZFcBStzYQA2 oMKcvXG3dMNkzSIqZK1dBO 9EJbQqR6Neg0Izw90ariMx YmVyIGFuZCAicHJveGltYW uuLMVnqHquK4GiXrGjnpHo P58vk6kkmDZth8Xzz23yjK dfOsHoE02xhlQwOS7vFCMo ug12yFa5SRL9wOFsdRJzhK Edd2UvqU9tJJwgYAHgG5Hs Y2B8NDEpDpKwfOEwPeYxeD XoGmAgZ04xJABMaWLfz0Vr K9mfGL1zxRIpQI17wANaiM ozp8KdkNe2hZKjTGVzjOdq m8xqTyAbuVq7iqT7oU2eCN qzSMNan5WeqGCvTQPkBFmq bmUgXGxpbmUgRkVccGFyIA 0KXHBhciANClxjZjBcZnMy MiANClxwbGFpblxlcGljTm ZntZWtJeWxqCnvkT43LFIp vOBrJPH7UG9jDMKgiusuWX YsNUOrCXV1AMofhR76tFVf GRGtTOOmlDHwlV6TMDDcXL Z0PVnhrM09eWKlDA4TVJHe XVP6BCMqsGDzWXI9DX3imH 0KfQ== MICROSCOPIC DESCRIPTION u1wkbLWvNIEiyMX1LsRhOP (test code = 3371) Cze0vda7AdtRTyzDLeVUpq bSWzckYlaa07kYN9bR98MR 2bVJWxKoO9TTSurpM8Egf9 SEXqABKzvQEbN083p8lyc8 subaJqmLJ7qNgfMWBdxmyg GqJ6ZBubMKPtgfiqLWm5FR apEJOyrUV0JWAdxGIzS6Jr WLCiOB7wxjh8NJG6ULbqYQ KbYkT9UUBlqDNfBDYejRar OQula407RXD6PaFrMKLqzt BolPxodX1oFpRpWLWRQVYk m4BqTEAuLTVfbu8= Gross assessment was [facility] performed at ([facility], = 2777) Department of Pathology, [address] [place] [id number], Technical component was [facility] performed at ([facility], = 9947) Department of Pathology, [address] [place] [id number], Professional component [facility] was performed at ([facility], code = 2775) Department of Pathology, [address] [place] [address], [facility] [id number] 14:29:40Surgical Pathology Report Case: [id number] Authorizing Provider: Paige Covarrubias, Collected: 09/17/2021 08:28 AM Ordering Location: [facility] Received: 09/17/2021 03:38 PM SERVICES Pathologist: Luanne Larkin MD Specimens: A) - Distal Esophagus, bxs r/o EOE B) - Proximal Esophagus, bxs r/o EOE A. DISTAL ESOPHAGUS, BIOPSY: - ESOPHAGEAL SQUAMOUS MUCOSA WITH BASAL CELL HYPERPLASIA WITH MILD INCREASE IN INTRAEPITHELIAL LYMPHOCYTES - RARE EOSINOPHILS 0-1. (See Comment) B. PROXIMAL ESOPHAGUS, BIOPSY: - ESOPHAGEAL SQUAMOUS MUCOSA WITH DIFFUSE BASAL CELL HYPERPLASIA, INCREASED INTRAEPITHELIAL LYMPHOCYTES - NO INCREASED INTRAEPITHELIAL EOSINOPHILS NOTED SJ/pl Signing Pathologist Direct Phone Line: [phone] signed by Luanne Larkin MD on 09/18/2021 at 2:29 PMEndoscopic report reviewed. These findings show increased intraepithelial lymphocytes throughout the esophaguswhich suggest a lymphocytic pattern of esophagitis which can be seen in multiple conditions like drugs, infection, or systemic disease.However with a given history of eosinophilic esophagitis and patient on treatment, this finding may be consistent with treated eosinophilic [id number] x2A. Distal Esophagus.Received in formalin labeled the patient's name MRN accession number and "distal esophagus" and consists of multiple fragments of cruz-white to focally brown tissue measuring in aggregate 0.8x 0.6 x 0.1 cm. The specimen is entirely submitted following filtration in cassette A1B. Proximal Esophagus.Received in formalin labeled the patient name MRN accession number and "proximal esophagus" and consists of small fragments of cruz-white tissue measuring in aggregate 0.6 x 0.4 x 0.1 cm. The specimen is entirely submitted following filtration in cassette [id number] [facility], Department of Pathology, [address] [place] [address], [facility], [address] [place] [address], [facility], Department of Pathology, [address] [place] [address], LCZM. METABOLIC PANEL (79774)2021-07-04 01:23:48 Test Item Value Reference Range Interpretation Comments NA (test code = 139 mmol/L 135-145 4295377005) K (test code = 3.8 mmol/L 3.5-5.0 6604654123) CL (test code = 104 mmol/L 98-108 5350853261) CO2 TOTAL (test code 24 mmol/L 23-31 = 3181083633) AGAP (test code = 2-16 8852177235) BUN (test code = 12 mg/dL 7-23 9944280854) GLUCOSE (test code = 90 mg/dL 70-110 4575361566) CREATININE (test code 0.70 mg/dL 0.50-1.04 = 3056344861) TOTAL BILI (test code 0.4 mg/dL 0.1-1.1 = 1942468328) CALCIUM (test code = 8.9 mg/dL 8.6-10.6 6126751655) T PROTEIN (test code 7.2 g/dL 6.3-8.2 = 7180836179) ALBUMIN (test code = 4.7 g/dL 3.5-5.0 5028693493) ALK PHOS (test code = 47 U/L 34-122 7538133363) ALTv (test code = 15 U/L 5-35 1742-6) AST(SGOT) (test code 20 U/L 13-40 = 3188302290) eGFR (test code = mL/min/1.73m2 6853650625) RAGHU (test code = RAGHU) Association of [...] or urine or abnormalities in imaging tests). [facility] WITH [id number] 01:07:08 Test Item Value Reference Range Interpretation Comments WBC (test code = See_Comment [Automated 5890-2) message] The sy stem which generated this result transmitted reference range : 4.30 - 11.10 10*3/?L. The reference range was not used to interpret this result as normal/abnormal . RBC (test code = See_Comment [Automated 965-8) message] The sy stem which generated this [...] RDW-SD (test code = 43.8 fL 39.0-49.9 52437-0) RDW-CV (test code = 12.7 % 12.0-15.5 788-0) PLT (test code = See_Comment [Automated 777-3) message] The sy stem which generated this result transmitted reference range : 166 - 358 10*3/ ?L. The reference r abhishek was not used to interpret this result as normal/abnormal . MPV (test code = 9.9 fL 9.5-12.9 62650-9) NRBC/100 WBC (test See_Comment [Automat ed code = 0624999358) message] The system which generated this result transmitted reference range : 0.0 - 10.0 /100 WBCs. The refer ence range was not u sed to interpret th is result as normal/abnormal . NRBC x10^3 (test code <0.01 See_Comment [Auto mated = 1229450985) message] The s ystem which generated this result transmitted reference range : 10*3/?L. The reference range was not used to interpret this result as normal/abnormal . GRAN MAT (NEUT) % 61.6 % (test code = 770-8) IMM GRAN % (test code 0.30 % = 5749924595) LYMPH % (test code = 29.3 % 736-9) MONO % (test code = 8.7 % 5905-5) EOS % (test code = 0.0 % 713-8) BASO % (test code = 0.1 % 706-2) GRAN MAT x10^3(ANC) 4.57 10*3/uL 1.88-7.09 (test code = 7797943275) IMM GRAN x10^3 (test <0.03 0.00-0.06 code = 2406583213) LYMPH x10^3 (test code 2.18 10*3/uL 1.32-3.29 = 731-0) MONO x10^3 (test code 0.65 10*3/uL 0.33-0.92 = 742-7) EOS x10^3 (test code = <0.03 0.03-0.39 L 711-2) BASO x10^3 (test code <0.03 0.01-0.07 = 704-7) Lab Interpretation Abnormal (test code = 76569-9) [facility] [id number]18 Test Item Value Reference Interpretation Comments Range TROPONIN I (test 0.002 ng/mL See_Comment [Automated code = 8786440308) message] The system which generated this result [...] biotin. Lab Interpretation Normal (test code = 59451-1) [facility]. METABOLIC PANEL (72415)2021-04-21 19:12:59 Test Item Value Reference Range Interpretation Comments NA (test code = 138 mmol/L 135-145 9792601300) K (test code = 4.1 mmol/L 3.5-5.0 0988809161) CL (test code = 101 mmol/L 98-108 3903032194) CO2 TOTAL (test code 29 mmol/L 23-31 = 4779723913) AGAP (test code = 2-16 8582227658) BUN (test code = 10 mg/dL 7-23 9055877296) GLUCOSE (test code = 71 mg/dL 70-110 1280559752) CREATININE (test code 0.71 mg/dL 0.50-1.04 = 9346478242) TOTAL BILI (test code 0.5 mg/dL 0.1-1.1 = 6492133892) CALCIUM (test code = 9.6 mg/dL 8.6-10.6 9303327931) T PROTEIN (test code 7.6 g/dL 6.3-8.2 = 5866166467) ALBUMIN (test code = 4.7 g/dL 3.5-5.0 8040282078) ALK PHOS (test code = 66 U/L 34-122 1637803590) ALTv (test code = 17 U/L 5-35 1742-6) AST(SGOT) (test code 22 U/L 13-40 = 6246969016) eGFR (test code = mL/min/1.73m2 3135129598) RAGHU (test code = RAGHU) Association of [...] or urine or abnormalities in imaging tests). [facility]IP[facility], [id number] 19:12:39 Test Item Value Reference Range Interpretation Comments LIPASE (test code = 6421929354) 81 U/L 0-220 Lab Interpretation (test code = Normal 19577-6) [facility] BrookaPTT2021-12-19 19:07:37 Test Item Value Reference Range Interpretation Comments APTT Patient (test See_Comment [Automat ed code = 3173-2) message] The system which generated this result transmitted reference range : 23 - 38 Seconds . The reference range was not used to interpr et this result as normal/abnormal . RAGHU (test code = RAGHU) The [facility] patient population mean normal value for aPTT is 30 seconds. Lab Interpretation Normal (test code = 21762-2) [facility] BrookPROTHROMBIN TIME / [id number] 19:05:41 Test Item Value Reference Range Interpretation [...] tions. Lab Interpretation (test Normal code = 64622-4) [facility] BrookCB WITH [id number] 18:57:17 Test Item Value Reference Range Interpretation Comments WBC (test code = See_Comment [Automated 3990-2) message] The sy stem which generated this result transmitted reference range : 4.30 - 11.10 10*3/?L. The reference range was not used to interpret this result as normal/abnormal . RBC (test code = See_Comment [Automated 549-8) message] The sy stem which generated this [...] RDW-SD (test code = 42.4 fL 39.0-49.9 36563-3) RDW-CV (test code = 12.2 % 12.0-15.5 788-0) PLT (test code = See_Comment [Automated 777-3) message] The sy stem which generated this result transmitted reference range : 166 - 358 10*3/ ?L. The reference r abhishek was not used to interpret this result as normal/abnormal . MPV (test code = 9.5 fL 9.5-12.9 76801-4) NRBC/100 WBC (test See_Comment [Automat ed code = 9139769038) message] The system which generated this result transmitted reference range : 0.0 - 10.0 /100 WBCs. The refer ence range was not u sed to interpret th is result as normal/abnormal . NRBC x10^3 (test code <0.01 See_Comment [Auto mated = 8988232494) message] The s ystem which generated this result transmitted reference range : 10*3/?L. The reference range was not used to interpret this result as normal/abnormal . GRAN MAT (NEUT) % 65.7 % (test code = 770-8) IMM GRAN % (test code 0.60 % = 6801080034) LYMPH % (test code = 19.3 % 736-9) MONO % (test code = 10.2 % 5905-5) EOS % (test code = 3.8 % 713-8) BASO % (test code = 0.4 % 706-2) GRAN MAT x10^3(ANC) 4.50 10*3/uL 1.88-7.09 (test code = 5209902311) IMM GRAN x10^3 (test 0.04 10*3/uL 0.00-0.06 code = 8234055960) LYMPH x10^3 (test code 1.32 10*3/uL 1.32-3.29 = 731-0) MONO x10^3 (test code 0.70 10*3/uL 0.33-0.92 = 742-7) EOS x10^3 (test code = 0.26 10*3/uL 0.03-0.39 711-2) BASO x10^3 (test code 0.03 10*3/uL 0.01-0.07 = 704-7) Lab Interpretation Abnormal (test code = 67509-2) [facility] [id number] 18:47:00 Test Item Value Reference Range Interpretation Comments POCT PREG (test code = 1605) negative On board controls acceptable with present C Line (test code = 3574) POCT PREG LOT # (test code = 3575) [id number] POCT PREG TEST DATE (test code = 3576) Lab Interpretation (test code = Normal 76472-8) [id number] 10:19:40Surgical Pathology Report Case: [id number] Authorizing Provider: Paige Covarrubias, Collected: 04/16/2021 09:04 AM Ordering Location: [facility] Received: 04/16/2021 12:59 PM SERVICES Pathologist: [...] see comment Signing Pathologist Direct Phone Line: [phone] signed by Danelle Brown MD on 04/17/2021 at 10:19 Gonzalez the right clinical setting, the findings are consistent with eosinophilic esophagitis.90425h6Rujbnloxud dysphagia, Eosinophilic esophagitisA. Distal esophagusB. Proximal esophagusA. [...] submitted in toto in B1.NABIL Blanca, HT (ASCP)[facility], Department of Pathology, [address] [place] [address], [facility]mwcK[facility], [facility], [address] [place] [address], [facility], [facility] of [facility], [address] [place] [address], ZTBN. METABOLIC PANEL (32711)2021-03-31 07:44:02 Test Item Value Reference Range Interpretation Comments NA (test code = 138 mmol/L 135-145 6374970187) K (test code = 4.0 mmol/L 3.5-5.0 3847821343) CL (test code = 102 mmol/L 98-108 4312127040) CO2 TOTAL (test code 26 mmol/L 23-31 = 7495195602) AGAP (test code = 2-16 9828986924) BUN (test code = 8 mg/dL 7-23 9787604207) GLUCOSE (test code = 95 mg/dL 70-110 7503427745) CREATININE (test code 0.69 mg/dL 0.50-1.04 = 4250399726) TOTAL BILI (test code 0.6 mg/dL 0.1-1.1 = 4858305239) CALCIUM (test code = 10.1 mg/dL 8.6-10.6 0553474969) T PROTEIN (test code 7.9 g/dL 6.3-8.2 = 0620646383) ALBUMIN (test code = 4.9 g/dL 3.5-5.0 2136698468) ALK PHOS (test code = 89 U/L 34-122 8320569993) ALTv (test code = 18 U/L 5-35 1742-6) AST(SGOT) (test code 24 U/L 13-40 = 9737233639) eGFR (test code = mL/min/1.73m2 5712060565) RAGHU (test code = RAGHU) Association of [...] Stage three ? + + +- +| ?1529 ?| ?Stage four ? | ? Stage [...] or urine or abnormalities in imaging tests). [facility] WITH [id number] 07:31:00 Test Item Value Reference Range Interpretation Comments WBC (test code = See_Comment [Automated message] 6690-2) The system [employer] generated this result transmitted ref erence range: 4.30 - 1 1.10 10*3/?L. The re ference range was not u sed to interpret this result as normal/abnor mal. RBC (test code = See_Comment [Automated message] 789-8) The system [employer] generated this result transmitted ref erence range: [...] RDW-SD (test code 40.0 fL 39.0-49.9 = 66410-2) RDW-CV (test code 12.0 % 12.0-15.5 = 788-0) PLT (test code = See_Comment [Automated message] 777-3) The system leemailic h generated this result transmitted ref erence range: 166 - 35 8 10*3/?L. The re ference range was not u sed to interpret this result as normal/abnor mal. MPV (test code = 9.5 fL 9.5-12.9 49303-1) NRBC/100 WBC (test See_Comment [Automat ed message] code = 3091700530) The syste m which generated this result transmitted ref erence range: 0.0 - 10 .0 /100 WBCs. The refer ence range was not u sed to interpret this result as normal/abnor mal. NRBC x10^3 (test <0.01 See_Comment [Automated message] code = 7797786343) The syste m which generated this result transmitted ref erence range: 10*3/?L. The reference range was not used to interpr et this result as normal/abnormal . GRAN MAT (NEUT) % 63.1 % (test code = 770-8) IMM GRAN % (test 0.50 % code = 9386246977) LYMPH % (test code 27.0 % = 736-9) MONO % (test code 7.9 % = 5905-5) EOS % (test code = 1.1 % 713-8) BASO % (test code 0.4 % = 706-2) GRAN MAT 6.93 10*3/uL 1.88-7.09 x10^3(ANC) (test code = 9454526879) IMM GRAN x10^3 0.05 10*3/uL 0.00-0.06 (test code = 1195634004) LYMPH x10^3 (test 2.96 10*3/uL 1.32-3.29 code = 731-0) MONO x10^3 (test 0.87 10*3/uL 0.33-0.92 code = 742-7) EOS x10^3 (test 0.12 10*3/uL 0.03-0.39 code = 711-2) BASO x10^3 (test 0.04 10*3/uL 0.01-0.07 code = 704-7) [facility] [id number] 06:38:00 Test Item Value Reference Range Interpretation Comments POCT PREG (test code = 1605) negative On board controls acceptable with present C Line (test code = 3574) POCT PREG LOT # (test code = 3575) [id number] POCT PREG TEST DATE (test 2022-06-03 code = 3576) Lab Interpretation (test code = Normal 95618-1) [facility] [id number] 15:18:00Surgical Pathology Report Case: [id number] Authorizing Provider: Paige Covarrubias, Collected: 12/06/2020 09:46 AM Ordering Location: [facility] Received: 12/06/2020 11:33 AM SERVICES Pathologist: Blanca Doty MD Specimens: A) - Distal Esophagus, BX B) - Proximal Esophagus, BX A. ESOPHAGUS, DISTAL, BIOPSY: - ESOPHAGITIS (SEE MICRO)B. ESOPHAGUS, PROXIMAL, BIOPSY: - ESOPHAGITIS (SEE MICRO)CLOVERK/pl Signing Pathologist Direct Phone Line: [phone] signed by Blanca Doty MD on 12/07/2020 at 3:18 [id number] dysphagiaEosinophilic esophagitisA. Distal esophagusB. Proximal esophagusAll specimens are received in formalin labelled with the patient's name and medical record number. A. "Distal esophagus biopsy" consists of 3 cruz-pink mucosa-coveredtissue fragments (from 0.2 cm to 0.4 cm in greatest dimension). The specimen is submitted in toto incassette A1.B. "Proximal esophagus biopsy" consists of 4 cruz-pink mucosa-covered tissue fragments (from [] cm to [] cm in greatest dimension). The specimen is submitted in toto in cassette B1.KL (resident)A-B: Esophageal biopsies have squamous epithelium with basal cell hyperplasia and intraepitheliallymphocytes and eosinophils. Twenty eosinophils per high power field are seen in the distal esophageal biopsy while 38 are seen in the proximal biopsy. The findings in the right clinical settings indicate eosinophilic esophagitis. Clinical correlation is recommended. SARS-COV2/RT-PCR ([facility])2020-12-05 23:01:00 Test Item Value Reference Range Interpretation Comments SARS-COV2/RT-PCR (test code = Negative Negative 4028355) Negative result for this test determines that [...] the Quiroz SARS-CoV-2 assay.Fact Sheet for Healthcare Providers:https://www.[employer].LabMinds/rosie/RT SARS-CoV-2 HCP Fact Sheet 51- 576426.pdfFact Sheet for Healthcare Patients:https://www.[employer].quiroz/rosie/RT SARS-CoV-2 Patient Fact Sheet EN 51-328885F1.pdfKANA [id number] 16:32:00 Surgical Pathology Report Case: [id number] Authorizing Provider: Paige Covarrubias, Collected:08/02/2020 09:10 AM Ordering Location: [facility] Received: 08/02/2020 12:40 PM SERVICES Pathologist: Blanca Doty MD Specimens: A) - Distal Esophagus, BX R/O EOE B) - Proximal Esophagus, BX R/O EOE A. ESOPHAGUS, DISTAL, BIOPSY: - ESOPHAGITIS (SEE MICRO)B. ESOPHAGUS, PROXIMAL, BIOPSY: - ESOPHAGITIS (SEE MICRO)NZK/pl Signing Pathologist Direct Phone Line: [phone] signed by Blanca Doty MD on 08/04/2020 at 4:32 [id number] esophagitis, esophageal dysphagiaA. Distal esophagusB. Proximal esophagusRule [...] metaplasia, dysplasia or malignancy is seen.- DUP AB/PEL/SC/[id number] 21:02:00[facility] : 1985 Sex: F Patient Name: MORGAN FERGUSON Unit No: [id number] EXAMS: CPT CODE: [id number] DUP AB/PEL/SC/LTD 11261 PROCEDURE: PELVIC ULTRASOUND INDICATION: Vaginal bleeding status [...] Karin Winters RDMS Probe: Trnscrbd D/ (2101) EstefanySG9 Orig Print D/T: S: 04/15/2020 (2104) [facility] NAME: MORGAN FERGUSON Radiology Department PHYS:Rodney Glynn [address] : 1985 AGE: 35 SEX: F [place], [place] [address] LOC: EugeneERS PHONE #: [phone] EXAM DATE: 04/15/2020 STATUS: REG ER FAX #: [phone] RAD NO: Page 1 Signed Report Patient Name: MORGAN FERGUSON Unit No: [id number] EXAMS: CPT CODE: [id number] DUP AB/PEL/SC/LTD 37151 (Continued) [facility] NAME: MORGAN FERGUSON Radiology Department PHYS: Rodney Glynn [address] : 1985 AGE: 35 SEX: F [place], [place] [address] LOC: UNIQUE PHONE #: [phone] EXAM DATE: 04/15/2020 STATUS: REG ER FAX #: [phone] RAD NO: Page 2 Signed Report- US TRANSVAGINAL W/[id number] 21:02:00 [facility] : 1985 Sex: F Patient Name: MORGAN FERGUSON Unit No: [id number] EXAMS: CPT CODE: [id number] US TRANSVAGINAL W/PELVIS 16773 PROCEDURE: PELVIC ULTRASOUND INDICATION: Vaginal bleeding status [...] was performed for better visualization of the pelvicstructures. Uterus is not visualized. Right ovary measures 2.8 x 2 x 2.3 cm containing few follicles. Left ovary is not visualized. No adnexal mass or free fluid visualized. IMPRESSION: Status post hysterectomy. No pelvic sonographic abnormality identified. SL: SG-H at 2101 Reported and signed by: Magan Ayala MD CC: Mari De La O DO Technologist: Karin Winters [facility] Probe: [id number] Trnscrbd D/ (2101) t.SABASRChecoSG9 Orig Print D/T: S: 04/15/2020 (2104) [facility] NAME: MORGAN FERGUSON Radiology Department PHYS: Rodney Glynn [address] : 1985 AGE: 35 SEX: F [place] [address] LOC: EugeneERS PHONE #: [phone] EXAM DATE: 04/15/2020 STATUS: REG ER FAX #: [phone] RAD NO: Page 1 Signed Report Patient Name: MORGAN FERGUSON Unit No: [id number] EXAMS: CPT CODE: [id number] US TRANSVAGINAL W/PELVIS 34451 (Continued) [facility] NAME: HALIMA FERGUSONDwayne LUNDBERG Radiology Department PHYS: Rodney Glynn [address] : 1985 AGE: 35 SEX: F [place] [address] LOC: Antnoio.ERS PHONE #: [phone] EXAM DATE: 04/15/2020 STATUS: REG ER FAX #: [phone] RAD NO: Page 2 Signed Report- US PELVIS [id number] 21:02:00 [facility] : 1985 Sex: F Patient Name: MORGAN FERGUSON Unit No: [id number] EXAMS: CPT CODE: [id number] US PELVIS COMPLETE 16747 PROCEDURE: PELVIC ULTRASOUND INDICATION: Vaginal bleeding status [...] pelvic sonographic abnormality identified. SL: SG-H at 210 Reported and signed by: Magan Ayala MD CC: Mari De La O DO Technologist: Karin Winters RDMS Probe: Trnscrbd D/ (2101) t.SDR.SG9 Orig Print D/T: S: 04/15/2020 (2104) [facility] NAME: MORGAN FERGUSON Radiology Department PHYS: Rodney Glynn [address] : 1985 AGE: 35 SEX: F [place], [place] [address] LOC: F.ERS PHONE #: [phone] EXAM DATE: 04/15/2020 STATUS: REG ER FAX #: [phone] RAD NO: Page 1 Signed Report Patient Name: MORGAN FERGUSON Unit No: [id number] EXAMS: CPT CODE: [id number] US PELVIS COMPLETE 46551 (Continued) [facility] NAME: MORGAN FERGUSON Radiology Department PHYS: LUIZ RodríguezRodney Jann [address] : 1985 AGE: 35 SEX: F [place], [place] [address] LOC: UNIQUE PHONE #: [phone] EXAM DATE: 04/15/2020 STATUS: REG ER FAX #: [phone] RAD NO: Page 2 Signed ReportCOMPREHENSIVE METABOLIC [id number] 19:45:00 Test Item Value Reference Range Interpretation [...] = ALKP) UA RFLX MICR CULT IF [id number] 19:42:00 Test Item Value Reference Range Interpretation [...] culture: Gross HematuriaSpecimen Description: CLEAN CATCHCBC W/AUTO [id number] 19:33:00 Test Item Value Reference Range Interpretation [...] code = PLTMR) Automated blood neutrophil count as percentage of total ldeqapscza8138-58-52 23:58:00 Test Item Value Reference Range Interpretation Comments Neutrophils (%) (Auto) (test code = 58 45-75 770-8) [facility] HealthAutomated blood immature granulocyte count as percentage of total afmmxaxusw8400-07-71 23:58:00 Test Item Value Reference Range Interpretation Comments Immature Granulocyte % (Auto) (test 0.3 0.0-1.5 code = 62008-9) [facility] HealthAutomated blood lymphocyte count as percentage of total szovkugysu7852-53-92 23:58:00 Test Item Value Reference Range Interpretation Comments Lymphocytes (%) (Auto) (test code = 32 20-48 736-9) [facility] HealthAutomated blood monocyte count as percentage of total leukocytes 2020-03-28 23:58:00 Test Item Value Reference Range Interpretation Comments Monocytes (%) (Auto) (test code = 8 1-9 5905-5) [facility] HealthAutomated blood eosinophil count as percentage of total nhmsbcoxza2110-65-43 23:58:00 Test Item Value Reference Range Interpretation Comments Eosinophils (%) (Auto) (test code = 2 0-4 713-8) [facility] HealthAutomated blood basophil count as percentage of total leukocytes 2020-03-28 23:58:00 Test Item Value Reference Range Interpretation Comments Basophils (%) (Auto) (test code = 0 0-2 706-2) [facility] HealthAutomated blood nucleated erythrocyte count as percentage of total rwjfpaeovx8037-02-72 23:58:00 Test Item Value Reference Range Interpretation Comments Nucleated Red Blood Cells % (test code 0 0-1 = 73771-8) [facility] HealthAutomated blood neutrophil count (number/volume)2020-03-28 23:58:00 [...] Dioxide Level (test code = 25 26-34 2027-9) [facility] HealthSerum or plasma anion gap determination (moles/volume)2020-03-28 23:58:00 Test Item Value Reference Range Interpretation Comments Anion Gap (test code = 16787-6) 6.0 3.0-11.0 [facility] HealthSerum or plasma urea [...] Estimated Creatinine Clearance (test 99.8 code = 59806-8) [facility] HealthGlomerular filtration rate (GFR) estimation using MDRD equation 2020-03-28 23:58:00 Test Item Value Reference Range Interpretation Comments Estimat Glomerular Filtration Rate 90.40 >60 (test code = 288152879) [facility] HealthSerum or plasma urea nitrogen/creatinine mass jpvhs8543-79-01 23:58:00 Test Item Value Reference Range Interpretation Comments BUN/Creatinine Ratio (test code = 13 3097-3) [facility] HealthSerum or plasma glucose measurement (mass/volume)2020-03-28 23:58:00 Test Item Value Reference Range Interpretation Comments Glucose Level (test code = 2345-7) 106 74-112 [facility] HealthSerum or plasma calcium measurement (mass/volume)2020-03-28 23:58:00 Test Item Value Reference Range Interpretation Comments Calcium Level (test code = 50357-7) 10.0 9.0-10.2 [facility] HealthSerum or plasma total bilirubin measurement (mass/volume) 2020-03-28 23:58:00 Test Item Value Reference Range Interpretation Comments Total Bilirubin (test code = 1975-2) 0.3 0.3-2.0 [facility] HealthSerum or plasma aspartate aminotransferase measurement (enzymatic activity/volume)2020-03-28 23:58:00 Test Item Value Reference Range Interpretation Comments Aspartate Amino Transf (AST/SGOT) (test 19 15 code = 1920-8) [facility] HealthSerum or plasma [...] Range Interpretation Comments Globulin (test code = 18442-1) 2.3 [facility] HealthSerum or plasma albumin/globulin mass vledu7476-36-79 23:58:00 Test Item Value Reference Range Interpretation [...] = 786-4) [facility] HealthAutomated erythrocyte distribution width gxphs1572-39-91 23:58:00 Test Item Value Reference Range Interpretation Comments Red Cell Distribution Width (test code 13.1 11.5-14.5 = 788-0) [facility] HealthAutomated blood platelet count (count/volume)2020-03-28 23:58:00 Test Item Value Reference Range Interpretation Comments Platelet Count (test code = 777-3) 259 160-400 [facility] HealthAutomated blood platelet mean volume tvjbfsdvszk0968-98-68 23:58:00 Test Item Value Reference Range Interpretation Comments Mean Platelet Volume (test code = 9.8 7.5-11.2 94517-7) [facility] HealthSerum or plasma sodium measurement (moles/volume)2020-03-28 23:58:00 Test Item Value Reference Range Interpretation Comments Sodium Level (test code = 2951-2) 138 Serum or plasma potassium measurement (moles/volume)2020-03-28 23:58:00 Test Item Value Reference Range Interpretation Comments Potassium Level (test code = 2823-3) 3.9 Serum or plasma chloride measurement (moles/volume)2020-03-28 23:58:00 Test Item Value Reference Range Interpretation Comments Chloride Level (test code = 2075-0) 107 Serum or plasma total carbon dioxide measurement (moles/volume)2020-03-28 23:58:00 Test Item Value Reference Range Interpretation Comments Carbon Dioxide Level (test code = 25 8-9) Serum or plasma anion gap determination (moles/volume)2020-03-28 23:58:00 Test Item Value Reference Range Interpretation Comments Anion Gap (test code = 07760-8) 6.0 Serum or plasma urea nitrogen measurement (mass/volume)2020-03-28 23:58:00 Test Item Value Reference Range Interpretation Comments Blood Urea Nitrogen (test code = 10.0 3094-0) Serum or plasma creatinine measurement (mass/volume)2020-03-28 23:58:00 Test Item Value Reference Range Interpretation Comments Creatinine (test code = 2160-0) 0.78 Estimated renal creatinine clearance calculated from serum or plasma creatinine by Cockcroft-Gault formula (volume/time)2020-03-28 23:58:00 Test Item Value Reference Range Interpretation Comments Estimated Creatinine Clearance (test 99.8 code = 33863-1) Glomerular filtration rate (GFR) estimation using MDRD psillupn1584-13-05 23:58:00 Test Item Value Reference Range Interpretation Comments Estimat Glomerular Filtration Rate 90.40 (test code = 683961350) Serum or plasma urea nitrogen/creatinine mass [id number] 23:58:00 Test Item Value Reference Range Interpretation Comments BUN/Creatinine Ratio (test code = 13 3097-3) Serum or plasma glucose measurement (mass/volume)2020-03-28 23:58:00 Test Item Value Reference Range Interpretation Comments Glucose Level (test code = 2345-7) 106 Serum or plasma calcium measurement (mass/volume)2020-03-28 23:58:00 Test Item Value Reference Range Interpretation Comments Calcium Level (test code = 96180-9) 10.0 Serum or plasma total bilirubin measurement (mass/volume)2020-03-28 23:58:00 Test Item Value Reference Range Interpretation Comments Total Bilirubin (test code = 1975-2) 0.3 Serum or plasma aspartate aminotransferase measurement (enzymatic activity/volume)2020-03-28 23:58:00 Test Item Value Reference Range Interpretation Comments Aspartate Amino Transf (AST/SGOT) (test 19 code = 1920-8) Serum or plasma alanine aminotransferase measurement (enzymatic activity/volume) 2020-03-28 23:58:00 Test Item Value Reference Range Interpretation Comments Alanine Aminotransferase (ALT/SGPT) 18 (test code = 1742-6) Serum or plasma protein measurement (mass/volume)2020-03-28 23:58:00 Test Item Value Reference Range Interpretation Comments Total Protein (test code = 2885-2) 7.3 Serum or plasma albumin measurement (mass/volume)2020-03-28 23:58:00 Test Item Value Reference Range Interpretation Comments Albumin (test code = 1751-7) 5.0 Serum globulin measurement by calculation (mass/volume)2020-03-28 23:58:00 Test Item Value Reference Range Interpretation Comments Globulin (test code = 72711-3) 2.3 Serum or plasma albumin/globulin mass varpu7701-56-70 23:58:00 Test Item Value Reference Range Interpretation Comments Albumin/Globulin Ratio (test code = 2.2 1759-0) Serum or plasma alkaline phosphatase measurement (enzymatic activity/volume) 2020-03-28 23:58:00 Test Item Value Reference Range Interpretation Comments Alkaline Phosphatase (test code = 76 6768-6) Automated blood leukocyte count (number/volume)2020-03-28 23:58:00 Test Item Value Reference Range Interpretation Comments White Blood Count (test code = 6690-2) 10.7 Blood erythrocytes automated count (number/volume)2020-03-28 23:58:00 Test Item Value Reference Range Interpretation Comments Red Blood Count (test code = 789-8) 4.30 Blood hemoglobin measurement (mass/volume)2020-03-28 23:58:00 Test Item Value Reference Range Interpretation Comments Hemoglobin (test code = 718-7) 13.5 Automated blood hematocrit (volume fraction)2020-03-28 23:58:00 Test Item Value Reference Range Interpretation Comments Hematocrit (test code = 4544-3) 40.4 Automated erythrocyte mean corpuscular volume (MCV) swzewhcugxr3597-37-14 23:58:00 Test Item Value Reference Range Interpretation Comments Mean Corpuscular Volume (test code = 94.0 787-2) Automated erythrocyte mean corpuscular hemoglobin (mass per erythrocyte) 2020-03-28 23:58:00 Test Item Value Reference Range Interpretation Comments Mean Corpuscular Hemoglobin (test code 31.4 = 785-6) Automated erythrocyte mean corpuscular hemoglobin concentration measurement (mass/volume)2020-03-28 23:58:00 Test Item Value Reference Range Interpretation Comments Mean Corpuscular Hemoglobin Concent 33.4 (test code = 786-4) Automated erythrocyte distribution width wgmwi9065-76-44 23:58:00 Test Item Value Reference Range Interpretation Comments Red Cell Distribution Width (test code 13.1 = 788-0) Automated blood platelet count (count/volume)2020-03-28 23:58:00 Test Item Value Reference Range Interpretation Comments Platelet Count (test code = 777-3) 259 Automated blood platelet mean volume fsolriczwqb7172-88-63 23:58:00 Test Item Value Reference Range Interpretation Comments Mean Platelet Volume (test code = 9.8 71259-8) Automated blood neutrophil count as percentage of total bmsqbovynw8060-29-39 23:58:00 Test Item Value Reference Range Interpretation Comments Neutrophils (%) (Auto) (test code = 58 770-8) Automated blood immature granulocyte count as percentage of total leukocytes 2020-03-28 23:58:00 Test Item Value Reference Range Interpretation Comments Immature Granulocyte % (Auto) (test 0.3 code = 86806-6) Automated blood lymphocyte count as percentage of total ltpnupaiho5281-07-18 23:58:00 Test Item Value Reference Range Interpretation Comments Lymphocytes (%) (Auto) (test code = 32 736-9) Automated blood monocyte count as percentage of total nkubliqfix3903-88-77 23:58:00 Test Item Value Reference Range Interpretation Comments Monocytes (%) (Auto) (test code = 8 5905-5) Automated blood eosinophil count as percentage of total pxxutoywqw7217-97-16 23:58:00 Test Item Value Reference Range Interpretation Comments Eosinophils (%) (Auto) (test code = 2 713-8) Automated blood basophil count as percentage of total rfivtjoign0619-15-51 23:58:00 Test Item Value Reference Range Interpretation Comments Basophils (%) (Auto) (test code = 0 706-2) Automated blood nucleated erythrocyte count as percentage of total leukocytes 2020-03-28 23:58:00 Test Item Value Reference Range Interpretation Comments Nucleated Red Blood Cells % (test code 0 = 20364-7) Automated blood neutrophil count (number/volume)2020-03-28 23:58:00 Test Item Value Reference Range Interpretation Comments Neutrophils # (Auto) (test code = 6.18 751-8) Urinalysis specimen collection svztvk4805-47-29 23:53:00 Test Item Value Reference Range Interpretation Comments Urine Source (test code = Urine Clean Catch 56956-9) [facility] orjajqaypcmlv3666-30-22 23:53:00 Test Item Value Reference Range Interpretation Comments Urine Color (test code = 5778-6) Red Yel-Mallory [facility] appearance gyufffzqhjqtd3529-00-92 23:53:00 Test Item Value Reference Range Interpretation Comments Urine Appearance (test code = 5767-9) Turbid Clear [facility] pH measurement by test pqxdh4013-56-73 23:53:00 Test Item Value Reference Range Interpretation Comments Urine pH (test code = 5803-2) 6.5 5.0-7.5 [facility] gravity ur kvccwxie1301-40-14 23:53:00 Test Item Value Reference Range Interpretation Comments Urine Specific Gantt (test code = 1.022 1.003-1.029 5811-5) [facility] protein measurement by automated test strip (mass/volume) 2020-03-28 23:53:00 Test Item Value Reference Range Interpretation Comments Urine Protein (test code = 36829-2) 3+ Neg - Trace [facility] glucose measurement by automated test strip (mass/volume) 2020-03-28 23:53:00 Test Item Value Reference Range Interpretation Comments Urine Glucose (UA) (test code = Negative Negative 64699-6) [facility] ketones detection by automated test jcwip3056-96-24 23:53:00 Test Item Value Reference Range Interpretation Comments Urine Ketones (test code = 28078-7) Negative Negative [facility] erythrocytes count by automated test strip (number/volume) 2020-03-28 23:53:00 Test Item Value Reference Range Interpretation Comments Urine Occult Blood (test code = 3+ Negative 44536-9) [facility] nitrite detection by automated test gzkaq9572-06-24 23:53:00 Test Item Value Reference Range Interpretation Comments Urine Nitrite (test code = 01771-0) Negative Negative [facility] total bilirubin detection by automated test rfbmd5758-08-05 23:53:00 Test Item Value Reference Range Interpretation Comments Urine Bilirubin (test code = Negative Negative 44969-1) [facility] urobilinogen measurement by automated test strip (mass/volume)2020-03-28 23:53:00 Test Item Value Reference Range Interpretation Comments Urine Urobilinogen (test code = Normal Norm-1.0 82458-7) [facility] leukocyte esterase detection by automated test strip 2020-03-28 23:53:00 Test Item Value Reference Range Interpretation Comments Urine Leukocyte Esterase (test code Negative Negative = 83258-1) [facility] sediment erythrocyte count by microscopy (number/high power field)2020-03-28 23:53:00 Test Item Value Reference Range Interpretation Comments Urine RBC (test code 5-10 See_Comment [Autom ated message] The = 91599-9) system which ge nerated this result transmit [...] int erpret this result as armida l/abnormal. [facility] sediment epithelial cell count by microscopy (number/low power field)2020-03-28 23:53:00 Test Item Value Reference Range Interpretation Comments Urine Epithelial Cells (test code = None seen None/Occ 36209-6) [facility] sediment bacteria count by microscopy (number/high power field)2020-03-28 23:53:00 Test Item Value Reference Range Interpretation Comments Urine Bacteria (test code = 5769-5) Few None [facility] sediment hyaline cast count by microscopy (number/low power field)2020-03-28 23:53:00 Test Item Value Reference Range Interpretation Comments Urine Hyaline Casts (test code = None Seen 5796-8) [facility]east detection in urine sediment by light jxcympxkvu5780-56-13 23:53:00 Test Item Value Reference Range Interpretation Comments Urine Yeast (test code = 06273-8) None Seen [facility] comment [id number] 23:53:00 Test Item Value Reference Range Interpretation Comments Urine Culture Indicated (test code = No 8264-4) [facility] urobilinogen measurement by automated test strip (mass/volume)2020-03-28 23:53:00 Test Item Value Reference Range Interpretation Comments Urine Urobilinogen (test code = Normal 94868-4) Urine leukocyte esterase detection by automated test gwuzi1471-16-04 23:53:00 Test Item Value Reference Range Interpretation Comments Urine Leukocyte Esterase (test code Negative = 27847-8) Urine sediment erythrocyte count by microscopy (number/high power field) 2020-03-28 23:53:00 Test Item Value Reference Range Interpretation Comments Urine RBC (test code = 10550-5) 5-10 Urine sediment leukocyte count by microscopy (number/high power field)2020-03-28 23:53:00 Test Item Value Reference Range Interpretation Comments Urine WBC (test code = 5821-4) 0 to 2 Urine sediment epithelial cell count by microscopy (number/low power field) 2020-03-28 23:53:00 Test Item Value Reference Range Interpretation Comments Urine Epithelial Cells (test code = None seen 51094-6) Urine sediment bacteria count by microscopy (number/high power field)2020-03-28 23:53:00 Test Item Value Reference Range Interpretation Comments Urine Bacteria (test code = 5769-5) Few Urine sediment hyaline cast count by microscopy (number/low power field) 2020-03-28 23:53:00 Test Item Value Reference Range Interpretation Comments Urine Hyaline Casts (test code = None Seen 5796-8) Yeast detection in urine sediment by light xpwgipeulk0222-86-39 23:53:00 Test Item Value Reference Range Interpretation Comments Urine Yeast (test code = 21396-5) None Seen Service comment [id number] 23:53:00 Test Item Value Reference Range Interpretation Comments Urine Culture Indicated (test code = No 8264-4) Urinalysis specimen collection yuwzzb6876-68-23 23:53:00 Test Item Value Reference Range Interpretation Comments Urine Source (test code = Urine Clean Catch 55994-3) Urine color jsgzlxgpaewga1327-79-35 23:53:00 Test Item Value Reference Range Interpretation Comments Urine Color (test code = 5778-6) Red Urine appearance zlvojozvitpio3325-44-35 23:53:00 Test Item Value Reference Range Interpretation Comments Urine Appearance (test code = 5767-9) Turbid Urine pH measurement by test lgqkh8728-59-30 23:53:00 Test Item Value Reference Range Interpretation Comments Urine pH (test code = 5803-2) 6.5 Specific gravity ur xzuuwtrl7211-59-23 23:53:00 Test Item Value Reference Range Interpretation Comments Urine Specific Gantt (test code = 1.022 5811-5) Urine protein measurement by automated test strip (mass/volume)2020-03-28 23:53:00 Test Item Value Reference Range Interpretation Comments Urine Protein (test code = 08413-8) 3+ Urine glucose measurement by automated test strip (mass/volume)2020-03-28 23:53:00 Test Item Value Reference Range Interpretation Comments Urine Glucose (UA) (test code = Negative 99742-6) Urine ketones detection by automated test gamyk7428-39-72 23:53:00 Test Item Value Reference Range Interpretation Comments Urine Ketones (test code = 69005-8) Negative Urine erythrocytes count by automated test strip (number/volume)2020-03-28 23:53:00 Test Item Value Reference Range Interpretation Comments Urine Occult Blood (test code = 3+ 16143-5) Urine nitrite detection by automated test yxkne5904-90-96 23:53:00 Test Item Value Reference Range Interpretation Comments Urine Nitrite (test code = 08209-1) Negative Urine total bilirubin detection by automated test vuovb4490-87-60 23:53:00 Test Item Value Reference Range Interpretation Comments Urine Bilirubin (test code = Negative 16738-9) UTERUS,OTHER THAN PROLAPSE/[id number] 08:51:00 Test Item Value Reference Range Interpretation Comments UTERUS,OTHER THAN PROLAPSE/ALONZO (test code = UTERUSOTH) RUN DATE: 03/16/20 [facility] PAGE 1 RUN TIME: 1659 Specimen Inquiry RUN USER: INTERFACE PATIENT: MORGAN FERGUSON TO[facility]O [facility] [id number] AGE/SX: 35/F ROOM: [facility] RE03/14/20REG DR: Mari De La O DO : 89 BED: A DIS: 03/15/20 STATUS: DIS Josias TLOC: SPEC #: [id number] RECD: 03/14/20 STATUS: MITZY WATSON #: [id number] YVES: 03/14/20- SUBM DR: JaylynMari ENTERED: 03/14/20 SP TYPE: UTERUSOTH OTHR DR: ORDERED: LEVEL V SURGICA CODES: R33356 - UTERUS, NOS PROCEDURES: LEVEL V SURGICA (Incomplete) TISSUES: UTERUS, NOS - UTERUS, CERVIX AND BILATERAL FALLOPIAN TUBES CLINICAL HISTORY 35 year old, endometriosis, chronic pelvic pain (kr) FINAL DIAGNOSIS Uterus, hysterectomy, cervix - microglandular hyperplasia endomyometrium - intact intrauterine device embedded in myometrium - inactive-appearing endometrium serosa - no pathologic diagnosis fallopian tubes, bilateral - no pathologic diagnosis CPT code(s): 86254 cds/kr GROSS DESCRIPTION ANATOMIC SOURCE OF TISSUE [...] Specimen Inquiry RUN USER: INTERFACE SPEC #: [id number] PATIENT: MORGAN FERGUSON #[id number] (Continued) GROSS DESCRIPTION (Continued) lumens. Land Clearer sections are submitted as follows: A1 - anterior cervix A2 - posterior cervix A3 - anterior endomyometrium A4 - posterior endomyometrium A5 and A6 - fallopian tubes jameson 03/14/20 Signed Ministerio Preston 03/16/20 0851 END OF REPORT HGB [id number] 04:21:00 Test Item Value Reference Range Interpretation Comments HEMOGLOBIN (test code = HGB) 12.7 g/dL 10.7-13.9 N HEMATOCRIT (test code = HCT) 38.2 % 32.1-42.1 N COVID 19 Asymptomatic IH [id number] 13:11:00 Test Item Value Reference Range Interpretation [...] and/o r diagnosis of CO VID-19 under Pfnxvod83 4(b)(1) of the Act, 21 U.S .C. 360bbb-3(b)(1), unless theauthorizatio n is terminated or r evoked sooner. AG HEPATITIS B [id number] 11:58:00 Test Item Value Reference Range Interpretation Comments AG HEPATITIS B SURFACE (test code NONREACTIVE NONREACTIVE = HBSAG) IS CONSENT FORM SIGNED FOR HIV TESTING? YAB HEPATITIS C [id number] 11:58:00 Test Item Value Reference Range Interpretation Comments AB HEPATITIS C (test code = NONREACTIVE NONREACTIVE HCVAB) SIGNAL TO CUTOFF (test code = 0.11 <0.80 N CUTOFF) IS CONSENT FORM SIGNED FOR HIV TESTING? YAB HIV 1 11:58:00 Test Item Value Reference Range Interpretation Comments AB HIV 1 2 (test NONREACTIVE NONREACTIVE [facility] code = BIX80TY) 4th Gen HIV Ag/Ab Combo Screen IS CONSENT FORM SIGNED FOR HIV TESTING? YAG HEPATITIS B [id number] 11:37:00 Test Item Value Reference Range Interpretation Comments AG HEPATITIS B SURFACE (test code NONREACTIVE NONREACTIVE = HBSAG) IS CONSENT FORM SIGNED FOR HIV TESTING? YAB HEPATITIS C [id number] 11:37:00 Test Item Value Reference Range Interpretation Comments AB HEPATITIS C (test code = HCVAB) NONREACTIVE SIGNAL TO CUTOFF (test code = CUTOFF) <0.80 IS CONSENT FORM SIGNED FOR HIV TESTING? YAB HIV 1 11:37:00 Test Item Value Reference Range Interpretation Comments AB HIV 1 2 (test code = YUH40AZ) NONREACTIVE IS CONSENT FORM SIGNED FOR HIV TESTING? YPROTHROMBIN [id number] 11:28:00 Test Item Value Reference Range Interpretation Comments PROTHROMBIN TIME PATIENT (test code 11.8 secs 10.4-12.4 N = PTP) THROMBOPLASTIN TIME [id number] 11:28:00 Test Item Value Reference Range Interpretation Comments THROMBOPLASTIN TIME PARTIAL (test 39.4 secs 22-38 H code = PTT) CHEMISTRY 7 [id number] 11:05:00 Test Item Value Reference Range Interpretation [...] = CA) 9.1 mg/dL 8.4-10.2 N URINALYSIS [id number] 10:49:00 Test Item Value Reference Range Interpretation [...] /HPF RARE-FEW URINE SAMPLE: CLEAN CATCHUR HCG [id number] 10:49:00 Test Item Value Reference Range Interpretation [...] later and tested. URINE SAMPLE: CLEAN CATCHURINALYSIS [id number] 10:48:00 Test Item Value Reference Range Interpretation [...] /HPF RARE-FEW URINE SAMPLE: CLEAN CATCHUR HCG [id number] 10:48:00 Test Item Value Reference Range Interpretation Comments UR HCG QUAL (test code = HCGQLU) URINE SAMPLE: CLEAN CATCHCBC W/AUTO [id number] 10:47:00 Test Item Value Reference Range Interpretation [...] code = PLTMR) XR CHEST 1 VW [id number] 20:26:31 1. No acute intrathoracic abnormality, specifically no detectableradiographic findings to suggest COVID-19 pneumonia. Disclaimer: Generally, the findings on chest imaging in COVID-19 are notspecific, and overlap with other infections, including influenza, H1N1,SARS and MERS.According to the Centers for Disease Control (CDC) and the [employer], viral testing remains the only [...] Centers for Disease Control (CDC) and the [place], viral testingremains the only specific method of diagnosiseven if CXR or CT findings are suggestive of COVID-19.[facility] Notes Date/Time Note Provider Source 2022-03-26 10:34:49-00:00 AYLIN MARTIN [facility] OPERATIVE/PROCEDURE REPORT MORGAN FERGUSON FACILITY: [facility] Billing #: [id number] Room: [facility] MR #: [id number] : 1985 DATE OF PROCEDURE: 03/26/2022 SURGEON: Aylin Martin MD PREOPERATIVE DIAGNOSES: 1. Overactive bladder. 2. Interstitial cystitis. 3. Bladder lesion. POSTOPERATIVE DIAGNOSES: 1. Overactive bladder. 2. Interstitial cystitis. 3. Bladder lesion. PROCEDURES PERFORMED: 1. Cystoscopy. 2. Hydrodistention. 3. Bladder biopsy. 4. Intravesical instillation of drugs. 5. Botox injection to bladder, urethra, and pelv ic floor, total 400 units. TENDER COORDINATOR: Marco Antonio Corea RES ANESTHESIA: General. INDICATIONS FOR PROCEDURE: This is a 37-year-old female with history of chronic refractory overactive bladder and interstitial cystitis. The patient has failed or al medication and desired definitive treatment. She was offere d hydrodistention and Botox injections. The risks and benefits of the procedure were explained at length to the patient, who wished to proceed. PROCEDURE IN DETAIL: After informed detail of procedure, consent was obtained, [facility], where general anesthesia was induced witho ut complications. The patient was placed in dorsal lithotomy position, prepped and draped in standard surgica l fashion. She did receive preoperative intravenous antibiotics . A 20-Mauritian Botox injection sheath with blind obturator was placed through the patient's urethra into the bladder. The blad tam was drained of its contents. The blind obturator was then exchanged for a working element loaded with a 0- degree lens and a 25-gauge TriviaPad needle. Attached to the needle was a syringe of Botox 100 units diluted in 10 mL of preservative-free saline. The bladder was then h ydrodistended at 80 cm for 2 to 3 minutes. At this time, the b ladder was inspected in all quadrants. The patient had norm al-appearing ureteral orifices. There was no Hunner lesions. The patient did have a small polyp in the bladder. Sessile p olyp located just approximately a centimeter medial to the le ft ureteral orifice. This would be biopsied after doing the bladder Botox injections. During the hydrodistention, we flush ed the needle of air and proceeded to inject the Botox mixture submucosally and approximately 1 mL aliquots in the trigone. Following Botox injection and hydrodistention, the bladder drained of its contents with intravesical anesthetic capacity o f 1000 mL. The bladder was then re-insufflated and inspected. T he patient had moderate to severe glomerulations, particularly on the posterior wall, lateral avelar, floor of the blad tam, and particularly around both ureteral orifices. The bladder was cycled several times until no active bleeding wa s noted. The Botox injection scope was then exchanged for a r egular cystoscope with the Bridge in 30-degree lens, th is was passed into the bladder. The bladder polyp was identifi ed. Using a rigid biopsy forceps, a biopsy was taken of the polyp, which was sent for pathologic diagnosis. A Bugbee elec trode was used to cauterize the biopsy site until hemostasis wa s achieved. The bladder was then drained of its contents and intravesical anesthetic cocktail of 40 mL of 1% plain lidocai ne, 10,000 units of heparin, and 600 mg of hydrocortisone w as instilled in the bladder and left in the bladder for the shana ent to void when she awoke in the recovery room. A second vi al of Botox 100 units was diluted in 3 mL of preservative-fr ee saline. Using a 25-gauge short spinal needle, injections were made targeting the external urethral sphincter. The n eedle was placed for 1.5 cm in the periurethral folds at 3 and 9 o'clock positions. A 1 mL of 33 units was injected at th is location. The final 1 mL was divided in two 0.5 mL aliquot s and injected in the posterior fourchette at the 5 and 7 o'paige ck position. A third vial of Botox 100 units was diluted in 3 m L of preservative-free saline. Using a pudendal nerve block kit, injections were made targeting the pubococcygeus muscle, this was located just medial to the ischial spine. In jections of 1.5 mL or 50 units were made at the 5 and 7 o'cl ock positions. A final vial of Botox 100 units was diluted in 3 mL of preservative-free saline. Using a pudendal nerve block kit, injections were made targeting the puborectalis muscle, located just inside the hymenal ring. Injections of 1.5 mL or 50 units were made at the 5 and 7 o'clock positions. Gauz e pressure was applied until hemostasis was achieved. The patie nt was then taken down out of dorsal lithotomy position, awo chhaya, extubated, and transported to the recovery room in stable c ondition. There was no complications. Estimated blood loss was less than 5 mL. The bladder biopsy was sent for pathologic diagnosis. All equipment counts correct x2. CPS/MODL /[id number] 2020-10-25 13:58:00-00:00 [facility] ([facility] EMERGENCY PROVIDER REPORT REPORT#:[id number] REPORT STATUS: Signed DATE:10/25/20 TIME: 1358 PATIENT: MORGAN FERGUSON UNIT #: [id number] ROOM/BED: AGE: 35 SEX: F PCP PHYS: No Primary or Family P hysician SERVICE AUTHOR: Aurelio Arechiga MD * ALL edits or amendments must be made on the el [employer] document * HPI-General Illness General Initial Greet Date/Time 10/25/20 1230 Presentation Chief Complaint VAGINAL ITCHINESS Free Text HPI Notes Free Text HPI Notes 35 years old patient no past medical history pre sents complaining of several days of vaginal itchiness no fever no vomiting no other complaints, patient has had several have yeast infection in the past but 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 Review of Systems ROS Statements All systems rev neg except as marked. Free Text ROS Notes Free Text ROS Notes CONSTITUTIONAL: Normal; negative for fev er, weight change, fatigue, or aching. HEENT: Eyes normal; negative for, irritation, or visual field defects. Ears normal; Negative for pain . Nose normal; Negative for runny nose, sinus problems , or nosebleeds. Mouth normal; Negative for dent al problems,. Throat normal; Negative for hoarseness, difficulty swallowing, or sore throat. CARDIOVASCULAR: Normal; Negative for chest pain or, high blood pressure, orthopnea, PULMONARY: Normal; Negative for cough, sputum, shortness of breath or wheezing, SKIN: Normal; Negative for rashes. MUSCULOSKELETAL: Normal; Negative for back pain, joint pain. NEUROLOGIC: Normal; Negative for blackouts, head aches, seizures or dizziness. PSYCHIATRIC: Normal; Negative for anxiety, depre ssion, or phobias. ENDOCRINE: Normal; Negative for diabetes, thyroid.HEMATOLOGIC/LYMPHATIC: Normal; Negative for anemia, swollen glands, or blood di sorders. IMMUNOLOGIC: Negative; Negative for steroids, ch emotherapy, or cancer. VASCULAR: Normal; Negative for varicose veins, b lood clots, or leg ulcers. Past Medical History - Adult Stated Complaint YEAST INFECTION Allergies Coded Allergies: aspirin (Severe, ANAPHYLAXIS 10/25/20) egg (Severe, THROAT CLOSES 10/25/20) ibuprofen (Severe, THROAT CLOSES 10/25/20) lactase (From DAIRY AID) (Severe, THROAT CLOSES 10/25/20) peanut (Severe, THROAT CLOSES 10/25/20) soy (Severe, ANAPHYLAXIS 10/25/20) wheat (Severe, THROAT CLOSES 10/25/20) Home Medications Discontinued Scripts traMADol (ULTRAM) 50 MG PO Q6H PRN PRN ACUTE LANG N traMADol (ULTRAM) 50 MG PO Q6H PRN PRN ACUTE PA IN #15 TABS Prov: 04/15/20 DC: 10/25/20 1245 Therapy completed ESTROGENS,CONJ (PREMARIN 0.625 MG/GM VAGINAL) 0. 5 GM VAGINAL DAILY ESTROGENS,CONJ (PREMARIN 0.625 MG/GM VAGINAL) 0 .5 GM VAGINAL DAILY #30 GM Prov: 04/15/20 DC: 10/25/20 1245 Therapy completed NITROFURANTOIN MACROCRYSTAL (MACRODANTIN) 100 MG PO BID NITROFURANTOIN MACROCRYSTAL (MACRODANTIN) 100 M G PO BID #14 CAPS Prov: 04/15/20 DC: 10/25/20 1245 Therapy completed Reported Medications LISINOPRIL (ZESTRIL) OMEPRAZOLE ER (PriLOSEC) 40 MG BID Review of Nursing Notes Rev avail, and agree Physical Exam Vital Signs Vital Signs First Documented: Result Date Time Pulse Ox 99 10/25 1236 B/P 157/101 10/25 1236 B/P Mean 119 10/25 1236 O2 Delivery Room air 10/25 1236 Temp 37.0 10/25 1236 Pulse 105 10/25 1236 Resp 18 10/25 1236 Last Documented: Result Date Time Pulse Ox 99 10/25 1452 B/P 144/82 10/25 1452 B/P Mean 102 10/25 1452 O2 Delivery Room air 10/25 1452 Temp 36.9 10/25 1452 Pulse 92 10/25 1452 Resp 16 10/25 1452 Review of Vital Signs Reviewed, Vital signs norm al Physical Exam General/Const General/Const Awake, No acute distress, Well de veloped, Well nourished, Cooperative MS Head Head Atraumatic, Normocephalic Eyes Eyes PERRL, No nystagmus, No periorbital rednes s, No photophobia Ears/Nose/Throat Ears/Nose/Throat Atraumatic, Pharynx NL , No peritonsillar abscess, No pooling of secretions, Tympanic membs NL MS Neck Neck Supple, Full range of motion, No swelling, Non-tender Resp/Chest Respiratory/Chest Breath sounds NL, Breath soun ds = bilat, No rales, No wheezing Cardiovascular Cardiovascular Regular rhythm, No gallop, No ru bs, Cap refill not delayed Abdomen/GI Abdomen/GI Soft, Non-tender, No guarding, BS no rmoactive MS Back Back Full range of motion, Painless range of mo tion, No midline vertebral tend, No paraspinal tenderness Lymphatic Lymphatic No cervical adenopathy, No axillary a denopathy MS Upper Extrem Upper Extremity/MS Inspection NL, No swelling, No snuffbox tenderness, No erythema MS Wrist/Hand Wrist/Hand Inspection NL, No swelling, Non-tend er, No snuffbox tenderness Patient Discharge Departure Vital Signs/Condition Vital Signs First Documented: Result Date Time Pulse Ox 99 10/25 1236 B/P 157/101 10/25 1236 B/P Mean 119 10/25 1236 O2 Delivery Room air 10/25 1236 Temp 37.0 10/25 1236 Pulse 105 10/25 1236 Resp 18 10/25 1236 Last Documented: Result Date Time Pulse Ox 99 10/25 1452 B/P 144/82 10/25 1452 B/P Mean 102 10/25 1452 O2 Delivery Room air 10/25 1452 Temp 36.9 10/25 1452 Pulse 92 10/25 1452 Resp 16 10/25 1452 All vital signs available at the time of this en try have been reviewed. Condition Stable, Improved Clinical Impression Clinical Impression Primary Impression: Candidiasis Time of Impression 1359 Disposition Decision Discharge )( Discharged to Home Yes )( Time 1359 )( Date 10/25/20 Discharge/Care Plan (Auto) Prescriptions Current Visit Scripts TERCONAZOLE (TERAZOL 7) 1 APPFUL VAGINAL BEDTIME TERCONAZOLE (TERAZOL 7) 1 APPFUL VAGINAL BEDTIM E #45 GM FLUCONAZOLE (DIFLUCAN) 150 MG PO ONCE FLUCONAZOLE (DIFLUCAN) 150 MG PO ONCE #3 TAB Patient Instructions ED CAMILO VAGINITIS Referrals Adriano Rainey MD at 1635 RPT #:[id number] END OF REPORT 2020-04-15 20:45:00-00:00 [facility] ([facility] EMERGENCY PROVIDER REPORT REPORT#:[id number] REPORT STATUS: Signed DATE:04/15/20 TIME: 2044 PATIENT: MORGAN FERGUSON UNIT #: [id number] ROOM/BED: AGE: 35 SEX: F PCP PHYS: Mari De La O DO SERVICE AUTHOR: Rodney Rodríguez MD * ALL edits or amendments must be made on the el ectronic/computer document * HPI-General Illness Free Text HPI Notes Free Text HPI Notes 35 yrs old female with h/o e ndometriosis s/p hysterectomy c/o vaginal spotting, pelvic pain. pt had near fall yesterday then sta rted to have more vaginal spotting. No fever, no discharge. No back pain General Initial Greet Date/Time 04/15/201900 Presentation Chief Complaint Vaginal bleeding Review of Systems ROS Statements All systems rev neg except as marked. Complete sys rev neg except as marked. Past Medical History - Adult Stated Complaint VAGINAL BLEEDING POST HYSTERECT [place] Allergies Coded Allergies: egg (THROAT CLOSES 03/12/20) ibuprofen (THROAT CLOSES 03/12/20) lactase (From DAIRY AID) (THROAT CLOSES 03/12/20 ) peanut (THROAT CLOSES 03/12/20) wheat (THROAT CLOSES 03/12/20) Uncoded Allergies: ASPRIN (Severe, ANAPHYLAXIS 03/18/18) Home Medications Discontinued Scripts KETOROLAC (TORADOL) 10 MG PO Q6H PRN PRN PAIN KETOROLAC (TORADOL) 10 MG PO Q6H PRN PRN PAIN # 20 TABS Ref 1 Prov: 03/15/20 DC: 04/15/202033 Patient stopped taking traMADol (ULTRAM) 100 MG PO Q6HR PRN moderate - severe pain traMADol (ULTRAM) 100 MG PO Q6HR PRN moderate - severe pain #30 TAB Prov: 03/15/20 DC: 04/15/202033 Therapy completed Discontinued Reported Medications OMEPRAZOLE ER (PriLOSEC) 40 MG PO DAILY Calculated suicide risk level: No risk Review of Nursing Notes Rev avail, and agree Smoking status for patients 13 years old or olde r: Never Smoker Physical Exam Vital Signs Vital Signs First Documented: Result Date Time Pulse Ox 97 04/15 1906 B/P 158/88 04/15 1906 B/P Mean 111 04/15 1906 O2 Delivery Room air 04/15 1906 Temp 37.1 04/15 1906 Pulse 88 04/15 1906 Resp 16 04/15 1906 Last Documented: Result Date Time Pulse Ox 100 04/15 2119 B/P 133/86 04/15 2119 B/P Mean 101 04/15 2119 O2 Delivery Room air 04/15 2119 Pulse 83 04/15 2119 Resp 16 04/15 2119 Temp 37.1 04/15 1906 Review of Vital Signs Reviewed Physical Exam General/Const General/Const Awake, Alert, Well appearing Ears/Nose/Throat Ears/Nose/Throat Airway patent, Mucous membrane s moist, Pharynx NL Resp/Chest Respiratory/Chest Breath sounds NL, Breath soun ds = bilat, No respiratory distress, No rales, No rhonchi, No wheezing Cardiovascular Cardiovascular Heart rate NL, Regular r hythm, Heart sounds NL, Cap refill not delayed, Peripheral circulation NL Abdomen/GI Abdomen/GI Soft, Non-tender, No guarding, No re bound MS Upper Extrem Upper Extremity/MS Inspection NL, No swelling, Non-tender, No erythema, No deformity, Neurologic intact, Vascular intact, N o clubbing/cyanosis MS Lower Extrem Lower Ext/Pelvis/MS Inspection NL, No swelling, Non-tender, No erythema, No deformity, Neurologic intact, Vascular intact, N o edema Skin Skin Color NL, Warm, Dry, Turgor NL Genitourinary Text/Dict Notes Cavaginal cuff, tiny area in the center with two stiches intact, not reabsorbe. Faint bleeding from the sutu re site. Otherwise wound is heal with normal flesh. External Genitalia Negative: Swelling present, Tenderness present, Bartholin cyst/abscess R. Pelvic Exam Negative: Os is open. Perineum Negative: Swelling present, Erythema present, L esions present. Neurologic Neurologic Oriented X3, Speech NL, No motor def icits, No sensory deficits Psychiatric Psychiatric Affect NL, Mood NL, Thought content NL Interpretation Diagnostics Lab Results Interpretation Results Laboratory Tests 04/15/201920: [Embedded Image Not Available] Laboratory Tests: 04/15 1921 Chemistry Sodium (135 - 145 mEq/L) 141 Potassium (3.5 - 5.0 mEq/L) 3.3 L Chloride (100 - 115 mEq/L) 106 Carbon Dioxide (22 - 31 mEq/L) 28 Anion Gap (10 - 20) 10.20 BUN (7 - 18 mg/dL) 10 Creatinine (0.5 - 1.0 mg/dL) 0.9 Glomerular Filtr Rate (>60 ml/min) 72 Glucose (65 - 110 mg/dL) 103 Calcium (8.4 - 10.2 mg/dL) 8.8 Total Bilirubin (0.2 - 1.0 mg/dL) 0.2 AST (15 - 37 units/L) 11 L ALT (12 - 78 units/L) 12 Total Alk Phosphatase (46 - 116 units/L) 66 Total Protein (6.3 - 8.2 gm/dL) 7.3 Albumin (3.4 - 4.8 gm/dL) 4.0 Hematology WBC (6.6 - 12.1 K/mm3) 7.6 RBC (3.45 - 5.01 M/mm3) 4.40 Hgb (10.7 - 13.9 g/dL) 13.7 Hct (32.1 - 42.1 %) 42.4 H MCV (84.1 - 94.8 fL) 96 H MCH (27 - 35 pg) 31.1 MCHC (32.2 - 34.1 gm/dL) 32.3 RDW (12.4 - 16.5 %) 13.0 Plt Count (133 - 385 K/mm3) 250 MPV (9.1 - 12.7 fl) 10.0 Neut % (Auto) (56.5 - 79.4 %) 52.2 L Lymph % (Auto) (14.3 - 34.3 %) 35.1 H [place] % (Auto) (5.1 - 10.4 %) 9.4 Eos % (Auto) (0.1 - 3.0 %) 2.2 Baso % (Auto) (0.1 - 1.0 %) 0.4 Neut # (Auto) (K/mm3) 4.0 Lymph # (Auto) (K/mm3) 2.7 [place] # (Auto) (K/mm3) 0.7 Eos # (Auto) (K/mm3) 0.17 Baso # (Auto) (K/mm3) 0.0 Urines Urine Color (YELLOW) YELLOW Urine Appearance (CLEAR) Slightly-Cloudy Urine pH (5 - 9) 6.0 Ur Specific Gantt (1.001 - 1.035) 1.016 Urine Protein (NEG) 2+ H Urine Glucose (UA) (NEG) NEGATIVE Urine Ketones (NEG) NEGATIVE Urine Blood (NEG) 3+ H Urine Nitrite (NEG) NEG Urine Bilirubin (NEG) NEGATIVE Urine Urobilinogen (NEG mg/dL) 2.0 Ur Leukocyte Esterase (NEG) TRACE H Urine RBC (NONE SEEN #/hpf) TOO NUMEROUS TO CNT H Urine WBC (NONE SEEN #/hpf) 11-15 H Ur Epithelial Cells (RARE - FEW #/HPF) MODERATE H Urine Mucus (NONE SEEN) 2+ Microbiology: Date/Time Procedure - Status Source Growth 04/15 1942 Urine Culture - RES URINE Recent Impressions: ULTRASOUND - DUP AB/PEL/SC/LTD 04/15 2000 Report Impression - Status: SIGNED Entered: 04/15/20202104 IMPRESSION: Status post hysterectomy. No pelvic sonographic abnormality identified. SL: SUDHIR Impression By: Prince Ayala MD ULTRASOUND - US TRANSVAGINAL W/PELVIS 04/15 2000 Report Impression - Status: SIGNED Entered: 04/15/20202104 IMPRESSION: Status post hysterectomy. No pelvic sonographic abnormality identified. SL: SUDHIR Impression By: Prince Ayala MD ULTRASOUND - US PELVIS COMPLETE 04/15 2000 Report Impression - Status: SIGNED Entered: 04/15/20202104 IMPRESSION: Status post hysterectomy. No pelvic sonographic abnormality identified. SL: SUDHIR Impression By: Prince Ayala MD Lab Imaging Statement Laboratory radiographic studies reviewed and con sidered in the medical decision-making. Point of Care Testing Pulse Oximetry Pulse Ox % 99 On: Room air Interpretation Interpreted by me, Pulse oximetr y normal Time 0448 Re-Evaluation MDM Free Text MDM Notes Free Text MDM Notes 35 yrs old female with h/o e ndometriosis s/p hysterectomy c/o vaginal spotting, pelvic pain. pt had near fall yesterday. Pelvic pain, vaginal bleeding, s/p hysterectomy. Pelvic exam: wound/tissue ap pear very normal, right in the center there are two lost sutures, but still intack, wound not fully open. No bleeding noted. No clot. Discussed case with dr. Chairez, recommended d/ c home with premarin cream, follow up in the office this morning. Bleeding precautions given. No active bleeding. ED Course Medication(s) Ordered Medication(s) Ordered: Anti-Infective Agents Sig/Veto Start time Last Medication Dose Route Stop Time Status Admin Nitrofurantoin 100 MG X1ED STA 04/15 2044 DC Macrocrystals PO 04/15 Central Nervous System Agents Sig/Veto Start time Last Medication Dose Route Stop Time Status Admin Tramadol HCl 50 MG X1ED STA 04/15 2045 DC 04/15 PO 04/15 Consultation Consultation Referral/Consult Name Lo Chairez MD Rumper Called DISEASE INTERVENTION SPECIALIST, On-call physician Requested Call Time 2054 Requested Call Date 04/15/20 Call Returned Call returned Call Returned Time 2054 Call Returned Date 04/15/20 Rumper Will see patient, Agrees with eval, Agrees with plan Free Text Consult Notes requested premarin cream to go. Patient Discharge Departure Vital Signs/Condition Vital Signs First Documented: Result Date Time Pulse Ox 97 04/15 1906 B/P 158/88 04/15 1906 B/P Mean 111 04/15 1906 O2 Delivery Room air 04/15 1906 Temp 37.1 04/15 1906 Pulse 88 04/15 1906 Resp 16 04/15 1906 Last Documented: Result Date Time Pulse Ox 100 04/15 2119 B/P 133/86 04/15 2119 B/P Mean 101 04/15 2119 O2 Delivery Room air 04/15 2119 Pulse 83 04/15 2119 Resp 16 04/15 2119 Temp 37.1 04/15 1906 All vital signs available at the time of this en try have been reviewed. Condition Stable, Improved Clinical Impression Clinical Impression Primary Impression: Dehiscence of vaginal cuff Secondary Impressions: Pelvic pain, S/P hysterec kerline, UTI (urinary tract infection) Time of Impression 2046 Disposition Decision Discharge )( Discharged to Home Yes )( Time 2046 )( Date 04/15/20 Discharge/Care Plan Counseled Regarding Diagnosi s, Lab results, Imaging studies, Need for follow-up, When to return to ED Rx Drug Database Reviewed Yes (Auto) Prescriptions Current Visit Scripts traMADol (ULTRAM) 50 MG PO Q6H PRN PRN ACUTE LANG N traMADol (ULTRAM) 50 MG PO Q6H PRN PRN ACUTE PA IN #15 TABS ESTROGENS,CONJ (PREMARIN 0.625 MG/GM VAGINAL) 0. 5 GM VAGINAL DAILY ESTROGENS,CONJ (PREMARIN 0.625 MG/GM VAGINAL) 0 .5 GM VAGINAL DAILY #30 GM NITROFURANTOIN MACROCRYSTAL (MACRODANTIN) 100 MG PO BID NITROFURANTOIN MACROCRYSTAL (MACRODANTIN) 100 M G PO BID #14 CAPS Prescriptions Reviewed Risks, Benefits, Alternat tr treatment Patient Instructions ED Pelvic Pain, Unknown Cau se, ED Post Op Wound Check, Bleeding, ED Urinary Tract Infections in Women Referrals Mari De La O DO (PCP) Departure Forms WORK/SCHOOL EXCUSE VARIABLE Restrictions apply through 04/18/20 Advance Care Planning Documents Reviewed With patient Discharge Note I have spoken with the patie nt and/or caregivers. I have explained the patient's condition, diagnoses and leopoldo atment plan based on the information available to me at this time. I have answered the patient's and/ or caregiver's questions and addressed any concerns. The patient and/or careg alphonso have as good an understanding of the patient 's diagnosis, condition and treatment plan as can be expected at this point. The vital signs have bee n stable. The patient's condition is stable and appr opriate for discharge from the emergency department. The patient will pursue further outpatient evalu ation with the primary care physician or other designated or consulting phys ician as outlined in the discharge instructions. The patient and/or caregivers are agreeable to this plan of care and follow-up instructions have been exp lained in detail. The patient and/or caregivers have received these instructio ns in written format and have expressed an understanding of the discharge inst ructions. The patient and/or caregivers are aware that any significant change in condition or worsening of symptoms should prompt an immediate return to [facility] or the closest emergency department or a call to 911. Quality Measures BP F/U for HTN F/u with PCP/other doc 12-Lead ECG for CP Performed documented US in Preg w/AP/VB Trans-abd/vag US done, Not pr egnant Preg Test for Women w/Abd Pain Female age 14-50, not Smoking Cessation Screened, non user Tobacco Screening/Cessation 18 years or older, D enies tobacco use at 0448 RPT #:[id number] END OF REPORT 2020-03-15 09:20:00-00:00 [facility] ([facility]) Discharge Summary REPORT#:[id number] REPORT STATUS: Signed DATE:03/15/20 TIME: 919 PATIENT: MORGAN FERGUSON UNIT #: [id number] ROOM/BED: [facility]4-A : 87 AGE: 35 SEX: F ATTEND: Trisha De La O DO ADM AUTHOR: Mari De La O DO * ALL edits or amendments must be made on the [employer]/computer document * PCP PCP PCP: PCP: No Primary or Family Physician Discharge to: home General Information Free Text A P: 35 y/o s/p robotic assisted TLH/BS, Cysto, POD #1 h/o endometriosis, failed med mgmt completed family status, permanent sterilization desired - POD #1: doing well, meeting all milestones for DC home - wound care instructions re viewed, to f/u in office in 2 wks for incision check Date of admission: Observation Start Date: 03/14/20 Date of admission: 03/14/20 Discharge date: 03/15/20 Admission diagnosis: Chronic pelvic pain, endometriosis, desire for p ermanent sterilization Discharge diagnosis: same Hospital course: Robotic-assisted TLH/BS, Cysto postop pain mgmt Associated exam: Abd soft, nontender / nondistended, Abdominal tr ocar sites skin edges well- approximated, no signs of infection Med Rec PCP PCP: PCP: No Primary or Family Physician Med Rec Discharge meds: Continue taking these medications: OMEPRAZOLE ER (PriLOSEC) 40 MG CAP.DR 40 MILLIGRAM ORAL DAILY. Start taking the following new medications: traMADol (ULTRAM) 50 MG TAB 100 MILLIGRAM ORAL EVERY 6 HOURS. as needed for moderate - severe pain Qty = 30 No Refills KETOROLAC (TORADOL) 10 MG TAB 10 MILLIGRAM ORAL EVERY 6 HOURS NEEDED. as n eeded for PAIN Qty = 20 Refills = 1 Objective VS/I O Last Documented: Result Date Time Pulse Ox 100 03/15 740 B/P 99/63 03/15 740 B/P Mean 74.9 03/15 740 Temp 98.1 03/15 740 Pulse 67 03/15 0740 Resp 16 03/15 740 O2 Delivery Room air 03/15 0507 O2 Flow Rate 6 03/14 1030 24 hour I O ending at 0700: 03/15 0700 03/14 1900 Intake Total 1380.00 1100.00 Output Total 1800 1600 Balance -420.00 -500.00 Intake, IV 900.00 1100.00 Intake, Oral 480 Output, 100 Estimated Blood Loss Output, Urine 1800 1500 Patient Weight Weight (lb): 156 Weight (oz): 8.45 Weight (kg): 71.000 General appearance: alert, awake, oriented, no a cute distress, pleasant, conversational, mental status normal, no respira tory distress Head/Eyes: EOMI ENT: moist mucosal membranes Neck: full range of motion Cardiovascular: regular rate rhythm Respiratory: no distress, aerating well GI: soft, non-tender, no guarding, no rebound, n o distention Extremities: moves all, no edema-all extremities , normal range of motion Musculoskeletal: full range of motion, normal in spection Neuro/TECHNICAL SUPPORT CONSULTANT: alert, oriented X 3, no motor deficit s Skin: dry, intact, warm Wound/incision: Location: abdominal trocar sites Site Condition: edges approximated, incision in tact, wound clean dry, no drainage, no ecchymosis, no erythema Psychiatry: normal affect, normal mood Results Findings/Data: Laboratory Tests: 03/15 412 Hematology Hgb (10.7 - 13.9 g/dL) 12.7 Hct (32.1 - 42.1 %) 38.2 Results: labs reviewed, vital signs stable Treatments Procedures Lab: Hematology last 24 hrs: 03/15 412 Hematology Hgb (10.7 - 13.9 g/dL) 12.7 Hct (32.1 - 42.1 %) 38.2 Discharge Instructions PCP PCP: PCP: No Primary or Family Physician )( Discharge to: Home/Self Care Discharge Instructions Additional Discharge Routines: Attending Follow- Up )( Diet: Resume Home Diet/Feeds Prescriptions: e-prescribe Time spent: Time spent with patient (minutes): 20 >50% spent on counseling/coordination of care: yes Follow-up Appointments Attending Physician: Attending Physician: Mari De La O DO Attending physician follow up timeframe: In 1-2 weeks at [address] [facility] #:[id number] END OF REPORT 2020-03-14 11:12:00-00:00 [id number] [facility] [address] [place], [place] [address] PATIENT NAME: MORGAN FERGUSON ADMIT DATE: 03/14/20 ACCOUNT NO: [id number] ROOM NO: [id number] AGE: 35 SEX: F ADMITTING PHYSICIAN: Mari De La O DO ATTENDING PHYSICIAN: Mari De La O DO OPERATION DATE: 03/14/2020 PREOPERATIVE DIAGNOSES: Endometriosis and chroni c pelvic pain. POSTOPERATIVE DIAGNOSES: Endometriosis and chron ic pelvic pain. PROCEDURES PERFORMED: Da Kayy assisted total la paroscopic hysterectomy and bilateral salpingectomy, and cystoscopy. PRIMARY SURGEON: Mari De La O DO TENDER COORDINATOR: Andrew Newman MD An metal moulder's assistant was r equired to maintain an unobstructed view, retracting the wound, maintai peg hemostasis, suturing and exchanging robotic instruments ANESTHESIOLOGIST: James Montana MD ANESTHESIA: General anesthesia. FINDINGS: Small uterus sounded to 7 cm, approxim ately 1 cm subserosal fundal fibroid. Bilateral ovaries and tubes normal-appe aring and normal-appearing liver and gallbladder. COMPLICATIONS: None. ESTIMATED BLOOD LOSS: 100 mL. URINE OUTPUT: 200 mL. FLUIDS: 1000 mL of LR. SPECIMENS REMOVED AND SENT TO PATHOLOGY: Uterus, cervix, and bilateral tubes. PROCEDURE IN DETAIL: After i nformed consent was obtained, the patient was taken to the operating room where general anesthesia w as administered without difficulty. The patient was then placed in the d orsal lithotomy position and the abdomen, vulva, and vagina were prepped and draped in the usual sterile fashion. A timeout was held and 2 grams of Ancef were given for infection prophylaxis. A heavy weighted speculum was then placed in the vagina and exam under anesthesia revealed a small, retroverted u terus with no adnexal masses palpated and the uterus was palpated to be mobil e. A heavy weighted speculum was then placed into the vag yuridia along with an anterior [place] and the cervix was grasped on the anterior lip with a singl e tooth tenaculum. The cervix was then PATIENT NAME: MORGAN FERGUSON ACCOUNT #: [id number] serially dilated using Hanks dilators to a size 20 and the uterus was sounded to 7 cm. 2-0 Prolene stay sutures were plac ed at the 3 and 9 o'clock positions on the cervix. A 3.5 cm colpoto mizer was utilized and the POLY II cannula with a 7 cm manipulator tip. The sutures were threaded th rough the colpotomizer. The tip was introduced into the uterine cavity and t he intracavitary balloon was inflated. The colpotomy cup was advanced across the cervix. Once satisfactorily seated, the F oley catheter was inserted and noted to be draining clear yellow urine. After change of sterile glov es, attention was then turned to the abdomen and all port sites were injected with 0.25% Marcaine with epinephrine. A 1 cm vertical incision wa s then made through the infraumbilical fold through which a Veress needle was introduce d. Initial starting pressures were confirmed to be low at 3 mmHg and pneumoper itoneum was established to a pressure initially of 20 mmH g until all ports were placed and then the pressure was dropped to 15 mmHg. The umbilical 8-mm port was placed. The laparoscope was then inserted through the trocar and the pat ient was then placed in steep Trendelenburg position. The pelvic anato my was then inspected and findings are as noted above. Bilateral lo wer quadrant ports were then placed with an 8-mm da Kayy ports under direct visualization and under local analgesia. The 5-mm AirSeal port was then placed in the midc lavicular line on the left side. Next, the da Kayy Xi robot was then [facility]. The da Kayy long bipolar grasper was placed in the lef t lower quadrant port and monopolar scissors in the right lower quadrant p ort. Abdominal survey of the cavity revealed findings as noted above. The pat ient was then placed in the Trendelenburg position. Ureters were then identi fied and the fallopian tubes were removed. Starting on the left side, the mes osalpinx was divided to the fimbriated attachment to the ovary, whic h was then coagulated and divided. The tube was retrieved through the AirSeal port. The same was performed on the right side. The left uteroovarian ligament was t hen coagulated and divided. The left round ligament was coagulated and divid ed. The anterior leaf of the broad ligament was divided down to the level of the isthmus and across. The posterior leaf of the broad ligament was also di vided down to the posterior isthmus skeletonizing the uterine vessels on the left side. The bladder was taken down by sharp and blun t dissection below the level of the colpotomy ring. The right uteroovarian ligament was then coagula christina and divided. The right round ligament was similarly coagulated and divi ded. The anterior leaf of the broad ligament on the right side was divided to meet that from the divided opposite side and the posterior leaf of the broad ligament was divided down to the level of the isthmus posteriorly. The bladde r was taken down further on this side as well down below the colpotomy ring and the uterine vessels were skeletonized. The uterine vessels were then coag ulated at the level of the colpotomy ring and divided. Colpotomy was then p erformed with monopolar scissors anterior colpotomy and this was carried around circumferentially along the upper edge of the colpot omizer posteriorly. Once completely transected, the uterus was removed from the pelvic cavity through the vagina. A #0 V-Loc suture was introduced into the pelvic cavity an d the vagina was occluded with a glove filled with a lap sponge. Monopolar scissors in the right lower quadrant port were replaced with alisson needle tank truck driver. V aginal cuff was then closed with the 0 V-Loc suture starting on the left side going thr ough full thickness from anterolaterally to posterolaterally incorporatin g the uterosacral ligaments. The suture was secured through the terminal loop and the cuff was closed in a continuous running fashion with 5-mm bites, [address] way out to the right angle and then run mariposa k on to the vaginal cuff with 3 further throws. The suture was cut flush with th e cuff and the suture was removed from the 8-mm port in the left lower quadrant. The pelvis was then inspected under 5 mmHg with hemostasis noted. Irrigation and suction was the n performed and photographs PATIENT NAME: MORGAN FERGUSON ACCOUNT #: [id number] were obtained. The robot was then undock ed and pneumoperitoneum was expressed. A cystoscopy was then performed with a 7 0-degree cystoscope lens. Integrity of the bladder was confirmed an d both ureteric orifices were seemed to be emitting powerful jets of blue tinted urine from indigo carmine. After change of sterile gloves, the laparoscopic wounds were the n closed with deep sutures of 0 Vicryl and subcuticular 3-0 Vicryl and Dermabond was th en applied to the skin. Blood loss was 100 mL. Sponge, lap, and needle counts were correct x2. Cook was draining clear blue urine at the end of the case and the patient was taken to the recovery room in good condition. Intraoperat tr findings were discussed with family via phone. Dictated By: Mari De La O DO WT: OP:F.TEN/MAIRA/NTS Conf#: [id number]/TIMBO#: [id number] cc: Andrew Newman MD Authenticated and Edited by Mari De La O On 05/16/19 12:18:04 PM at 1219 PATIENT NAME: MORGAN FERGUSON ACCOUNT #: [id number] 2020-03-14 10:58:00-00:00 [facility] ([facility]) Brief Op Note REPORT#:[id number] REPORT STATUS: Signed DATE:03/14/20 TIME: 1058 PATIENT: MORGAN FERGUSON UNIT #: [id number] ROOM/BED: [facility] : 87 AGE: 35 SEX: F ATTEND: Trisha De La O DO ADM AUTHOR: Mari De La O DO * ALL edits or amendments must be made on the el [employer]/computer document * Op/Inv Proc Note - Brief ORM Surgeries: Surgery Date and Time: 03/14/2020 0730 Primary Procedure: FOUR PUNCTURE LAPAROSCOPIC T OTAL ROBOTIC Secondary Procedure: CYSTOSCOPY Pre-procedure diagnosis: Endometriosis, Chronic pelvic pain Post-procedure diagnosis: same as pre procedure dx Procedures performed: Davinci Robotic-assisted TLH/BS, Cysto Primary Surgeon: Mari De La O DO Test Borer Helper(s): Andrew Newman MD Anesthesiologist: James Montana MD Anesthesia: general anesthesia Findings: Small uterus, sounded to 7 cm, small 1 cm subser osal fundal fibroid B/L ovaries and tubes normal appearing Normal appearing liver and gallbladder Complications: none Estimated blood loss in ml's: 100 Specimens removed/altered: Uterus, Cervix, B/L t ubes Drain(s): Cook Catheter Placed Tube(s): none Implant(s): none Fluids: 1L LR Urine output: 200 cc Approach: laparoscopic Wound class: clean-contaminated Disposition: PACU, MEDSURG, stable Dictation number: #[id number] at 1112 RPT #:[id number] END OF REPORT 2020-03-14 10:58:00-00:00 [facility] ([facility]) Brief Op Note REPORT#:[id number] REPORT STATUS: Signed DATE:03/14/20 TIME: 1058 PATIENT: MORGAN FERGUSON UNIT #: [id number] ROOM/BED: [address] : 87 AGE: 35 SEX: F ATTEND: Trisha De La O DO ADM AUTHOR: Mari De La O DO * ALL edits or amendments must be made on the [employer]/Moya Okruga document * See Addendum Op/Inv Proc Note - Brief ORM Surgeries: Surgery Date and Time: 03/14/2020729 Primary Procedure: FOUR PUNCTURE LAPAROSCOPIC T OTAL ROBOTIC Secondary Procedure: CYSTOSCOPY Pre-procedure diagnosis: Endometriosis, Chronic pelvic pain Post-procedure diagnosis: same as pre procedure dx Procedures performed: Davinci Robotic-assisted TLH/BS, Cysto Primary Surgeon: Mari De La O DO Test Borer Helper(s): Andrew Newman MD Anesthesiologist: James Montana MD Anesthesia: general anesthesia Findings: Small uterus, sounded to 7 cm, small 1 cm subser osal fundal fibroid B/L ovaries and tubes normal appearing Normal appearing liver and gallbladder Complications: none Estimated blood loss in ml's: 100 Specimens removed/altered: Uterus, Cervix, B/L t ubes Drain(s): Cook Catheter Placed Tube(s): none Implant(s): none Fluids: 1L LR Urine output: 200 cc Approach: laparoscopic Wound class: clean-contaminated Disposition: PACU, MEDSURG, stable Dictation number: #[id number] Electronically Signed by Mari De La O DO on 1 05/14/19 at 1112 Addendum 1: 03/14/20 1345 by Mari De La O DO Post-operative diagnosis to include Subserosal u terine fibroid Electronically Signed by Mari De La O DO on 1 05/14/19 at 1345 RPT #:[id number] END OF REPORT 2020-03-13 22:29:00-00:00 [facility] ([facility]) ALCOHOL STILL OPERATOR Admission H P REPORT#:[id number] REPORT STATUS: Signed DATE:03/13/20 TIME: 2228 PATIENT: MORGAN FERGUSON UNIT #: [id number] ROOM/BED: : 87 AGE: 35 SEX: F ATTEND: Trisha De aL O DO ADM AUTHOR: Mari De La O DO * ALL edits or amendments must be made on the [employer]/computer document * History of Present Illness Chief complaint: pelvic pain HPI: LMP: 06/26/17 comments: menses silent with Mirena IUD Free Text HPI Notes Free Text HPI Notes: Morgan is a 34 y/o who presents for scheduled Davinci Robotic-assisted TLH /BS as definitive treatment of pelvic pain due to endometriosis. She reports h/o 2 prior laparoscopic surgeries for diagnosis and surgical excision of endometrial implants, and pa in relief during pregnancies, but has failed medical management with Mirena IUD a nd Orlissa since the delivery of her second child in 2018. Pain described as daily, "debilitating", 1 0/10 and requiring use of Percocet daily. History Past medical history: Eosinophilic esophagitis Past surgical history: Laparoscopy x2, t onsillectomy, left knee repair, EGD x2 Past gynecological hx: Age at menarche: 14 Number of pregnancies: 2 Number of deliveries: 2 Number of C-sections: 0 Gynecological history: previous laparoscopic sx ., endometriosis Past social history: employed, single, does not smoke, no alcohol use, drug abuse (former Methadone addiction) Past Family History: Family history was reviewed; no changes noted. Medications: Home Medications: OMEPRAZOLE ER (PriLOSEC) 40 MG PO DAILY Allergies: Coded Allergies: egg (THROAT CLOSES 03/12/20) ibuprofen (THROAT CLOSES 03/12/20) lactase (From DAIRY AID) (THROAT CLOSES 03/12/20 ) peanut (THROAT CLOSES 03/12/20) wheat (THROAT CLOSES 03/12/20) Uncoded Allergies: ASPRIN (Severe, ANAPHYLAXIS 03/18/18) Review of Systems All systems rev neg: except as marked Physical Exam VS/I O 24 hour I O ending at 0700: 03/13 0700 03/12 1900 Intake Total Output Total Balance Patient 157 lb Weight Weight Standing scale Measurement Method Patient Weight Weight (lb): 156 Weight (oz): 8.45 Weight (kg): 71.000 General appearance: alert, awake, oriented, no a cute distress, pleasant, conversational, mental status normal, no respira tory distress Head/Eyes: atraumatic, clear cornea, EOMI, normo cephalic ENT: moist mucosal membranes Neck: full range of motion Cardiovascular: regular rate rhythm Respiratory: no distress, aerating well Abdomen/GI: soft, non-tender, no guarding Genitourinary: deferred (to OR) Extremities: moves all, no edema-all extremities Musculoskeletal: full range of motion, normal in spection Neuro/TECHNICAL SUPPORT CONSULTANT: alert, oriented X 3, normal speech, C HARSHAL-XII grossly intact Psychiatry: normal affect, normal mood Results Findings/Data: Laboratory Tests Test Result Date Time Chemistry Sodium (135 - 145 mEq/L) 138 03/12 910 Potassium (3.5 - 5.0 mEq/L) 4.4 03/12 910 Chloride (100 - 115 mEq/L) 103 03/12 910 Carbon Dioxide (22 - 31 mEq/L) 28 03/12 910 Anion Gap (10 - 20) 11.60 03/12 910 BUN (7 - 18 mg/dL) 9 03/12 910 Creatinine (0.5 - 1.0 mg/dL) 0.8 03/12 910 Glomerular Filtr Rate (>60 ml/min) 83 03/12 0 Glucose (65 - 110 mg/dL) 77 03/12 910 Calcium (8.4 - 10.2 mg/dL) 9.1 03/12 910 Coagulation PT (10.4 - 12.4 secs) 11.8 03/12 910 PTT (Donald) (22 - 38 secs) 39.4 H 03/12 910 Hematology WBC (6.6 - 12.1 K/mm3) 5.1 L 03/12 910 RBC (3.45 - 5.01 M/mm3) 4.82 03/12 910 Hgb (10.7 - 13.9 g/dL) 14.9 H 03/12 910 Hct (32.1 - 42.1 %) 45.2 H 03/12 910 MCV (84.1 - 94.8 fL) 94 03/12 910 MCH (27 - 35 pg) 30.9 03/12 910 MCHC (32.2 - 34.1 gm/dL) 33.0 03/12 910 RDW (12.4 - 16.5 %) 12.4 03/12 910 Plt Count (133 - 385 K/mm3) 261 03/12 910 MPV (9.1 - 12.7 fl) 10.7 03/12 910 Neut % (Auto) (56.5 - 79.4 %) 50.9 L 03/12 910 Lymph % (Auto) (14.3 - 34.3 %) 34.2 03/12 910 [place] % (Auto) (5.1 - 10.4 %) 9.8 03/12 910 Eos % (Auto) (0.1 - 3.0 %) 4.1 H 03/12 910 Baso % (Auto) (0.1 - 1.0 %) 0.6 03/12 910 Neut # (Auto) (K/mm3) 2.6 03/12 910 Lymph # (Auto) (K/mm3) 1.8 03/12 910 [place] # (Auto) (K/mm3) 0.5 03/12 910 Eos # (Auto) (K/mm3) 0.21 03/12 910 Baso # (Auto) (K/mm3) 0.0 03/12 910 Serology Hep Bs Antigen (NONREACTIVE) NONREACTIVE 03/12 910 Hepatitis C Antibody (NONREACTIVE) NONREACTIVE 03/12 910 Hep C Ab Signal/Cutoff (<0.80) 0.11 03/12 910 HIV 1 2 Antibody (NONREACTIVE) NONREACTIVE 909 SARS-CoV-2 Ag (Rapid) (NEGATIVE) NEGATIVE 03/12 910 Urines Urine Color (YELLOW) STRAW 03/12 910 Urine Appearance (CLEAR) CLEAR 03/12 910 Urine pH (5 - 9) 8.0 03/12 910 Ur Specific Gantt (1.001 - 1.035) 1.004 03/12 910 Urine Protein (NEG) NEGATIVE 03/12 910 Urine Glucose (UA) (NEG) NEGATIVE 03/12 910 Urine Ketones (NEG) NEGATIVE 03/12 910 Urine Blood (NEG) 2+ H 03/12 910 Urine Nitrite (NEG) NEG 03/12 910 Urine Bilirubin (NEG) NEGATIVE 03/12 910 Urine Urobilinogen (NEG mg/dL) NEGATIVE 03/12 910 Ur Leukocyte Esterase (NEG) NEG 03/12 910 Urine RBC (NONE SEEN #/hpf) 3-5 H 03/12 910 Urine WBC (NONE SEEN #/hpf) 0-2 03/12 910 Ur Epithelial Cells (RARE - FEW #/HPF) RARE 909 Urine Bacteria (RARE - FEW /HPF) RARE 03/12 0 Urine HCG, Qual NEGATIVE 03/12 910 Results: labs reviewed, vital signs stable Diagnosis, Assessment Plan Plan discussed with: patient Free Text DxA P Notes Free Text DxA P Notes: Assessment: 35 y/o w/ Chronic Pelvic Pain 2/2 Endometri osis h/o Methadone abuse Plan: Robotic-assisted TLH/BS, Cysto R/B/A/C reviewed w/ pt including but not limited to injury to surrounding anatomy, hermorrhage, need for blood transfusion , transfusion-related adverse effects, continued pelvic pa in due to preservation of B/L ovaries per pt desire, postop hematoma / VTE / infe ction. We discussed permanent sterility with removal of uterus, and inability to bear children or hav e menstrual cycles. We also discussed risk for ovarian cancer to remain the same as that of the general population 2%, and risk for future surgery shoul d any pathology develop involving the ovaries. We discussed poss ible unilateral or bilateral salpingo- oopherectomy if indicated intraoperatively, Post -operative recovery and expectations reviewed. Pt was given opportunity to ask questions and all were answered to her satisfaction . Informed Consent video link emailed to pt and she reports having viewed video. at 2249 RPT #:[id number] END OF REPORT
[2022-11-13] MEDS ORDERED: CYCLOBENZAPRINE 10 MG TAB ONE (20:38)
[2022-11-13] MEDS ORDERED: DIAZEPAM 10 MG/2 ML INJ SYRINGE ONE (20:39)
[2022-11-13] MEDS ORDERED: dexAMETHasone 10 MG/ML VIAL ONE (20:39)
[2022-11-13] MEDS ORDERED: MORPHINE 4 MG/ML SYR ONE (21:59)
[2022-11-13] MEDS ORDERED: ONDANSETRON 4 MG (ODT) TAB ONE (21:59)
--- NOTE | 2022-11-13 22:31 | EDPHYS ---
Physician Documentation [facility] Name: Renea Solano Age: 37 yrs Sex: Female : 1985 Arrival Date: 11/13/2022 Time: 19:03 Bed 16 Private MD: ED Physician Mannie Lorenzana HPI: 11/14 02:34 This 37 yrs old Female presents to ER via Ambulatory with complaints of Low Back Pain, sb4 Hip Pain. 02:35 37 year old female sustained back/hip injury 1 month ago. She has been seeing a spine sb4 doctor in [place]. recently had an MRI that revealed a torn muscle in her hip and multiple ligamentous tears. She is waiting for insurance approval to get surgery. Laying flat for the MRI exacerbated her pain significantly and she ran out of her tramadol rx today. 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 LMP N/A - Hysterectomy lg3 Historical: - Allergies: 19:31 Aspirin; lg3 19:31 egg; lg3 19:31 Ibuprofen; lg3 19:31 Milk; lg3 19:31 NSAIDS (Non-Steroidal Anti-Inflammatory Drug); lg3 19:31 Toradol; (flush, head throbbing); lg3 19:31 tree nut; lg3 19:31 wheat; lg3 - Home Meds: 19:31 Kayla Oral [Active]; Tramadol Oral [Active]; Dupixent Syringe 300 mg/2 mL lg3 subcutaneous syrg 2 mL ONCE WEEKLY [Active]; gabapentin 600 mg Oral Tb24 1 tabs once daily [Active]; lisinopril 2.5 mg Oral tab 1 tab once daily [Active]; Vistaril 25 mg Oral cap 1 cap once daily [Active]; - PMHx: 19:31 Hypertension; restless leg syndrome; lg3 - PSHx: 19:31 partial hysterectomy; endometriosis sx x4; throat sx; lg3 - Immunization history:: Adult Immunizations up to date. - Social history:: Smoking status: Patient denies any tobacco usage or history of. Patient/guardian denies using alcohol. ROS: 11/14 02:35 Constitutional: Negative for fever, chills, and weight loss. sb4 Back: Positive for pain at rest, pain with movement. MS/extremity: Positive for of the right hip and back. Neuro: Negative for altered mental status, gait disturbance, numbness, tingling, weakness, bladder or bowel incontinence. All other systems are negative. Exam: 02:35 Cardiovascular: Regular rate and rhythm with a normal S1 and S2. Respiratory: Lungs sb4 have equal breath sounds bilaterally, clear to auscultation and percussion. No rales, rhonchi or wheezes noted. No increased work of breathing, no retractions or nasal flaring. Abdomen/GI: Soft, non-tender, no distension. 02:35 Constitutional: The patient appears alert, awake, in obvious pain, tearful 02:35 Back: pain, that is severe, of the low back area and right low back and pelvis, ROM is painful, with all movement, normal spinal alignment noted, CVA tenderness, is absent, muscle spasm, is not present. Vital Signs: 11/13 19:28 BP 149 / 92; Pulse 89; Resp 17 S; Temp 98.2(O); Pulse Ox 100% on R/A; Weight 74.84 kg lg3 (R); Height 5 ft. 7 in. (R); Pain 8/10; 20:41 BP 127 / 89; Pulse 69; Resp 16; Pulse Ox 100% ; nj1 21:28 BP 138 / 104; Pulse 72; Resp 16; Pulse Ox 100% on R/A; jb4 19:28 Body Mass Index 25.84 (74.84 kg, 170.18 cm) lg3 19:28 Pain Scale: Adult lg3 MDM: 19:31 Patient medically screened. sb4 11/14 02:35 Differential diagnosis: arthritis, strain, fracture, sciatica, contusion, Herniated sb4 disc UTI. Data reviewed: vital signs, nurses notes, and as a result, I will discharge patient. Test considered but Not performed: CT: no new injury, recent MRI. Counseling: I had a detailed discussion with the patient and/or guardian regarding: the need for outpatient follow up, to return to the emergency department if symptoms worsen or persist or if there are any questions or concerns that arise at home. Special discussion:. Special discussion: I discussed with the patient/guardian in detail that at this point there is no indication for admission to the hospital. It is understood, however, that if the symptoms persist or worsen the patient needs to return immediately for re-evaluation. Based on the history and exam findings, there is no indication for further emergent testing or inpatient evaluation. I discussed with the patient/guardian the need to see the orthopedic surgeon for further evaluation of the symptoms. Administered Medications: 11/13 20:35 Drug: Cyclobenzaprine PO 10 mg Route: PO; nj1 20:37 Drug: Diazepam IM 10 mg Route: IM; Site: right gluteus; nj1 20:50 Drug: Dexamethasone IM 10 mg Route: IM; Site: left gluteus; nj1 21:54 Drug: morphine IM 4 mg Route: IM; Site: left deltoid; jb4 21:54 Drug: Ondansetron PO 4 mg Route: PO; jb4 Disposition: 11/14 10:02 Co-signature as Attending Physician, Mannie Lorenzana MD I reviewed the patient's care rt provided by the Advanced Practice Provider and agree with the diagnosis and treatment plan. Disposition Summary: 11/13/22 22:31 Discharge Ordered Location: Home sb4 Problem: an acute exacerbation sb4 Symptoms: have improved sb4 Condition: Stable sb4 Diagnosis - Dorsalgia, unspecified sb4 Followup: sb4 - With: Private Physician - When: As needed - Reason: Recheck today's complaints, Continuance of care, Re-evaluation by your physician Discharge Instructions: - Discharge Summary Sheet sb4 - Acute Back Pain, Adult sb4 Forms: - Medication Reconciliation Form sb4 - Thank You Letter sb4 - Antibiotic Education sb4 - Prescription Opioid Use sb4 - Patient Portal Instructions sb4 Prescriptions: - Cyclobenzaprine 10 mg Oral Tablet - take 1 tablet by ORAL route every 8 hours As needed; 30 tablet; Refills: 0, sb4 Product Selection Permitted - Tramadol 50 mg Oral Tablet - take 1 tablet by ORAL route every 8 hours as needed; 12 tablet; Refills: 0, sb4 Product Selection Permitted Signatures: Dario Velez RN RN jb4 Juanita Hoyt, RAZA RN lg3 Sadie Mon PA-C PA-C sb4 Mannie Lorenzana MD MD rt Vianey Beard RN RN nj1
--- NOTE | 2022-11-13 22:31 | ER ---
Nurse's Notes [facility] Name: Renea Solano Age: 37 yrs Sex: Female : 1985 Arrival Date: 11/13/2022 Time: 19:03 Bed 16 Private MD: Diagnosis: Dorsalgia, unspecified Presentation: 11/13 19:28 Chief complaint: Patient states: slipped 1 month ago on a wet floor and hurt my back. i lg3 see a spine dr in [place] and had an MRI done with 3 bulging discs and a tear in my hip muscle. i now have to wait for insurance to approve the medicine i need but i cant take the pain. i need something now. Coronavirus screen: Client denies travel out of the [place] in the last 14 days. At this time, the client does not indicate any symptoms associated with coronavirus-19. Ebola Screen: No symptoms or risks identified at this time. Initial Sepsis Screen: Does the patient meet any 2 criteria? No. Patient's initial sepsis screen is negative. Does the patient have a suspected source of infection? No. Patient's initial sepsis screen is negative. Risk Assessment: Do you want to hurt yourself or someone else? Patient reports no desire to harm self or others. Onset of symptoms is unknown. 19:28 Method Of Arrival: Ambulatory lg3 19:28 Acuity: ROSMERY 4 lg3 Triage Assessment: 19:31 General: Appears in no apparent distress. uncomfortable, Behavior is calm, cooperative. lg3 Pain: Complains of pain in back. EENT: No deficits noted. No signs and/or symptoms were reported regarding the EENT system. Neuro: No deficits noted. Solano Agitation-Sedation Scale (RASS): 0 - Alert and Calm Level of Consciousness is awake, alert, obeys commands, Oriented to person, place, time, situation. Cardiovascular: No deficits noted. Denies chest pain, shortness of breath, Capillary refill < 3 seconds Clubbing of nail beds is absent JVD is absent Patient's skin is warm and dry. Respiratory: No deficits noted. Airway is patent Trachea midline Respiratory effort is even, unlabored, Respiratory pattern is regular, symmetrical. GI: No deficits noted. No signs and/or symptoms were reported involving the gastrointestinal system. : No deficits noted. No signs and/or symptoms were reported regarding the genitourinary system. Derm: No deficits noted. No signs and/or symptoms reported regarding the dermatologic system. Musculoskeletal: Circulation, motion, and sensation intact. Range of motion: intact in all extremities, Reports pain in back. 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 lg3 Historical: - Allergies: 19:31 Aspirin; lg3 19:31 egg; lg3 19:31 Ibuprofen; lg3 19:31 Milk; lg3 19:31 NSAIDS (Non-Steroidal Anti-Inflammatory Drug); lg3 19:31 Toradol; (flush, head throbbing); lg3 19:31 tree nut; lg3 19:31 wheat; lg3 - Home Meds: 19:31 Kayla Oral [Active]; Tramadol Oral [Active]; Dupixent Syringe 300 mg/2 mL lg3 subcutaneous syrg 2 mL ONCE WEEKLY [Active]; gabapentin 600 mg Oral Tb24 1 tabs once daily [Active]; lisinopril 2.5 mg Oral tab 1 tab once daily [Active]; Vistaril 25 mg Oral cap 1 cap once daily [Active]; - PMHx: 19:31 Hypertension; restless leg syndrome; lg3 - PSHx: 19:31 partial hysterectomy; endometriosis sx x4; throat sx; lg3 - Immunization history:: Adult Immunizations up to date. - Social history:: Smoking status: Patient denies any tobacco usage or history of. Patient/guardian denies using alcohol. Screenin:40 [facility] ED Fall Risk Assessment (Adult) History of falling in the last 3 months, nj1 including since admission Yes- single mechanical fall (1 pt) Confusion or Disorientation No (0 pts) Intoxicated or Sedated No (0 pts) Impaired Gait No (0 pts) Mobility Assist Device Used No (0 pt) Altered Elimination No (0 pt) Score/Fall Risk Level 0 - 2 = Low Risk Oriented to surroundings, Maintained a safe environment, Hourly rounding (assess needs \T\ fall precautionary measures) done. Abuse screen: Denies threats or abuse. Denies injuries from another. Nutritional screening: No deficits noted. Tuberculosis screening: No symptoms or risk factors identified. Assessment: 20:30 Reassessment: Patient appears in no apparent distress at this time. Patient and/or nj1 family updated on plan of care and expected duration. Pain level reassessed. Patient is alert, oriented x 3, equal unlabored respirations, skin warm/dry/pink. 20:30 Pain: Complains of pain in right hip and back Pain currently is 8 out of 10 on a pain nj1 scale. 21:22 Reassessment: Patient appears in no apparent distress at this time. Patient and/or jb4 family updated on plan of care and expected duration. Pain level reassessed. Patient is alert, oriented x 3, equal unlabored respirations, skin warm/dry/pink. 22:58 Reassessment: Patient appears in no apparent distress at this time. Patient and/or jb4 family updated on plan of care and expected duration. Pain level reassessed. Patient is alert, oriented x 3, equal unlabored respirations, skin warm/dry/pink. Vital Signs: 19:28 BP 149 / 92; Pulse 89; Resp 17 S; Temp 98.2(O); Pulse Ox 100% on R/A; Weight 74.84 kg lg3 (R); Height 5 ft. 7 in. (R); Pain 8/10; 20:41 BP 127 / 89; Pulse 69; Resp 16; Pulse Ox 100% ; nj1 21:28 BP 138 / 104; Pulse 72; Resp 16; Pulse Ox 100% on R/A; jb4 19:28 Body Mass Index 25.84 (74.84 kg, 170.18 cm) lg3 19:28 Pain Scale: Adult lg3 ED Course: 19:06 Patient arrived in ED. jj6 19:31 [facility] sb4 19:31 Mannie Lorenzana MD is Attending Physician. sb4 19:31 Triage completed. lg3 19:31 Arm band placed on right wrist. lg3 20:13 Vianey Beard, RN is Primary Nurse. nj1 20:40 Patient has correct armband on for positive identification. Bed in low position. Call nj light in reach. 20:40 Provided Education on: Fall precautions. nj1 22:58 No provider procedures requiring assistance completed. Patient did not have IV access jb4 during this emergency room visit. Administered Medications: 20:35 Drug: Cyclobenzaprine PO 10 mg Route: PO; nj1 20:37 Drug: Diazepam IM 10 mg Route: IM; Site: right gluteus; nj1 20:50 Drug: Dexamethasone IM 10 mg Route: IM; Site: left gluteus; nj1 21:54 Drug: morphine IM 4 mg Route: IM; Site: left deltoid; jb4 21:54 Drug: Ondansetron PO 4 mg Route: PO; jb4 Medication: 22:58 VIS not applicable for this client. jb4 Outcome: 22:31 Discharge ordered by MD. sb4 22:58 Discharged to home ambulatory. jb4 22:58 Condition: stable 22:58 Discharge instructions given to patient, Instructed on discharge instructions, follow up and referral plans. no drinking with medication, no driving heavy equipment, medication usage, Demonstrated understanding of instructions, follow-up care, medications, Prescriptions given X 2. 22:59 Patient left the ED. jb4 Signatures: Dario Velez, RN RN jb4 Juanita Hoyt, RN RN lg3 Maria Isabel Calvert6 Sadie Mon, PA-C PA-C sb4 Vianey Beard RN RN nj1
[2022-11-14 03:16] VITALS: TEMP 98.2; O2SAT 100
[2022-11-14 03:19] VITALS: BP 138/104
== END 2022-11-13 22:59 | disposition home or self-care (01) ==
LOC: ER 19:03
DX: M54.9 Dorsalgia, unspecified (principal); M54.50 Low back pain, unspecified; M25.551 Pain in right hip
CPT/HCPCS: 96372; 99284; Q0162; J3360; J1100

== ENCOUNTER 2023-08-14 15:25 | Emergency (ER) | payer OTHER ==
[2023-08-14 16:04] LABS: Specific Gravity 1.012 (1.005-1.030); Sqamous Epithelial <5 /HPF (None Seen); Urine Bacteria 20-50 /HPF (<20); Urine Bilirubin NEGATIVE (Negative); Urine Blood Negative (Negative); Urine Clarity Extremely Turbid (Clear); Urine Color Yellow (Yellow); Urine Culture Reflex Order NOT NEEDED; Urine Glucose NEGATIVE (Negative); Urine Ketones NEGATIVE (Negative); Urine Microscopic Reflex YN ORDER UMIC; Urine Mucus Slight /HPF (None Seen); Urine Nitrite NEGATIVE (Negative); Urine Protein NEGATIVE (Negative); Urine Urobilinogen Normal (Normal)
[2023-08-14 16:08] LABS: Specific Gravity 1.012 (1.005-1.030)
--- NOTE | 2023-08-14 16:29 | EDPHYS ---
Physician Documentation [facility] Name: Renea Solano Age: 38 yrs Sex: Female : 1985 Arrival Date: 08/14/2023 Time: 15:25 Bed IW2 Private MD: ED Physician Vidal Zhu HPI: 08/13 15:39 This 38 yrs old Female presents to ER via Unassigned with complaints of Low Back Pain, rn Possible UTI. 15:39 The patient presents with urinary symptoms, dysuria, frequency, urgency. Onset: The rn symptoms/episode began/occurred yesterday. Modifying factors: The symptoms are alleviated by nothing, the symptoms are aggravated by nothing. Severity of symptoms: At their worst the symptoms were mild, in the emergency department the symptoms are unchanged. The patient has not experienced similar symptoms in the past. The patient has not recently seen a physician. Patient reports feels like he has a urinary tract infection. Reports suprapubic abdominal pain with dysuria. No fever or chills. No vomiting. Patient has had multiple urinary tract infections in the past due to damage from endometriosis and surgeries of urinary tract. Patient feels like this is identical to previous UTIs. Has been trying Pyridium but only helping a little bit.. 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 - Infectious Disease History:: Denies. - Family history:: not pertinent. - Social history:: Smoking status: Patient denies any tobacco usage or history of. - Hospitalizations: : No recent hospitalization is reported. ROS: 15:39 Constitutional: Negative for fever, chills, and weight loss, Cardiovascular: Negative rn for chest pain, palpitations, and edema, Respiratory: Negative for shortness of breath, cough, wheezing, and pleuritic chest pain, Abdomen/GI: Positive for lower abdominal pain : Positive for dysuria MS/Extremity: Negative for injury and deformity, Skin: Negative for injury, rash, and discoloration, Neuro: Negative for headache, weakness, numbness, tingling, and seizure, Exam: 15:39 Constitutional: This is a well developed, well nourished patient who is awake, alert, rn and in no acute distress. Cardiovascular: Regular rate and rhythm. No pulse deficits. Respiratory: No increased work of breathing, no retractions or nasal flaring. Abdomen/GI: Soft, no focal tenderness Back: No spinal tenderness. No costovertebral tenderness. Full range of motion. Vital Signs: 15:43 BP 162 / 108; Pulse 89; Resp 18; Temp 98.1; Pulse Ox 98% on R/A; Weight 68.95 kg; db Height 5 ft. 7 in. ; 16:32 BP 142 / 108; Pulse 88; Resp 18; Temp 98; Pulse Ox 98% ; db 15:43 Body Mass Index 23.81 (68.95 kg, 170.18 cm) db MDM: 15:29 Patient medically screened. rn 16:26 Differential diagnosis: urinary tract infection. Data reviewed: vital signs, nurses rn notes, lab test result(s), and as a result, I will discharge patient. Counseling: I had a detailed discussion with the patient and/or guardian regarding the historical points, exam findings, and any diagnostic results supporting the discharge/admit diagnosis, lab results, the need for outpatient follow up, to return to the emergency department if symptoms worsen or persist or if there are any questions or concerns that arise at home. Special discussion: I discussed with the patient/guardian in detail that at this point there is no indication for admission to the hospital. It is understood, however, that if the symptoms persist or worsen the patient needs to return immediately for re-evaluation. 08/13 15:30 Order name: Urinalysis w/ reflexes; Complete Time: 16:26 rn 08/13 15:30 Order name: Test, Urine; Complete Time: 16:26 rn Administered Medications: No medications were administered Disposition Summary: 08/14/23 16:28 Discharge Ordered Notes: Location: Home rn Problem: new rn Symptoms: have improved rn Condition: Stable rn Diagnosis - UTI/ Urinary tract infection, site not specified rn Followup: rn - With: Private Physician - When: As needed - Reason: Recheck today's complaints, Re-evaluation by your physician Discharge Instructions: - Discharge Summary Sheet rn - Urinary Tract Infection, Adult rn Forms: - Medication Reconciliation Form rn - Thank You Letter rn - Antibiotic yarn dumper - Prescription Opioid Use rn - Patient Portal Instructions rn - Leadership Thank You Letter rn Prescriptions: - Cipro 500 mg Oral Tablet - take 1 tablet ORAL route every 12 hours for 7 days; 14 tablet; Refills: 0, rn Product Selection Permitted - Tramadol 50 mg Oral Tablet - take 1 tablet ORAL route every 8 hours as needed; 12 tablet; Refills: 0, rn Product Selection Permitted Signatures: Dispatcher [employer] Vidal Ruth MD MD rn Benton, Danielle RN RN db
--- NOTE | 2023-08-14 16:29 | ER ---
Nurse's Notes [facility] Name: Renea Solano Age: 38 yrs Sex: Female : 1985 Arrival Date: 08/14/2023 Time: 15:25 Bed IW2 Private MD: Diagnosis: UTI/ Urinary tract infection, site not specified Presentation: 08/13 15:43 Chief complaint: Patient states: LOWER ABD PAIN STARTED TODAY WITH NAUSEA AND HEADACHE, db SIMILAR TO UTI SYMPTOMS. Coronavirus screen: Vaccine status: Patient reports being unvaccinated. Client denies travel out of the [place] in the last 14 days. At this time, the client does not indicate any symptoms associated with coronavirus-19. Ebola Screen: Patient negative for fever greater than or equal to 101.5 degrees Fahrenheit, and additional compatible Ebola Virus Disease symptoms Patient denies exposure to infectious person. Patient denies travel to an Ebola-affected area in the 21 days before illness onset. No symptoms or risks identified at this time. Initial Sepsis Screen: Does the patient meet any 2 criteria? No. Patient's initial sepsis screen is negative. Does the patient have a suspected source of infection? No. Patient's initial sepsis screen is negative. Risk Assessment: Do you want to hurt yourself or someone else? Patient reports no desire to harm self or others. Onset of symptoms was August 14, 2023. 15:43 Method Of Arrival: Ambulatory db 15:43 Acuity: ROSMERY 3 db Triage Assessment: 15:43 General: Appears in no apparent distress. uncomfortable, Behavior is calm, cooperative. db Pain: Complains of pain in abdomen. Respiratory: Airway is patent Respiratory effort is even, unlabored, Respiratory pattern is regular, symmetrical. GI: Abdomen is flat, Reports nausea. 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 - Infectious Disease History:: Denies. - Family history:: not pertinent. - Social history:: Smoking status: Patient denies any tobacco usage or history of. - Hospitalizations: : No recent hospitalization is reported. Screenin:35 [facility] ED Fall Risk Assessment (Adult) History of falling in the last 3 months, db including since admission No falls in past 3 months (0 pts) Confusion or Disorientation No (0 pts) Intoxicated or Sedated No (0 pts) Impaired Gait No (0 pts) Mobility Assist Device Used No (0 pt) Altered Elimination No (0 pt) Score/Fall Risk Level 0 - 2 = Low Risk Oriented to surroundings, Maintained a safe environment. Abuse screen: Denies threats or abuse. Denies injuries from another. Nutritional screening: No deficits noted. Tuberculosis screening: No symptoms or risk factors identified. Assessment: 16:36 Reassessment: Patient appears in no apparent distress at this time. Patient and/or db family updated on plan of care and expected duration. Pain level reassessed. Patient is alert, oriented x 3, equal unlabored respirations, skin warm/dry/pink. Vital Signs: 15:43 BP 162 / 108; Pulse 89; Resp 18; Temp 98.1; Pulse Ox 98% on R/A; Weight 68.95 kg; db Height 5 ft. 7 in. ; 16:32 BP 142 / 108; Pulse 88; Resp 18; Temp 98; Pulse Ox 98% ; db 15:43 Body Mass Index 23.81 (68.95 kg, 170.18 cm) db ED Course: 15:27 Patient arrived in ED. im 15:29 Vidal Zhu MD is Attending Physician. rn 15:43 Arm band placed on Patient placed in waiting room. db 15:44 Triage completed. db 16:35 Patient has correct armband on for positive identification. Side rails up X 1. Provided db Education on: UTI. 16:35 No provider procedures requiring assistance completed. Patient did not have IV access db during this emergency room visit. Administered Medications: No medications were administered Medication: 16:35 VIS not applicable for this client. db Outcome: 16:28 Discharge ordered by . rn 16:35 Discharged to home ambulatory, db 16:35 Condition: stable 16:35 Discharge instructions given to patient, Instructed on discharge instructions, follow up and referral plans. Prescriptions given X 2, 16:36 Patient left the ED. db Signatures: Vidal Zhu MD MD rn Benton, Danielle, RN RN Camryn Mcguire Corrections: (The following items were deleted from the chart) 15:45 15:43 Pulse 89bpm; Resp 18bpm; Pulse Ox 89%; Temp 98.1F; 68.95 kg; Height 5 ft. 7 in.; db BMI: 23.8; db 16:35 15:43 BP 162 / 108; Pulse 89bpm; Resp 18bpm; Pulse Ox 89%; Temp 98.1F; 68.95 kg; Height db 5 ft. 7 in.; BMI: 23.8; db
[2023-08-14 19:37] VITALS: BP 142/108; TEMP 98; O2SAT 98
== END 2023-08-14 16:36 | disposition home or self-care (01) ==
LOC: ER 15:25
DX: N39.0 Urinary tract infection, site not specified (principal); Z88.6 Allergy status to analgesic agent; Z91.011 Allergy to milk products; Z91.012 Allergy to eggs; Z91.018 Allergy to other foods
CPT/HCPCS: 81001; 81025; 99283

== ENCOUNTER 2023-12-25 11:18 | Emergency (ER) | payer OTHER ==
[2023-12-25 11:56] LABS: Absolute Eosinophils 0.1 K/uL (0-0.5); Absolute Lymphocytes (CBC) 1.7 K/uL (0.7-4.9); Absolute Monocytes 0.5 K/uL (0.1-1.3); Absolute Neutrophil 3.6 K/uL (1.8-8.0); Basophils % 0.6 % (0-1.3); Eosinophils % 1.5 % (0-4.4); Hematocrit 40.8 % (36.0-45.0); Hemoglobin 13.5 g/dL (12.0-15.0); Lymphocytes % 28.7 % (15.3-44.8); MCH 31.7 pg (27.0-35.0); MCHC 33.1 g/dL (32.0-36.0); MCV 95.8 fL (80-100); Monocytes % 8.7 % (3.3-12.3); Neutrophils % 60.5 % (41.7-73.7); Platelets 245 thou/uL (152-406); RBC Red Blood Cell Count 4.25 M/uL (3.86-4.86); Red Cell Distribution Width 12.9 % (12.1-15.2)
[2023-12-25] MEDS ORDERED: ONDANSETRON 4 MG/2 ML VIAL ONE (11:56)
[2023-12-25] MEDS ORDERED: MORPHINE 4 MG/ML SYR ONE (11:57)
[2023-12-25] MEDS ORDERED: NITROGLYCERIN 0.4 MG/TAB SL ONE (11:57)
[2023-12-25 12:14] LABS: ALT/SGPT 17 U/L (13-56); AST/SGOT 11 U/L (15-37); Albumin 4.1 g/dL (3.4-5.0); Albumin/Globulin Ratio 1.4 (1.1-1.8); Alkaline Phosphatase 47 U/L (45-117); Anion Gap 9.8 mEq/L (5.0-15.0); BUN Blood Urea Nitrogen 7 mg/dL (7-18); Bicarbonate 25 mEq/L (21-32); Bilirubin Total 0.4 mg/dL (0.2-1.0); Globulin 2.9 g/dL (2.3-3.5); Glomerular Filtration Rate 94 ml/min (=/>90); Glucose Level 93 mg/dL (74-106); Magnesium 2.1 mg/dL (1.6-2.4); NT PRO-BNP 61 pg/mL (<125); Potassium 3.8 mEq/L (3.5-5.1); Sodium Level 139 mEq/L (136-145)
--- NOTE | 2023-12-25 12:14 | RAD REPORT ---
EXAM DESCRIPTION: CTHead angio12/25/2023 11:59 am CLINICAL HISTORY: numbness COMPARISON: none TECHNIQUE: 100 cc Isovue [address] angiogram of the head was obtained. 3D MIPS reconstruction performed. All CT scans are performed using dose optimization technique as appropriate and may include automated exposure control or mA/KV adjustment according to patient size. FINDINGS: The distal internal carotid, basilar, anterior cerebral, middle cerebral and posterior cer ebral arteries do not demonstrate a significant stenosis An aneurysm is not seen No large vessel occlusion IMPRESSION: No significant vascular abnormality is displayed
--- NOTE | 2023-12-25 12:17 | RAD REPORT ---
EXAM DESCRIPTION: Vidal Angio12/25/2023 12:01 pm CLINICAL HISTORY: Numbness COMPARISON: None TECHNIQUE: 100 cc Isovue [address] angiogram of the neck was obtained. 3D MIPS reconstruction performed. All CT scans are performed using dose optimization technique as appropriate and may include automated exposure control or mA/KV adjustment according to patient size. FINDINGS: Visualized aortic arch and great vessels unremarkable Common carotid, internal carotid and external carotid arteries bilaterally unremarkable Vertebral arteries unremarkable No dissection is seen. No high-grade stenosis Nascet crieria Mild stenosis 0 to 49 % Moderate stenosis 50-69% Severe stenosis 70-99% IMPRESSION: No significant vascular abnormality is displayed
[2023-12-25 12:18] LABS: Bilirubin Direct < 0.2 mg/dL (0-0.2); Bilirubin Indirect, Calculated 0.2 mg/dL (0.2-0.8); Troponin High Sensitivity < 3.0 pg/mL (<58.9)
--- NOTE | 2023-12-25 12:21 | RAD REPORT ---
EXAM DESCRIPTION: CT - Head C Spine Mpr Wo Con - 12/25/2023 11:58 am CLINICAL HISTORY: Numbness COMPARISON: None. TECHNIQUE: Computed axial tomography of the head and cervical spine was obtained. Sagittal and coronal reconstruction was performed. All CT scans are performed using dose optimization technique as appropriate and may include automated exposure control or mA/KV adjustment according to patient size. FINDINGS: An intracranial bleed is not seen. The ventricles are normal in caliber. No significant hypodensity within the brain. An extra-axial fluid collection is not noted. Fluid within the visualized sinuses and mastoids is not seen A cervical fracture is not visualized. No dislocation is noted. No large disc bulge/disc herniation seen. No significant central/foraminal stenosis visualized IMPRESSION: No acute intracranial abnormality is seen. A cervical fracture is not visualized. No high-grade central/foraminal stenosis noted If the patient continues to have symptoms to suggest intracranial /spinal cord/spinal canal/neural fo ramina pathology then MRI would be recommended
--- NOTE | 2023-12-25 12:24 | RAD REPORT ---
EXAM DESCRIPTION: Keith Single View12/25/2023 11:52 am CLINICAL HISTORY: Chest pain COMPARISON: 2019 FINDINGS: Nodular opacity left lung base The lungs appear clear of acute infiltrate. The heart is normal size IMPRESSION: Nodular opacity left lung base could represent a pulmonary nodule or nipple shadow. Chest film with frontal and oblique views with a left nipple marker recommended
--- NOTE | 2023-12-25 14:13 | RAD REPORT ---
EXAM DESCRIPTION: MRI - Brain Wo Cont - 12/25/2023 2:05 pm CLINICAL HISTORY: left facial numbness Headache, hypertension COMPARISON: Head angio dated 12/25/2023; Neck Angio dated 12/25/2023; Head C Spine Mpr Wo Con dated TECHNIQUE: Multi-sequence, multiplanar MR imaging of the brain was performed without contrast. FINDINGS: No intracranial hemorrhage, hydrocephalus or extra-axial fluid collections. No edema or sh ift of midline structures. No findings to suspect brain mass. DWI is negative for acute CVA. Midline structures are normally formed. Mastoid air cells and paranasal sinuses are clear. IMPRESSION: No acute or concerning intracranial abnormalities.
[2023-12-25] MEDS ORDERED: MORPHINE 2 MG/ML SYR ONE (15:56)
--- NOTE | 2023-12-25 16:15 | RAD REPORT ---
EXAM DESCRIPTION: RAD - Chest Single View - 12/25/2023 4:10 pm CLINICAL HISTORY: oblique with nipple marker Chest pain. COMPARISON: Chest Single View dated 12/25/2023; Chest Single View dated 10/23/2019 FINDINGS: Portable technique limits examination quality. The lungs are grossly clear. The heart is normal in size. No displaced fractures. IMPRESSION: No acute intrathoracic process suspected.
--- NOTE | 2023-12-25 16:30 | ER ---
Nurse's Notes [facility] Name: Renea Solano Age: 38 yrs Sex: Female : 1985 Arrival Date: 12/25/2023 Time: 11:18 Bed 2 Private MD: Diagnosis: Chest pain, unspecified Presentation: 12/24 11:33 Chief complaint: Patient states: she started having chest pain and whole facial ap3 numbness since approx 0300 this morning. Coronavirus screen: At this time, the client does not indicate any symptoms associated with coronavirus-19. Ebola Screen: No symptoms or risks identified at this time. Initial Sepsis Screen: Does the patient meet any 2 criteria? HR > 90 bpm. Does the patient have a suspected source of infection? No. Patient's initial sepsis screen is negative. Risk Assessment: Do you want to hurt yourself or someone else? Patient reports no desire to harm self or others. Onset of symptoms was December 25, 2023 at 03:00. 11:33 Method Of Arrival: Ambulatory ap3 11:33 Acuity: ROSMERY 2 ap3 Triage Assessment: 11:35 General: Appears uncomfortable, Behavior is calm, cooperative, appropriate for age. ap3 Pain: Complains of pain in chest Pain began 0300. Neuro: Reports whole facial numbness. Cardiovascular: Reports chest pain. Respiratory: Airway is patent Respiratory effort is even, unlabored, Respiratory pattern is regular, symmetrical. Historical: - Allergies: 11:34 Aspirin; ap3 11:34 egg; ap3 11:34 Ibuprofen; ap3 11:34 Milk; ap3 11:34 NSAIDS (Non-Steroidal Anti-Inflammatory Drug); ap3 11:34 Toradol; (flush; ap3 11:34 tree nut; ap3 11:34 wheat; ap3 - PMHx: 11:34 Hypertension; restless leg syndrome; ap3 - PSHx: 11:34 endometriosis sx x4; partial hysterectomy; throat sx; ap3 - Infectious Disease History:: Denies. - Social history:: Smoking status: Patient denies any tobacco usage or history of. - Family history:: not pertinent. Screenin:35 Abuse screen: Denies threats or abuse. Nutritional screening: No deficits noted. ap3 Tuberculosis screening: No symptoms or risk factors identified. 12:17 [facility] ED Fall Risk Assessment (Adult) History of falling in the last 3 months, tm6 including since admission No falls in past 3 months (0 pts) Confusion or Disorientation No (0 pts) Intoxicated or Sedated No (0 pts) Impaired Gait No (0 pts) Mobility Assist Device Used No (0 pt) Altered Elimination No (0 pt) Score/Fall Risk Level 0 - 2 = Low Risk Oriented to surroundings, Maintained a safe environment, Educated pt \T\ family on fall prevention, incl call for assistance when getting out of bed. Assessment: 12:17 General: Appears in no apparent distress. Behavior is cooperative. Pain: Complains of tm6 pain in chest Pain does not radiate. Pain currently is 5 out of 10 on a pain scale. Pain began 0300 this morning. Neuro: Level of Consciousness is awake, alert, obeys commands, Oriented to person, place, time, situation. Neuro: Reports numbness in mouth. Cardiovascular: Reports chest pain, Patient's skin is warm and dry. Rhythm is sinus rhythm Chest pain is described as mild. Respiratory: Airway is patent Respiratory effort is even, unlabored, Respiratory pattern is regular, symmetrical. GI: No signs and/or symptoms were reported involving the gastrointestinal system. Abdomen is flat, non-distended. : No signs and/or symptoms were reported regarding the genitourinary system. EENT: No signs and/or symptoms were reported regarding the EENT system. Derm: No signs and/or symptoms reported regarding the dermatologic system. Musculoskeletal: No signs and/or symptoms reported regarding the musculoskeletal system. 13:09 Reassessment: Patient appears in no apparent distress at this time. Patient and/or tm6 family updated on plan of care and expected duration. Pain level reassessed. Patient is alert, oriented x 3, equal unlabored respirations, skin warm/dry/pink. 15:01 Reassessment: Patient appears in no apparent distress at this time. Patient and/or tm6 family updated on plan of care and expected duration. Pain level reassessed. Patient is alert, oriented x 3, equal unlabored respirations, skin warm/dry/pink. Patient states feeling better. Vital Signs: 11:33 BP 160 / 112; Pulse 92; Resp 14; Temp 98.4; Pulse Ox 100% on R/A; Weight 64.86 kg; ap3 Height 5 ft. 6 in. ; 12:17 BP 161 / 110; Pulse 97; Resp 12; Pulse Ox 100% on R/A; Pain 5/10; tm6 12:42 Pain 3/10; tm6 13:09 BP 118 / 77; Pulse 63; Resp 13; Pulse Ox 100% on R/A; tm6 15:01 BP 122 / 84; Pulse 81; Pulse Ox 100% on R/A; Pain 2/10; tm6 16:42 BP 121 / 83; Pulse 73; Resp 19; Temp 98.4; Pulse Ox 100% on R/A; Pain 2/10; tm6 11:33 Body Mass Index 23.08 (64.86 kg, 167.64 cm) ap3 12:17 Pain Scale: Adult tm6 12:42 Pain Scale: Adult tm6 15:01 Pain Scale: Adult tm6 16:42 Pain Scale: Adult tm6 ED Course: 11:20 Patient arrived in ED. mr 11:22 Mannie Lorenzana MD is Attending Physician. rt 11:34 Triage completed. ap3 11:36 Patient maintains SpO2 saturation greater than 95% on room air. ap3 11:36 Arm band placed on right wrist. ap3 11:36 Client placed on continuous cardiac and pulse oximetry monitoring. NIBP monitoring ap3 applied. manufacturing quality technician on. Pulse ox on. NIBP on. 11:36 Patient has correct armband on for positive identification. Bed in low position. Call ap3 light in reach. Side rails up X 1. Adult w/ patient. 11:50 XRAY Chest (1 view) In Process Unspecified. EDMS 11:53 Mirna Ho, RN is Primary Nurse. iw 11:55 Inserted saline lock: 20 gauge in left antecubital area, using aseptic technique. Blood tm6 collected. Flushed with 10 mL NS. 11:56 CT Head C Spine In Process Unspecified. EDMS 11:57 CT Neck Angio In Process Unspecified. EDMS 11:57 Head angio In Process Unspecified. EDMS 12:14 EKG done, by ED staff, reviewed by Mannie Lorenzana MD. tm6 12:17 Provided Education on: use of call jarvis. Door closed. Noise minimized. Warm blanket tm6 given. 14:07 MRI - Brain Wo Cont In Process Unspecified. EDMS 16:11 XRAY CXR (1 view) In Process Unspecified. EDMS 16:30 Zack Wolfe MD is Referral Physician. rt 16:43 No provider procedures requiring assistance completed. IV discontinued, intact, tm6 bleeding controlled, No redness/swelling at site. Pressure dressing applied. Administered Medications: 12:11 Drug: Nitroglycerin Sublingual 0.4 mg Sublingual once; every five minute if needed x3 tm6 Route: Sublingual; 12:16 Drug: morphine IVP or IV 4 mg IVP once over 4 mins Route: IVP; Infused Over: 4 mins; tm6 Site: left antecubital; 12:30 Follow up: Response: No adverse reaction; Pain is decreased tm6 12:16 Drug: Ondansetron IVP 4 mg IVP once; over 2 minutes Route: IVP; Site: left antecubital; tm6 12:30 Follow up: Response: No adverse reaction tm6 12:30 Drug: Nitroglycerin Sublingual 0.4 mg Sublingual once; every five minute if needed x3 tm6 Route: Sublingual; 12:30 Follow up: Response: No adverse reaction; Pain is decreased tm6 16:00 Drug: Nitroglycerin Sublingual 0.4 mg Sublingual once; every five minute if needed x3 tm6 Route: Sublingual; 16:43 Follow up: Response: No adverse reaction; Pain is decreased tm6 16:00 Drug: morphine IVP or IV 2 mg IVP once over 4 mins Route: IVP; Infused Over: 4 mins; tm6 Site: left antecubital; 16:43 Follow up: Response: No adverse reaction; Pain is decreased tm6 Medication: 12:14 VIS not applicable for this client. tm6 Outcome: 16:30 Discharge ordered by . rt 16:43 Discharged to home ambulatory, tm6 16:43 Condition: stable 16:43 Discharge instructions given to patient, Instructed on discharge instructions, follow up and referral plans. Demonstrated understanding of instructions, follow-up care, 16:44 Patient left the ED. tm6 Signatures: Dispatcher [employer] EDNE Ny Cabrera, Reg Reg mr Mirna Ho, RN Eva Saavedra RN RN ap3 Mannie Lorenzana MD MD rt Sukhwinder Jackson RN RN tm6
--- NOTE | 2023-12-25 16:30 | EDPHYS ---
Physician Documentation [facility] Name: Renea Solano Age: 38 yrs Sex: Female : 1985 Arrival Date: 12/25/2023 Time: 11:18 Bed 2 Private MD: ED Physician Mannie Lorenzana HPI: 12/24 11:54 This 38 yrs old Female presents to ER via Ambulatory with complaints of Chest Pain, rt Numbness Of Face, Hives. 11:54 Patient with history of renal artery stenosis with subsequent uncontrolled renal rt hypertension presents to the ED with chest pain, numbness to the left side of the face starting at 3 AM. States the chest pain is ongoing, however, the numbness is only localized to the lips right now. Denies other numbness, weakness. Denies other acute complaints at this time, symptoms are moderate in severity, no other aggravating or alleviating factors.. Historical: - Allergies: 11:34 Aspirin; ap3 11:34 egg; ap3 11:34 Ibuprofen; ap3 11:34 Milk; ap3 11:34 NSAIDS (Non-Steroidal Anti-Inflammatory Drug); ap3 11:34 Toradol; (flush; ap3 11:34 tree nut; ap3 11:34 wheat; ap3 - PMHx: 11:34 Hypertension; restless leg syndrome; ap3 - PSHx: 11:34 endometriosis sx x4; partial hysterectomy; throat sx; ap3 - Infectious Disease History:: Denies. - Social history:: Smoking status: Patient denies any tobacco usage or history of. - Family history:: not pertinent. ROS: 11:54 Constitutional: Negative for fever, chills, and weight loss, Respiratory: Negative for rt shortness of breath, cough, wheezing, and pleuritic chest pain, Abdomen/GI: Negative for abdominal pain, nausea, vomiting, diarrhea, and constipation, MS/Extremity: Negative for injury and deformity, Skin: Negative for injury, rash, and discoloration, 11:54 Cardiovascular: Positive for chest pain, Negative for edema, 11:54 Neuro: Positive for numbness, Negative for altered mental status, Exam: 11:55 Eyes: Extraocular muscles intact, no visual field deficits. rt 11:55 Neuro: Cranial nerves II through XII intact, strength and sensation intact in upper and lower extremities, speech normal., 11:55 Constitutional: This is a well developed, well nourished patient who is awake, alert, rt and in no acute distress. Head/Face: Normocephalic, atraumatic. Chest/axilla: Normal chest wall appearance and motion. Nontender with no deformity. No lesions are appreciated. Cardiovascular: Regular rate and rhythm with a normal S1 and S2. No gallops, murmurs, or rubs. Normal PMI, no JVD. No pulse deficits. Respiratory: Lungs have equal breath sounds bilaterally, clear to auscultation and percussion. No rales, rhonchi or wheezes noted. No increased work of breathing, no retractions or nasal flaring. Abdomen/GI: Soft, non-tender, with normal bowel sounds. No distension or tympany. No guarding or rebound. No evidence of tenderness throughout. Skin: Warm, dry with normal turgor. Normal color with no rashes, no lesions, and no evidence of cellulitis. MS/ Extremity: Pulses equal, no cyanosis. Neurovascular intact. Full, normal range of motion. 12:18 ECG was reviewed by the Attending Physician. rt Vital Signs: 11:33 BP 160 / 112; Pulse 92; Resp 14; Temp 98.4; Pulse Ox 100% on R/A; Weight 64.86 kg; ap3 Height 5 ft. 6 in. ; 12:17 BP 161 / 110; Pulse 97; Resp 12; Pulse Ox 100% on R/A; Pain 5/10; tm6 12:42 Pain 3/10; tm6 13:09 BP 118 / 77; Pulse 63; Resp 13; Pulse Ox 100% on R/A; tm6 15:01 BP 122 / 84; Pulse 81; Pulse Ox 100% on R/A; Pain 2/10; tm6 16:42 BP 121 / 83; Pulse 73; Resp 19; Temp 98.4; Pulse Ox 100% on R/A; Pain 2/10; tm6 11:33 Body Mass Index 23.08 (64.86 kg, 167.64 cm) ap3 12:17 Pain Scale: Adult tm6 12:42 Pain Scale: Adult tm6 15:01 Pain Scale: Adult tm6 16:42 Pain Scale: Adult tm6 MDM: 11:27 Patient medically screened. rt 17:02 Differential diagnosis: Hypertension, ACS, CVA, nonspecific chest pain. HEART Score: rt History: Moderately Suspicious (1), ECG:. 17:03 HEART Score: Age: < or = 45 years (0), Risk Factors: 1 or 2 risk factors (1), Troponin: rt < or = 1 x Normal Limit (0), Total Score = 2. Data reviewed: vital signs, nurses notes, lab test result(s), EKG, radiologic studies. Consideration of Admission/Observation Escalation of care including admission/observation considered. Patient with improving chest pain in the ED. Blood pressure is improving as well. Given risk factors, did offer the patient mission to the hospital. Patient states that she wishes to go home, patient states that she will return for worsening symptoms. Patient instructed to follow-up with cardiology as an outpatient.. I considered the following discharge prescriptions or medication management in the emergency department Medications were administered in the Emergency Department. See MAR. Independent interpretation of the following test(s) in the Emergency Department CT Scan: My interpretation is No intracranial hemorrhage seen on interpretation. CT scan. Care significantly affected by the following chronic conditions: Hypertension. Counseling: I had a detailed discussion with the patient and/or guardian regarding the historical points, exam findings, and any diagnostic results supporting the discharge/admit diagnosis, lab results, radiology results, the need for outpatient follow up, to return to the emergency department if symptoms worsen or persist or if there are any questions or concerns that arise at home. Response to treatment: the patient's symptoms have markedly improved after treatment. 12/24 11:41 Order name: Basic Metabolic Panel; Complete Time: 12:21 rt 12/24 11:41 Order name: CBC with Diff; Complete Time: 12:21 rt 12/24 11:41 Order name: LFT's; Complete Time: 12:21 rt 12/24 11:41 Order name: Magnesium; Complete Time: 12:21 rt 12/24 11:41 Order name: NT PRO-BNP; Complete Time: 12:21 rt 12/24 11:41 Order name: Troponin HS; Complete Time: 12:21 rt 12/24 11:41 Order name: XRAY Chest (1 view); Complete Time: 12:27 rt 12/24 11:41 Order name: CT Head C Spine; Complete Time: 12:27 rt 12/24 11:41 Order name: CT Neck Angio; Complete Time: 12:21 rt 12/24 11:53 Order name: Head angio; Complete Time: 12:21 EDMS 12/24 12:50 Order name: MRI - Brain Wo Cont; Complete Time: 14:20 rt 12/24 14:41 Order name: XRAY CXR (1 view); Complete Time: 16:20 rt 12/24 11:41 Order name: EKG; Complete Time: 11:42 rt 12/24 11:41 Order name: Cardiac monitoring; Complete Time: 12:16 rt 12/24 11:41 Order name: EKG - Nurse/Tech; Complete Time: 12:16 rt 12/24 11:41 Order name: IV Saline Lock; Complete Time: 11:54 rt 12/24 11:41 Order name: Labs collected and sent; Complete Time: 11:54 rt 12/24 11:41 Order name: O2 Per Protocol; Complete Time: 12:16 rt 12/24 11:41 Order name: O2 Sat Monitoring; Complete Time: 12:16 rt EC:18 Rate is 881 beats/min. Rhythm is regular, Normal Sinus Rhythm with No ectopy. QRS [place] rt is Normal. DE interval is normal. QRS interval is normal. QT interval is normal. No Q waves. T waves are Normal. No ST changes noted. Interpreted by me. Administered Medications: 12:11 Drug: Nitroglycerin Sublingual 0.4 mg Sublingual once; every five minute if needed x3 tm6 Route: Sublingual; 12:16 Drug: morphine IVP or IV 4 mg IVP once over 4 mins Route: IVP; Infused Over: 4 mins; tm6 Site: left antecubital; 12:30 Follow up: Response: No adverse reaction; Pain is decreased tm6 12:16 Drug: Ondansetron IVP 4 mg IVP once; over 2 minutes Route: IVP; Site: left antecubital; tm6 12:30 Follow up: Response: No adverse reaction tm6 12:30 Drug: Nitroglycerin Sublingual 0.4 mg Sublingual once; every five minute if needed x3 tm6 Route: Sublingual; 12:30 Follow up: Response: No adverse reaction; Pain is decreased tm6 16:00 Drug: Nitroglycerin Sublingual 0.4 mg Sublingual once; every five minute if needed x3 tm6 Route: Sublingual; 16:43 Follow up: Response: No adverse reaction; Pain is decreased tm6 16:00 Drug: morphine IVP or IV 2 mg IVP once over 4 mins Route: IVP; Infused Over: 4 mins; tm6 Site: left antecubital; 16:43 Follow up: Response: No adverse reaction; Pain is decreased tm6 Disposition Summary: 12/25/23 16:30 Discharge Ordered Notes: Location: Home rt Problem: new rt Symptoms: have improved rt Condition: Stable rt Diagnosis - Chest pain, unspecified rt Followup: rt - With: Zack Wolfe MD - When: 2 - 3 days - Reason: Discharge Instructions: - Discharge Summary Sheet rt - Nonspecific Chest Pain, Adult rt Forms: - Work release form eb - Medication Reconciliation Form rt - Antibiotic Education rt - Prescription Opioid Use rt - Patient Portal Instructions rt - Leadership Thank You Letter rt Signatures: Dispatcher [employer] EDMS Eva Garcia RN RN ap3 Mannie Lorenzana MD MD rt Sukhwinder Jackson RN RN tm6 Corrections: (The following items were deleted from the chart) 11:42 11:42 BASIC METABOLIC PANEL+C.LAB.BRZ ordered. EDMS EDMS 11:42 11:42 CBC+H.LAB.BRZ ordered. EDMS EDMS 11:42 11:42 HEPATIC FUNCTION+C.LAB.BRZ ordered. EDMS EDMS 11:42 11:42 MAGNESIUM+C.LAB.BRZ ordered. EDMS EDMS 11:42 11:42 PROBNP+C.LAB.BRZ ordered. EDMS EDMS 11:42 11:42 Troponin High Sensitivity+C.LAB.BRZ ordered. EDMS EDMS
[2023-12-25 17:12] VITALS: TEMP 98.4; O2SAT 100
[2023-12-25 17:20] VITALS: BP 121/83
--- NOTE | 2023-12-26 13:55 | EKG ---
Test Date: 2023-12-25 Test Time: 12:06:56 Dress Fitter: TEDDY MEASUREMENT RESULTS: Intervals: Rate: 81 MN: 152 QRSD: 76 QT: 384 QTc: 446 [place]: P: 73 MN: 152 QRS: 41 T: 40 INTERPRETIVE STATEMENTS: Normal sinus rhythm Normal ECG Compared to ECG 10/23/2019 00:21:52 No significant changes Electronically Signed On 12-26-23 13:54:14 CDT by Jose Carlos Snow
== END 2023-12-25 16:44 | disposition home or self-care (01) ==
LOC: ER 11:18
DX: R07.9 Chest pain, unspecified (principal); R20.0 Anesthesia of skin; I10 Essential (primary) hypertension
CPT/HCPCS: 93005; 85025; 80048; 36415; 83735; 80076; 84484; 83880; 70450; 72125; 70496; 70498; 71045 ×2; 70551; 96375; 96374; 99285; Q9967; J2270; J2405

== ENCOUNTER 2024-06-29 14:12 | Emergency (ER) | payer OTHER ==
[2024-06-29] MEDS ORDERED: KETOROLAC 30 MG/ML INJ ONE (14:35)
[2024-06-29] MEDS ORDERED: dexAMETHasone 10 MG/ML VIAL ONE (14:35)
[2024-06-29] MEDS ORDERED: NA CHLORIDE 0.9% 1,000 ML ONE (14:35)
[2024-06-29] MEDS ORDERED: ONDANSETRON 4 MG/2 ML VIAL ONE ×2 (14:35→15:42)
[2024-06-29 14:48] LABS: Absolute Basophils 0.1 K/uL (0-0.5); Absolute Eosinophils 0.3 K/uL (0-0.5); Absolute Monocytes 0.6 K/uL (0.1-1.3); Absolute Neutrophil 4.6 K/uL (1.8-8.0); Basophils % 0.8 % (0-1.3); Eosinophils % 4.4 % (0-4.4); Hematocrit 38.4 % (36.0-45.0); Hemoglobin 13.2 g/dL (12.0-15.0); Lymphocytes % 26.1 % (15.3-44.8); MCH 32.3 pg (27.0-35.0); MCHC 34.3 g/dL (32.0-36.0); MCV 94.1 fL (80-100); MPV 7.8 fL (7.6-11.3); Monocytes % 7.7 % (3.3-12.3); Platelets 211 thou/uL (152-406); RBC Red Blood Cell Count 4.08 M/uL (3.86-4.86)
[2024-06-29 15:03] LABS: Monoscreen NEG (NEG)
[2024-06-29 15:05] LABS: Albumin 3.8 g/dL (3.4-5.0); Albumin/Globulin Ratio 1.3 (1.1-1.8); Anion Gap 9.7 mEq/L (5.0-15.0); Bilirubin Total 0.4 mg/dL (0.2-1.0); Globulin 2.9 g/dL (2.3-3.5); Potassium 3.7 mEq/L (3.5-5.1); Protein, Total 6.7 g/dL (6.4-8.2)
--- NOTE | 2024-06-29 15:27 | RAD REPORT ---
EXAM: Soft Tissue Neck W/Contr INDICATION: neck pain, swellin Sagittal and coronal reformations were generated. This exam was performed according to our department al dose-optimization program, which includes automated exposure control, adjustment of the mA and/or kV according to patient size and/or use of iterative reconstruction technique. IV contrast was administered. COMPARISON: None. FINDINGS: Mucosal spaces: Nasopharynx, oropharynx, oral cavity, larynx and hypopharynx are normal. No suspiciou s masses are identified. Epiglottis is normal in configuration. True vocal cords cords are normally situated. Piriform sinuses are well-aerated. Lymph Nodes: Lymph node evaluation is limited due to non-contrast technique. No gross pathologic appe aring cervical lymph nodes. Salivary Glands: Unremarkable. Thyroid Gland: Normal Included Intracranial Structures: Grossly unremarkable. Included Orbits: Normal Paranasal Sinuses: Predominantly clear Tympanomastoid Cavities: Normal Vascular Structures: Normal Osseous Structures: No acute osseous abnormality. Included Lung Apices: Normal IMPRESSION: No acute or pathologic process identified.
--- NOTE | 2024-06-29 15:37 | EDPHYS ---
Physician Documentation [facility] Name: Renea Solano Age: 39 yrs Sex: Female : 1985 Arrival Date: 06/29/2024 Time: 14:12 Bed 6 Private MD: ED Physician Viadl Zhu HPI: 06/29 15:32 This 39 yrs old Female presents to ER via Ambulatory with complaints of Neck swelling. kb 15:32 Pt is a 39 year old female who presents for pain, tenderness and swelling to left side kb of neck that radiates to left upper chest (clavicle area). Pt states the pain started one week ago, she went to [place] [facility] and had a CT scan done. Pt was given steroids and diagnosed with cervical radiculopathy. States she went to [place] [facility] 2 days later for continued symptoms and had labs and CXR completed that were normal. Went to PCP on Thursday and was told that her lymphnodes were inflammed so she was given antibiotics. Came in today for continued pain. Pain worse with movement of neck and palpation of area. Denies fever. Reports nausea due to pain. . Historical: - Allergies: 14:29 Aspirin; ap3 14:29 egg; ap3 14:29 Ibuprofen; ap3 14:29 Milk; ap3 14:29 NSAIDS (Non-Steroidal Anti-Inflammatory Drug); ap3 14:29 Toradol; (flush; ap3 14:29 tree nut; ap3 14:29 wheat; ap3 - PMHx: 14:29 Hypertension; restless leg syndrome; ap3 - PSHx: 14:29 endometriosis sx x4; partial hysterectomy; throat sx; ap3 - Immunization history:: Client reports having NOT received the Covid vaccine. Flu vaccine is not up to date. - Infectious Disease History:: Denies. - Social history:: Smoking status: Patient denies any tobacco usage or history of. ROS: 14:38 Constitutional: As per HPI kb Exam: 14:38 Constitutional: This is a well developed, well nourished patient who is awake, alert, kb and in no acute distress. Head/Face: Normocephalic, atraumatic. ENT: Moist Mucous membranes Cardiovascular: Regular rate Respiratory: Respirations even and unlabored. No increased work of breathing. Talking in full sentences Skin: Warm, dry with normal turgor. Normal color. MS/ Extremity: Pulses equal, no cyanosis. Neurovascular intact. Full, normal range of motion. Neuro: Awake and alert, GCS 15, oriented to person, place, time, and situation. 14:38 Neck: External neck: tenderness, that is moderate, of the left sternocleidomastoid, C-spine: appears grossly normal, ROM/movement: pain, that is moderate, with any movement, 14:38 Chest/axilla: Inspection: normal, Palpation: tenderness, that is mild, of the anterior aspect of left upper chest, Vital Signs: 14:25 BP 155 / 99; Pulse 97; Resp 18; Temp 97.7(O); Pulse Ox 100% ; Weight 58.97 kg; Height 5 ap3 ft. 9 in. ; Pain 6/10; 15:58 BP 135 / 93; Pulse 84; Resp 18; Pulse Ox 100% on R/A; ld1 14:25 Body Mass Index 19.20 (58.97 kg, 175.26 cm) ap3 14:25 Pain Scale: Adult ap3 MDM: 14:14 Medical Screening Exam initiated kb 15:31 Differential diagnosis: abscess, muscle strain, radiculopathy. Data reviewed: vital kb signs, nurses notes. External Records Reviewed: Outside ED record: Lab results from [place] [facility] reviewed. Counseling: I had a detailed discussion with the patient and/or guardian regarding the historical points, exam findings, and any diagnostic results supporting the discharge/admit diagnosis, lab results, radiology results, the need for outpatient follow up, an ENT specialist, a family practitioner, to return to the emergency department if symptoms worsen or persist or if there are any questions or concerns that arise at home. 06/29 14:28 Order name: CBC with Diff; Complete Time: 15:02 kb 06/29 14:28 Order name: CMP; Complete Time: 15:09 kb 06/29 14:28 Order name: Test, Serum; Complete Time: 15:02 kb 06/29 14:29 Order name: Ray Screen Profile; Complete Time: 15:09 kb 06/29 14:28 Order name: CT Soft Tissue Neck W/contr; Complete Time: 15:30 kb 06/29 14:28 Order name: IV Start; Complete Time: 14:36 kb Administered Medications: 14:40 Drug: NS 0.9% IV 1000 ml IV at 1000 ml once; to be given as a bolus over 60 minutes ld1 Route: IV; Rate: 1000 ml; Site: right antecubital; 14:40 Drug: Ondansetron IVP 4 mg IVP once; over 2 minutes Route: IVP; Site: right antecubital;ld1 14:40 Drug: Ketorolac IVP 15 mg IVP once Route: IVP; Site: right antecubital; ld1 14:40 Drug: Decadron - Dexamethasone IVP 10 mg IVP once Route: IVP; Site: right antecubital; ld1 15:55 Drug: Ondansetron IVP 4 mg IVP once; over 2 minutes Route: IVP; Site: right antecubital;ld1 Disposition: 17:42 Co-signature as Attending Physician, Vidal Zhu MD I reviewed the patient's care rn provided by the Advanced Practice Provider and agree with the diagnosis and treatment plan. Disposition Summary: 06/29/24 15:36 Discharge Ordered Notes: Location: Home kb Condition: Stable kb Diagnosis - Strain of muscle, fascia and tendon at neck level kb Followup: kb - With: Emergency Department - When: As needed - Reason: Worsening of condition Followup: kb - With: Private Physician - When: 2 - 3 days - Reason: Recheck today's complaints, Continuance of care, Re-evaluation by your physician Discharge Instructions: - Discharge Summary Sheet kb - Muscle Strain, [id number] kb Forms: - Medication Reconciliation Form kb - Antibiotic Education kb - Prescription Opioid Use kb - Patient Portal Instructions kb - Leadership Thank You Letter kb Prescriptions: - Zofran 4 mg Oral tablet - take 1 tablet ORAL route every 6 hours As needed; 12 tablet; Refills: 0, kb Product Selection Permitted - orphenadrine citrate 100 mg Oral Tablet Sustained Release - take 1 tablet ORAL route 2 times per day As needed; 20 tablet; Refills: 0, kb Product Selection Permitted Signatures: Dispatcher [employer] Sofie Rivas FNP-C [employer]-Vidal Wright MD MD rn Prokisch, Amanda, RN RN ap3 Anjelica Lynch RN RN ld1 Corrections: (The following items were deleted from the chart) 14:28 14:28 Soft Tissue Neck W/Contr+CT.RAD.BRZ ordered. EDMS EDMS 14: CBC+H.LAB.BRZ ordered. EDMS EDMS 14: COMPREHENSIVE METABOLIC PANEL+C.LAB.BRZ ordered. EDMS EDMS 14: TEST, SERUM+SC.LAB.BRZ ordered. EDMS EDMS
--- NOTE | 2024-06-29 15:37 | ER ---
Nurse's Notes [facility] Name: Renea Solano Age: 39 yrs Sex: Female : 1985 Arrival Date: 06/29/2024 Time: 14:12 Bed 6 Private MD: Diagnosis: Strain of muscle, fascia and tendon at neck level Presentation: 06/29 14:25 Chief complaint: Patient states: she has been having left sided neck pain that started ap3 approx one week ago. Patient reports that her "lymph nodes are swelling and the pain is radiating into the outer part of her upper chest." patient states she was evaluated at other facilities, but that her symptoms are not improving. patient currently rates her pain as a 6/10 on the pain scale. Coronavirus screen: At this time, the client does not indicate any symptoms associated with coronavirus-19. Ebola Screen: No symptoms or risks identified at this time. Initial Sepsis Screen: Does the patient meet any 2 criteria? HR > 90 bpm. Does the patient have a suspected source of infection? No. Patient's initial sepsis screen is negative. Risk Assessment: Do you want to hurt yourself or someone else? Patient reports no desire to harm self or others. Onset of symptoms was June 22, 2024. 14:25 Method Of Arrival: Ambulatory ap3 14:25 Acuity: ROSMERY 3 ap3 Triage Assessment: 14:30 General: Appears in no apparent distress. Behavior is calm, cooperative, appropriate ap3 for age. Pain: Complains of pain in neck Pain radiates to left supraclavicular area, left clavicle and anterior aspect of left upper chest Pain currently is 6 out of 10 on a pain scale. EENT: Reports pain when swallowing. Neuro: Level of Consciousness is awake, alert, obeys commands, Oriented to person, place, time, situation, Appropriate for age. Cardiovascular: Patient's skin is warm and dry. Respiratory: Airway is patent Respiratory effort is even, unlabored, Respiratory pattern is regular, symmetrical. Historical: - Allergies: 14:29 Aspirin; ap3 14:29 egg; ap3 14:29 Ibuprofen; ap3 14:29 Milk; ap3 14:29 NSAIDS (Non-Steroidal Anti-Inflammatory Drug); ap3 14:29 Toradol; (flush; ap3 14:29 tree nut; ap3 14:29 wheat; ap3 - PMHx: 14:29 Hypertension; restless leg syndrome; ap3 - PSHx: 14:29 endometriosis sx x4; partial hysterectomy; throat sx; ap3 - Immunization history:: Client reports having NOT received the Covid vaccine. Flu vaccine is not up to date. - Infectious Disease History:: Denies. - Social history:: Smoking status: Patient denies any tobacco usage or history of. Screenin:30 [facility] ED Fall Risk Assessment (Adult) History of falling in the last 3 months, ap3 including since admission No falls in past 3 months (0 pts) Confusion or Disorientation No (0 pts) Intoxicated or Sedated No (0 pts) Impaired Gait No (0 pts) Mobility Assist Device Used No (0 pt) Altered Elimination No (0 pt) Score/Fall Risk Level 0 - 2 = Low Risk Oriented to surroundings, Maintained a safe environment, Educated pt \\T\\ family on fall prevention, incl call for assistance when getting out of bed, Assessed \\T\\ reinforced patient's understanding of fall precautions, Hourly rounding (assess needs \\T\\ fall precautionary measures) done, Used ambulatory aids as needed (educated on \\T\\ assisted with). Abuse screen: Denies threats or abuse. Nutritional screening: No deficits noted. Tuberculosis screening: No symptoms or risk factors identified. Assessment: 15:57 Reassessment: Patient appears in no apparent distress at this time. No changes from ld1 previously documented assessment. Patient and/or family updated on plan of care and expected duration. Pain level reassessed. Patient is alert, oriented x 3, equal unlabored respirations, skin warm/dry/pink. 15:57 Reassessment: Pt c/o nausea. Notified ERP. See MAR for orders. ld1 Vital Signs: 14:25 BP 155 / 99; Pulse 97; Resp 18; Temp 97.7(O); Pulse Ox 100% ; Weight 58.97 kg; Height 5 ap3 ft. 9 in. ; Pain 6/10; 15:58 BP 135 / 93; Pulse 84; Resp 18; Pulse Ox 100% on R/A; ld1 14:25 Body Mass Index 19.20 (58.97 kg, 175.26 cm) ap3 14:25 Pain Scale: Adult ap3 ED Course: 14:13 Patient arrived in ED. mr 14:14 Sofie Sauer FNP-C is [facility]. kb 14:14 Vidal Zhu MD is Attending Physician. kb 14:29 Triage completed. ap3 14:31 Chidi Jones, RAZA is Primary Nurse. bp 14:31 Arm band placed on right wrist. ap3 14:36 Initial lab(s) drawn, by me, sent to lab. Inserted saline lock: 20 gauge in right bp antecubital area, using aseptic technique. Blood collected. Flushed with 10 mL NS. 15:12 CT Soft Tissue Neck W/contr In Process Unspecified. EDMS 15:58 Patient has correct armband on for positive identification. Placed in gown. Bed in low ld1 position. Call light in reach. Side rails up X2. traffic monitor specialist on. Pulse ox on. NIBP on. Door closed. Noise minimized. Warm blanket given. 15:58 No provider procedures requiring assistance completed. IV discontinued, intact, ld1 bleeding controlled, No redness/swelling at site. Administered Medications: 14:40 Drug: NS 0.9% IV 1000 ml IV at 1000 ml once; to be given as a bolus over 60 minutes ld1 Route: IV; Rate: 1000 ml; Site: right antecubital; 14:40 Drug: Ondansetron IVP 4 mg IVP once; over 2 minutes Route: IVP; Site: right antecubital;ld1 14:40 Drug: Ketorolac IVP 15 mg IVP once Route: IVP; Site: right antecubital; ld1 14:40 Drug: Decadron - Dexamethasone IVP 10 mg IVP once Route: IVP; Site: right antecubital; ld1 15:55 Drug: Ondansetron IVP 4 mg IVP once; over 2 minutes Route: IVP; Site: right antecubital;ld1 Medication: 14:31 VIS not applicable for this client. ap3 Outcome: 15:36 Discharge ordered by . kb 15:58 Discharged to home ambulatory, ld1 15:58 Condition: stable 15:58 Discharge instructions given to patient, Instructed on discharge instructions, follow up and referral plans. medication usage, Demonstrated understanding of instructions, follow-up care, medications, Prescriptions given X 2, 15:59 Patient left the ED. ld1 Signatures: Dispatcher [employer] EDMS Sofie Sauer FNP-C FNP-Ny Herrera, Reg Reg mr Chidi Jones, RN RN bp Eva Garcia, RN RN ap3 Anjelica Lynch, RN RN ld1
[2024-06-29 16:03] VITALS: TEMP 97.7; O2SAT 100
[2024-06-29 16:05] VITALS: BP 135/93
== END 2024-06-29 15:59 | disposition home or self-care (01) ==
LOC: ER 14:12
DX: S16.1XXA Strain of muscle, fascia and tendon at neck level, initial encounter (principal); I10 Essential (primary) hypertension; R07.9 Chest pain, unspecified; R11.0 Nausea
CPT/HCPCS: 85025; 36415; 86308; 84703; 80053; 70491; Q9967; J1100; J2405 ×2; J7030; 96374; 96375; 99285